=== PATIENT | female | born 1950 | race Caucasian/White ===

== ENCOUNTER → 2019-08-15 10:40 | Outpatient (BNVA) | payer MEDICARE, MEDICAID, SELFPAY | PROVIDERS: Family Provider Nurse Practitioner Family; PCP Nurse Practitioner Family; Visit Provider Social Worker Clinical | DX: F43.12 Post-traumatic stress disorder, chronic (principal) | CPT/HCPCS: 90834; H0004 ==

== ENCOUNTER → 2019-08-21 13:11 | Outpatient (BNVA) | payer MEDICARE, MEDICAID, SELFPAY | PROVIDERS: Family Provider Nurse Practitioner Family; PCP Nurse Practitioner Family; Visit Provider Social Worker Clinical | DX: F43.12 Post-traumatic stress disorder, chronic (principal) | CPT/HCPCS: 90834 ==

== ENCOUNTER → 2019-08-29 10:54 | Outpatient (BNVA) | payer MEDICARE, MEDICAID, SELFPAY | PROVIDERS: Family Provider Nurse Practitioner Family; PCP Nurse Practitioner Family; Visit Provider Social Worker Clinical | DX: F43.12 Post-traumatic stress disorder, chronic (principal); F33.2 Major depressive disorder, recurrent severe without psychotic features | CPT/HCPCS: 90791; 80048; 84443 ==

== ENCOUNTER → 2019-09-04 08:01 | Outpatient (BNVA) | payer MEDICARE, MEDICAID, SELFPAY | PROVIDERS: Family Provider Nurse Practitioner Family; PCP Nurse Practitioner Family; Visit Provider Nurse Practitioner | DX: F33.2 Major depressive disorder, recurrent severe without psychotic features (principal); F43.12 Post-traumatic stress disorder, chronic | CPT/HCPCS: 99214 ==

== ENCOUNTER → 2019-09-12 10:28 | Outpatient (BNVA) | payer MEDICARE, MEDICAID, SELFPAY | PROVIDERS: Family Provider Nurse Practitioner Family; PCP Nurse Practitioner Family; Visit Provider Social Worker Clinical | DX: F43.12 Post-traumatic stress disorder, chronic (principal) | CPT/HCPCS: 90834 ==

== ENCOUNTER → 2019-09-19 10:38 | Outpatient (BNVA) | payer MEDICARE, MEDICAID, SELFPAY | PROVIDERS: Family Provider Nurse Practitioner Family; PCP Nurse Practitioner Family; Visit Provider Social Worker Clinical | DX: F33.2 Major depressive disorder, recurrent severe without psychotic features (principal); F43.12 Post-traumatic stress disorder, chronic | CPT/HCPCS: 90834 ==

== ENCOUNTER → 2019-09-26 07:37 | Outpatient (BNVA) | payer MEDICARE, MEDICAID, SELFPAY | PROVIDERS: Family Provider Nurse Practitioner Family; PCP Nurse Practitioner Family; Visit Provider Social Worker Clinical | DX: F43.12 Post-traumatic stress disorder, chronic (principal); F33.2 Major depressive disorder, recurrent severe without psychotic features | CPT/HCPCS: 90834 ==

== ENCOUNTER → 2019-10-03 11:24 | Outpatient (BNVA) | payer MEDICARE, MEDICAID, SELFPAY | PROVIDERS: Family Provider Nurse Practitioner Family; PCP Nurse Practitioner Family; Visit Provider Nurse Practitioner Family | DX: I10 Essential (primary) hypertension (principal); R73.09 Other abnormal glucose | CPT/HCPCS: 83036 ==

== ENCOUNTER → 2019-10-04 13:15 | Outpatient (BNVA) | payer MEDICARE, MEDICAID, SELFPAY | PROVIDERS: Family Provider Nurse Practitioner Family; PCP Nurse Practitioner Family; Visit Provider Social Worker Clinical | DX: F43.12 Post-traumatic stress disorder, chronic (principal) | CPT/HCPCS: 90834 ==

== ENCOUNTER → 2019-10-11 07:57 | Outpatient (BNVA) | payer MEDICARE, MEDICAID, SELFPAY | PROVIDERS: Family Provider Nurse Practitioner Family; PCP Nurse Practitioner Family; Visit Provider Social Worker Clinical | DX: F43.12 Post-traumatic stress disorder, chronic (principal); F33.2 Major depressive disorder, recurrent severe without psychotic features | CPT/HCPCS: 90834 ==

== ENCOUNTER → 2019-10-18 07:43 | Outpatient (BNVA) | payer MEDICARE, MEDICAID, SELFPAY | PROVIDERS: Family Provider Nurse Practitioner Family; PCP Nurse Practitioner Family; Visit Provider Social Worker Clinical | DX: F43.12 Post-traumatic stress disorder, chronic (principal); F33.2 Major depressive disorder, recurrent severe without psychotic features | CPT/HCPCS: 90834 ==

== ENCOUNTER 2019-10-18 10:09 | Emergency (ER) | payer MEDICARE, SELFPAY ==
[2019-10-18 10:17] VITALS: BP 186/99; PULSE 89; RESP 17; TEMP 36.6; O2SAT 94; BMI 43.8
--- NOTE | 2019-10-18 10:19 | ED_ITS ---
Entered by Natali Chandler, acting as scribe for Omero Gaming MD HPI - Seizure General: Chief Complaint: Seizure Stated Complaint: doesn't feel well after seizure Time Seen by Provider: 10/18/19 10:20 Source: patient and family Mode of arrival: ambulatory Limitations: no limitations History of Present Illness: HPI Narrative: 69 yo female presents with having a seizure. pt states this started last night. pt states she had a headache before the seizure. pt has a hx of pseudo seizures. pt states she has had weakness. pt denies any other symptoms at this time. complaint: seizure Onset (ago): day(s) (last night) Witnessed: Yes - by Other Seizure History: Yes Place: Home Possible Precipitating Event: none Associated symptoms: Reports weakness and other (headache); Deny chest pain, chills or fever(s) Treatments prior to arrival: none Review of Systems General: Reports: 10 or more systems reviewed and unremarkable except in HPI and below Const: Denies: fever, chills, body aches or change in appetite Eyes: Denies: blurry vision or eye discomfort ENMT: Denies: throat pain or dental pain Card: Denies: chest pain Resp: Denies: shortness of breath GI: Denies: abdominal pain, nausea, vomiting or diarrhea : Denies: painful urination Musc: Denies: neck pain or back pain Skin/Breast: Denies: rash Psych: Denies: depression Francis/Lymph: Denies: easy bruising All/Imm: Denies: hives PFSH ED PFSH: Social History Smoking and tobacco status: never smoked Second hand smoke exposure: No Smoking risk assessment/counseling performed?: No Alcohol intake: never Desire information about alcohol rehabilitation?: No Counseling given: No Desire information about substance/drug rehabilitation?: No Counseling given: No Adopted: No Caregiver/support person: No Lives independently: Yes Household members: spouse Marital status: Current gender identity: Female Physical Exam Const: COMMON NORMALS: no apparent distress, oriented x3 and healthy appearing HENMT: COMMON NORMALS: normocephalic and head/scalp atraumatic HEAD & SCALP: normocephalic and atraumatic Eye: COMMON NORMALS: PERRL and EOMs intact bilaterally PUPIL: Yes PERRL Neck/C-Spine: COMMON NORMALS: full ROM and supple Chest: COMMONS NORMALS: inspection of chest normal and palpation of chest normal Resp: COMMON NORMALS: normal respiratory effort, no retractions, no use of accessory muscles and clear to auscultation bilaterally AUSCULTATION: clear to auscultation bilaterally Cardio: COMMON NORMALS: regular rate, regular rhythm and no murmurs RATE: regular rate RHYTHM: regular rhythm GI: COMMON NORMALS: normal to inspection, nondistended, normoactive bowel sounds, soft to palpation, non-tender and no masses PALPATION: Yes soft Extremity: COMMON NORMALS: normal to inspection and full ROM Neuro: COMMON NORMALS: oriented x3, moves all extremities and no focal motor deficits Psych: COMMON NORMALS: mental status grossly normal, thought process normal and cooperative THOUGHT PROCESS: normal thought process Skin: COMMON NORMALS: no rashes or lesions noted and no wounds GENERAL SKIN EXAM: no rashes or lesions noted Course Vital Signs: Vital signs: Vital Signs Temperature 97.8 F 10/18/19 10:17 Pulse Rate 89 10/18/19 10:17 Respiratory Rate 16 10/18/19 10:28 Blood Pressure 186/99 10/18/19 10:17 Pulse Oximetry 94 10/18/19 10:17 MDM - Seizure MDM Narrative: Medical decision making narrative: Patient presents here with seizure that happened last night. Patient does have a history of seizures but had not had one in quite a while. Patient's head CT here is negative and lab work is negative as well. Patient is stable for discharge and is to follow-up with primary care doctor in 3 to 5 days and return if worsening. Lab Data: Labs: Lab Results 10/18/19 10/18/19 Range/Units 10:33 10:33 WBC 7.3 (4.0-10.0) 10^3/ uL RBC 5.34 H (4.1-5.3) 10^6/u L Hgb 13.7 (11.5-15.3) g/dL Hct 43.6 (37.0-47.0) % MCV 81.6 (81-99) fL MCH 25.7 L (28.0-34.0) pg MCHC 31.4 (30.0-36.0) g/dL RDW 13.1 (12.1-15.1) % Plt Count 249 (130-400) 10^3/c mm MPV 10.0 (7.4-10.4) fL Neut % (Auto) 69.9 % Lymph % (Auto) 22.2 % Toombs % (Auto) 4.8 % Eos % (Auto) 2.2 % Baso % (Auto) 0.6 % Neut # (Auto) 5.1 (1.8-7.7) 10^3/u L Lymph # (Auto) 1.6 (0.8-4.8) 10^3/u L Toombs # (Auto) 0.4 (0.2-0.9) 10^3/u L Eos # (Auto) 0.2 (0.0-0.8) 10^3/u L Baso # (Auto) 0.0 (0.0-0.1) 10^3/u L Nucleated RBC % (a uto) 0 % Nucleated RBCs # 0.0 /100WBC Sodium 142 (136-145) mmol/L Potassium 4.0 (3.5-5.1) mmol/L Chloride 103 (98-107) mmol/L Carbon Dioxide 30 H (22-29) mmol/L Anion Gap 13.0 (5-19) BUN 15 (8-23) mg/dL Creatinine 1.0 H (0.5-0.9) mg/dL GFR Calculation 55.3 L (90-130) mL/min Glucose 158 H (65-115) mg/dL Calculated Osmolal ity 294 (285-295) mOsm/k g Calcium 10.1 (8.5-10.5) mg/dL Imaging Data^: CT Head: Radiologist's impression: [place] [address] CT Scan Report Signed Patient: Adilene Freedman Unit #: [id number] : 1950 Age/Sex: 69 / F ADM Date: 10/18/19 Loc: ER Room/Bed: Attending Dr: Ordering Provider/Ordering MD: Omero Gaming MD Date of Service: 10/18/19 Procedure(s): CT head wo con* [id number] Accession Number(s): [id number] Report Number: [id number] PROCEDURE INFORMATION: Exam: CT Head Without Contrast Exam date and time: 10/18/2019 11:00 AM Age: 69 years old Clinical indication: Patient HX: Seizure activity today. C/O dizziness TECHNIQUE: Imaging protocol: Computed tomography of the head without contrast. Total DLP: 823.82 mGy-cm Radiation optimization: All CT scans at this facility use at least one of these dose optimization techniques: automated exposure control; mA and/or kV adjustment per patient size (includes targeted exams where dose is matched to clinical indication); or iterative reconstruction. COMPARISON: CT head wo con* [id number] 07/29/2013 12:01 PM FINDINGS: Brain: There is no acute intracranial hemorrhage or mass effect. Mild diffuse volume loss is within the range of normal for patient age. There are small vessel ischemic changes within the periventricular and subcortical white matter, but the normal dennis/white matter delineation is maintained. Ventricles: Normal. No ventriculomegaly. Bones/joints: Unremarkable. No acute fracture. Sinuses: Visualized sinuses are unremarkable. No fluid levels. Mastoid air cells: Visualized mastoid air cells are well aerated. Soft tissues: Unremarkable. CT/CT head wo con* [id number] IMPRESSION: No acute hemorrhage or edema. Discharge Plan Discharge Patient Disposition: Home, Self-Care Clinical Impression: Generalized seizure Condition: Stable Prescriptions: No Action valsartan-hydrochlorothiazide 160-12.5 mg tablet 1 tab PO DAILY RF: 0 spironolactone 25 mg tablet 25 mg PO DAILY RF: 0 aspirin 81 mg tablet,delayed release (DR/EC) 81 mg PO DAILY RF: 0 albuterol sulfate 90 mcg/actuation HFA aerosol inhaler 2 puff INHALATION Q6H PRNRF: 0 metoprolol tartrate 25 mg tablet 25 mg PO BID RF: 0 zafirlukast [Accolate] 20 mg tablet 20 mg PO Q12H RF: 0 albuterol sulfate [ProAir HFA] 90 mcg/actuation HFA aerosol inhaler 2 puff INHALATION Q6H PRNRF: 0 duloxetine [Cymbalta] 60 mg capsule,delayed release(DR/EC) 60 mg PO BID Qty: 60 RF: 1 escitalopram oxalate [Lexapro] 20 mg tablet 20 mg PO DAILY Qty: 30 RF: 1 trazodone 150 mg tablet 300 mg PO .at bed Qty: 60 RF: 1 ropinirole 1 mg tablet 1 mg PO BID Qty: 60 RF: 1 hydroxyzine HCl 50 mg tablet 50 mg PO .at bed Qty: 30 RF: 1 prazosin 1 mg capsule 1 mg PO .HS Qty: 30 RF: 1 trazodone 150 mg tablet See Rx Instructions PO .COMPLEX PRN (Reason: sleep) RF: 0 albuterol sulfate 0.63 mg/3 mL solution for nebulization 0.63 mg INHALATION QID PRN (Reason: shortness of breath or wheezing) Qty: 90 RF: 1 meloxicam 15 mg tablet 15 mg PO DAILY Qty: 30 RF: 1 esomeprazole magnesium [Nexium] 40 mg capsule,delayed release(DR/EC) 40 mg PO DAILY Qty: 90 RF: 0 amlodipine 10 mg tablet 10 mg PO DAILY Qty: 90 RF: 0 levothyroxine 150 mcg capsule 150 mcg PO DAILY Qty: 90 RF: 0 potassium chloride 20 mEq tablet extended release 20 meq PO TID Qty: 270 RF: 0 furosemide 40 mg tablet 40 mg PO BID Qty: 180 RF: 0 Discharge Orders: Discharge Order (Routine); Ordered 10/18/19 Ordered By: Omero Gaming Referrals: Zoraida Arzola FNP [Primary Care Provider] - Discharge Diet: Advance as tolerated Discharge Activity: Resume usual activity Patient Instructions: Recurrent Seizures Adult (ED) Coding Level of Care Code ED Certified Surgical Technician for Chg Fwd Exam Comprehensive The documentation recorded by the Ramesh chu Bridget Annette, accurately reflects the service I personally performed and the decisions made by Amberly francois Korby, MD
[2019-10-18 10:26] VITALS: RESP 16
--- NOTE | 2019-10-18 10:26 | CTR_ITS ---
PROCEDURE INFORMATION: Exam: CT Head Without Contrast Exam date and time: 10/18/2019 11:00 AM Age: 69 years old Clinical indication: Patient HX: Seizure activity today. C/O dizziness TECHNIQUE: Imaging protocol: Computed tomography of the head without contrast. Total DLP: 823.82 mGy-cm Radiation optimization: All CT scans at this facility use at least one of these dose optimization techniques: automated exposure control; mA and/or kV adjustment per patient size (includes targeted exams where dose is matched to clinical indication); or iterative reconstruction. COMPARISON: CT head wo con* [id number] 07/29/2013 12:01 PM FINDINGS: Brain: There is no acute intracranial hemorrhage or mass effect. Mild diffuse volume loss is within the range of normal for patient age. There are small vessel ischemic changes within the periventricular and subcortical white matter, but the normal dennis/white matter delineation is maintained. Ventricles: Normal. No ventriculomegaly. Bones/joints: Unremarkable. No acute fracture. Sinuses: Visualized sinuses are unremarkable. No fluid levels. Mastoid air cells: Visualized mastoid air cells are well aerated. Soft tissues: Unremarkable. CT/CT head wo con* [id number] IMPRESSION: No acute hemorrhage or edema. Radiation Dose CTDIVOL = (mGy): DLP = 823.82 (mGy-cm)
[2019-10-18 10:28] VITALS: RESP 16
[2019-10-18] MEDS: diphenhydrAMINE 50 mg/mL SDV 1mL 25 MG IVP (10:39)
[2019-10-18] MEDS: sodium chloride 0.9% 1,000 ML 999 ML IV (10:39)
[2019-10-18] MEDS: metoclopramide 5 mg/mL SDV 2 mL IVP (10:39)
[2019-10-18 10:46] LABS: Basophils % 0.6 %; Eosinophils # 0.2 10^3/uL (0.0-0.8); Eosinophils % 2.2 %; Hematocrit 43.6 % (37.0-47.0); Hemoglobin 13.7 g/dL (11.5-15.3); Lymphocytes # 1.6 10^3/uL (0.8-4.8); Lymphocytes % 22.2 %; Mean Corpuscular HGB Conc 31.4 g/dL (30.0-36.0); Mean Corpuscular Hemoglobin 25.7 pg (28.0-34.0); Mean Corpuscular Volume 81.6 fL (81-99); Monocytes # 0.4 10^3/uL (0.2-0.9); Monocytes % 4.8 %; Neutrophils # 5.1 10^3/uL (1.8-7.7); Neutrophils % 69.9 %; Nucleated Red Blood Cells % 0 %; Platelet Count 249 10^3/cmm (130-400); Red Blood Count 5.34 10^6/uL (4.1-5.3); Red Cell Distribution Width 13.1 % (12.1-15.1); White Blood Count 7.3 10^3/uL (4.0-10.0)
[2019-10-18 11:01] LABS: Blood Urea Nitrogen 15 mg/dL (8-23); Calcium 10.1 mg/dL (8.5-10.5); Carbon Dioxide 30 mmol/L (22-29); Chloride 103 mmol/L (98-107); Glomerular Filtration Rate 55.3 mL/min (90-130); Glucose 158 mg/dL (65-115); Osmolality Calculated 294 mOsm/kg (285-295); Sodium 142 mmol/L (136-145)
[2019-10-18 12:19] VITALS: BP 177/90; PULSE 61; RESP 16; O2SAT 95
== END 2019-10-18 12:19 | disposition home or self-care (01) ==
LOC: ER 12:13
PROVIDERS: Emergency Provider Emergency Medicine; Family Provider Nurse Practitioner Family; PCP Nurse Practitioner Family
DX: G40.409 Other generalized epilepsy and epileptic syndromes, not intractable, without status epilepticus (principal)
CPT/HCPCS: 12345; 70450; 80048; 85025; 96361; 96374; 96375; 99283; J1200; J2765; J7030

== ENCOUNTER → 2019-10-22 07:36 | Outpatient (BNVA) | payer MEDICARE, MEDICAID, SELFPAY | PROVIDERS: Family Provider Nurse Practitioner Family; PCP Nurse Practitioner Family; Visit Provider Nurse Practitioner | DX: F43.12 Post-traumatic stress disorder, chronic (principal); F33.2 Major depressive disorder, recurrent severe without psychotic features | CPT/HCPCS: 99213 ==

== ENCOUNTER → 2019-10-25 08:15 | Outpatient (BNVA) | payer MEDICARE, MEDICAID, SELFPAY | PROVIDERS: Family Provider Nurse Practitioner Family; PCP Nurse Practitioner Family; Visit Provider Social Worker Clinical | DX: F43.12 Post-traumatic stress disorder, chronic (principal) | CPT/HCPCS: 90832 ==

== ENCOUNTER → 2019-11-06 09:17 | Outpatient (BNVA) | payer MEDICARE, MEDICAID, SELFPAY | PROVIDERS: Family Provider Nurse Practitioner Family; PCP Nurse Practitioner Family; Visit Provider Social Worker Clinical | DX: F43.12 Post-traumatic stress disorder, chronic (principal); F33.2 Major depressive disorder, recurrent severe without psychotic features | CPT/HCPCS: 90832; 90834 ==

== ENCOUNTER → 2019-11-16 07:46 | Outpatient (BNVA) | payer MEDICARE, MEDICAID, SELFPAY | PROVIDERS: Family Provider Nurse Practitioner Family; PCP Nurse Practitioner Family; Visit Provider Social Worker Clinical | DX: F33.2 Major depressive disorder, recurrent severe without psychotic features (principal); F43.12 Post-traumatic stress disorder, chronic | CPT/HCPCS: 90832 ==

== ENCOUNTER → 2019-12-17 07:47 | Outpatient (BNVA) | payer MEDICARE, MEDICAID, SELFPAY | PROVIDERS: Family Provider Nurse Practitioner Family; PCP Nurse Practitioner Family; Visit Provider Nurse Practitioner | DX: F43.12 Post-traumatic stress disorder, chronic (principal); F33.2 Major depressive disorder, recurrent severe without psychotic features | CPT/HCPCS: 99213 ==

== ENCOUNTER → 2019-12-18 08:13 | Outpatient (BNVA) | payer MEDICARE, MEDICAID, SELFPAY | PROVIDERS: Family Provider Nurse Practitioner Family; PCP Nurse Practitioner Family; Visit Provider Social Worker Clinical | DX: F43.12 Post-traumatic stress disorder, chronic (principal); F33.2 Major depressive disorder, recurrent severe without psychotic features | CPT/HCPCS: 90832 ==

== ENCOUNTER → 2019-12-25 08:15 | Outpatient (BNVA) | payer MEDICARE, MEDICAID, SELFPAY | PROVIDERS: Family Provider Nurse Practitioner Family; PCP Nurse Practitioner Family; Visit Provider Social Worker Clinical | DX: F33.2 Major depressive disorder, recurrent severe without psychotic features (principal); F43.12 Post-traumatic stress disorder, chronic | CPT/HCPCS: 90834 ==

== ENCOUNTER → 2020-01-01 07:55 | Outpatient (BNVA) | payer MEDICARE, MEDICAID, SELFPAY | PROVIDERS: Family Provider Nurse Practitioner Family; PCP Nurse Practitioner Family; Visit Provider Social Worker Clinical | DX: F43.12 Post-traumatic stress disorder, chronic (principal); F33.2 Major depressive disorder, recurrent severe without psychotic features | CPT/HCPCS: 90832 ==

== ENCOUNTER → 2020-01-10 10:36 | Outpatient (BNVA) | payer MEDICARE, MEDICAID, SELFPAY | PROVIDERS: Family Provider Nurse Practitioner Family; PCP Nurse Practitioner Family; Visit Provider Specialist | DX: G40.909 Epilepsy, unspecified, not intractable, without status epilepticus (principal); F43.12 Post-traumatic stress disorder, chronic; F33.2 Major depressive disorder, recurrent severe without psychotic features; M19.90 Unspecified osteoarthritis, unspecified site | CPT/HCPCS: 99204 ==

== ENCOUNTER → 2020-01-14 07:50 | Outpatient (BNVA) | payer MEDICARE, MEDICAID, SELFPAY | PROVIDERS: Family Provider Nurse Practitioner Family; PCP Nurse Practitioner Family; Visit Provider Social Worker Clinical | DX: F43.12 Post-traumatic stress disorder, chronic (principal); F33.2 Major depressive disorder, recurrent severe without psychotic features | CPT/HCPCS: 90834 ==

== ENCOUNTER → 2020-01-15 09:56 | Outpatient (BNVA) | payer MEDICARE, MEDICAID, SELFPAY | PROVIDERS: Family Provider Nurse Practitioner Family; PCP Nurse Practitioner Family; Visit Provider Nurse Practitioner Family | DX: M25.50 Pain in unspecified joint (principal); R53.83 Other fatigue; Z79.899 Other long term (current) drug therapy; E03.9 Hypothyroidism, unspecified; M19.90 Unspecified osteoarthritis, unspecified site | CPT/HCPCS: 80053; 84443; 85025; 85651; 86038; 86431 ==

== ENCOUNTER 2020-01-21 07:13 | Outpatient (CLI) | payer MEDICARE, MEDICAID, SELFPAY ==
--- NOTE | 2020-01-21 07:19 | XR_ITS ---
WS: [id number] RIGHT KNEE: 3 VIEW(S) TECHNIQUE: AP, oblique(s) and lateral. HISTORY: knee pain COMPARISON: 12/20/2016 No fracture or dislocation. Moderate narrowing of the medial compartment. Subchondral cystic changes with joint space narrowing. Medial and lateral osteophytes. Small suprapatellar joint effusion. No soft tissue abnormality. XR/XR knee RT 3V* [id number] IMPRESSION: 1. Moderate osteoarthritis medial compartment with mild progression since 2017 . 2. Mild osteoarthritis lateral compartment.
== END 2020-01-21 07:14 | disposition home or self-care (01) ==
LOC: RAD 07:16
PROVIDERS: PCP Nurse Practitioner Family; Visit Provider Nurse Practitioner Family
DX: F43.12 Post-traumatic stress disorder, chronic (principal); F33.2 Major depressive disorder, recurrent severe without psychotic features
CPT/HCPCS: 90834; 73562

== ENCOUNTER → 2020-01-28 07:52 | Outpatient (BNVA) | payer MEDICARE, MEDICAID, SELFPAY | PROVIDERS: PCP Nurse Practitioner Family; Visit Provider Social Worker Clinical | DX: F43.12 Post-traumatic stress disorder, chronic (principal); F33.2 Major depressive disorder, recurrent severe without psychotic features | CPT/HCPCS: 90834; 95816 ==

== ENCOUNTER → 2020-02-04 07:54 | Outpatient (BNVA) | payer MEDICARE, MEDICAID, SELFPAY | PROVIDERS: PCP Nurse Practitioner Family; Visit Provider Social Worker Clinical | DX: F43.12 Post-traumatic stress disorder, chronic (principal); F33.2 Major depressive disorder, recurrent severe without psychotic features | CPT/HCPCS: 90834 ==

== ENCOUNTER → 2020-02-05 07:42 | Outpatient (BNVA) | payer MEDICARE, MEDICAID, SELFPAY | PROVIDERS: PCP Nurse Practitioner Family; Visit Provider Nurse Practitioner | DX: F43.12 Post-traumatic stress disorder, chronic (principal); F33.2 Major depressive disorder, recurrent severe without psychotic features; F41.1 Generalized anxiety disorder | CPT/HCPCS: 99213 ==

== ENCOUNTER 2020-02-08 14:28 | Outpatient (CLI) | payer MEDICARE, MEDICAID, SELFPAY ==
--- NOTE | 2020-02-08 16:00 | MR_ITS ---
WS: [id number] MRI RIGHT KNEE HISTORY: M25.569 Pain in unspecified knee COMPARISON: 01/21/2020 radiographs Anterior cruciate ligament: Mild increased signal in the distal ligament. There is mild encroachment due to narrowing of the joint space. Partial tear suspected. No full-thickness tear. Posterior cruciate ligament: Intact. Medial collateral ligament: Small amount of fluid on both sides of the medial collateral ligament. Posterior lateral corner structures: Intact. Medial menisci: Posterior horn is small caliber with abnormal shape. Partially extruded anterior horn . Lateral meniscus: Intact. Normal signal, size and shape. Extensor mechanism: Distal quadriceps tendon and patellar tendons are intact. Fluid and soft tissue: Small suprapatellar joint effusion. There is mild soft tissue edema surroundin g the knee. Moderate-sized Villasenor's cyst extends over a length of 7.2 cm. Osseous and articular structures: Patellofemoral compartment: Mild narrowing of the patellofemoral joint space with loss of cartilage. Complete loss of cartilage. No marrow edema. Medial compartment: Marked narrowing medial compartment with loss of cartilage. Osteophytes from the margin of the joint space with subchondral cystic changes. Partially excluded meniscus and osteophyte s contact the MCL. Lateral compartment: Moderate narrowing of the lateral compartment with loss of cartilage. No marrow edema. MR/MR knee RT wo con* [id number] IMPRESSION: 1. Moderate tricompartment internal derangement. 2. Complete loss of cartilage in the medial and lateral compartments. 3. Extruded medial meniscus and osteophytes contact the MCL. 4. Partially torn distal ACL is suspected. No complete tear. 5. Complex tear posterior horn medial meniscus. 6. Small suprapatellar effusion and moderate-sized Villasenor's cyst.
== END 2020-02-08 14:29 | disposition home or self-care (01) ==
LOC: RADSHAW 14:34
PROVIDERS: PCP Nurse Practitioner Family; Visit Provider Nurse Practitioner Family
DX: G89.29 Other chronic pain (principal); S83.241A Other tear of medial meniscus, current injury, right knee, initial encounter; X58.XXXA Exposure to other specified factors, initial encounter; M25.461 Effusion, right knee; M71.21 Synovial cyst of popliteal space [Baker], right knee
CPT/HCPCS: 73721

== ENCOUNTER → 2020-02-12 08:29 | Outpatient (BNVA) | payer MEDICARE, MEDICAID, SELFPAY | PROVIDERS: PCP Nurse Practitioner Family; Visit Provider Social Worker Clinical | DX: F33.2 Major depressive disorder, recurrent severe without psychotic features (principal); F43.12 Post-traumatic stress disorder, chronic | CPT/HCPCS: 90834 ==

== ENCOUNTER → 2020-02-25 07:53 | Outpatient (BNVA) | payer MEDICARE, MEDICAID, SELFPAY | PROVIDERS: PCP Nurse Practitioner Family; Visit Provider Social Worker Clinical | DX: F33.2 Major depressive disorder, recurrent severe without psychotic features (principal); F43.12 Post-traumatic stress disorder, chronic | CPT/HCPCS: 90834 ==

== ENCOUNTER → 2020-02-27 09:28 | Outpatient (BNVA) | payer MEDICARE, MEDICAID, SELFPAY | PROVIDERS: PCP Nurse Practitioner Family; Visit Provider Nurse Practitioner Family | DX: R73.09 Other abnormal glucose (principal); J32.9 Chronic sinusitis, unspecified; R73.9 Hyperglycemia, unspecified | CPT/HCPCS: 83036 ==

== ENCOUNTER → 2020-03-05 08:13 | Outpatient (BNVA) | payer MEDICARE, MEDICAID, SELFPAY | PROVIDERS: PCP Nurse Practitioner Family; Visit Provider Social Worker Clinical | DX: F33.2 Major depressive disorder, recurrent severe without psychotic features (principal); F43.12 Post-traumatic stress disorder, chronic | CPT/HCPCS: 90832 ==

== ENCOUNTER → 2020-03-11 08:28 | Outpatient (BNVA) | payer MEDICARE, MEDICAID, SELFPAY | PROVIDERS: PCP Nurse Practitioner Family; Visit Provider Social Worker Clinical | DX: F33.2 Major depressive disorder, recurrent severe without psychotic features (principal); F43.12 Post-traumatic stress disorder, chronic | CPT/HCPCS: 90834 ==

== ENCOUNTER → 2020-03-17 09:10 | Outpatient (BNVA) | payer MEDICARE, MEDICAID, SELFPAY | PROVIDERS: PCP Nurse Practitioner Family; Visit Provider Social Worker Clinical | DX: F43.12 Post-traumatic stress disorder, chronic (principal); F33.2 Major depressive disorder, recurrent severe without psychotic features | CPT/HCPCS: 90834 ==

== ENCOUNTER → 2020-03-20 09:40 | Outpatient (BNVA) | payer MEDICARE, MEDICAID, SELFPAY | PROVIDERS: PCP Nurse Practitioner Family; Visit Provider Nurse Practitioner Family | DX: I50.9 Heart failure, unspecified (principal); M79.89 Other specified soft tissue disorders | CPT/HCPCS: 80048; 83880 ==

== ENCOUNTER → 2020-03-25 08:45 | Outpatient (BNVA) | payer MEDICARE, MEDICAID, SELFPAY | PROVIDERS: PCP Nurse Practitioner Family; Visit Provider Social Worker Clinical | DX: F33.2 Major depressive disorder, recurrent severe without psychotic features (principal); F43.12 Post-traumatic stress disorder, chronic | CPT/HCPCS: 90832 ==

== ENCOUNTER → 2020-04-01 08:35 | Outpatient (BNVA) | payer MEDICARE, MEDICAID, SELFPAY | PROVIDERS: PCP Nurse Practitioner Family; Visit Provider Social Worker Clinical | DX: F43.12 Post-traumatic stress disorder, chronic (principal); F33.2 Major depressive disorder, recurrent severe without psychotic features | CPT/HCPCS: 90832 ==

== ENCOUNTER → 2020-04-04 07:35 | Outpatient (BNVA) | payer MEDICARE, MEDICAID, SELFPAY | PROVIDERS: PCP Nurse Practitioner Family; Visit Provider Nurse Practitioner | DX: F33.2 Major depressive disorder, recurrent severe without psychotic features (principal); F43.12 Post-traumatic stress disorder, chronic | CPT/HCPCS: 99213 ==

== ENCOUNTER → 2020-04-09 09:12 | Outpatient (BNVA) | payer MEDICARE, MEDICAID, SELFPAY | PROVIDERS: PCP Nurse Practitioner Family; Visit Provider Social Worker Clinical | DX: F33.2 Major depressive disorder, recurrent severe without psychotic features (principal); F43.12 Post-traumatic stress disorder, chronic | CPT/HCPCS: 90832 ==

== ENCOUNTER → 2020-04-11 08:57 | Outpatient (BNVA) | payer MEDICARE, MEDICAID, SELFPAY | PROVIDERS: PCP Nurse Practitioner Family; Visit Provider Internal Medicine | DX: Z11.59 Encounter for screening for other viral diseases (principal) | CPT/HCPCS: 87635 ==

== ENCOUNTER 2020-04-15 08:05 | Day surgery (SDC) | payer MEDICARE, MEDICAID, SELFPAY ==
[2020-04-11 12:39] VITALS: BMI 43.8
[2020-04-15] MEDS: sodium chloride 0.9% 1,000 ML 30 ML IV (08:46)
[2020-04-15 08:47] VITALS: BP 176/70; PULSE 55; RESP 18; TEMP 36.3; O2SAT 99
--- NOTE | 2020-04-15 09:08 | ANES.PREANE2 ---
Pre-Anesthetic Assessment Pre-Anesthetic Assessment: Height/Weight: Height 1.7 m Weight 127.006 kg Temp Pulse Resp BP Pulse Ox 97.4 F L 55 L 18 176/70 99 04/15/20 08:47 04/15/20 08:47 04/15/20 08:47 04/15/20 08:47 04/15/20 08:47 Preop Diagnosis: Dysphagia Proposed Procedure: Operation Date: 04/15/20 09:30 Proposed Procedures p EGD Dilation W/ Balloon 34274 R13.10(Not Applicable) - Heath Selby MD Familial anesthetic complications: NOne Was Beta Kelly taken within 24 hours: Yes Last intake: Intake Last Liquid Date 04/14/20 Last Liquid Time 22:00 Last Solid Date 04/14/20 Social: Social History: No alcohol and No tobacco Exam: Pre-Anes Outpt Exam: alert, oriented x 3, clear to auscultation bilaterally and regular rate & rhythm Airway: Cervical ROM: WNL MP: 3 Dentition: Full Pulmonary: Pulmonary: COPD and Sleep apnea CV/HEM: CV/HEM: CHF and HTN Metabolic: Metabolic: DM, Morbid obesity and Thyroid Neuropsych: Neuropsych: Depression and Seizure Anesthetic Plan: ASA status: 3 Anesthesia: MAC Risk of > 500 ml blood loss (7ml/kg in children): No Meds/Allergies Current Medications: Current Medications Generic Name Dose Route Start Last Admin Trade Name Freq PRN Reason Stop Dose Admin Sodium Chloride 1,000 mls @ 30 ml s/hr 04/15/20 07:30 04/15/20 08:46 Sodium Chloride 0.9% IV 04/16/20 07:29 30 mls/hr .Q24H JOSE Administration PFSH Anesthesia PFSH: Medical History Acute torn meniscus of knee Congestive heart failure Depression HTN (hypertension), benign Hypothyroidism Major depressive disorder, recurrent severe without psychotic features Osteoarthritis Osteoarthritis of right knee Post-traumatic stress disorder, chronic Surgical History H/O colonoscopy 5 yrs ago H/O tubal ligation H/O: hysterectomy History of knee replacement History of repair of rotator cuff right Hx of tonsillectomy Family History Other CAD (coronary artery disease) Cancer Chronic kidney disease (CKD) Diabetes Hypertension Denies family history of Anesthesia complication Bleeding disorder Stroke Social History Smoking and tobacco status: never smoked Second hand smoke exposure: No Smoking risk assessment/counseling performed?: No Alcohol intake: never Desire information about alcohol rehabilitation?: No Counseling given: No Desire information about substance/drug rehabilitation?: No Counseling given: No Adopted: No Caregiver/support person: No Lives independently: Yes Household members: spouse Marital status: History of recent travel: Yes (travels from [facility]) Current gender identity: Female Data Anesthesia Cardiac Studies: No Data to Display
--- NOTE | 2020-04-15 09:14 | W.PM.OPSUD ---
Surgery/Procedure H&P Update DATE OF PROCEDURE: April 15, 2020 DATE H&P PERFORMED: 04/01/20 H&P UPDATE INFORMATION: I have reviewed H&P completed within last 30 days, I have examined patient prior to procedure and No changes to prior documentation PREOP DIAGNOSIS: Dysphagia PLANNED PROCEDURE: Operation Date: 04/15/20 09:30 Proposed Procedures p EGD Dilation W/ Balloon 90625 R13.10(Not Applicable) - Heath Selby MD
--- NOTE | 2020-04-15 10:27 | SUR.OPER ---
balloon dilation used, started at 10mm and slowly increased to 15mm.
[2020-04-15 10:36] VITALS: BP 160/96; PULSE 72; RESP 20; TEMP 36.2; O2SAT 97
--- NOTE | 2020-04-15 10:39 | ANE.PACU2 ---
Inpatient post-anesthesia follow up: Airway intact: Yes Vital signs: Temperature 97.2 F Pulse Rate 72 Respiratory Rate 20 Blood Pressure 160/96 Pulse Oximetry 97 Oxygen Delivery Me thod Nasal Cannula Oxygen Flow Rate 2 Fraction of Inspir ed Oxygen Hydration adequate: Yes Nausea and vomiting: No Pain level: 1
--- NOTE | 2020-04-15 13:26 | ECG_ITS ---
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 Measurements Intervals Christopher Rate: 57 P: 88 OK: 179 QRS: -4 QRSD: 105 T: 20 QT: 451 QTc: 439 Interpretive Statements SINUS BRADYCARDIA VOLTAGE CRITERIA FOR LVH [MEETS CRITERIA IN ONE OF: R(aVL), S(V1), R(V5), R(V5/V6)+S(V1)] Compared to ECG 08/10/2018 11:11:43 Sinus rhythm no longer present Electronically Signed On 04-15-2020 14:57:22 CDT by Jenna Monahan M.D. [email or web address]
== END 2020-04-15 11:18 | disposition home or self-care (01) ==
PROVIDERS: PCP Nurse Practitioner Family; Visit Provider Surgery
DX: R13.10 Dysphagia, unspecified (principal); K29.70 Gastritis, unspecified, without bleeding; J44.9 Chronic obstructive pulmonary disease, unspecified; G47.30 Sleep apnea, unspecified; I11.0 Hypertensive heart disease with heart failure; I50.9 Heart failure, unspecified; E11.9 Type 2 diabetes mellitus without complications; E66.01 Morbid (severe) obesity due to excess calories; Z68.41 Body mass index [BMI] 40.0-44.9, adult; E03.9 Hypothyroidism, unspecified; K21.9 Gastro-esophageal reflux disease without esophagitis; Z79.84 Long term (current) use of oral hypoglycemic drugs; Z88.2 Allergy status to sulfonamides; Z88.0 Allergy status to penicillin
CPT/HCPCS: 12345; 43239; 43249; 88305; 93005; J2704; J7030

== ENCOUNTER → 2020-04-16 08:29 | Outpatient (BNVA) | payer MEDICARE, MEDICAID, SELFPAY | PROVIDERS: PCP Nurse Practitioner Family; Visit Provider Social Worker Clinical | DX: F43.12 Post-traumatic stress disorder, chronic (principal); F33.2 Major depressive disorder, recurrent severe without psychotic features | CPT/HCPCS: 90832 ==

== ENCOUNTER → 2020-04-21 12:18 | Outpatient (BNVA) | payer MEDICARE, MEDICAID, SELFPAY | PROVIDERS: PCP Nurse Practitioner Family; Visit Provider Specialist | DX: F44.5 Conversion disorder with seizures or convulsions (principal); G43.711 Chronic migraine without aura, intractable, with status migrainosus; M17.12 Unilateral primary osteoarthritis, left knee | CPT/HCPCS: 99214 ==

== ENCOUNTER → 2020-04-23 08:41 | Outpatient (BNVA) | payer MEDICARE, MEDICAID, SELFPAY | PROVIDERS: PCP Nurse Practitioner Family; Visit Provider Social Worker Clinical | DX: F33.2 Major depressive disorder, recurrent severe without psychotic features (principal); F43.12 Post-traumatic stress disorder, chronic | CPT/HCPCS: 90832 ==

== ENCOUNTER → 2020-04-24 11:31 | Outpatient (BNVA) | payer MEDICARE, MEDICAID, SELFPAY | PROVIDERS: PCP Nurse Practitioner Family; Visit Provider Nurse Practitioner Family | DX: R05 Cough (principal) | CPT/HCPCS: 87635 ==

== ENCOUNTER → 2020-04-28 08:16 | Outpatient (BNVA) | payer MEDICARE, SELFPAY | PROVIDERS: PCP Nurse Practitioner Family; Visit Provider Social Worker Clinical | DX: F33.2 Major depressive disorder, recurrent severe without psychotic features (principal); F43.12 Post-traumatic stress disorder, chronic | CPT/HCPCS: 90832 ==

== ENCOUNTER → 2020-05-06 08:31 | Outpatient (BNVA) | payer MEDICARE, MEDICAID, SELFPAY | PROVIDERS: PCP Nurse Practitioner Family; Visit Provider Social Worker Clinical | DX: R20.0 Anesthesia of skin (principal); R20.2 Paresthesia of skin; M79.604 Pain in right leg; M79.605 Pain in left leg; M17.12 Unilateral primary osteoarthritis, left knee | CPT/HCPCS: 95909 ==

== ENCOUNTER → 2020-05-13 08:04 | Outpatient (BNVA) | payer MEDICARE, MEDICAID, SELFPAY | PROVIDERS: PCP Nurse Practitioner Family; Visit Provider Social Worker Clinical | DX: F33.2 Major depressive disorder, recurrent severe without psychotic features (principal); F43.12 Post-traumatic stress disorder, chronic | CPT/HCPCS: 90832 ==

== ENCOUNTER → 2020-05-20 08:09 | Outpatient (BNVA) | payer MEDICARE, MEDICAID, SELFPAY | PROVIDERS: Visit Provider Social Worker Clinical | DX: F33.2 Major depressive disorder, recurrent severe without psychotic features (principal); F43.12 Post-traumatic stress disorder, chronic | CPT/HCPCS: 90832 ==

== ENCOUNTER → 2020-05-30 07:42 | Outpatient (BNVA) | payer MEDICARE, MEDICAID, SELFPAY | PROVIDERS: Visit Provider Social Worker Clinical | DX: F43.12 Post-traumatic stress disorder, chronic (principal); F33.2 Major depressive disorder, recurrent severe without psychotic features | CPT/HCPCS: 90834 ==

== ENCOUNTER → 2020-06-11 08:23 | Outpatient (BNVA) | payer MEDICARE, MEDICAID, SELFPAY | PROVIDERS: Visit Provider Social Worker Clinical | DX: F43.12 Post-traumatic stress disorder, chronic (principal); F33.2 Major depressive disorder, recurrent severe without psychotic features | CPT/HCPCS: 90832 ==

== ENCOUNTER → 2020-06-19 08:24 | Outpatient (BNVA) | payer MEDICARE, MEDICAID, SELFPAY | PROVIDERS: Visit Provider Social Worker Clinical | DX: F33.2 Major depressive disorder, recurrent severe without psychotic features (principal); F43.12 Post-traumatic stress disorder, chronic | CPT/HCPCS: 90834 ==

== ENCOUNTER → 2020-07-07 08:22 | Outpatient (BNVA) | payer MEDICARE, MEDICAID, SELFPAY | PROVIDERS: PCP Nurse Practitioner Family; Visit Provider Social Worker Clinical | DX: F33.2 Major depressive disorder, recurrent severe without psychotic features (principal); F43.12 Post-traumatic stress disorder, chronic | CPT/HCPCS: 90832 ==

== ENCOUNTER → 2020-07-09 07:29 | Outpatient (BNVA) | payer MEDICARE, MEDICAID, SELFPAY | PROVIDERS: PCP Nurse Practitioner Family; Visit Provider Nurse Practitioner | DX: F43.12 Post-traumatic stress disorder, chronic (principal); F33.2 Major depressive disorder, recurrent severe without psychotic features | CPT/HCPCS: 99213 ==

== ENCOUNTER → 2020-07-16 08:20 | Outpatient (BNVA) | payer MEDICARE, MEDICAID, SELFPAY | PROVIDERS: Visit Provider Social Worker Clinical | DX: F43.12 Post-traumatic stress disorder, chronic (principal); F33.2 Major depressive disorder, recurrent severe without psychotic features | CPT/HCPCS: 90832 ==

== ENCOUNTER → 2020-07-31 07:49 | Outpatient (BNVA) | payer MEDICARE, MEDICAID, SELFPAY | PROVIDERS: Visit Provider Social Worker Clinical | DX: F33.2 Major depressive disorder, recurrent severe without psychotic features (principal); F43.12 Post-traumatic stress disorder, chronic | CPT/HCPCS: 90834 ==

== ENCOUNTER → 2020-08-07 08:25 | Outpatient (BNVA) | payer MEDICARE, MEDICAID, SELFPAY | PROVIDERS: PCP Nurse Practitioner Family; Visit Provider Social Worker Clinical | DX: F43.12 Post-traumatic stress disorder, chronic (principal); F33.2 Major depressive disorder, recurrent severe without psychotic features | CPT/HCPCS: 90832 ==

== ENCOUNTER → 2020-08-21 08:12 | Outpatient (BNVA) | payer MEDICARE, MEDICAID, SELFPAY | PROVIDERS: PCP Nurse Practitioner Family; Visit Provider Social Worker Clinical | DX: F33.2 Major depressive disorder, recurrent severe without psychotic features (principal); F43.12 Post-traumatic stress disorder, chronic | CPT/HCPCS: 90832 ==

== ENCOUNTER 2020-08-26 14:01 | Outpatient (CLI) | payer MEDICARE, MEDICAID, SELFPAY ==
--- NOTE | 2020-08-26 14:15 | US_ITS ---
WS: [id number] INDICATION: Localized enlarged lymph nodes TECHNIQUE: Ultrasound soft tissue right neck FINDINGS: Ultrasound soft tissue area of concern right neck. A few normal-appearing lymph nodes in th e right submandibular area in the area of concern. Largest lymph node measures 1.3 x 1.0 x 0.5 cm. No rmal fatty hilum. No cystic or solid lesions. No suspicious findings. US/US soft tissue head neck [id number] IMPRESSION: Normal incidental lymph nodes in the area of concern. No suspicious findings.
== END 2020-08-26 14:02 | disposition home or self-care (01) ==
PROVIDERS: PCP Nurse Practitioner Family; Visit Provider Nurse Practitioner Family
DX: R59.0 Localized enlarged lymph nodes (principal)
CPT/HCPCS: 76536

== ENCOUNTER → 2020-08-28 08:24 | Outpatient (BNVA) | payer MEDICARE, MEDICAID, SELFPAY | PROVIDERS: PCP Nurse Practitioner Family; Visit Provider Social Worker Clinical | DX: F43.12 Post-traumatic stress disorder, chronic (principal); F33.2 Major depressive disorder, recurrent severe without psychotic features | CPT/HCPCS: 90832 ==

== ENCOUNTER → 2020-09-04 09:57 | Outpatient (BNVA) | payer MEDICARE, MEDICAID, SELFPAY | PROVIDERS: PCP Nurse Practitioner Family; Visit Provider Nurse Practitioner Family | DX: Z51.81 Encounter for therapeutic drug level monitoring (principal); E11.9 Type 2 diabetes mellitus without complications; E03.9 Hypothyroidism, unspecified | CPT/HCPCS: 80053; 83036; 84443 ==

== ENCOUNTER → 2020-09-05 07:40 | Outpatient (BNVA) | payer MEDICARE, MEDICAID, SELFPAY | PROVIDERS: PCP Nurse Practitioner Family; Visit Provider Social Worker Clinical | DX: F43.12 Post-traumatic stress disorder, chronic (principal); F33.2 Major depressive disorder, recurrent severe without psychotic features | CPT/HCPCS: 90832 ==

== ENCOUNTER → 2020-09-09 07:35 | Outpatient (BNVA) | payer MEDICARE, MEDICAID, SELFPAY | PROVIDERS: PCP Nurse Practitioner Family; Visit Provider Social Worker Clinical | DX: F43.12 Post-traumatic stress disorder, chronic (principal); F33.2 Major depressive disorder, recurrent severe without psychotic features | CPT/HCPCS: 90832 ==

== ENCOUNTER → 2020-09-19 07:42 | Outpatient (BNVA) | payer MEDICARE, MEDICAID, SELFPAY | PROVIDERS: PCP Nurse Practitioner Family; Visit Provider Social Worker Clinical | DX: F43.12 Post-traumatic stress disorder, chronic (principal); F33.2 Major depressive disorder, recurrent severe without psychotic features | CPT/HCPCS: 90832 ==

== ENCOUNTER → 2020-09-26 08:41 | Outpatient (BNVA) | payer MEDICARE, MEDICAID, SELFPAY | PROVIDERS: PCP Nurse Practitioner Family; Visit Provider Social Worker Clinical | DX: F43.12 Post-traumatic stress disorder, chronic (principal); F33.2 Major depressive disorder, recurrent severe without psychotic features | CPT/HCPCS: 90832 ==

== ENCOUNTER → 2020-10-01 07:41 | Outpatient (BNVA) | payer MEDICARE, MEDICAID, SELFPAY | PROVIDERS: PCP Nurse Practitioner Family; Visit Provider Nurse Practitioner | DX: F43.12 Post-traumatic stress disorder, chronic (principal); F33.2 Major depressive disorder, recurrent severe without psychotic features | CPT/HCPCS: 99214 ==

== ENCOUNTER → 2020-10-09 09:23 | Outpatient (BNVA) | payer MEDICARE, MEDICAID, SELFPAY | PROVIDERS: PCP Nurse Practitioner Family; Visit Provider Social Worker Clinical | DX: F43.12 Post-traumatic stress disorder, chronic (principal); F33.2 Major depressive disorder, recurrent severe without psychotic features | CPT/HCPCS: 90834 ==

== ENCOUNTER → 2020-10-16 08:43 | Outpatient (BNVA) | payer MEDICARE, MEDICAID, SELFPAY | PROVIDERS: PCP Nurse Practitioner Family; Visit Provider Social Worker Clinical | DX: F33.2 Major depressive disorder, recurrent severe without psychotic features (principal); F43.12 Post-traumatic stress disorder, chronic | CPT/HCPCS: 90834 ==

== ENCOUNTER → 2020-10-22 08:00 | Outpatient (BNVA) | payer MEDICARE, MEDICAID, SELFPAY | PROVIDERS: PCP Nurse Practitioner Family; Visit Provider Specialist | DX: M54.5 Low back pain (principal); M60.9 Myositis, unspecified; G62.9 Polyneuropathy, unspecified; R59.1 Generalized enlarged lymph nodes; R53.1 Weakness; G43.711 Chronic migraine without aura, intractable, with status migrainosus; E11.9 Type 2 diabetes mellitus without complications; Z79.84 Long term (current) use of oral hypoglycemic drugs | CPT/HCPCS: 99214 ==

== ENCOUNTER 2020-10-22 09:16 | Outpatient (CLI) | payer MEDICARE, MEDICAID, SELFPAY ==
[2020-10-22 10:08] LABS: Estmated Average Glucose 123; Hemoglobin A1C 5.9 % (4.0-6.0)
[2020-10-22 10:44] LABS: Erythrocyte Sedimentation Rate 20 mm/hr (0-15)
[2020-10-22 10:49] LABS: C Reactive Protein 12.8 mg/L (0.0-4.9); Creatine Phosphokinase 35 U/L (26-192); Vitamin B12 378 pg/mL (232-1245)
== END 2020-10-22 09:17 | disposition home or self-care (01) ==
LOC: LAB 09:20
PROVIDERS: PCP Nurse Practitioner Family; Visit Provider Specialist
DX: R59.1 Generalized enlarged lymph nodes (principal)
CPT/HCPCS: 36415; 82550; 82607; 83036; 84260; 85651; 86140

== ENCOUNTER → 2020-10-23 08:45 | Outpatient (BNVA) | payer MEDICARE, MEDICAID, SELFPAY | PROVIDERS: PCP Nurse Practitioner Family; Visit Provider Social Worker Clinical | DX: F33.2 Major depressive disorder, recurrent severe without psychotic features (principal); F43.12 Post-traumatic stress disorder, chronic | CPT/HCPCS: 90834 ==

== ENCOUNTER → 2020-10-24 10:41 | Outpatient (BNVA) | payer MEDICARE, MEDICAID, SELFPAY | PROVIDERS: PCP Nurse Practitioner Family; Visit Provider Nurse Practitioner Family | DX: R68.83 Chills (without fever) (principal); M54.9 Dorsalgia, unspecified; M54.5 Low back pain; N39.0 Urinary tract infection, site not specified | CPT/HCPCS: 81000 ==

== ENCOUNTER → 2020-10-29 10:44 | Outpatient (BNVA) | payer MEDICARE, MEDICAID, SELFPAY | PROVIDERS: PCP Nurse Practitioner Family; Visit Provider Nurse Practitioner | DX: F43.12 Post-traumatic stress disorder, chronic (principal); F33.2 Major depressive disorder, recurrent severe without psychotic features | CPT/HCPCS: 99214 ==

== ENCOUNTER 2020-10-30 06:00 | Outpatient (RCR) | payer MEDICARE, MEDICAID, SELFPAY | END 2020-11-28 23:59 | disposition home or self-care (01) | LOC: SPT 06:00 | PROVIDERS: PCP Nurse Practitioner Family; Referring Provider Specialist; Visit Provider Specialist | DX: R53.1 Weakness (principal) | CPT/HCPCS: 97110; 97163 ==

== ENCOUNTER → 2020-11-03 08:28 | Outpatient (BNVA) | payer MEDICARE, MEDICAID, SELFPAY | PROVIDERS: PCP Nurse Practitioner Family; Visit Provider Social Worker Clinical | DX: F43.12 Post-traumatic stress disorder, chronic (principal); F33.2 Major depressive disorder, recurrent severe without psychotic features | CPT/HCPCS: 90834 ==

== ENCOUNTER → 2020-11-10 08:36 | Outpatient (BNVA) | payer MEDICARE, MEDICAID, SELFPAY | PROVIDERS: PCP Nurse Practitioner Family; Visit Provider Social Worker Clinical | DX: F43.12 Post-traumatic stress disorder, chronic (principal); F33.2 Major depressive disorder, recurrent severe without psychotic features | CPT/HCPCS: 90832 ==

== ENCOUNTER → 2020-11-17 11:18 | Outpatient (BNVA) | payer MEDICARE, MEDICAID, SELFPAY | PROVIDERS: PCP Nurse Practitioner Family; Visit Provider Social Worker Clinical | DX: F43.12 Post-traumatic stress disorder, chronic (principal); F33.2 Major depressive disorder, recurrent severe without psychotic features | CPT/HCPCS: 90834 ==

== ENCOUNTER → 2020-11-25 07:46 | Outpatient (BNVA) | payer MEDICARE, MEDICAID, SELFPAY | PROVIDERS: PCP Nurse Practitioner Family; Visit Provider Nurse Practitioner | DX: F43.12 Post-traumatic stress disorder, chronic (principal); F33.2 Major depressive disorder, recurrent severe without psychotic features | CPT/HCPCS: 99214 ==

== ENCOUNTER → 2020-11-28 08:37 | Outpatient (BNVA) | payer MEDICARE, MEDICAID, SELFPAY | PROVIDERS: PCP Nurse Practitioner Family; Visit Provider Social Worker Clinical | DX: F33.2 Major depressive disorder, recurrent severe without psychotic features (principal); F43.12 Post-traumatic stress disorder, chronic | CPT/HCPCS: 90834 ==

== ENCOUNTER → 2020-12-10 09:00 | Outpatient (BNVA) | payer MEDICARE, MEDICAID, SELFPAY | PROVIDERS: PCP Nurse Practitioner Family; Visit Provider Social Worker Clinical | DX: F33.2 Major depressive disorder, recurrent severe without psychotic features (principal); F43.12 Post-traumatic stress disorder, chronic | CPT/HCPCS: 90834 ==

== ENCOUNTER 2020-12-16 08:40 | Outpatient (CLI) | payer MEDICARE, MEDICAID, SELFPAY ==
--- NOTE | 2020-12-16 09:23 | NMCV_ITS ---
NM buddy perf SPECT r/s* [id number] Adilene Freedman Age: 70 Gender: F : 1950 Exam Date: 12/16/2020 10:03 Ordering Phys: Dusty Tate MD ([email or web address]) Technologist: SANGEETHA Sellers Exam Location: [facility] Indications: SOB STRESS TEST Please [facility] IMAGE PROTOCOL Rest/Stress 1 Lexiscan Day Radiopharmaceutical Dose (mCi) Administration Site Administered by Rest: Tc-99m 10.8 IV SANGEETHA Beauchamp Sestamibi Stress:Tc-99m 32.5 IV SANGEETHA Beauchamp Sestamibi Rest: 16-Dec-2020 60 Discovery 630 Stress: 16-Dec-2020 30 Discovery 630 0.4mg Lexiscan. Images obtained in supine and prone position. SPECT RESULTS Technical Quality: Excellent Raw Data Analysis: Normal Image Corrections: No attenuation or motion correction applied Summed Stress Score: 2 Summed Rest Score: 2 Summed Difference Score: 1 PERFUSION FINDINGS Large area of moderate to severe reversibility noted in basal to distal anterior and anteroseptal wall suggestive of ischemia in the LAD territory. FUNCTIONAL RESULTS (calculated via Gated SPECT) Stress Image LV EF (%): 57 Stress EDV (mL):178 TID: 1.08 Stress ESV (mL):76 Rest Image LV EF (%): 57 FUNCTIONAL FINDINGS: Mid to distal anterior and anteroseptal wall hypokinesis IMPRESSIONS Large area of moderate to severe ischemia noted in the mid to distal anterior anteroseptal wall suggestive of possible lesion in the LAD territory. EKG segment will be documented separately. Dusty Tate MD (Electronically Signed) Final Date: 17 Dec 2020 17:48 S
--- NOTE | 2020-12-16 09:23 | ECG_ITS ---
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 The perfusion scan will be documented separately. DATA: Baseline heart rate was [55 beats per minute. Baseline blood pressure was 170/93 millimeters of mercury. Target heart rate was 152. Maximum heart rate achieved was 94. which was 61 % of the predicted target heart rate. Maximum blood pressure was 170/93 millimeters of mercury. The reason for ending the test was completion of the protocol. The patient did not experience any symptoms. ELECTROCARDIOGRAM: BASELINE: Sinus rhythm. Normal axis. Otherwise, no ST-T changes suggestive of ischemia noted. No arrhythmia noted. EXERCISE: After Lexiscan injection, no ST-T changes suggestive of ischemic noted. No arrhythmia noted. 1. EKG not suggestive of ischemia 2. Lexiscan injection unremarkable. 3. Perfusion scan will be documented separately. Electronically Signed On 12-16-2020 18:56:41 CDT by DUSTY TATE [id number]
[2020-12-16 09:30] VITALS: BMI 43.5
[2020-12-16] MEDS: regadenoson 0.4 Mg/5 ml Syringe IVP (10:38)
[2020-12-16 10:45] VITALS: BP 137/78; PULSE 74
== END 2020-12-16 08:41 | disposition home or self-care (01) ==
LOC: RAD 08:43 → CDL 09:25
PROVIDERS: PCP Nurse Practitioner Family; Visit Provider Internal Medicine Cardiovascular Disease
DX: R06.02 Shortness of breath (principal)
CPT/HCPCS: 78452; 93017; A9500; J2785

== ENCOUNTER → 2020-12-24 08:45 | Outpatient (BNVA) | payer MEDICARE, MEDICAID, SELFPAY | PROVIDERS: PCP Nurse Practitioner Family; Visit Provider Social Worker Clinical | DX: F33.2 Major depressive disorder, recurrent severe without psychotic features (principal); F43.12 Post-traumatic stress disorder, chronic | CPT/HCPCS: 90834 ==

== ENCOUNTER 2021-01-02 06:41 | Outpatient (CLI) | payer MEDICARE, MEDICAID, SELFPAY ==
--- NOTE | 2021-01-02 07:15 | USCV_ITS ---
Adilene Freedman Age: 70 Gender: F : 1950 Exam Date: 01/02/2021 07:04 Ordering Phys: Dusty Tate MD ([email or web address]) Technologist: Aura Coleman Exam Location: [facility] Indication: SOB BP: 143 / 85 HR: 67 Rhythm: Sinus Technical Quality: Technically difficult study MEASUREMENTS (Male / Female) Normal Values 2D ECHO LV Diastolic Diameter PLAX 5.5 cm 4.2 - 5.9 / 3.9 - 5.3 cm LV Systolic Diameter PLAX 3.5 cm IVS Diastolic Thickness 1.3 cm 0.6 - 1.0 / 0.6 - 0.9 cm IVS Systolic Thickness 1.7 cm LVPW Diastolic Thickness 1.5 cm 0.6 - 1.0 / 0.6 - 0.9 cm LVPW Systolic Thickness 2.6 cm LVOT Diameter 2.0 cm LV Ejection Fraction 2D Teich 65.0 % LV Ejection Fraction MOD 2C 70.2 % LV Ejection Fraction 2C AL 68.7 % LA Diameter 4.4 cm LA Width 3.4 cm LA Height 5.5 cm RA Width 3.7 cm RA Height 4.7 cm Aorta at Sinotubular Diameter 3.0 cm M-MODE Aortic Annulus Diameter 3.3 cm LA Ao Ratio MM 1.5 DOPPLER AV Peak Velocity 199.0 cm/s LVOT Peak Velocity 136.0 cm/s AV Area Cont Eq vti 2.1 cm squared AV Area Cont Eq pk 2.2 cm squared MV Peak Velocity 158.0 cm/s MV Area PHT 2.1 cm squared Mitral E to A Ratio 0.7 MV E' Velocity 52.0 cm/s Mitral E to MV E' Ratio 17.9 Mitral E to LV E' Lateral Ratio 19.7 Mitral E to LV E' Septal Ratio 16.4 TV Peak E Velocity 51.0 cm/s Right Atrial Pressure 3.0 mmHg PV Peak Velocity 113.0 cm/s RV Acceleration Time 0.1 s RV Ejection Time 0.3 s RV AcT/ET 0.4 FINDINGS Left Ventricle Normal left ventricular cavity size. Normal left ventricular systolic function. Left ventricular ejection fraction is estimated at 60 %. Grade I/IV diastolic dysfunction (abnormal relaxation filling pattern), normal to mildly elevated filling pressures. Right Ventricle The right ventricle is normal in size and function. Right Atrium The right atrium is normal in size. Left Atrium The left atrium is normal in size. Mitral Valve Severely thickened mitral valve. No mitral valve stenosis. Severe mitral annular calcification. Aortic Valve Moderate aortic valve calcification. Mild aortic valve stenosis, mean gradient 7.2 mmHg, RAJENDRA 2.1 cm squared.trace aortic valve regurgitation. Tricuspid Valve Structurally normal tricuspid valve without significant stenosis or regurgitation. Pulmonary artery systolic pressure is normal. Pulmonic Valve Structurally normal pulmonic valve without significant stenosis. There is no pulmonic regurgitation. Pericardium Normal pericardium without effusion. Aorta Normal ascending aorta dimension. CONCLUSIONS 1-Normal left ventricular cavity size. Normal left ventricular systolic function. Left ventricular ejection fraction is estimated at 60 %. Grade I/IV diastolic dysfunction (abnormal relaxation filling pattern), normal to mildly elevated filling pressures. 2-Moderate aortic valve calcification. Mild aortic valve stenosis, mean gradient 7.2 mmHg, RAJENDRA 2.1 cm squared.trace aortic valve regurgitation. 3-Structurally normal tricuspid valve without significant stenosis or regurgitation. Pulmonary artery systolic pressure is normal. 4-There is no pericardial effusion. 5-Right atrial pressure is around 5 mm of mercury. 6-There are no prior echocardiogram studies to compare. Dusty Tate MD (Electronically Signed) Final Date: 02 January 2021 19:55 S
== END 2021-01-02 06:42 | disposition home or self-care (01) ==
PROVIDERS: PCP Nurse Practitioner Family; Visit Provider Internal Medicine Cardiovascular Disease
DX: R06.02 Shortness of breath (principal); I50.9 Heart failure, unspecified; I35.0 Nonrheumatic aortic (valve) stenosis
CPT/HCPCS: 93306

== ENCOUNTER 2021-01-08 10:29 | Emergency (ER) | payer MEDICARE, MEDICAID, SELFPAY ==
[2021-01-08 10:30] VITALS: BP 186/113; PULSE 86; RESP 18; TEMP 36.8; O2SAT 95; BMI 43.5
--- NOTE | 2021-01-08 10:50 | ECG_ITS ---
[facility] Test Date: 2021-01-08 Pat Name: Adilene Freedman Department: Room: Gender: Female [employer]: : 1950 Requested By: Ming Hinton Order Number: [id number] Guadalupe MD: Alvin Wyatt M.D. Measurements Intervals [place] Rate: 75 P: 49 CA: 187 QRS: 73 QRSD: 103 T: 42 QT: 401 QTc: 449 Interpretive Statements SINUS RHYTHM Compared to ECG 04/15/2020 09:01:27 Sinus bradycardia no longer present Left ventricular hypertrophy no longer present Electronically Signed On 01-08-2021 17:03:12 CDT by Alvin Wyatt M.D. [email or web address] [email or web address]/OM/[id number]
--- NOTE | 2021-01-08 10:50 | W.ED.SEIZURE ---
HPI - Seizure General: Chief Complaint: Seizure Stated Complaint: pseudo seizures Time Seen by Provider: 01/08/21 10:41 History of Present Illness: HPI Narrative: This patient is a 70-year-old female who was brought to the emergency department which from upstairs waiting room in the surgical department. Reportedly the patient had concerns of her being in surgery and states she lost all control. Staff upstairs in the hospital stated look like the patient was having a seizure and brought the patient to the emergency department. Patient had no loss of consciousness no postictal symptoms. Patient was just shaking her arms and was able to get up under her own power removed from wheelchair to bed. 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 And followed by her PCP and Dr. Frazier. Patient does have a history of posttraumatic stress disorder and major depression issues. Will do medical screening exam and evaluate and treat further as needed. Patient is awake and alert and oriented and at does not appear to have any significant deficits. MD complaint: possible seizure Seizure History: Yes Associated symptoms: Deny chest pain, chills or fever(s) Review of Systems General: Reports: 10 or more systems reviewed and unremarkable except in HPI and below Const: Denies: fever(s), chills, body aches or fatigue Eyes: Denies: change in vision or blurry vision ENMT: Denies: throat pain, hoarseness or mouth pain Card: Denies: chest pain, palpitations, irregular heart rhythm, edema, swelling of feet/ankles or lightheadedness Resp: Denies: dyspnea, productive cough, non-productive cough, wheezing or pain on inspiration GI: Denies: abdominal pain, nausea or vomiting : Denies: flank pain, difficulty voiding, dysuria, urinary frequency, urinary urgency or urinary hesitancy Musc: Denies: neck pain, back pain, extremity pain, extremity swelling, joint pain, joint swelling, joint redness, joint warmth or limited range of motion Skin/Breast: Denies: rash, pruritus, erythema or skin tenderness Neuro: Denies: headache(s), numbness in extremities or weakness in extremities Psych: Reports: anxiety, panic attacks and other (History of pseudoseizures per patient); Denies: depression PFSH ED PFSH: Medical History Acute torn meniscus of knee CHF (congestive heart failure) Congestive heart failure Depression HTN (hypertension), benign Hypothyroidism Major depressive disorder, recurrent severe without psychotic features Osteoarthritis Osteoarthritis of right knee Post-traumatic stress disorder, chronic Surgical History H/O colonoscopy 5 yrs ago H/O esophagogastroduodenoscopy (04/15/20) H/O tubal ligation H/O: hysterectomy History of knee replacement History of repair of rotator cuff right Hx of tonsillectomy Family History Other CAD (coronary artery disease) Cancer Chronic kidney disease (CKD) Diabetes Hypertension Denies family history of Anesthesia complication Bleeding disorder Stroke Social History Smoking and tobacco status: never smoked Second hand smoke exposure: No Smoking risk assessment/counseling performed?: No Alcohol intake: never Desire information about alcohol rehabilitation?: No Counseling given: No Desire information about substance/drug rehabilitation?: No Counseling given: No Adopted: No Caregiver/support person: No Lives independently: Yes Household members: spouse Marital status: History of recent travel: No (travels from [facility]) Current gender identity: Female Physical Exam Const: COMMON NORMALS: no acute distress, average body habitus, patient oriented x3, no limitations, healthy appearing, alert and well nourished HENMT: COMMON NORMALS: normocephalic, atraumatic, hearing grossly normal bilaterally, external ears normal, EAC's normal, TM's normal bilaterally, Normal external nose present, Normal nasal mucous membranes and turbinates present, moist oral mucous membranes, oropharynx normal, dentition normal and gingiva normal HEAD & SCALP: normocephalic and atraumatic NOSE: Normal external nose present and Normal nasal mucous membranes and turbinates present EXTERNAL EAR: Yes external ears normal EXTERNAL AUDITORY CANAL: EAC's normal TYMPANIC MEMBRANE: TM's normal bilaterally Neck/C-Spine: COMMON NORMALS: full ROM, no lymphadenopathy, supple, no meningeal signs, no JVD, Thyroid normal and No carotid bruits THYROID: Thyroid normal Chest: COMMONS NORMALS: normal inspection of the chest, normal palpation of entire chest wall, normal inspection of the breasts and normal palpation of the breasts Breast/axilla inspection: Yes normal inspection of the breasts BREAST/AXILLA PALPATION: Yes normal palpation of the breasts Resp: COMMON NORMALS: normal respiratory effort, No retractions, No use of accessory muscles, clear to auscultation bilaterally and percussion normal AUSCULTATION: clear to auscultation bilaterally PERCUSSION: percussion normal Cardio: COMMON NORMALS: no JVD, regular rate, regular rhythm, S1 normal heart sound present, S2 normal heart sound present, No gallops present (Cardio), No clicks present (Cardio), No murmurs present (Cardio), No rub (Cardio) and Peripheral pulses 2+ throughout RATE: regular rate RHYTHM: regular rhythm HEART SOUNDS: S1 normal heart sound present and S2 normal heart sound present PERIPHERAL PULSES: Peripheral pulses 2+ throughout GI: COMMON NORMALS: Normal to inspection, nondistended, normoactive bowel sounds present, Soft to palpation, non-tender, No hepatosplenomegaly present, no masses and no bruits PALPATION: Yes Soft to palpation and Yes No hepatosplenomegaly present Back/Pelvis: COMMON NORMALS: thoracic and lumbar spine normal to inspection, no thoracic nor lumbar tenderness, thoraco-lumbar ROM normal and straight leg raise negative bilaterally Extremity: COMMON NORMALS: normal to inspection, full ROM, capillary refill normal, no joint enlargement, no clubbing, cyanosis or edema, no calf tenderness and no pedal edema Neuro: COMMON NORMALS: patient oriented x3 SENSORIUM/ORIENTATION: Yes alert MENINGEAL SIGNS: Yes no meningeal signs Course Reevaluation(s): Reevaluation #1: Negative evaluation in the emergency room for any acute findings. Patient has a long history of pseudoseizures and states is much. Patient had no postictal symptoms. Patient be discharged home she should follow-up with primary care physician for any adjustment of any home meds. Time: 12:44 Vital Signs: Vital signs: Vital Signs Temperature 98.2 F 01/08/21 10:30 Pulse Rate 81 01/08/21 11:23 Respiratory Rate 22 H 01/08/21 11:23 Blood Pressure 183/97 01/08/21 11:23 Pulse Oximetry 93 01/08/21 11:23 MDM - Seizure MDM Narrative: Medical decision making narrative: Negative evaluation in the emergency room for any acute findings. Patient has a long history of pseudoseizures and states is much. Patient had no postictal symptoms. Patient be discharged home she should follow-up with primary care physician for any adjustment of any home meds. Lab Data: Labs: Lab Results 01/08/21 01/08/21 01/08/21 Range/Units 11:10 11:10 12:09 WBC 7.7 (4.0-10.0) 10^3/ uL RBC 4.43 (4.1-5.3) 10^6/u L Hgb 12.0 (11.5-15.3) g/dL Hct 36.2 L (37.0-47.0) % MCV 81.7 (81-99) fL MCH 27.1 L (28.0-34.0) pg MCHC 33.1 (30.0-36.0) g/dL RDW 12.9 (12.1-15.1) % Plt Count 242 (130-400) 10^3/c mm MPV 9.6 (7.4-10.4) fL Neut % (Auto) 72.7 % Lymph % (Auto) 18.9 % Gilliam % (Auto) 5.8 % Eos % (Auto) 1.6 % Baso % (Auto) 0.4 % Neut # (Auto) 5.60 (1.8-7.7) 10^3/u L Lymph # (Auto) 1.5 (0.8-4.8) 10^3/u L Gilliam # (Auto) 0.5 (0.2-0.9) 10^3/u L Eos # (Auto) 0.1 (0.0-0.8) 10^3/u L Baso # (Auto) 0.0 (0.0-0.1) 10^3/u L Nucleated RBC % (a uto) 0 % Nucleated RBCs # 0.0 /100WBC Sodium 141 (136-145) mmol/L Potassium 3.7 (3.5-5.1) mmol/L Chloride 103 (98-107) mmol/L Carbon Dioxide 27 (22-29) mmol/L Anion Gap 14.7 (5-19) BUN 14 (8-23) mg/dL Creatinine 1.0 H (0.5-0.9) mg/dL GFR Calculation 55.1 L (90-130) mL/min Glucose 92 (65-115) mg/dL Calculated Osmolal ity 292 (285-295) mOsm/k g Calcium 9.3 (8.5-10.5) mg/dL Total Bilirubin 0.4 (0.15-1.2) mg/dL AST 11 (0-32) U/L ALT 10 (0-33) U/L Alkaline Phosphata se 83 (35-105) IU/L Total Protein 7.0 (6.6-8.7) g/dL Albumin 4.1 (3.5-5.2) g/dL Globulin 2.9 (1.3-4.6) g/dL Urine Color (Yellow) Urine Appearance (CLEAR) Urine pH (5-7) Ur Specific Gravit y (1.005-1.030) Urine Protein (Negative) Urine Glucose (UA) (Normal) Urine Ketones (Negative) Urine Blood (Negative) Urine Nitrate (Negative) Urine Bilirubin (Negative) Urine Urobilinogen (Negative) mg/dL Ur Leukocyte Rochelle ase (Negative) Urine RBC (0-2) /hpf Urine WBC (0-5) /hpf Ur Squamous Epith Cells (0-5) /hpf Amorphous Sediment Urine Bacteria (NONE) /hpf Urine Mucus /hpf Urine Opiates Scre en Negative (Negative) ng/mL Ur Barbiturates Sc reen Negative (Negative) ng/mL Ur Phencyclidine S crn Negative (Negative) ng/mL Ur Amphetamines Sc reen Negative (Negative) ng/mL U Benzodiazepines Scrn Negative (Negative) ng/mL Urine Cocaine Scre en Negative (Negative) ng/mL U Marijuana (THC) Screen Negative (Negative) ng/mL Ethyl Alcohol < 10 (0-10) mg/dL 01/08/21 Range/Units 12:09 WBC (4.0-10.0) 10^3/ uL RBC (4.1-5.3) 10^6/u L Hgb (11.5-15.3) g/dL Hct (37.0-47.0) % MCV (81-99) fL MCH (28.0-34.0) pg MCHC (30.0-36.0) g/dL RDW (12.1-15.1) % Plt Count (130-400) 10^3/c mm MPV (7.4-10.4) fL Neut % (Auto) % Lymph % (Auto) % Gilliam % (Auto) % Eos % (Auto) % Baso % (Auto) % Neut # (Auto) (1.8-7.7) 10^3/u L Lymph # (Auto) (0.8-4.8) 10^3/u L Gilliam # (Auto) (0.2-0.9) 10^3/u L Eos # (Auto) (0.0-0.8) 10^3/u L Baso # (Auto) (0.0-0.1) 10^3/u L Nucleated RBC % (a uto) % Nucleated RBCs # /100WBC Sodium (136-145) mmol/L Potassium (3.5-5.1) mmol/L Chloride (98-107) mmol/L Carbon Dioxide (22-29) mmol/L Anion Gap (5-19) BUN (8-23) mg/dL Creatinine (0.5-0.9) mg/dL GFR Calculation (90-130) mL/min Glucose (65-115) mg/dL Calculated Osmolal ity (285-295) mOsm/k g Calcium (8.5-10.5) mg/dL Total Bilirubin (0.15-1.2) mg/dL AST (0-32) U/L ALT (0-33) U/L Alkaline Phosphata se (35-105) IU/L Total Protein (6.6-8.7) g/dL Albumin (3.5-5.2) g/dL Globulin (1.3-4.6) g/dL Urine Color Straw (Yellow) Urine Appearance Clear (CLEAR) Urine pH 6 (5-7) Ur Specific Gravit y 1.005 (1.005-1.030) Urine Protein Neg (Negative) Urine Glucose (UA) Norm (Normal) Urine Ketones Negative (Negative) Urine Blood Neg (Negative) Urine Nitrate Negative (Negative) Urine Bilirubin Neg (Negative) Urine Urobilinogen Norm (Negative) mg/dL Ur Leukocyte Rochelle ase 1+ H (Negative) Urine RBC None (0-2) /hpf Urine WBC 0-4 H (0-5) /hpf Ur Squamous Epith Cells 0-4 H (0-5) /hpf Amorphous Sediment Not Reportable Urine Bacteria Trace (NONE) /hpf Urine Mucus Trace /hpf Urine Opiates Scre en (Negative) ng/mL Ur Barbiturates Sc reen (Negative) ng/mL Ur Phencyclidine S crn (Negative) ng/mL Ur Amphetamines Sc reen (Negative) ng/mL U Benzodiazepines Scrn (Negative) ng/mL Urine Cocaine Scre en (Negative) ng/mL U Marijuana (THC) Screen (Negative) ng/mL Ethyl Alcohol (0-10) mg/dL EKG Data^: EKG 1: Attestation: I personally reviewed and interpreted this EKG as follows: EKG interpretation date: 01/08/21 EKG interpretation time: 11:03 Prior EKG tracings: available for review Interpretation: Normal sinus rhythm heart rate 75 normal EKG Discharge Plan Discharge Patient Disposition: Home Clinical Impression: Pseudoseizure, Post-traumatic stress disorder, chronic Condition: Stable Prescriptions: No Action aspirin 81 mg tablet,delayed release (DR/EC) 81 mg PO DAILY@0700 RF: 0 albuterol sulfate [ProAir HFA] 90 mcg/actuation HFA aerosol inhaler 2 puff INHALATION Q6H PRN (Reason: Shortness Of Breath) RF: 0 albuterol sulfate 0.63 mg/3 mL solution for nebulization 0.63 mg INHALATION QID PRN (Reason: shortness of breath or wheezing) Qty: 90 RF: 1 ibuprofen 200 mg capsule 200 mg PO Q6H PRN (Reason: Pain) RF: 0 acetaminophen 500 mg capsule 500 mg PO QID PRN (Reason: Pain) RF: 0 spironolactone 50 mg tablet 50 mg PO DAILY@0700 RF: 0 nitroglycerin [Nitrostat] 0.4 mg tablet, sublingual 0.4 mg sublingual Q5M PRN (Reason: chest pain) Qty: 25 RF: 3 (DME) blood-glucose meter [Blood Glucose Monitoring] Kit See Rx Instructions .ROUTE .MEDSUPPLY Qty: 1 RF: 0 (DME) Blood Glucose Test Strip See Rx Instructions .ROUTE .MEDSUPPLY Qty: 100 RF: 0 (DME) lancets [Accu-Chek Softclix Lancets] Misc See Rx Instructions .ROUTE .MEDSUPPLY Qty: 100 RF: 0 clonazepam 0.5 mg tablet 0.5 mg PO DAILY PRN (Reason: anxiety) Qty: 30 RF: 0 diphenhydramine HCl [Benadryl] 25 mg capsule 50 mg PO ONCE Qty: 2 RF: 0 cyclobenzaprine 10 mg tablet 10 mg PO TID PRN (Reason: muscle spasms) RF: 0 furosemide 40 mg tablet 40 mg PO DAILY@0700 RF: 0 metformin 500 mg tablet 500 mg PO DAILY@0700 RF: 0 ropinirole 1 mg tablet 1 mg PO BID@0700,2099 RF: 0 prazosin 1 mg capsule 1 mg PO BEDTIME@2099 RF: 0 meloxicam 15 mg tablet 15 mg PO DAILY@0700 RF: 0 isosorbide mononitrate 30 mg tablet extended release 24 hr 15 mg PO BID@0700,2099 RF: 0 hydroxyzine HCl 50 mg tablet 50 mg PO BEDTIME@2099 RF: 0 trazodone 150 mg tablet 300 mg PO BEDTIME@2099 RF: 0 esomeprazole magnesium 40 mg capsule,delayed release(DR/EC) 40 mg PO DAILY@0700 RF: 0 Euthyrox 150 mcg tablet 150 mcg PO DAILY@0630 RF: 0 Lexapro 20 mg tablet 20 mg PO DAILY@0700 RF: 0 Cymbalta 60 mg capsule,delayed release(DR/EC) 60 mg PO BID@0700,2099 RF: 0 valsartan-hydrochlorothiazide 320-12.5 mg tablet 1 tab PO DAILY@0700 RF: 0 potassium chloride 20 mEq tablet extended release 20 meq PO TID@,, RF: 0 Discharge Orders: Discharge ED (Routine); Ordered 01/08/21 Ordered By: Ming Hinton Referrals: Zoraida Arzola FNP [Primary Care Provider] - Discharge Diet: Advance as tolerated Discharge Activity: Resume usual activity Patient Instructions: Opioid Safety Activity Restrictions/Additional Instructions: Patient be discharged home she should follow-up with primary care physician for any adjustment of any home meds. Coding Level of Care Code ED Invoice Coder for July Fwramu Exam Comprehensive
[2021-01-08 11:18] LABS: Basophils % 0.4 %; Eosinophils # 0.1 10^3/uL (0.0-0.8); Eosinophils % 1.6 %; Hematocrit 36.2 % (37.0-47.0); Lymphocytes # 1.5 10^3/uL (0.8-4.8); Lymphocytes % 18.9 %; Mean Corpuscular HGB Conc 33.1 g/dL (30.0-36.0); Mean Corpuscular Hemoglobin 27.1 pg (28.0-34.0); Mean Corpuscular Volume 81.7 fL (81-99); Mean Platelet Volume 9.6 fL (7.4-10.4); Monocytes # 0.5 10^3/uL (0.2-0.9); Monocytes % 5.8 %; Neutrophils % 72.7 %; Nucleated Red Blood Cells % 0 %; Platelet Count 242 10^3/cmm (130-400); Red Blood Count 4.43 10^6/uL (4.1-5.3); Red Cell Distribution Width 12.9 % (12.1-15.1); White Blood Count 7.7 10^3/uL (4.0-10.0)
[2021-01-08 11:23] VITALS: BP 183/97; PULSE 81; RESP 22; O2SAT 93
[2021-01-08 11:36] LABS: Alanine Aminotransferase 10 U/L (0-33); Albumin Level 4.1 g/dL (3.5-5.2); Alkaline Phosphatase 83 IU/L (35-105); Anion Gap 14.7 (5-19); Aspartate Amino Transferase 11 U/L (0-32); Blood Urea Nitrogen 14 mg/dL (8-23); Calcium 9.3 mg/dL (8.5-10.5); Carbon Dioxide 27 mmol/L (22-29); Chloride 103 mmol/L (98-107); Globulin 2.9 g/dL (1.3-4.6); Glomerular Filtration Rate 55.1 mL/min (90-130); Glucose 92 mg/dL (65-115); Osmolality Calculated 292 mOsm/kg (285-295); Potassium 3.7 mmol/L (3.5-5.1); Sodium 141 mmol/L (136-145); Total Bilirubin 0.4 mg/dL (0.15-1.2)
[2021-01-08 11:37] LABS: Alcohol Level < 10 mg/dL (0-10)
[2021-01-08 12:34] LABS: Add Urine Microscopic? YES; Bilirubin Urine Neg (Negative); Blood Urine Neg (Negative); Glucose Urine UA Norm (Normal); Ketones Urine Negative (Negative); Leukocyte Esterase Urine 1+ (Negative); Nitrate Urine Negative (Negative); Protein Urine Neg (Negative); Specific Gravity, Urine 1.005 (1.005-1.030); Urine Appearance Clear (CLEAR); Urine Color Straw (Yellow); Urobilinogen Urine Norm (Negative); pH Urine 6 (5-7)
[2021-01-08 12:35] LABS: Bacteria Urine TRACE /hpf; Mucus Urine TRACE /hpf; Squamous Epithelial Cell Urine 0-4 /hpf (0-5); WBC Urine 0-4 /hpf (0-5)
[2021-01-08 12:37] LABS: Amphetamines Screen Urine Negative (Negative); Barbiturates Screen Urine Negative (Negative); Benzodiazepines Screen Urine Negative (Negative); Cocaine Screen Urine Negative (Negative); Opiate Screen Urine Negative (Negative); PCP Screen Urine Negative (Negative); THC Screen Urine Negative (Negative)
[2021-01-08 13:23] VITALS: BP 168/88; PULSE 88; RESP 18; O2SAT 99
[2021-01-08 13:40] VITALS: BP 168/88; PULSE 88; RESP 18; O2SAT 99
== END 2021-01-08 13:41 | disposition home or self-care (01) ==
PROVIDERS: Emergency Provider Emergency Medicine; PCP Nurse Practitioner Family
DX: G40.802 Other epilepsy, not intractable, without status epilepticus (principal); F43.12 Post-traumatic stress disorder, chronic; Z79.82 Long term (current) use of aspirin; Z79.84 Long term (current) use of oral hypoglycemic drugs; I11.0 Hypertensive heart disease with heart failure; I50.9 Heart failure, unspecified
CPT/HCPCS: 36415; 80053; 80306; 80307; 81001; 85025; 93005; 99283

== ENCOUNTER → 2021-01-12 10:15 | Outpatient (BNVA) | payer MEDICARE, MEDICAID, SELFPAY | PROVIDERS: PCP Nurse Practitioner Family; Visit Provider Nurse Practitioner Family | DX: R94.39 Abnormal result of other cardiovascular function study (principal); R07.2 Precordial pain; I50.32 Chronic diastolic (congestive) heart failure; F44.5 Conversion disorder with seizures or convulsions | CPT/HCPCS: 80048; 85025; 85610; 87635 ==

== ENCOUNTER 2021-01-20 06:10 | Day surgery (SDC) | payer MEDICARE, MEDICAID, SELFPAY ==
[2021-01-20] VITALS (15 sets, daily range): BP systolic 166–205; BP diastolic 91–139; PULSE 64–97; RESP 14–23; TEMP 36.9; O2SAT 90–96; BMI 46.5
--- NOTE | 2021-01-20 06:00 | XACV_ITS ---
Ht: 170 cm Wt: 135 kg BSA: 2.60 m2 Gender: Female : 1950 Any Known Allergies: Other Exam Priority: Routine Procedure(s): Procedure Description: Diagnostic procedure Procedure Description: Coronary Angiography Diagnostic Cath Status: Elective Diagnostic Findings * No disease noted in the Left Main, Left Anterior Descending, Right, or Circumflex coronary arteries. * Coronary angiography shows right dominance. Conclusions 1. No disease noted in the Left Main, Left Anterior Descending, Right, or Circumflex coronary arteries. Recommendations * Continue current medical management and risk factor modification. Pressures Phase:Rest AO : 152 / 100 ( 127 ) @ 7:58:00 AM 163 / 48 ( 77 ) @ 8:00:00 AM 154 / 103 ( 127 ) @ 8:04:00 AM Clinical Evaluation EBL: 5mL-10mL Procedural Details Procedure Consent Obtained. Pre-Procedure Time Out. Identified patient by full name and date of as verbalized by the patient/guarantor. Does the consent match the physician's order: Yes. Accurate & Complete Informed Consent: Yes. Inpatient/Outpatient History & Physical on Chart: Yes. If H&P is completed, is and addenduem needed: N/A; If yes, is the addendum complete: N/A. Visualize and Verify Site with Patient/Guarantor: N/A. Relevant Radiology Images available: Yes. Pre-op teaching completed and patient verbalized understanding. The risks, benefits, and alternatives of sedation and/or procedure were discussed by physician. The patient agrees to continue. Procedure started. Correct patient, site and procedure confirmed by cath team. PERRLA. 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 Lungs clear x 5 lobes. IV Site on Arrival: 20 gauge in the left anticubital. IV Fluids: 0.9% NaCl at KVO. 0 mL infused prior to veterinary laboratory technician. Pre Procedural Pulses: bilateral dorsalis pedis was 3+. Pre Procedural Pulses: bilateral posterior tibial was 3+. Pre Procedural Pulses: bilateral radial was 3+. Oxygen started at 2liters/min via nasal canula. right groin was prepped with chloroprep then draped in the usual sterile fashion. right radial was prepped with chloroprep then draped in the usual sterile fashion. Physician notified. Baseline sample Acquired. HR: 88 BPM. Equipment: 6F - Radial. Cardiac Cath Pack. ACIST Manifold Kit Model BT 2000. Heparinized Saline (2 units/mL), 1000 mL bag. Physician arrived. Physician scrubbed in. Immediate Pre-Procedure Time Out. Correct Patient: Yes; Correct Procedure: Yes; Correct Site: Yes; Correct Patient Position: Yes; Correct Supplies: Yes; Dried Flammable Prep: Yes; Blood Products Available: No;. Lidocaine 1% infiltrated to the right radial. Arterial access obtained. A 5 venezuelan TIG catheter in over wire. Multiple views taken of left coronary artery. Catheter redirected to the RCA. Multiple views taken of right coronary artery. Catheter redirected to the LCA. Catheter out. A 5 venezuelan César catheter in over wire. Multiple views taken of left coronary artery. Catheter out. A 5 v[place]an Angled Pig catheter in over wire. Catheter out. A TR Band was successful obtaining hemostatsis at the Right Radial artery insertion site. TR band placed. Hemostasis obtained. Post Procedure: Pulses reassessed and unchanged. PERRLA. 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 No VTE prophylaxis required. Fluoro: 7:07. Contrast type used: Visipaque 320 mgI/mL, 500 mL bottle. [id number]. Post-op diagnosis: normal coronary arteries. Complications: none. Estimated blood loss: 5mL-10mL. Procedure completed. Patient transferred by wheelchair to CPRU. Vital chart was stopped. [facility] Clinical Fraility Score: 4: Vulnerable. Forcer Maker Indications: New Onset Angina. Chest Pain Symptom Assessment: Typical Angina Symptoms. Cardiovascular Instability: No. Forcer Maker Indications: Cardiomyopathy. Total IV fluids: 50 mL. Medication's Wasted: Lidocaine 1% = 14 mL. Medication's Wasted: Heparin = 1000 units. Medication's Wasted: Other = versed 1mg. Access Site Site: Right Radial artery Sheath Size: 6 Fr Hemostasis Method: TR Band Hemostasis Success: Successful Procedure Medications Start: 8:42 AM Stop: 8:42 AM Medication: Versed Amount: 1 mg Route: I.V. Start: 8:42 AM Stop: 8:42 AM Medication: Fentanyl Amount: 50 mcg Route: I.V. Start: 8:45 AM Stop: 8:45 AM Medication: Versed Amount: 1 mg Route: I.V. Start: 8:51 AM Stop: 8:51 AM Medication: Fentanyl Amount: 50 mcg Route: I.V. Start: 8:55 AM Stop: 8:55 AM Medication: Nitrogylcerin Amount: 200 mcg Route: I.A. Start: 8:57 AM Stop: 8:57 AM Medication: Heparin Amount: 5000 units Route: I.V. I, the attending physician, have reviewed and verified all procedure medications. Yes, all medications given per verbal order History/Risk Factors Hypertension: Yes Dyslipidemia: Yes Tobacco Use: Never Report Signatures Finalized by Dusty Tate MD on 02/02/2021 08:15 PM
[2021-01-20] MEDS: famotidine 20 mg/2 mL INJ IVP (08:19)
--- NOTE | 2021-01-20 08:36 | W.PM.OPSFHP ---
Same Day Surgery H&P Indication for Procedure/HPI DATE OF PROCEDURE: January 20, 2021 CHIEF COMPLAINT/INDICATIONFOR SURGICAL PROCEDURE: Abnormal stress test, new onset heart failure, chest pain PREOP DIAGNOSIS: Abnormal stress test PLANNED PROCEDRUE: Operation Date: 01/20/21 07:00 Proposed Procedures p Cardiac Catheterization 22315 R07.89 R94.39(Left) - Dsuty Tate MD 70-year-old female past medical history for worsening of shortness of breath chest pain and heart failure symptoms underwent stress test which was suggestive of moderate ischemia in the LAD territory. Despite of optimization of medicine patient continues to have worsening of symptoms it is the reason she is suggested for left heart cath. Patient has been explained all risk benefit and alternative for the procedure by myself. She understand the risk of contrast-induced allergy, contrast-induced nephropathy, urgent emergent bypass, stroke hematoma and infection. She is a good candidate for dual antiplatelet therapy. I would therefore proceed with left heart cath and PCI if indicated. Medications/Allergies* Home Medications Medication Instructions Recorded Confirmed Type albuterol sulfate 90 mcg/actuation 2 puff INHALATION Q6H PRN 07/27/19 01/19/21 History aerosol inhaler aspirin 81 mg tablet,delayed 81 mg PO DAILY@0700 tab 07/27/19 01/19/21 History release acetaminophen 500 mg capsule 500 mg PO QID PRN 11/10/20 01/19/21 History ibuprofen 200 mg capsule 200 mg PO Q6H PRN 11/10/20 01/19/21 History spironolactone 50 mg tablet 50 mg PO DAILY@0700 tab 11/10/20 01/19/21 History cyclobenzaprine 10 mg PO TID PRN 01/08/21 01/19/21 History duloxetine [Cymbalta] 60 mg PO BID@0700,209901/08/21 01/19/21 History escitalopram oxalate [Lexapro] 20 mg PO DAILY@0700 01/08/21 01/19/21 History esomeprazole magnesium 40 mg PO DAILY@0700 01/08/21 01/19/21 History furosemide 40 mg PO DAILY@0700 01/08/21 01/19/21 History hydroxyzine HCl 50 mg PO BEDTIME@209901/08/21 01/19/21 History isosorbide mononitrate 15 mg PO BID@0700,209901/08/21 01/19/21 History levothyroxine [Euthyrox] 150 mcg PO DAILY@0630 01/08/21 01/19/21 History metformin 500 mg PO DAILY@0700 01/08/21 01/19/21 History potassium chloride 20 meq PO TID@,01/08/21 01/19/21 History prazosin 1 mg PO BEDTIME@209901/08/21 01/19/21 History ropinirole 1 mg PO BID@0700,209901/08/21 01/19/21 History trazodone 300 mg PO BEDTIME@209901/08/21 01/19/21 History valsartan-hydrochlorothiazide 1 tab PO DAILY@69901/08/21 01/19/21 History Allergies/Adverse Reactions Allergy/AdvReac Type Severity Reaction Status Date / Time adhesive tape Allergy Mild RASH Verified 01/12/21 09:50 carbamazepine [From Tegretol] Allergy Mild UNKNOWN Verified 01/12/21 09:50 cortisone Allergy Mild UNKNOWN Verified 01/12/21 09:50 hydrocodone Allergy Mild UNKNOWN Verified 01/12/21 09:50 Iodinated Contrast Media Allergy Mild UNKNOWN Verified 01/12/21 09:50 iodine Allergy Mild MILD Verified 01/12/21 09:50 Penicillins Allergy Mild NAUSEA Verified 01/12/21 09:50 Sulfa (Sulfonamide Allergy Mild NAUSEA Verified 01/12/21 09:50 Antibiotics) Current Medications: Generic Name Dose Route Start Last Admin Trade Name Freq PRN Reason Stop Dose Admin Sodium Chloride 1,000 mls @ 50 mls/hr 01/20/21 06:00 01/20/21 08:11 Sodium Chloride 0.9% IV 01/21/21 01:59 Not Given .Q20H ONE Pertinent History/Comorbid Conditions* Medical History (Updated 01/16/21 @ 00:01 by ) Acute torn meniscus of knee CHF (congestive heart failure) Congestive heart failure Depression HTN (hypertension), benign Hypothyroidism Major depressive disorder, recurrent severe without psychotic features Osteoarthritis Osteoarthritis of right knee Post-traumatic stress disorder, chronic Surgical History (Updated 04/15/20 @ 10:34 by Heath Selby MD) H/O colonoscopy 5 yrs ago H/O esophagogastroduodenoscopy (04/15/20) H/O tubal ligation H/O: hysterectomy History of knee replacement History of repair of rotator cuff right Hx of tonsillectomy Family History (Updated 04/01/20 @ 13:54 by Susana Simon LPN) Diabetes CAD (coronary artery disease) Chronic kidney disease (CKD) Cancer Hypertension Denies family history of Anesthesia complication Bleeding disorder Stroke Social History Smoking and tobacco status: never smoked Second hand smoke exposure: No Smoking risk assessment/counseling performed?: No Alcohol intake: never Desire information about alcohol rehabilitation?: No Counseling given: No Desire information about substance/drug rehabilitation?: No Counseling given: No Adopted: No Caregiver/support person: No Lives independently: Yes Household members: spouse Marital status: History of recent travel: No (travels from [facility]) Current gender identity: Female Pertinent Exam Findings alert, oriented x 3, clear to auscultation bilaterally and regular rate & rhythm Conscious Sedation Assessment PATIENT ASSESSED PRIOR TO SEDATION, WITH NO CHANGE NOTED: Yes AIRWAY EVAL/ANESTHESIA PLAN: ASA II, Risks, benefits & alternatives of sedation and/or procedure discussed and Patient agrees to continue as planned Recommendations Surgery/Procedure today Coding Level of Care Code Acute Supervisor Spinning for July Whitfield
--- NOTE | 2021-01-20 09:30 | PC.NURSE ---
recovery received pt from [employer] [facility] diagnostic left heart cath. pt complains of no pain. pt alert and oriented and requesting something to drink. tr band on right wrist with palpable pulse distal to band. no bruising or hematoma present. pt has been educated info about restrictions of right wrist and verbalized understanding. pt put on monitor to take vitals per protocol. call light within reach and at bedside. bed down and locked.
[2021-01-20] MEDS: hyDRALAzine 20 mg/mL INJ 1 mL 10 MG IVP ×2 (10:06→12:05)
--- NOTE | 2021-01-20 12:25 | PC.NURSE ---
discharge pt states she feels great and ready to go home. pt has been to the bathroom with no complications. tr band removal was successful with no incident. appointment made for followup with dr snigh. pt given dc paperwork and has no questions. pt again educated on restrictions.
== END 2021-01-20 12:35 | disposition home or self-care (01) ==
PROVIDERS: PCP Nurse Practitioner Family; Visit Provider Internal Medicine Cardiovascular Disease
DX: R94.39 Abnormal result of other cardiovascular function study (principal); I11.0 Hypertensive heart disease with heart failure; I50.9 Heart failure, unspecified; F32.9 Major depressive disorder, single episode, unspecified; E03.9 Hypothyroidism, unspecified; M19.90 Unspecified osteoarthritis, unspecified site; Z82.49 Family history of ischemic heart disease and other diseases of the circulatory system; Z83.3 Family history of diabetes mellitus; E78.5 Hyperlipidemia, unspecified
CPT/HCPCS: 36415; 93454; C1769; C1887; C1894; J0360; J1644; J2250; J3010; J3490; J7030; Q9967

== ENCOUNTER → 2021-01-27 07:38 | Outpatient (BNVA) | payer MEDICARE, MEDICAID, SELFPAY | PROVIDERS: PCP Nurse Practitioner Family; Visit Provider Social Worker Clinical | DX: F33.2 Major depressive disorder, recurrent severe without psychotic features (principal); F43.12 Post-traumatic stress disorder, chronic | CPT/HCPCS: 90834 ==

== ENCOUNTER → 2021-01-28 07:34 | Outpatient (BNVA) | payer MEDICARE, MEDICAID, SELFPAY | PROVIDERS: PCP Nurse Practitioner Family; Visit Provider Nurse Practitioner | DX: F43.12 Post-traumatic stress disorder, chronic (principal); F33.2 Major depressive disorder, recurrent severe without psychotic features | CPT/HCPCS: 99214 ==

== ENCOUNTER → 2021-02-16 08:23 | Outpatient (BNVA) | payer MEDICARE, MEDICAID, SELFPAY | PROVIDERS: PCP Nurse Practitioner Family; Visit Provider Social Worker Clinical | DX: F33.2 Major depressive disorder, recurrent severe without psychotic features (principal); F43.12 Post-traumatic stress disorder, chronic | CPT/HCPCS: 90832 ==

== ENCOUNTER → 2021-02-23 07:39 | Outpatient (BNVA) | payer MEDICARE, MEDICAID, SELFPAY | PROVIDERS: PCP Nurse Practitioner Family; Visit Provider Social Worker Clinical | DX: F33.2 Major depressive disorder, recurrent severe without psychotic features (principal); F43.12 Post-traumatic stress disorder, chronic | CPT/HCPCS: 90834; 84550; 85651; 86140 ==

== ENCOUNTER → 2021-03-10 07:42 | Outpatient (BNVA) | payer MEDICARE, MEDICAID, SELFPAY | PROVIDERS: PCP Nurse Practitioner Family; Visit Provider Social Worker Clinical | DX: F33.2 Major depressive disorder, recurrent severe without psychotic features (principal); F43.12 Post-traumatic stress disorder, chronic | CPT/HCPCS: 90791 ==

== ENCOUNTER → 2021-03-11 10:31 | Outpatient (BNVA) | payer MEDICARE, MEDICAID, SELFPAY | PROVIDERS: PCP Nurse Practitioner Family; Visit Provider Nurse Practitioner Family | DX: M10.9 Gout, unspecified (principal); M10.062 Idiopathic gout, left knee | CPT/HCPCS: 84550 ==

== ENCOUNTER → 2021-03-23 07:34 | Outpatient (BNVA) | payer MEDICARE, MEDICAID, SELFPAY | PROVIDERS: PCP Nurse Practitioner Family; Visit Provider Social Worker Clinical | DX: F33.2 Major depressive disorder, recurrent severe without psychotic features (principal); F43.12 Post-traumatic stress disorder, chronic | CPT/HCPCS: 90834 ==

== ENCOUNTER → 2021-03-25 07:35 | Outpatient (BNVA) | payer MEDICARE, MEDICAID, SELFPAY | PROVIDERS: PCP Nurse Practitioner Family; Visit Provider Nurse Practitioner | DX: F43.12 Post-traumatic stress disorder, chronic (principal); F33.2 Major depressive disorder, recurrent severe without psychotic features | CPT/HCPCS: 99214 ==

== ENCOUNTER → 2021-03-30 07:36 | Outpatient (BNVA) | payer MEDICARE, SELFPAY | PROVIDERS: PCP Nurse Practitioner Family; Visit Provider Social Worker Clinical | DX: F33.2 Major depressive disorder, recurrent severe without psychotic features (principal); F43.12 Post-traumatic stress disorder, chronic | CPT/HCPCS: 90834 ==

== ENCOUNTER → 2021-04-07 09:36 | Outpatient (BNVA) | payer MEDICARE, SELFPAY | PROVIDERS: PCP Nurse Practitioner Family; Visit Provider Social Worker Clinical | DX: F33.2 Major depressive disorder, recurrent severe without psychotic features (principal); F43.12 Post-traumatic stress disorder, chronic | CPT/HCPCS: 90834 ==

== ENCOUNTER → 2021-04-08 10:26 | Outpatient (BNVA) | payer MEDICARE, SELFPAY | PROVIDERS: PCP Nurse Practitioner Family; Visit Provider Nurse Practitioner Family | DX: M79.606 Pain in leg, unspecified (principal); M10.9 Gout, unspecified | CPT/HCPCS: 84550 ==

== ENCOUNTER → 2021-04-15 07:32 | Outpatient (BNVA) | payer MEDICARE, SELFPAY | PROVIDERS: PCP Nurse Practitioner Family; Visit Provider Social Worker Clinical | DX: F33.2 Major depressive disorder, recurrent severe without psychotic features (principal); F43.12 Post-traumatic stress disorder, chronic | CPT/HCPCS: 90834 ==

== ENCOUNTER → 2021-04-20 07:57 | Outpatient (BNVA) | payer MEDICARE, SELFPAY | PROVIDERS: PCP Nurse Practitioner Family; Visit Provider Social Worker Clinical | DX: F33.2 Major depressive disorder, recurrent severe without psychotic features (principal); F43.12 Post-traumatic stress disorder, chronic | CPT/HCPCS: 90834 ==

== ENCOUNTER → 2021-04-27 00:01 | Outpatient (BNVA) | payer MEDICARE, SELFPAY | PROVIDERS: PCP Nurse Practitioner Family; Visit Provider Nurse Practitioner Family | DX: I50.32 Chronic diastolic (congestive) heart failure (principal); E11.9 Type 2 diabetes mellitus without complications; E03.9 Hypothyroidism, unspecified; M10.9 Gout, unspecified; I10 Essential (primary) hypertension | CPT/HCPCS: 80053; 83036; 84443 ==

== ENCOUNTER → 2021-04-29 08:55 | Outpatient (BNVA) | payer MEDICARE, SELFPAY | PROVIDERS: PCP Nurse Practitioner Family; Visit Provider Specialist | DX: M54.5 Low back pain (principal); M46.1 Sacroiliitis, not elsewhere classified; F44.5 Conversion disorder with seizures or convulsions | CPT/HCPCS: 99213 ==

== ENCOUNTER → 2021-05-04 07:47 | Outpatient (BNVA) | payer MEDICARE, SELFPAY | PROVIDERS: PCP Nurse Practitioner Family; Visit Provider Social Worker Clinical | DX: F33.2 Major depressive disorder, recurrent severe without psychotic features (principal); F43.12 Post-traumatic stress disorder, chronic | CPT/HCPCS: 90834 ==

== ENCOUNTER → 2021-05-11 07:55 | Outpatient (BNVA) | payer MEDICARE, SELFPAY | PROVIDERS: PCP Nurse Practitioner Family; Visit Provider Social Worker Clinical | DX: F33.2 Major depressive disorder, recurrent severe without psychotic features (principal); F43.12 Post-traumatic stress disorder, chronic | CPT/HCPCS: 90834 ==

== ENCOUNTER → 2021-05-19 07:53 | Outpatient (BNVA) | payer MEDICARE, SELFPAY | PROVIDERS: PCP Nurse Practitioner Family; Visit Provider Social Worker Clinical | DX: F33.2 Major depressive disorder, recurrent severe without psychotic features (principal); F43.12 Post-traumatic stress disorder, chronic | CPT/HCPCS: 90834 ==

== ENCOUNTER → 2021-05-20 07:55 | Outpatient (BNVA) | payer MEDICARE, MEDICAID, SELFPAY | PROVIDERS: PCP Nurse Practitioner Family; Visit Provider Nurse Practitioner | DX: F43.12 Post-traumatic stress disorder, chronic (principal); F33.2 Major depressive disorder, recurrent severe without psychotic features | CPT/HCPCS: 99214 ==

== ENCOUNTER → 2021-06-01 10:18 | Outpatient (BNVA) | payer MEDICARE, MEDICAID, SELFPAY | PROVIDERS: PCP Nurse Practitioner Family; Visit Provider Social Worker Clinical | DX: F33.2 Major depressive disorder, recurrent severe without psychotic features (principal); F43.12 Post-traumatic stress disorder, chronic | CPT/HCPCS: 90832 ==

== ENCOUNTER → 2021-06-08 08:59 | Outpatient (BNVA) | payer MEDICARE, MEDICAID, SELFPAY | PROVIDERS: PCP Nurse Practitioner Family; Visit Provider Social Worker Clinical | DX: F33.2 Major depressive disorder, recurrent severe without psychotic features (principal); F43.12 Post-traumatic stress disorder, chronic | CPT/HCPCS: 90834 ==

== ENCOUNTER 2021-06-08 09:51 | Outpatient (CLI) | payer MEDICARE, MEDICAID, SELFPAY ==
--- NOTE | 2021-06-08 09:57 | XRR_ITS ---
PROCEDURE INFORMATION: Exam: XR Left Knee Exam date and time: 06/08/2021 9:57 AM Age: 71 years old Clinical indication: Left; Prior surgery; Surgery type: Tka; Patient HX: History--lt knee pain. PT states there is a knot on lateral side of knee/ PT has had lt knee replacement; Additional info: M25.562 - pain in left knee TECHNIQUE: Imaging protocol: XR Left knee. Views: 3 views. COMPARISON: CR Knee 3 views, LEFT* [id number] 02/26/2019 11:23 AM FINDINGS: Bones/joints: Left total knee arthroplasty is noted in expected alignment. No evidence of fracture. No signs of hardware loosening. Soft tissues: Normal. XR/XR knee LT 3V* [id number] IMPRESSION: Left total knee arthroplasty in expected alignment. No significant interval change. Radiation Dose CTDIVOL = (mGy): DLP = (mGy-cm)
== END 2021-06-08 09:52 | disposition home or self-care (01) ==
LOC: RAD 09:55
PROVIDERS: PCP Nurse Practitioner Family; Visit Provider Nurse Practitioner Family
DX: M25.562 Pain in left knee (principal); Z96.652 Presence of left artificial knee joint
CPT/HCPCS: 73562

== ENCOUNTER → 2021-06-16 07:45 | Outpatient (BNVA) | payer MEDICARE, MEDICAID, SELFPAY | PROVIDERS: PCP Nurse Practitioner Family; Visit Provider Social Worker Clinical | DX: F33.2 Major depressive disorder, recurrent severe without psychotic features (principal); F43.12 Post-traumatic stress disorder, chronic | CPT/HCPCS: 90832; 90834 ==

== ENCOUNTER 2021-06-22 09:54 | Outpatient (CLI) | payer MEDICARE, SELFPAY ==
--- NOTE | 2021-06-22 10:06 | XRR_ITS ---
PROCEDURE INFORMATION: Exam: XR Right Knee Exam date and time: 06/22/2021 10:06 AM Age: 71 years old Clinical indication: Pain and injury or trauma; Fall; Blunt trauma; Knee; Right; Injury date: 3 days ago; Additional info: M25.561 - pain in right knee TECHNIQUE: Imaging protocol: XR Right knee. Views: 3 views. COMPARISON: MR knee RT wo con* [id number] 02/08/2020 2:46 PM FINDINGS: Bones/joints: March narrowing of the medial compartment with osteophytes and slight medial subluxation of the femur with respect to the tibia. Mild narrowing of the lateral compartment. Mild patellofemoral spurring. No fracture or dislocation. Soft tissues: No acute findings. No visible effusion. XR/XR knee RT 3V* [id number] IMPRESSION: 1. No acute findings. 2. Severe degenerative changes of the medial compartment of the right knee. Radiation Dose CTDIVOL = (mGy): DLP = (mGy-cm)
== END 2021-06-22 09:55 | disposition home or self-care (01) ==
PROVIDERS: PCP Nurse Practitioner Family; Visit Provider Nurse Practitioner Family
DX: M25.561 Pain in right knee (principal)
CPT/HCPCS: 73562

== ENCOUNTER 2021-07-07 14:25 | Outpatient (CLI) | payer MEDICARE, SELFPAY ==
--- NOTE | 2021-07-07 15:15 | MR_ITS ---
WS: [id number] MRI RIGHT KNEE HISTORY: M25.561 - Pain in right knee COMPARISON: 06/22/2021 Anterior cruciate ligament: Increased signal within the ACL. The ligament appears intact although str etched with increased signal. Cannot exclude a partial tear. Posterior cruciate ligament: Intact. Medial collateral ligament: No tear. Posterior lateral corner structures: Mild intrasubstance degeneration. No full-thickness tears. Medial menisci: Anterior and posterior menisci are extruded. There are no abnormal menisci evident. Lateral meniscus: Intrasubstance degeneration. Tear along the inferior surface of the posterior menis cus. Extensor mechanism: Distal quadriceps tendon and patellar tendons are intact. Fluid and soft tissue: Small suprapatellar effusion. Moderate-sized Villasenor's cyst. There is mild edema surrounding the knee. Osseous and articular structures: Patellofemoral compartment: Moderate narrowing of patellofemoral joint space with loss of cartilage a nd mild lateral subluxation. No marrow edema. Medial compartment: Severe narrowing of the medial compartment with loss of cartilage and bone upon b one and osteophytes. Marrow edema and osteophytes extruding towards the MCL with displacement. Lateral compartment: Moderate narrowing of the lateral compartment. Loss of cartilage with osteophyte s. No fracture. Lobulated 9 mm nodule posterior to the infrapatellar fat pad may be an osteophyte or loose body or ca rtilage fragment. MR/MR knee RT wo con* [id number] IMPRESSION: 1. Severe internal degeneration within the medial compartment with loss of car tilage, bone upon bone, osteophytes and macerated menisci. 2. 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 3. Moderate-sized Villasenor's cyst with edema surrounding the knee. 4. Intrasubstance degeneration and possible partial tear involving the ACL. 5. Moderate osteoarthritis in the lateral compartment with a tear involving th e inferior articular meniscal surface of the posterior horn. 6. 9 mm loose body posterior to the infrapatellar fat pad.
== END 2021-07-07 14:26 | disposition home or self-care (01) ==
LOC: RADSHAW 14:29
PROVIDERS: PCP Nurse Practitioner Family; Visit Provider Nurse Practitioner Family
DX: M25.561 Pain in right knee (principal); F33.2 Major depressive disorder, recurrent severe without psychotic features; F43.12 Post-traumatic stress disorder, chronic
CPT/HCPCS: 90834; 73721

== ENCOUNTER → 2021-07-17 08:08 | Outpatient (BNVA) | payer MEDICARE, SELFPAY | PROVIDERS: PCP Nurse Practitioner Family; Visit Provider Nurse Practitioner | DX: F33.2 Major depressive disorder, recurrent severe without psychotic features (principal); F43.12 Post-traumatic stress disorder, chronic | CPT/HCPCS: 99214 ==

== ENCOUNTER → 2021-07-27 08:10 | Outpatient (BNVA) | payer MEDICARE, SELFPAY | PROVIDERS: PCP Nurse Practitioner Family; Referring Provider Nurse Practitioner Family; Visit Provider Specialist | DX: M25.562 Pain in left knee (principal); M17.11 Unilateral primary osteoarthritis, right knee; Z96.652 Presence of left artificial knee joint | CPT/HCPCS: 73560; 73565 ==

== ENCOUNTER → 2021-07-30 08:32 | Outpatient (BNVA) | payer MEDICARE, SELFPAY | PROVIDERS: PCP Nurse Practitioner Family; Visit Provider Social Worker Clinical | DX: F33.2 Major depressive disorder, recurrent severe without psychotic features (principal); F43.12 Post-traumatic stress disorder, chronic | CPT/HCPCS: 90834 ==

== ENCOUNTER → 2021-08-05 08:47 | Outpatient (BNVA) | payer MEDICARE, SELFPAY | PROVIDERS: PCP Nurse Practitioner Family; Visit Provider Social Worker Clinical | DX: F33.2 Major depressive disorder, recurrent severe without psychotic features (principal); F43.12 Post-traumatic stress disorder, chronic | CPT/HCPCS: 90834 ==

== ENCOUNTER → 2021-08-07 09:54 | Outpatient (BNVA) | payer MEDICARE, SELFPAY | PROVIDERS: PCP Nurse Practitioner Family; Visit Provider Nurse Practitioner Family | DX: E03.9 Hypothyroidism, unspecified (principal); E78.5 Hyperlipidemia, unspecified; E11.9 Type 2 diabetes mellitus without complications; I10 Essential (primary) hypertension; M25.569 Pain in unspecified knee | CPT/HCPCS: 80053; 80061; 83036; 84443 ==

== ENCOUNTER → 2021-08-12 08:49 | Outpatient (BNVA) | payer MEDICARE, SELFPAY | PROVIDERS: PCP Nurse Practitioner Family; Visit Provider Social Worker Clinical | DX: F33.2 Major depressive disorder, recurrent severe without psychotic features (principal); F43.12 Post-traumatic stress disorder, chronic | CPT/HCPCS: 90834 ==

== ENCOUNTER → 2021-08-18 11:13 | Outpatient (BNVA) | payer MEDICARE, SELFPAY | PROVIDERS: PCP Nurse Practitioner Family; Visit Provider Social Worker Clinical | DX: F33.2 Major depressive disorder, recurrent severe without psychotic features (principal); F43.12 Post-traumatic stress disorder, chronic | CPT/HCPCS: 90834 ==

== ENCOUNTER → 2021-08-25 11:43 | Outpatient (BNVA) | payer MEDICARE, SELFPAY | PROVIDERS: PCP Nurse Practitioner Family; Visit Provider Social Worker Clinical | DX: F33.2 Major depressive disorder, recurrent severe without psychotic features (principal); F43.12 Post-traumatic stress disorder, chronic | CPT/HCPCS: 90837; 90834 ==

== ENCOUNTER 2021-09-07 13:16 | Outpatient (CLI) | payer MEDICARE, SELFPAY ==
--- NOTE | 2021-09-07 13:30 | USR_ITS ---
PROCEDURE INFORMATION: Exam: US Duplex Lower Extremity Arteries Exam date and time: 09/07/2021 1:30 PM Age: 71 years old Clinical indication: Pain; Leg, lower; Bilateral; Additional info: I83.90 - asymptomatic varicose veins of unspecified lower. . . TECHNIQUE: Imaging protocol: Real-time ultrasound scan of the arteries of the bilateral lower extremities with 2-D dennis scale, color Doppler flow and spectral waveform analysis. Images documented and saved. COMPARISON: CR XR knees AP WB w RT lmt ORTH 07/27/2021 8:18 AM FINDINGS: Right common femoral artery: No occlusion or significant stenosis. Normal waveform. Right superficial femoral artery: No occlusion or significant stenosis. Normal waveform. Right popliteal artery: No occlusion or significant stenosis. Normal waveform. Right calf/foot arteries: No occlusion or significant stenosis in the visualized arteries. Normal waveforms. Dorsalis pedis artery is patent. Left common femoral artery: No occlusion or significant stenosis. Normal waveform. Left superficial femoral artery: No occlusion or significant stenosis. Normal waveform. Left popliteal artery: No occlusion or significant stenosis. Normal waveform. Left calf/foot arteries: No occlusion or significant stenosis in the visualized arteries. Normal waveforms. Dorsalis pedis artery is patent. US/[place] [id number] IMPRESSION: No stenosis or occlusion.
== END 2021-09-07 13:17 | disposition home or self-care (01) ==
LOC: RAD 13:22
PROVIDERS: PCP Nurse Practitioner Family; Visit Provider Nurse Practitioner Family
DX: I83.90 Asymptomatic varicose veins of unspecified lower extremity (principal); M79.604 Pain in right leg; M79.605 Pain in left leg
CPT/HCPCS: 93925

== ENCOUNTER → 2021-09-09 07:54 | Outpatient (BNVA) | payer MEDICARE, SELFPAY | PROVIDERS: PCP Nurse Practitioner Family; Visit Provider Social Worker Clinical | DX: F33.2 Major depressive disorder, recurrent severe without psychotic features (principal); F43.12 Post-traumatic stress disorder, chronic | CPT/HCPCS: 90834 ==

== ENCOUNTER → 2021-09-11 10:41 | Outpatient (BNVA) | payer MEDICARE, SELFPAY | PROVIDERS: PCP Nurse Practitioner Family; Visit Provider Nurse Practitioner | DX: F33.2 Major depressive disorder, recurrent severe without psychotic features (principal); F43.12 Post-traumatic stress disorder, chronic | CPT/HCPCS: 90832; 99214 ==

== ENCOUNTER → 2021-09-16 07:34 | Outpatient (BNVA) | payer MEDICARE, SELFPAY | PROVIDERS: PCP Nurse Practitioner Family; Visit Provider Social Worker Clinical | DX: F33.2 Major depressive disorder, recurrent severe without psychotic features (principal); F43.12 Post-traumatic stress disorder, chronic | CPT/HCPCS: 90834 ==

== ENCOUNTER 2021-09-16 09:01 | Outpatient (CLI) | payer MEDICARE, SELFPAY ==
--- NOTE | 2021-09-16 09:04 | XR_ITS ---
WS: [id number] Lumbar spine, 3 views, 09/16/2021 Clinical Data: M54.50 - Low back pain, unspecified Comparison: None. Findings: No compression fractures or subluxation is seen. There is minimal degenerative disc narrowing at L3-L 4 with mild osteoarthritic spurring. The transverse processes and SI joints are normal. There is a slight dextroscoliosis. XR/XR lumbar spine 2-3V* [id number] Impression: 1. Minimal osteoarthritis at L3-L4 with degenerative disc narrowing. 2. Minimal dextroscoliosis.
== END 2021-09-16 09:02 | disposition home or self-care (01) ==
PROVIDERS: PCP Nurse Practitioner Family; Visit Provider Nurse Practitioner Family
DX: M54.50 Low back pain, unspecified (principal)
CPT/HCPCS: 72100

== ENCOUNTER → 2021-10-01 08:01 | Outpatient (BNVA) | payer MEDICARE, SELFPAY | PROVIDERS: PCP Nurse Practitioner Family; Visit Provider Social Worker Clinical | DX: F33.2 Major depressive disorder, recurrent severe without psychotic features (principal); F43.12 Post-traumatic stress disorder, chronic | CPT/HCPCS: 90834 ==

== ENCOUNTER → 2021-10-08 09:33 | Outpatient (BNVA) | payer MEDICARE, SELFPAY | PROVIDERS: PCP Nurse Practitioner Family; Visit Provider Social Worker Clinical | DX: F33.2 Major depressive disorder, recurrent severe without psychotic features (principal); F43.12 Post-traumatic stress disorder, chronic | CPT/HCPCS: 90834 ==

== ENCOUNTER → 2021-10-28 08:40 | Outpatient (BNVA) | payer MEDICARE, SELFPAY | PROVIDERS: PCP Nurse Practitioner Family; Visit Provider Specialist | DX: F33.2 Major depressive disorder, recurrent severe without psychotic features (principal); F43.12 Post-traumatic stress disorder, chronic; F44.5 Conversion disorder with seizures or convulsions; M46.1 Sacroiliitis, not elsewhere classified; E11.42 Type 2 diabetes mellitus with diabetic polyneuropathy; Z79.84 Long term (current) use of oral hypoglycemic drugs; E66.9 Obesity, unspecified; M17.11 Unilateral primary osteoarthritis, right knee | CPT/HCPCS: 90832; 99213 ==

== ENCOUNTER → 2021-11-05 08:59 | Outpatient (BNVA) | payer MEDICARE, SELFPAY | PROVIDERS: PCP Nurse Practitioner Family; Visit Provider Nurse Practitioner | DX: F33.2 Major depressive disorder, recurrent severe without psychotic features (principal); F43.12 Post-traumatic stress disorder, chronic | CPT/HCPCS: 99214 ==

== ENCOUNTER → 2021-11-11 13:33 | Outpatient (BNVA) | payer MEDICARE, SELFPAY | PROVIDERS: PCP Nurse Practitioner Family; Visit Provider Social Worker Clinical | DX: F33.2 Major depressive disorder, recurrent severe without psychotic features (principal); F43.12 Post-traumatic stress disorder, chronic; Z79.899 Other long term (current) drug therapy | CPT/HCPCS: 90834; 83036 ==

== ENCOUNTER → 2021-11-19 09:36 | Outpatient (BNVA) | payer MEDICARE, SELFPAY | PROVIDERS: PCP Nurse Practitioner Family; Visit Provider Specialist | DX: M17.11 Unilateral primary osteoarthritis, right knee (principal); Z71.89 Other specified counseling | CPT/HCPCS: 20610; J1100; J2795; J3301 ==

== ENCOUNTER → 2021-11-24 12:41 | Outpatient (BNVA) | payer MEDICARE, SELFPAY | PROVIDERS: PCP Nurse Practitioner Family; Visit Provider Social Worker Clinical | DX: F33.2 Major depressive disorder, recurrent severe without psychotic features (principal); F43.12 Post-traumatic stress disorder, chronic | CPT/HCPCS: 90834 ==

== ENCOUNTER → 2021-11-26 13:06 | Outpatient (BNVA) | payer MEDICARE, SELFPAY | PROVIDERS: PCP Nurse Practitioner Family; Visit Provider Thoracic Surgery (Cardiothoracic Vascular Surgery) | DX: I83.893 Varicose veins of bilateral lower extremities with other complications (principal) | CPT/HCPCS: 99202 ==

== ENCOUNTER 2021-12-01 20:00 | Outpatient (CLI) | payer MEDICARE, SELFPAY | END 2021-12-01 20:01 | disposition home or self-care (01) | LOC: SLEEP 12-02 07:48 | PROVIDERS: PCP Nurse Practitioner Family; Visit Provider Nurse Practitioner Family | DX: G47.30 Sleep apnea, unspecified (principal) | CPT/HCPCS: 95810 ==

== ENCOUNTER → 2021-12-08 08:54 | Outpatient (BNVA) | payer MEDICARE, MEDICAID, SELFPAY | PROVIDERS: PCP Nurse Practitioner Family; Visit Provider Social Worker Clinical | DX: F33.2 Major depressive disorder, recurrent severe without psychotic features (principal); F43.12 Post-traumatic stress disorder, chronic | CPT/HCPCS: 90834 ==

== ENCOUNTER 2021-12-14 12:46 | Outpatient (CLI) | payer MEDICARE, MEDICAID, SELFPAY ==
--- NOTE | 2021-12-14 13:30 | USCV_ITS ---
Adilene Freedman Age: 71 Gender: F : 1950 Exam Date: 12/14/2021 13:23 Ordering Phys: García Phoenix MD (Andy) ([email or web address]) Technologist: Lexi Killian Exam Location: [facility] [place] Indication: HISTORY: Varicose Veins PROCEDURES: Venous duplex imaging was performed in bilateral lower extremities. The following venous structures were evaluated: common femoral vein, the greater saphenous vein, superficial femoral vein, and the popliteal vein and ptv.bilateral duplex Venous Insufficiency study of the Deep and Superficial systems was carried out according to normal protocol with the patient in supine positon for deep system and dependent position for the superficial system. FINDINGS: Reflux thru out. Echolucent area in the right popliteal region measuring 5.12 x 1.86 cm Significant venous reflux were noted throughout the greater saphenous vein segments on the right side excluding the saphenofemoral junction and the below-knee segment. Significant venous reflux were noted throughout the greater saphenous vein segments on the left side excluding the saphenofemoral junction. No significant venous reflux were noted in the small saphenous vein segments or in the deep veins CONCLUSIONS 1. No evidence of DVT in the above-mentioned identifiable veins. 2. Significant venous reflux of greater than 500 ms were noted towards the greater saphenous vein segments on the right side, excluding the saphenofemoral junction and the below-knee segment. These segments were measuring anywhere from 0.55 to 0.77 cm in diameter. They were greater than 1 cm deep from the surface.(Reflux time ranging from 2.01 to 3.69 seconds) 3. Significant venous reflux of greater than 500 ms were noted throughout the greater saphenous vein segments on the left side excluding the saphenofemoral junction. These venous segments were measuring anywhere from 0.46 to 0.87 cm and at a depth of greater than 1 cm from the surface.(Reflux time ranging from 1.02 to 3.57 seconds) 4. No significant venous reflux were noted in the small saphenous vein segments or in the deep veins bilaterally. 5. No similar previous studies are available for comparison Further details of the venous dimensions, a flex times at depth on the surface, please see the attached report Dr Steffen David MD [facility] (Electronically Signed) Final Date: 18 Dec 2021 16:45 S
== END 2021-12-14 12:47 | disposition home or self-care (01) ==
LOC: RAD 12:48
PROVIDERS: PCP Nurse Practitioner Family; Visit Provider Thoracic Surgery (Cardiothoracic Vascular Surgery)
DX: I83.893 Varicose veins of bilateral lower extremities with other complications (principal)
CPT/HCPCS: 93970

== ENCOUNTER → 2021-12-29 11:59 | Outpatient (BNVA) | payer MEDICARE, MEDICAID, SELFPAY | PROVIDERS: PCP Nurse Practitioner Family; Visit Provider Social Worker Clinical | DX: F33.2 Major depressive disorder, recurrent severe without psychotic features (principal); F43.12 Post-traumatic stress disorder, chronic | CPT/HCPCS: 90834 ==

== ENCOUNTER → 2022-01-07 10:21 | Outpatient (BNVA) | payer MEDICARE, MEDICAID, SELFPAY | PROVIDERS: PCP Nurse Practitioner Family; Visit Provider Nurse Practitioner | DX: F33.2 Major depressive disorder, recurrent severe without psychotic features (principal); F43.12 Post-traumatic stress disorder, chronic | CPT/HCPCS: 99214 ==

== ENCOUNTER → 2022-01-21 10:00 | Outpatient (BNVA) | payer MEDICARE, MEDICAID, SELFPAY | PROVIDERS: PCP Nurse Practitioner Family; Visit Provider Social Worker Clinical | DX: F33.2 Major depressive disorder, recurrent severe without psychotic features (principal); F43.12 Post-traumatic stress disorder, chronic | CPT/HCPCS: 90832 ==

== ENCOUNTER → 2022-02-18 11:33 | Outpatient (BNVA) | payer MEDICARE, MEDICAID, SELFPAY | PROVIDERS: PCP Nurse Practitioner Family; Visit Provider Nurse Practitioner Family | DX: E03.9 Hypothyroidism, unspecified (principal); E78.5 Hyperlipidemia, unspecified; I10 Essential (primary) hypertension | CPT/HCPCS: 80053; 80061; 84443 ==

== ENCOUNTER 2022-03-05 11:16 | Outpatient (CLI) | payer MEDICARE, MEDICAID, SELFPAY ==
--- NOTE | 2022-03-05 11:23 | MM_ITS ---
WS: [id number] BILATERAL SCREENING DIGITAL BREAST TOMOSYNTHESIS MAMMOGRAM WITH CAD HISTORY: Z12.31 - Encounter for screening mammogram for malignant ... COMPARISON: 03/31/2020 and 06/26/2018 Bilateral CC and MLO views with tomosynthesis and synthetic mammography submitted. Computer aided det ection analyzed. Breast composition: The breasts are heterogeneously dense, which may obscure small masses. No suspici ous masses, microcalcifications or architectural distortion. Scattered calcifications and long-term s tability of nodules within each breast. MM/[place] [id number] IMPRESSION: BI-RADS: 2-Benign FOLLOW UP: 1 Year Follow-up
== END 2022-03-05 11:17 | disposition home or self-care (01) ==
LOC: RAD 11:17
PROVIDERS: PCP Nurse Practitioner Family; Visit Provider Nurse Practitioner Family
DX: Z12.31 Encounter for screening mammogram for malignant neoplasm of breast (principal)
CPT/HCPCS: 77063; 77067

== ENCOUNTER → 2022-03-22 12:54 | Outpatient (BNVA) | payer MEDICARE, MEDICAID, SELFPAY | PROVIDERS: PCP Nurse Practitioner Family; Visit Provider Nurse Practitioner Family | DX: R53.81 Other malaise (principal); R53.83 Other fatigue | CPT/HCPCS: 87426 ==

== ENCOUNTER 2022-03-23 05:26 | Day surgery (SDC) | payer MEDICARE, MEDICAID, SELFPAY ==
[2022-03-22 15:06] VITALS: BMI 44.1
[2022-03-23] MEDS: diazePAM 5 mg Tablet 10 MG PO (06:14)
[2022-03-23 06:22] VITALS: BP 214/105; PULSE 59; RESP 18; TEMP 36.7; O2SAT 96
--- NOTE | 2022-03-23 06:35 | W.PM.OPSFHP ---
Same Day Surgery H&P Indication for Procedure/HPI DATE OF PROCEDURE: March 23, 2022 CHIEF COMPLAINT/INDICATIONFOR SURGICAL PROCEDURE: Bilateral lower extremity documented saphenous vein venous reflux with noted discomfort with prolonged standing which is improved with compression. PREOP DIAGNOSIS: venous reflux PLANNED PROCEDURE: Operation Date: 03/23/22 07:00 Proposed Procedures p Venous Ablation(Right) - García Phoenix MD Ms. Freedman is a 72-year-old short statured, obese female who had been previously referred to our service back in October for bilateral lower extremity varicosities left greater than right though with increased pain with prolonged standing on the right side as opposed to the left. She also had prior knee injections by Dr. Danielle for arthritic discomfort. She has had previous venous reflux studies confirming bilateral reflux up to the saphenofemoral junction. With noted previous improvement with the compression, we did offer consideration for staged RF catheter ablation of the greater saphenous vein to hopefully augment relief of her symptoms but with the understanding that compression would be required long-term for protracted control. She did wish to proceed. ROS Review of systems is negative except for occasional palpitations as well as swelling of her feet and ankles with prolonged standing. She also complains of dyspnea with exertion. She has recently had some episodes of diarrhea which have resolved. She has been evaluated by her primary care provider. She also reports heartburn. She has reported some episodes of depression which she states are not severe and are not life activity limiting. Medications/Allergies* She has numerous allergies reported including adhesive tape, Tegretol, cortisone (though she does receive steroid injections intra-articular by Dr. Danielle for her right knee discomfort), iodinated contrast media, iodine, penicillin which results in nausea, and sulfa which results in nausea. Home Medications Medication Instructions Recorded Confirmed Type albuterol sulfate 90 mcg/actuation 2 puff inhalation Q6H PRN 07/27/19 03/23/22 History aerosol inhaler (ProAir HFA) Shortness Of Breath aspirin 81 mg tablet,delayed 81 mg PO DAILY@0700 07/27/19 03/23/22 History release acetaminophen 500 mg capsule 500 mg PO QID PRN Pain 11/10/20 03/23/22 History spironolactone 50 mg tablet 50 mg PO DAILY@0700 11/10/20 03/23/22 History cyclobenzaprine 10 mg tablet 10 mg PO TID PRN muscle spasms 01/08/21 03/23/22 History esomeprazole magnesium 40 mg 40 mg PO DAILY@0700 01/08/21 03/23/22 History capsule,delayed release furosemide 40 mg tablet 40 mg PO DAILY@0700 01/08/21 03/23/22 History Allergies/Adverse Reactions Allergy/AdvReac Type Severity Reaction Status Date / Time adhesive tape Allergy Mild RASH Verified 03/22/22 12:48 carbamazepine [From Tegretol] Allergy Mild UNKNOWN Verified 03/22/22 12:48 cortisone Allergy Mild UNKNOWN Verified 03/22/22 12:48 hydrocodone Allergy Mild UNKNOWN Verified 03/22/22 12:48 Iodinated Contrast Media Allergy Mild UNKNOWN Verified 03/22/22 12:48 iodine Allergy Mild MILD Verified 03/22/22 12:48 Penicillins Allergy Mild NAUSEA Verified 03/22/22 12:48 Sulfa (Sulfonamide Allergy Mild NAUSEA Verified 03/22/22 12:48 Antibiotics) Pertinent History/Comorbid Conditions* Comorbid conditions include short stature and obesity Medical History (Updated 02/19/22 @ 11:26 by LEANNA Hadley) Acute torn meniscus of knee CHF (congestive heart failure) Congestive heart failure Depression HTN (hypertension), benign Hypothyroidism Major depressive disorder, recurrent severe without psychotic features Osteoarthritis Osteoarthritis of right knee Post-traumatic stress disorder, chronic Psychiatric care Surgical History (Updated 04/15/20 @ 10:34 by Heath Selby MD) H/O colonoscopy 5 yrs ago H/O esophagogastroduodenoscopy (04/15/20) H/O tubal ligation H/O: hysterectomy History of knee replacement History of repair of rotator cuff right Hx of tonsillectomy Family History (Updated 04/01/20 @ 13:54 by Susana Simon LPN) Diabetes CAD (coronary artery disease) Chronic kidney disease (CKD) Cancer Hypertension Denies family history of Anesthesia complication Bleeding disorder Stroke Social History Smoking and tobacco status: never smoked Second hand smoke exposure: No Smoking risk assessment/counseling performed?: No Alcohol intake: never Desire information about alcohol rehabilitation?: No Counseling given: No Desire information about substance/drug rehabilitation?: No Counseling given: No Adopted: No Caregiver/support person: No Lives independently: Yes Household members: spouse Marital status: History of recent travel: No (travels from [facility]) Current gender identity: Female Pertinent Exam Findings alert, oriented x 3, clear to auscultation bilaterally, regular rate & rhythm and operative site marked Lungs are clear on today's exam. Cardiovascular dam is unremarkable. I cannot appreciate any irregularity or substantial murmur. Abdomen is soft and nontender with normoactive bowel sounds. She has no discomfort with palpation. She has bilateral lower extremity varicosities particularly in the mid distal leg bilaterally. While these appear to be visually more prominent on the left side, she complains of more discomfort on the right side with protracted standing. After discussion and previously had again this morning, she wishes to to consider therapy initially on the right side. She is alert and oriented. She is engaging and appears to have no evidence for anxiety or depression at this time. Pertinent Data Venous duplex study of December 14, 2021 revealed: 1. No evidence of DVT in the above-mentioned identifiable veins. ?2.? Significant venous reflux of greater than 500 ms were noted towards ?the greater saphenous vein segments on the right side, excluding the ?saphenofemoral junction and the below-knee segment.? These segments ?were measuring anywhere from 0.55 to 0.77 cm in diameter.? They were ?greater than 1 cm deep from the surface.(Reflux time ranging from 2.01 ?to 3.69 seconds) 3.? Significant venous reflux of greater than 500 ms ?were noted throughout the greater saphenous vein segments on the left ?side excluding the saphenofemoral junction.? These venous segments were ?measuring anywhere from 0.46 to 0.87 cm and at a depth of greater than ?1 cm from the surface.(Reflux time ranging? from 1.02? to? 3.57 ?seconds) ?4.? No significant venous reflux were noted in the small saphenous vein ?segments or in the deep veins bilaterally. Recommendations Surgery/Procedure today Other Plans: We will plan to proceed with staged RF catheter ablation of the greater saphenous veins, distal beginning of the right side for which she feels is more symptomatic. We will follow her closely postoperatively with another duplex study in 1 week to confirm adequate vein treatment and no evidence for DVT. We will then reassess her periodically in the clinic to determine the efficacy of her treatment as to whether we should proceed with the left side. Coding Level of Care Code Acute Manager [employer] for July Whitfield
--- NOTE | 2022-03-23 07:01 | USCV_ITS ---
Adilene Freedman Age: 72 Gender: F : 1950 Exam Date: 03/23/2022 07:09 Ordering Phys: García Phoenix MD (Andy) ([email or web address]) Technologist: [email or web address] [place] [facility] [place]: varicose veins PROCEDURES: Rt great saph ablation no complictions rt epigastric vein in patient. FINDINGS: The saphenofemoral junction was identified. No evidence of thrombosis in this region. 3 cm from the saphenofemoral junction was marked. CONCLUSIONS 1. Patent right saphenofemoral junction. The great saphenous vein was found to be patent upto 3 cm from the saphenofemoral junction Dr Steffen David MD [facility] (Electronically Signed) Final Date: 23 March 2022 13:28 S
[2022-03-23] MEDS: lidocaine 2% INJ 20 mL 6 ML INJECTION (07:26)
--- NOTE | 2022-03-23 08:05 | PM.OP ---
Operative Report Date of procedure: March 23, 2022 Pre-op diagnosis: Preop Diagnosis venous reflux Post-op diagnosis: same Procedure done: Right greater saphenous vein radiofrequency catheter ablation Pathology: none sent Surgeon: García Phoenix Anesthesia: Local Estimated blood loss (mL): 5 Complications: None Findings: Ultrasound surveillance throughout the entire procedure and confirmation of open proximal epigastric veins and femoral vein Condition: stable Disposition: same day Brief History: Ms. Freedman is a pleasant 72-year-old female with documented bilateral greater saphenous vein reflux of over 500 ms. She has a history of upper with achiness, heaviness, and fatigue in her lower extremities with prolonged standing. This is improved with compression. We have recommended consideration for staged RF catheter ablation of the greater saphenous veins in an attempt to improve her symptomatology. Given that she complains of more symptoms on the right than the left, we elected to proceed with a side first. Details the risk of the procedure were carefully discussed. Appropriate consents have been reviewed and signed. Procedure: The insufficient right greater saphenous vein verified by ultrasound and diagrammed on the overlying skin. The varicose tributary veins and suitable access sites were identified and mapped. The affected right lower extremity was prepped and draped in the usual sterile fashion. The patient was placed in reverse Trendelenburg position. Tumescent was instilled in the skin overlying the access site for local anesthesia. The vein was accessed in the distal thigh using ultrasound guidance and the Seldinger technique, a guidewire was introduced through the needle, which was then exchanged over the guidewire for a 7F sheath. The RF catheter was placed on the sterile field, flushed and wiped down, prepared, and connected by a sterile cable. The patient was placed in Trendelenburg position. After RF catheter position was verified by ultrasound, tumescent anesthesia was infiltrated, under ultrasound guidance, precisely into the perivenous compartment along the entire length of vein. After the RF catheter position was again confirmed with ultrasound imaging, and under direct external compression along the length of the heating element, RF energy was applied. The vein was segmentally ablated until the treatment length is completed. Device temperature was maintained at 120 +/- degrees C with an initial power level of 40W dropping to below 20W for each treatment. Total vein length treated 30 cm. Vein diameter 2 cm. Total cycles of RF 14. Time 4 minutes and 17 seconds. Repeat ultrasound of the right greater saphenous vein was performed, confirming successful treatment. The catheter and sheath were withdrawn and hemostasis established with direct pressure. After assuring hemostasis, the skin incision over the saphenous vein was closed with a bandage and graduated compression stocking(s) was applied from the level of the foot to the most proximal length of the thigh.
[2022-03-23 08:38] VITALS: BP 247/87; PULSE 68; RESP 18; TEMP 36.7; O2SAT 95
--- NOTE | 2022-03-23 08:39 | SUR.PHASEII ---
Patient's bp reported to Dr. Phoenix, no new orders received.
[2022-03-23 08:56] VITALS: BP 171/97
--- NOTE | 2022-03-23 10:22 | SUR.OPER ---
0726 equipment used [facility] [id number]
--- NOTE | 2022-03-23 10:27 | SUR.OPER ---
edit previous note: Time 4:17 Cycles 14 CM treated 30cm
== END 2022-03-23 09:10 | disposition home or self-care (01) ==
PROVIDERS: PCP Nurse Practitioner Family; Visit Provider Thoracic Surgery (Cardiothoracic Vascular Surgery)
DX: I87.2 Venous insufficiency (chronic) (peripheral) (principal); I83.813 Varicose veins of bilateral lower extremities with pain; E66.9 Obesity, unspecified; Z68.41 Body mass index [BMI] 40.0-44.9, adult; I11.0 Hypertensive heart disease with heart failure; I50.9 Heart failure, unspecified; F32.A Depression, unspecified; E03.9 Hypothyroidism, unspecified; M19.90 Unspecified osteoarthritis, unspecified site
CPT/HCPCS: 36475; C1887; C1888

== ENCOUNTER → 2022-03-23 06:00 | Day surgery (SDC) | payer MEDICARE, MEDICAID, SELFPAY | PROVIDERS: PCP Nurse Practitioner Family; Visit Provider Thoracic Surgery (Cardiothoracic Vascular Surgery) | DX: I83.90 Asymptomatic varicose veins of unspecified lower extremity (principal) | CPT/HCPCS: J1610 ==

== ENCOUNTER → 2022-03-26 08:37 | Outpatient (BNVA) | payer MEDICARE, MEDICAID, SELFPAY | PROVIDERS: PCP Nurse Practitioner Family; Visit Provider Internal Medicine Cardiovascular Disease | DX: I11.0 Hypertensive heart disease with heart failure (principal); I50.32 Chronic diastolic (congestive) heart failure; E78.5 Hyperlipidemia, unspecified; E11.9 Type 2 diabetes mellitus without complications; Z79.84 Long term (current) use of oral hypoglycemic drugs; K21.9 Gastro-esophageal reflux disease without esophagitis; I83.893 Varicose veins of bilateral lower extremities with other complications; E66.01 Morbid (severe) obesity due to excess calories; Z68.42 Body mass index [BMI] 45.0-49.9, adult | CPT/HCPCS: 99214 ==

== ENCOUNTER 2022-03-30 20:00 | Outpatient (CLI) | payer MEDICARE, MEDICAID, SELFPAY | END 2022-03-30 20:01 | disposition home or self-care (01) | LOC: SLEEP 03-31 08:12 | PROVIDERS: PCP Nurse Practitioner Family; Visit Provider Nurse Practitioner Family | DX: G47.30 Sleep apnea, unspecified (principal) | CPT/HCPCS: 95811 ==

== ENCOUNTER 2022-03-31 10:56 | Outpatient (CLI) | payer MEDICARE, MEDICAID, SELFPAY ==
--- NOTE | 2022-03-31 11:15 | USCV_ITS ---
Adilene Freedman Age: 72 Gender: F : 1950 Exam Date: 03/31/2022 11:08 Ordering Phys: García Phoenix MD (Andy) ([email or web address]) Technologist: Lexi Killian [place] [facility] [place]: 1 week post ablation rt gsv HISTORY: 1 Week post abation of the Rt GSV PROCEDURES: Venous duplex imaging was performed in only the right lower extremity. The following venous structures were evaluated: common femoral vein, profunda vein, proximal portion of the greater saphenous vein, superficial femoral vein, and the popliteal vein. In addition, the posterior tibial and peroneal trunk were evaluated. Serial compression, augmentation maneuvers, and spectral Doppler flow evaluation were performed. FINDINGS: No DVT seen in any vessel examined. The Rt GSV is ablated from below knee to 1.8 cms from junction of GSV prox and CFV CONCLUSIONS No evidence of DVT in the above-mentioned identifiable veins. Patent saphenofemoral junction The greater saphenous vein appears to be ablated from the below knee level to 1.8 cm below the saphenofemoral junction. Dr Steffen David MD [facility] (Electronically Signed) Final Date: 31 March 2022 17:05 S
== END 2022-03-31 10:57 | disposition home or self-care (01) ==
LOC: RAD 11:01
PROVIDERS: PCP Nurse Practitioner Family; Visit Provider Thoracic Surgery (Cardiothoracic Vascular Surgery)
DX: I83.90 Asymptomatic varicose veins of unspecified lower extremity (principal); Z98.890 Other specified postprocedural states
CPT/HCPCS: 93971

== ENCOUNTER → 2022-04-08 14:19 | Outpatient (BNVA) | payer MEDICARE, MEDICAID, SELFPAY | PROVIDERS: PCP Nurse Practitioner Family; Visit Provider Thoracic Surgery (Cardiothoracic Vascular Surgery) | DX: L03.90 Cellulitis, unspecified (principal) | CPT/HCPCS: 99212 ==

== ENCOUNTER → 2022-04-21 10:13 | Outpatient (BNVA) | payer MEDICARE, MEDICAID, SELFPAY | PROVIDERS: PCP Nurse Practitioner Family; Visit Provider Nurse Practitioner Family | DX: L03.90 Cellulitis, unspecified (principal) | CPT/HCPCS: 87070 ==

== ENCOUNTER → 2022-04-27 10:18 | Outpatient (BNVA) | payer MEDICARE, MEDICAID, SELFPAY | PROVIDERS: PCP Nurse Practitioner Family; Visit Provider Thoracic Surgery (Cardiothoracic Vascular Surgery) | DX: I83.893 Varicose veins of bilateral lower extremities with other complications (principal); Z48.812 Encounter for surgical aftercare following surgery on the circulatory system | CPT/HCPCS: 99212 ==

== ENCOUNTER → 2022-04-29 09:13 | Outpatient (BNVA) | payer MEDICARE, MEDICAID, SELFPAY | PROVIDERS: PCP Nurse Practitioner Family; Visit Provider Specialist | DX: M17.11 Unilateral primary osteoarthritis, right knee (principal); Z71.89 Other specified counseling; E66.01 Morbid (severe) obesity due to excess calories; Z68.41 Body mass index [BMI] 40.0-44.9, adult | CPT/HCPCS: 20610; J1100; J2795; J3301 ==

== ENCOUNTER → 2022-05-27 10:57 | Outpatient (BNVA) | payer MEDICARE, MEDICAID, SELFPAY | PROVIDERS: PCP Nurse Practitioner Family; Visit Provider Thoracic Surgery (Cardiothoracic Vascular Surgery) | DX: Z98.890 Other specified postprocedural states (principal) | CPT/HCPCS: 99024 ==

== ENCOUNTER → 2022-06-23 10:09 | Outpatient (BNVA) | payer MEDICARE, MEDICAID, SELFPAY | PROVIDERS: PCP Nurse Practitioner Family; Visit Provider Nurse Practitioner Family | DX: E11.9 Type 2 diabetes mellitus without complications (principal); R47.89 Other speech disturbances | CPT/HCPCS: 82962 ==

== ENCOUNTER → 2022-08-19 09:15 | Outpatient (BNVA) | payer MEDICARE, MEDICAID, SELFPAY | PROVIDERS: PCP Nurse Practitioner Family; Visit Provider Specialist | DX: M17.11 Unilateral primary osteoarthritis, right knee (principal); Z71.89 Other specified counseling | CPT/HCPCS: 20610; J1100; J2795; J3301 ==

== ENCOUNTER → 2022-09-28 14:35 | Outpatient (BNVA) | payer MEDICARE, MEDICAID, SELFPAY | PROVIDERS: PCP Nurse Practitioner Family; Visit Provider Thoracic Surgery (Cardiothoracic Vascular Surgery) | DX: I83.893 Varicose veins of bilateral lower extremities with other complications (principal) | CPT/HCPCS: 99213 ==

== ENCOUNTER → 2022-10-01 11:25 | Outpatient (BNVA) | payer MEDICARE, MEDICAID, SELFPAY | PROVIDERS: PCP Nurse Practitioner Family; Visit Provider Nurse Practitioner Family | DX: I11.0 Hypertensive heart disease with heart failure (principal); I50.32 Chronic diastolic (congestive) heart failure; Z79.82 Long term (current) use of aspirin | CPT/HCPCS: 99214 ==

== ENCOUNTER → 2022-10-12 14:01 | Outpatient (BNVA) | payer MEDICARE, MEDICAID, SELFPAY | PROVIDERS: PCP Nurse Practitioner Family; Visit Provider Nurse Practitioner Family | DX: Z20.822 Contact with and (suspected) exposure to COVID-19 (principal); R05.9 Cough, unspecified | CPT/HCPCS: 87426 ==

== ENCOUNTER 2022-10-15 08:40 | Outpatient (CLI) | payer MEDICARE, MEDICAID, SELFPAY ==
--- NOTE | 2022-10-15 08:47 | XR_ITS ---
WS: [id number] XR shoulder RT min 2V* [id number] REASON FOR EXAM: M25.511 - Pain in right shoulder FINDINGS: There is a deformity of the distal most clavicle with widening of the acromioclavicular joint which m ay be old post traumatic change. There is significant narrowing of the glenohumeral joint with significant subchondral sclerosis and c ystic change in the glenoid and moderate subchondral sclerosis and cystic change in the humeral head with moderate osteophytosis. There appears to be a loose body in the inferior most glenohumeral joint . Previous rotator cuff tendon repair with multiple anchors. Moderate subchondral and cystic change in the greater tuberosity. XR/XR shoulder RT min 2V* [id number] IMPRESSION: Deformity of the AC joint as above. Significant osteoarthritis in the glenohumeral joint. Significant rotator cuff tendon arthropathy and previous rotator cuff tendon re pair.
== END 2022-10-15 08:41 | disposition home or self-care (01) ==
LOC: RAD 08:43
PROVIDERS: PCP Nurse Practitioner Family; Visit Provider Nurse Practitioner Family
DX: M19.011 Primary osteoarthritis, right shoulder
CPT/HCPCS: 73030

== ENCOUNTER 2022-10-19 05:33 | Day surgery (SDC) | payer MEDICARE, MEDICAID, SELFPAY ==
[2022-10-18 11:22] VITALS: BMI 42.4
--- NOTE | 2022-10-18 11:29 | SUR.PREOP ---
1120 Called Aleks to notify of venous ablation tomorrow and message left on US answering machine also
--- NOTE | 2022-10-19 06:19 | W.PM.OPSUD ---
Surgery/Procedure H&P Update DATE OF PROCEDURE: October 19, 2022 DATE H&P PERFORMED: 09/28/22 H&P UPDATE INFORMATION: I have reviewed H&P completed within last 30 days, I have examined patient prior to procedure and No changes to prior documentation PREOP DIAGNOSIS: Left lower extremity greater saphenous vein venous reflux PLANNED PROCEDURE: Operation Date: 10/19/22 07:00 Proposed Procedures p Venous Ablation 54747,I83.839(Left) - García Phoenix MD
[2022-10-19 06:22] LABS: Glucose Point of Care 111 mg/dL (70-110)
[2022-10-19] MEDS: levoFLOXacin 500 mg Tablet PO (06:28)
--- NOTE | 2022-10-19 06:30 | USCV_ITS ---
Jasmina Adilene Age: 72 Gender: F : 1950 Exam Date: 10/19/2022 06:43 Ordering Phys: García Phoenix MD (Andy) ([email or web address]) Technologist: Juanjose Phelps [place] [facility] [place]: saph ablation on lt leg PROCEDURES: guide for great saph ablation on lt leg FINDINGS: sucessfull ablation of the lt great saph from below the knee to 3 cm distal to the epigastic on the lt. normal epigastric flow documented post proceedure. CONCLUSIONS 1. Patent iliofemoral junction, inferior epigastric vein and greater saphenous vein up to 3 cm distal to the inferior epigastric vein Dr Steffen David MD [facility] (Electronically Signed) Final Date: 19 October 2022 22:47 S
[2022-10-19 06:54] VITALS: BP 205/92; PULSE 61; RESP 18; TEMP 36.4; O2SAT 95
[2022-10-19] MEDS: diazePAM 5 mg Tablet PO (07:04)
[2022-10-19] MEDS: lidocaine 2% INJ 20 mL 10 ML INJECTION (07:25)
--- NOTE | 2022-10-19 08:01 | SUR.OPER ---
0757 dressing applied to left leg. pt tolerated procedure well. pt states no pain at this time.
--- NOTE | 2022-10-19 08:14 | SUR.OPER ---
0814 report given to damien whitney.
--- NOTE | 2022-10-19 08:15 | PM.OP ---
Operative Report Date of procedure: October 19, 2022 Pre-op diagnosis: Preop Diagnosis Left lower extremity greater saphenous vein venous reflux Post-op diagnosis: same Procedure done: Radiofrequency catheter ablation of the left greater saphenous vein Implants: None Pathology: none sent Surgeon: García Phoenix Anesthesia: Local Estimated blood loss (mL): 2 Complications: None Condition: stable Disposition: same day Brief History: Ms. Freedman is a 72-year-old female with previously documented bilateral substantial reflux of the greater saphenous vein system with highly symptomatic reflux with prolonged standing. She has previous undergone right greater saphenous vein catheter ablation in March of last year. She had a very good clinical result from this and wished to proceed with ablation on the left side. She is therefore presented today for planned RF catheter ablation of the left greater saphenous vein. Details and risk of procedure were carefully and frankly discussed. Appropriate consents have been reviewed and signed. Procedure: The insufficient left greater saphenous vein was verified by ultrasound and diagrammed on the overlying skin. The varicose tributary veins and suitable access sites were identified and mapped. The affected left lower extremity was prepped and draped in the usual sterile fashion. The patient was placed in reverse Trendelenburg position. Tumescent was instilled in the skin overlying the access site for local anesthesia. The vein was accessed in the mid calf region using ultrasound guidance and the Seldinger technique, a guidewire was introduced through the needle, which was then exchanged over the guidewire for a 7F sheath. The RF catheter was placed on the sterile field, flushed and wiped down, prepared, and connected by a sterile cable. The patient was placed in Trendelenburg position. After RF catheter position was verified by ultrasound, tumescent anesthesia was infiltrated, under ultrasound guidance, precisely into the perivenous compartment along the entire length of vein. After the RF catheter position was again confirmed with ultrasound imaging, and under direct external compression along the length of the heating element, RF energy was applied. The vein was segmentally ablated until the treatment length is completed. Device temperature was maintained at 120 +/- degrees C with an initial power level of 40W dropping to below 20W for each treatment. Total vein length treated 38 cm. Vein diameter 3 cm. Total cycles of RF 15. Time 5 minutes and 0 seconds. Repeat ultrasound of the left greater saphenous vein was performed, confirming successful treatment. The catheter and sheath were withdrawn and hemostasis established with direct pressure. After assuring hemostasis, the skin incision over the saphenous vein was closed with a bandage and graduated compression stocking(s) was applied from the level of the foot to the most proximal length of the thigh.
[2022-10-19 08:40] VITALS: BP 209/132; PULSE 68; RESP 18; TEMP 37.6; O2SAT 95
[2022-10-19] MEDS: amlodipine 5 mg Tablet PO (08:45)
== END 2022-10-19 09:00 | disposition home or self-care (01) ==
PROVIDERS: PCP Nurse Practitioner Family; Visit Provider Thoracic Surgery (Cardiothoracic Vascular Surgery)
DX: I83.893 Varicose veins of bilateral lower extremities with other complications (principal); I11.0 Hypertensive heart disease with heart failure; I50.9 Heart failure, unspecified; E03.9 Hypothyroidism, unspecified; Z79.84 Long term (current) use of oral hypoglycemic drugs
CPT/HCPCS: 36416; 36475; 82962; C1887; J1100; J2370; J2405; J2704; J3010

== ENCOUNTER 2022-10-27 13:10 | Outpatient (CLI) | payer MEDICARE, MEDICAID, SELFPAY ==
--- NOTE | 2022-10-27 15:15 | USCV_ITS ---
Adilene Freedman Age: 72 Gender: F : 1950 Exam Date: 10/27/2022 13:33 Ordering Phys: García Phoenix MD (Andy) ([email or web address] [email or web address] Technologist: CT Exam Location: [facility] – [place] Indication: post venous ablation 1 week ago PROCEDURES: Venous duplex imaging was performed in only the left lower extremity. In addition, the posterior tibial and peroneal trunk were evaluated. FINDINGS: there is no dvt, gsv thrombus is 2 and a half cm from junction, gsv is thrombused at the site of injection (prx calf) CONCLUSIONS No evidence of left lower extremity DVT. Recent GSV ablation. GSV occluded above the knee 2.5cm from junction. GSV occluded at ablation site proximal calf Gregory Kimbrough MD (Electronically Signed) Final Date: 27 October 2022 16:30 S
== END 2022-10-27 13:11 | disposition home or self-care (01) ==
PROVIDERS: PCP Nurse Practitioner Family; Visit Provider Thoracic Surgery (Cardiothoracic Vascular Surgery)
DX: M12.811 Other specific arthropathies, not elsewhere classified, right shoulder (principal); Z98.890 Other specified postprocedural states; I83.90 Asymptomatic varicose veins of unspecified lower extremity; I83.893 Varicose veins of bilateral lower extremities with other complications
CPT/HCPCS: 20610; 93971; 99213; J1100; J2795; J3301

== ENCOUNTER → 2022-11-02 14:04 | Outpatient (BNVA) | payer MEDICARE, MEDICAID, SELFPAY | PROVIDERS: PCP Nurse Practitioner Family; Visit Provider Thoracic Surgery (Cardiothoracic Vascular Surgery) | DX: I83.893 Varicose veins of bilateral lower extremities with other complications (principal) | CPT/HCPCS: 99024; 99212 ==

== ENCOUNTER 2022-11-04 06:00 | Outpatient (RCR) | payer MEDICARE, MEDICAID, SELFPAY | END 2022-11-28 23:59 | disposition home or self-care (01) | LOC: WPT 06:00 | PROVIDERS: PCP Nurse Practitioner Family; Visit Provider Specialist | DX: M25.511 Pain in right shoulder (principal); R29.6 Repeated falls | CPT/HCPCS: 97110; 97112; 97163; 97530 ==

== ENCOUNTER → 2022-11-08 11:11 | Outpatient (BNVA) | payer MEDICARE, MEDICAID, SELFPAY | PROVIDERS: PCP Nurse Practitioner Family; Visit Provider Nurse Practitioner Family | DX: E03.9 Hypothyroidism, unspecified (principal); E11.9 Type 2 diabetes mellitus without complications; I10 Essential (primary) hypertension | CPT/HCPCS: 80053; 80061; 83036; 84443 ==

== ENCOUNTER → 2022-11-18 09:23 | Outpatient (BNVA) | payer MEDICARE, MEDICAID, SELFPAY | PROVIDERS: PCP Nurse Practitioner Family; Visit Provider Specialist | DX: M17.11 Unilateral primary osteoarthritis, right knee (principal); Z71.89 Other specified counseling | CPT/HCPCS: 20610; J1100; J2795; J3301 ==

== ENCOUNTER → 2022-12-07 11:25 | Outpatient (BNVA) | payer MEDICARE, MEDICAID, SELFPAY | PROVIDERS: PCP Nurse Practitioner Family; Visit Provider Nurse Practitioner Family | DX: N28.9 Disorder of kidney and ureter, unspecified (principal); I10 Essential (primary) hypertension; E11.9 Type 2 diabetes mellitus without complications | CPT/HCPCS: 80053 ==

== ENCOUNTER 2022-12-13 14:20 | Emergency (ER) | payer MEDICARE, MEDICAID, SELFPAY ==
[2022-12-13 14:45] VITALS: BP 177/80; PULSE 75; TEMP 36.6; O2SAT 96; BMI 42.3
[2022-12-13 15:10] VITALS: BP 188/97; PULSE 62; O2SAT 94
[2022-12-13 15:52] LABS: Basophils % 0.4 %; Eosinophils # 0.2 10^3/uL (0.0-0.8); Eosinophils % 2.1 %; Hematocrit 36.2 % (37.0-47.0); Hemoglobin 11.2 g/dL (11.5-15.3); Lymphocytes # 1.5 10^3/uL (0.8-4.8); Lymphocytes % 18.9 %; Mean Corpuscular HGB Conc 30.9 g/dL (30.0-36.0); Mean Corpuscular Hemoglobin 26.2 pg (28.0-34.0); Mean Corpuscular Volume 84.6 fl (81-99); Mean Platelet Volume 9.8 fL (7.4-10.4); Monocytes # 0.5 10^3/uL (0.2-0.9); Monocytes % 6.6 %; Neutrophils # 5.57 10^3/uL (1.8-7.7); Neutrophils % 71.7 %; Nucleated Red Blood Cells % 0 %; Platelet Count 221 10^3/cmm (130-400); Red Blood Count 4.28 10^6/uL (4.1-5.3); Red Cell Distribution Width 13.3 % (12.1-15.1); White Blood Count 7.8 10^3/uL (4.0-10.0)
[2022-12-13 16:21] LABS: Alanine Aminotransferase 7 U/L (0-33); Albumin Level 3.5 g/dL (3.5-5.2); Alkaline Phosphatase 103 U/L (35-105); Anion Gap 12.3 (5-19); Aspartate Amino Transferase 10 U/L (0-32); Blood Urea Nitrogen 14 mg/dL (8-23); Calcium 9.6 mg/dL (8.5-10.5); Carbon Dioxide 29 mmol/L (22-29); Chloride 103 mmol/L (98-107); Globulin 3.1 g/dL (1.3-4.6); Glomerular Filtration Rate 54.8 mL/min (90-130); Glucose 99 mg/dL (65-115); Osmolality Calculated 291 mOsm/kg (285-295); Potassium 4.3 mmol/L (3.5-5.1); Sodium 140 mmol/L (136-145); Total Bilirubin 0.4 mg/dL (0.15-1.2); Total Protein 6.6 g/dL (6.6-8.7)
[2022-12-13 17:30] VITALS: BP 199/80; PULSE 69; TEMP 36.9; O2SAT 95
--- NOTE | 2022-12-13 18:31 | USR_ITS ---
PROCEDURE INFORMATION: Exam: US Duplex Lower Extremity Veins, Bilateral Exam date and time: 12/13/2022 6:55 PM Age: 72 years old Clinical indication: Pain; Leg, upper; Left; Prior surgery; Surgery date: 1-6 months; Surgery type: Ablation therapy [address] Carmen due to venous insufficiency and chronic varicose veins. Patient HX: Swelling and redness, localized, referred by pcp, probable cellulitis vs phlebitis, pcp concern for dvt TECHNIQUE: Imaging protocol: Real-time duplex ultrasound of the bilateral extremities with 2-D dennis scale, color Doppler flow and spectral waveform analysis including responses to compression and other maneuvers (when performed) with image documentation. Complete exam focused on the lower extremity veins. COMPARISON: MR knee RT wo con* [id number] 07/07/2021 3:28 PM FINDINGS: Right deep veins: Unremarkable. The common femoral, femoral, proximal profunda femoral, popliteal, posterior tibial and peroneal veins are patent without thrombus. Normal Doppler waveforms. Normal compressibility and/or augmentation response. Right superficial veins: Saphenofemoral junction is patent without thrombus. Left deep veins: Unremarkable. The common femoral, femoral, proximal profunda femoral, popliteal, posterior tibial and peroneal veins are patent without thrombus. Normal Doppler waveforms. Normal compressibility and/or augmentation response. Left superficial veins: Thrombosed superficial varicosity along the medial aspect of the thigh with thrombus in the greater saphenous vein at the level of the mid thigh. Saphenofemoral junction is patent without thrombus. Soft tissues: Unremarkable. US/[place] [id number] IMPRESSION: 1. No sonographic evidence of deep vein thrombosis. 2. Thrombosed superficial varicosity along the medial aspect of the left thigh with thrombus in the left greater saphenous vein at the level of the mid thigh.
--- NOTE | 2022-12-13 18:33 | W.ED.GENADLT ---
HPI - General Adult General: Chief complaint: Extremity Injury, Lower Stated complaint: leg pain both legs Time Seen by Provider: 12/13/22 18:22 History of Present Illness: 72-year-old female comes in today with complaints of area of redness and tenderness to the left inner thigh. Patient also has a small area to the right inner thigh. Patient reports no fever or chills. Patient had contacted her primary care and they referred her to the ER for further evaluation to rule out DVT. Patient was told she needed to have ultrasound. No distal swelling or redness is noted. Swelling and redness is localized to the area mostly on the left thigh. Patient has a history of depression, restless legs, obesity, asthma, osteoporosis, PVD, hypertension, osteoarthritis, GERD. Associated symptoms: Deny chest pain, dyspnea, headache(s), nausea or vomiting Review of Systems General: Reports: 10 or more systems reviewed and unremarkable except in HPI and below Const: Denies: fever(s) Card: Denies: chest pain Resp: Denies: dyspnea GI: Denies: nausea or vomiting : Denies: difficulty voiding Musc: Reports: extremity pain and extremity swelling Skin/Breast: Reports: erythema Neuro: Denies: headache(s) PFSH ED PFSH: Medical History Acute torn meniscus of knee CHF (congestive heart failure) Congestive heart failure Depression HTN (hypertension), benign Hypothyroidism Major depressive disorder, recurrent severe without psychotic features Osteoarthritis Osteoarthritis of right knee Post-traumatic stress disorder, chronic Psychiatric care Surgical History H/O colonoscopy 5 yrs ago H/O esophagogastroduodenoscopy (04/15/20) H/O tubal ligation H/O: hysterectomy History of knee replacement History of repair of rotator cuff right Hx of tonsillectomy Family History Other CAD (coronary artery disease) Cancer Chronic kidney disease (CKD) Diabetes Hypertension Denies family history of Anesthesia complication Bleeding disorder Stroke Social History Smoking and tobacco status: never smoked Second hand smoke exposure: No Smoking risk assessment/counseling performed?: No Alcohol intake: never Desire information about alcohol rehabilitation?: No Counseling given: No Substance/Drug Use: never Desire information about substance/drug rehabilitation?: No Counseling given: No Adopted: No Caregiver/support person: No Lives independently: Yes Household members: spouse Marital status: Current gender identity: Female Physical Exam Const: COMMON NORMALS: alert HENMT: COMMON NORMALS: normocephalic HEAD & SCALP: normocephalic THROAT: posterior oropharynx normal Neck/C-Spine: COMMON NORMALS: full ROM Resp: COMMON NORMALS: normal respiratory effort and clear to auscultation bilaterally AUSCULTATION: clear to auscultation bilaterally Cardio: COMMON NORMALS: regular rate and regular rhythm RATE: regular rate RHYTHM: regular rhythm Back/Pelvis: COMMON NORMALS: thoracic and lumbar spine normal to inspection Extremity: RIGHT LOWER EXTREMITY: Yes upper leg (Mitchell size area of tenderness right inner thigh) Right upper leg: Yes inspection and Yes palpation LEFT LOWER EXTREMITY: Yes upper leg (Area of tenderness and redness approximately 10 cm) Neuro: SENSORIUM/ORIENTATION: Yes alert Skin: NARRATIVE SKIN EXAM: Area of redness and induration to the left inner thigh. Course Vital Signs: Vital signs: Vital Signs Temperature 98.5 F 12/13/22 17:30 Pulse Rate 69 12/13/22 17:30 Blood Pressure 234/93 12/13/22 19:37 Pulse Oximetry 95 12/13/22 17:30 Oxygen Delivery Me thod Room Air 12/13/22 17:30 MDM - General Adult Medical Decision Making Patient was referred to the ER for concerns of DVT. Patient has an area of redness and induration to the left inner thigh. Vital signs are normal except elevated blood pressure. Differential diagnosis includes DVT, cellulitis, phlebitis, varicose veins. Ultrasound of the right lower extremity was negative for any abnormality, ultrasound of the left lower extremity noted a superficial thrombosis. Reviewed this with Dr. Gaming who agreed with plan for monitoring, using warm moist compresses, and acetaminophen and/or ibuprofen for pain. Discussed this with patient who reported understanding and agreed to plan and need for monitoring for worsening symptoms such as increased redness and swelling distally to the thigh. Reassured patient there was no sign of DVT at this time. Lab Data 12/13/22 15:41 12/13/22 15:41 Radiology Impressions Venous Duplex 12/13/22 18:31 IMPRESSION: 1. No sonographic evidence of deep vein thrombosis. 2. Thrombosed superficial varicosity along the medial aspect of the left thigh with thrombus in the left greater saphenous vein at the level of the mid thigh. Laboratory Results WBC 7.8 10^3/uL (4.0-10.0) 12/13/22 15: RBC 4.28 10^6/uL (4.1-5.3) 12/13/22 15: Hgb 11.2 g/dL (11.5-15.3) L 12/13/22 15: Hct 36.2 % (37.0-47.0) L 12/13/22 15: MCV 84.6 fl (81-99) 12/13/22 15: MCH 26.2 pg (28.0-34.0) L 12/13/22 15: MCHC 30.9 g/dL (30.0-36.0) 12/13/22 15: RDW 13.3 % (12.1-15.1) 12/13/22 15: Plt Count 221 10^3/cmm (130-400) 12/13/22 15: MPV 9.8 fL (7.4-10.4) 12/13/22 15: Neut % (Auto) 71.7 % 12/13/22 15: Lymph % (Auto) 18.9 % 12/13/22 15:41 [place] % (Auto) 6.6 % 12/13/22 15: Eos % (Auto) 2.1 % 12/13/22: Baso % (Auto) 0.4 % 12/13/22 15:41 Neut # (Auto) 5.57 10^3/uL (1.8-7.7) 12/13/22 15: Lymph # (Auto) 1.5 10^3/uL (0.8-4.8) 12/13/22 15: [place] # (Auto) 0.5 10^3/uL (0.2-0.9) 12/13/22 15:41 Eos # (Auto) 0.2 10^3/uL (0.0-0.8) 12/13/22 15: Baso # (Auto) 0.0 10^3/uL (0.0-0.1) 12/13/22 15:41 Nucleated RBC % (auto) 0 % 12/13/22 15:41 Nucleated RBCs # 0.0 /100WBC 12/13/22 15:41 Sodium 140 mmol/L (136-145) 12/13/22 15:41 Potassium 4.3 mmol/L (3.5-5.1) 12/13/22 15:41 Chloride 103 mmol/L (98-107) 12/13/22 15:41 Carbon Dioxide 29 mmol/L (22-29) 12/13/22 15:41 Anion Gap 12.3 (5-19) 12/13/22 15:41 BUN 14 mg/dL (8-23) 12/13/22 15:41 Creatinine 1.0 mg/dL (0.5-0.9) H 12/13/22 15:41 GFR Calculation 54.8 mL/min (90-130) L 12/13/22 15:41 Glucose 99 mg/dL (65-115) 12/13/22 15:41 Calculated Osmolality 291 mOsm/kg (285-295) 12/13/22 15:41 Calcium 9.6 mg/dL (8.5-10.5) 12/13/22 15:41 Total Bilirubin 0.4 mg/dL (0.15-1.2) 12/13/22 15:41 AST 10 U/L (0-32) 12/13/22 15:41 ALT 7 U/L (0-33) 12/13/22 15:41 Alkaline Phosphatase 103 U/L (35-105) 12/13/22 15:41 Total Protein 6.6 g/dL (6.6-8.7) 12/13/22 15:41 Albumin 3.5 g/dL (3.5-5.2) 12/13/22 15:41 Globulin 3.1 g/dL (1.3-4.6) 12/13/22 15:41 Discharge Plan Discharge Patient Disposition: Home Clinical Impression: Superficial thrombophlebitis of left leg Condition: Stable Prescriptions: No Action aspirin 81 mg tablet,delayed release (DR/EC) 81 mg PO DAILY@0700 albuterol sulfate 0.63 mg/3 mL solution for nebulization 0.63 mg INHALATION QID PRN (Reason: shortness of breath or wheezing) Qty: 90 1RF acetaminophen 500 mg capsule 500 mg PO QID PRN (Reason: Pain) spironolactone 50 mg tablet 50 mg PO DAILY@0700 loratadine [Claritin RediTabs] 10 mg tablet,disintegrating 10 mg PO DAILY Qty: 30 0RF (DME) blood-glucose meter [Blood Glucose Monitoring] Kit See Rx Instructions .ROUTE .MEDSUPPLY Qty: 1 0RF Rx Instructions: As directed clopidogrel 75 mg tablet 75 mg PO DAILY montelukast 10 mg tablet 10 mg PO DAILY albuterol sulfate [ProAir HFA] 90 mcg/actuation HFA aerosol inhaler 2 puff INHALATION Q6H PRN (Reason: Shortness Of Breath) Qty: 6.7 1RF clonazepam 0.5 mg tablet 0.5 mg PO DAILY PRN (Reason: anxiety) Qty: 30 2RF duloxetine [Cymbalta] 60 mg capsule,delayed release(DR/EC) 60 mg PO BID@00,2099 Qty: 60 2RF escitalopram oxalate [Lexapro] 20 mg tablet 20 mg PO DAILY@0700 Qty: 30 2RF hydroxyzine HCl 50 mg tablet 50 mg PO BEDTIME@2099 Qty: 30 2RF trazodone 150 mg tablet 300 mg PO BEDTIME@2099 Qty: 60 2RF Rx Instructions: 1 to 2 tabs at bed ropinirole 1 mg tablet 1 mg PO BID@0700,2100 Qty: 60 2RF prazosin 1 mg capsule 1 mg PO BEDTIME@2099 Qty: 30 2RF (DME) lancets [Accu-Chek Softclix Lancets] Misc See Rx Instructions .ROUTE .MEDSUPPLY Qty: 100 0RF Rx Instructions: As directed meloxicam 15 mg tablet 15 mg PO DAILY@0700 Qty: 90 0RF amlodipine 5 mg tablet 5 mg PO BID Qty: 60 0RF Rx Instructions: Make follow-up for further refills levothyroxine [Euthyrox] 150 mcg tablet 150 mcg PO DAILY@0630 Qty: 90 0RF (DME) Accu-Chek Felisha Plus test strp Strip See Rx Instructions .ROUTE .COMPLEX Qty: 100 0RF Dose Instruction: USE DIRECTED Rx Instructions: USE DIRECTED metformin 500 mg tablet See Rx Instructions .ROUTE .COMPLEX Qty: 90 0RF Dose Instruction: TAKE 1 TABLET BY MOUTH ONCE DAILY AT 0700 Rx Instructions: TAKE 1 TABLET BY MOUTH ONCE DAILY AT 0700 atorvastatin 40 mg tablet 40 mg PO DAILY Qty: 90 0RF potassium chloride 20 mEq tablet extended release See Rx Instructions .ROUTE .COMPLEX Qty: 270 0RF Dose Instruction: TAKE 1 TABLET BY MOUTH THREE TIMES DAILY Rx Instructions: TAKE 1 TABLET BY MOUTH THREE TIMES DAILY alendronate 70 mg tablet See Rx Instructions .ROUTE .COMPLEX Qty: 12 0RF Dose Instruction: Take 1 tablet by mouth once a week Rx Instructions: Take 1 tablet by mouth once a week cyclobenzaprine 10 mg tablet 10 mg PO TID PRN (Reason: muscle spasms) furosemide 40 mg tablet 40 mg PO DAILY@0700 esomeprazole magnesium 40 mg capsule,delayed release(DR/EC) 40 mg PO DAILY@0700 Discharge Orders: Discharge ED (Routine); Ordered 12/13/22 Ordered By: García Falcon Referrals: Zoraida Arzola FNP [Primary Care Provider] - Discharge Diet: Usual diet Discharge Activity: Increase activity as tolerated Patient Instructions: Superficial Thrombophlebitis (ED) Activity Restrictions/Additional Instructions: Use warm compresses to the area of redness and discomfort. Take acetaminophen and/or ibuprofen for pain and tenderness. Drink plenty of water. Follow-up with primary care in 3 to 5 days for recheck. Return to ED for new concerns or worsening symptoms such as increased redness and swelling to the lower leg. 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
--- NOTE | 2022-12-13 18:45 | PC.NURSE ---
REPORT GIVEN TO JACOB MAK.
[2022-12-13 19:34] VITALS: BP 234/93
[2022-12-13 19:37] VITALS: BP 234/93
[2022-12-13] MEDS: cloNIDine 0.1 mg Tablet PO (19:37)
== END 2022-12-13 21:17 | disposition home or self-care (01) ==
PROVIDERS: Family Medicine; Emergency Provider Nurse Practitioner Family; PCP Nurse Practitioner Family
DX: I80.02 Phlebitis and thrombophlebitis of superficial vessels of left lower extremity (principal); Z79.82 Long term (current) use of aspirin; Z79.02 Long term (current) use of antithrombotics/antiplatelets; Z79.84 Long term (current) use of oral hypoglycemic drugs; I11.0 Hypertensive heart disease with heart failure; I50.9 Heart failure, unspecified
CPT/HCPCS: 36415; 80053; 85025; 93970; 99284

== ENCOUNTER → 2023-02-24 13:29 | Outpatient (BNVA) | payer MEDICARE, MEDICAID, OTHER, SELFPAY | PROVIDERS: PCP Nurse Practitioner Family; Visit Provider Specialist | DX: M17.11 Unilateral primary osteoarthritis, right knee; Z71.89 Other specified counseling | CPT/HCPCS: 20610; J1100; J2795; J3301 ==

== ENCOUNTER → 2023-03-16 10:44 | Outpatient (BNVA) | payer MEDICARE, OTHER, SELFPAY | PROVIDERS: PCP Nurse Practitioner Family; Visit Provider Nurse Practitioner Family | DX: E78.5 Hyperlipidemia, unspecified (principal); E11.9 Type 2 diabetes mellitus without complications; I10 Essential (primary) hypertension; E55.9 Vitamin D deficiency, unspecified | CPT/HCPCS: 80053; 80061; 83036 ==

== ENCOUNTER → 2023-05-18 13:34 | Outpatient (BNVA) | payer MEDICARE, SELFPAY | PROVIDERS: PCP Nurse Practitioner Family; Visit Provider Internal Medicine Cardiovascular Disease | DX: I11.0 Hypertensive heart disease with heart failure (principal); I50.32 Chronic diastolic (congestive) heart failure; E78.5 Hyperlipidemia, unspecified | CPT/HCPCS: 99214 ==

== ENCOUNTER → 2023-05-23 08:32 | Outpatient (BNVA) | payer MEDICARE, SELFPAY | PROVIDERS: PCP Nurse Practitioner Family; Visit Provider Internal Medicine Cardiovascular Disease | DX: E03.9 Hypothyroidism, unspecified (principal); E78.5 Hyperlipidemia, unspecified; I50.9 Heart failure, unspecified; I11.0 Hypertensive heart disease with heart failure | CPT/HCPCS: 80048; 83735; 83880 ==

== ENCOUNTER 2023-05-26 13:25 | Outpatient (CLI) | payer MEDICARE, MEDICAID, SELFPAY ==
--- NOTE | 2023-05-26 15:00 | USCV_ITS ---
Adilene Freedman Age: 73 Gender: F : 1950 Exam Date: 05/26/2023 14:44 Ordering Phys: Jenna Monahan MD ([email or web address]) Technologist: Lexi Killian Exam Location: [facility] – [place] Indication: SOB AND CHEST PAIN BP: 148 / 98 HR: 57 Rhythm: Sinus Technical Quality: Adequate MEASUREMENTS (Male / Female) Normal Values 2D ECHO LV Diastolic Diameter PLAX 4.6 cm 4.2 - 5.9 / 3.9 - 5.3 cm LV Systolic Diameter PLAX 2.8 cm LV Chamber Size 3.9 cm IVS Diastolic Thickness 1.4 cm 0.6 - 1.0 / 0.6 - 0.9 cm IVS Systolic Thickness 1.6 cm LVPW Diastolic Thickness 1.4 cm 0.6 - 1.0 / 0.6 - 0.9 cm LVPW Systolic Thickness 2.1 cm RV Chamber Size 5.1 cm LVOT Diameter 2.1 cm LV Ejection Fraction 2D Teich 68.6 % LV Ejection Fraction MOD 2C 45.4 % LV Ejection Fraction 2C AL 45.6 % LA Diameter 4.9 cm Aorta at Sinotubular Diameter 3.7 cm IVC Diameter 1.5 cm M-MODE Aortic Annulus Diameter 3.0 cm LA Ao Ratio MM 2.1 MV E Point Septal Separation 0.3 cm DOPPLER AV Peak Velocity 184.0 cm/s LVOT Peak Velocity 104.0 cm/s AV Area Cont Eq vti 2.0 cm squared AV Area Cont Eq pk 1.9 cm squared MV Area PHT 3.2 cm squared Mitral E to A Ratio 1.6 MV E' Velocity 72.0 cm/s Mitral E to MV E' Ratio 24.9 Mitral E to LV E' Lateral Ratio 27.3 Mitral E to LV E' Septal Ratio 23.2 TR Peak Velocity 285.6 cm/s TR Peak Gradient 32.6 mmHg TR Mean Velocity 220.7 cm/s TR Mean Gradient 22.3 mmHg TR Velocity Time Integral 112.1 cm TV Peak E Velocity 50.0 cm/s Right Atrial Pressure 3.0 mmHg Pulmonary Artery Systolic Pressu 35.6 mmHg RV Acceleration Time 0.2 s RV Ejection Time 0.4 s RV AcT/ET 0.5 FINDINGS Left Ventricle Normal left ventricular size, systolic function and moderately increased wall thickness, with no regional wall motion abnormalities. Left ventricular ejection fraction is estimated at 65 %. Normal diastolic function. Right Ventricle Normal right ventricular size and systolic function. Right ventricular systolic pressure 47 mmHg. Right Atrium Mildly increased right atrial size. Left Atrium Moderately increased left atrial size. Mitral Valve Moderate mitral annular calcification. Moderately thickened mitral valve. No mitral valve stenosis. Trace mitral valve regurgitation. Aortic Valve Structurally normal trileaflet aortic valve. No aortic valve stenosis. Mild to moderate aortic valve regurgitation. Tricuspid Valve Structurally normal tricuspid valve. No tricuspid valve stenosis. Trace tricuspid valve regurgitation. Pulmonic Valve Structurally normal pulmonic valve. No pulmonary valve stenosis. No pulmonary valve regurgitation. Pericardium No pericardial effusion. Aorta Normal size aortic root and proximal ascending aorta. IVC Normal IVC dimension with >50% respiratory change of the inferior vena cava. CONCLUSIONS 1. Normal left ventricular size, systolic function and moderately increased wall thickness, with no regional wall motion abnormalities. Left ventricular ejection fraction is estimated at 65 %. Normal diastolic function. 2. Mild to moderate aortic valve regurgitation. 3. Mild pulmonary hypertension with pulmonary artery pressure estimated at 47 mm Hg. 4. No significant change when compared to study dated 01/02/21. Jenna Monahan MD (Electronically Signed) Final Date: 04 June 2023 23:19 S
== END 2023-05-26 13:26 | disposition home or self-care (01) ==
LOC: RAD 13:25
PROVIDERS: PCP Nurse Practitioner Family; Visit Provider Internal Medicine Cardiovascular Disease
DX: I50.9 Heart failure, unspecified (principal); R06.02 Shortness of breath; I35.1 Nonrheumatic aortic (valve) insufficiency; I27.20 Pulmonary hypertension, unspecified
CPT/HCPCS: 93306

== ENCOUNTER → 2023-06-30 08:16 | Outpatient (BNVA) | payer MEDICARE, SELFPAY | PROVIDERS: PCP Nurse Practitioner Family; Visit Provider Nurse Practitioner | DX: M17.11 Unilateral primary osteoarthritis, right knee; Z71.89 Other specified counseling | CPT/HCPCS: 20610; J1100; J2795; J3301 ==

== ENCOUNTER 2023-07-06 10:46 | Outpatient (CLI) | payer MEDICARE, SELFPAY ==
--- NOTE | 2023-07-06 10:50 | MM_ITS ---
WS: [id number] Bilateral screening 3D tomosynthesis digital mammogram, 07/06/2023 Clinical Data: Z12.39 - Encounter for other screening for malignant neop... Comparison: 03/05/2022, 03/31/2020, 08/26/2017, 11/04/2016. Findings: The breast parenchymal pattern shows heterogeneous density. No spiculated masses or clustered calcifi cations are seen. There are no secondary signs of carcinoma. Impression: 1. Negative bilateral mammogram unchanged. 2. Recommend annual screening mammograms. MM/[place] [id number] BIRADS: 1-Negative FOLLOW UP: 1 Year Follow-up The CAD field checker was used.
== END 2023-07-06 10:47 | disposition home or self-care (01) ==
LOC: RAD 10:47
PROVIDERS: PCP Nurse Practitioner Family; Visit Provider Nurse Practitioner Family
DX: Z12.31 Encounter for screening mammogram for malignant neoplasm of breast (principal)
CPT/HCPCS: 77063; 77067

== ENCOUNTER → 2023-07-27 13:43 | Outpatient (BNVA) | payer MEDICARE, SELFPAY | PROVIDERS: PCP Nurse Practitioner Family; Visit Provider Nurse Practitioner Family | DX: E78.5 Hyperlipidemia, unspecified (principal); E11.9 Type 2 diabetes mellitus without complications; I10 Essential (primary) hypertension; R53.83 Other fatigue | CPT/HCPCS: 80053; 80061; 83036; 85025 ==

== ENCOUNTER → 2023-08-16 14:12 | Outpatient (BNVA) | payer MEDICARE, MEDICAID, SELFPAY | PROVIDERS: PCP Nurse Practitioner Family; Visit Provider Nurse Practitioner Family | DX: I11.0 Hypertensive heart disease with heart failure (principal); I50.32 Chronic diastolic (congestive) heart failure | CPT/HCPCS: 99214 ==

== ENCOUNTER → 2023-09-23 12:37 | Outpatient (BNVA) | payer MEDICARE, MEDICAID, SELFPAY | PROVIDERS: PCP Nurse Practitioner Family; Visit Provider Specialist | DX: M17.11 Unilateral primary osteoarthritis, right knee (principal); N30.01 Acute cystitis with hematuria | CPT/HCPCS: 20610; 81000; 87086; J1100; J2795; J3301 ==

== ENCOUNTER → 2023-11-08 11:24 | Outpatient (BNVA) | payer MEDICARE, SELFPAY | PROVIDERS: PCP Nurse Practitioner Family; Visit Provider Nurse Practitioner Family | DX: E11.9 Type 2 diabetes mellitus without complications (principal); E03.9 Hypothyroidism, unspecified; I10 Essential (primary) hypertension | CPT/HCPCS: 80053; 80061; 83036; 84443 ==

== ENCOUNTER 2023-12-04 12:53 | Emergency (ER) | payer MEDICARE, MEDICAID, SELFPAY ==
[2023-12-04] VITALS (11 sets, daily range): BP systolic 145–176; BP diastolic 67–79; PULSE 54–72; RESP 16–26; TEMP 36.7; O2SAT 89–95; BMI 46.0
--- NOTE | 2023-12-04 12:58 | ED_ITS ---
HPI - Seizure 2 General: Chief Complaint: Seizure Stated Complaint: SEIZURES Time Seen by Provider: 12/04/23 12:57 History of Present Illness: HPI Narrative: 73-year-old female with a history of sei zure disorder, psychiatric issues CHF, depression, hypertension, hypothyroidism who presents the emergency room after having 2 seizures this morning. She states that when she is stressed that usually causes her to have seizures although she has been feeling little under the weather this week. Just tired. No cough. No fevers. She had a seizure [facility] and then again on the ambulance. She was postictal briefly. She received some Versed in the ambulance. She is now alert and oriented. Both seizures lasted approximately a minute. She says at [facility] they were able to catch her and keep her from falling down. She has no pain complaints at this time. Seizure History: Yes Review of Systems 2 Narrative: Constitutional symptoms: Negative except as documented in HPI. Skin symptoms: Negative except as documented in HPI. Eye symptoms: Negative except as documented in HPI. ENMT symptoms: Negative except as documented in HPI. Respiratory symptoms: Negative except as documented in HPI. Cardiovascular symptoms: Negative except as documented in HPI. Gastrointestinal symptoms: Negative except as documented in HPI. Genitourinary symptoms: Negative except as documented in HPI. Musculoskeletal symptoms: Negative except as documented in HPI. Neurologic symptoms: Negative except as documented in HPI. Psychiatric symptoms: Negative except as documented in HPI. Endocrine symptoms: Negative except as documented in HPI. PFSH ED 2 PFSH: Medical History Psychiatric care CHF (congestive heart failure) Congestive heart failure Osteoarthritis of right knee Acute torn meniscus of knee Post-traumatic stress disorder, chronic Major depressive disorder, recurrent severe without psychotic features Osteoarthritis Depression HTN (hypertension), benign Hypothyroidism Surgical History H/O esophagogastroduodenoscopy (04/15/20) H/O: hysterectomy Hx of tonsillectomy H/O tubal ligation History of repair of rotator cuff right H/O colonoscopy 5 yrs ago History of knee replacement Family History Other CAD (coronary artery disease) Cancer Chronic kidney disease (CKD) Diabetes Hypertension Denies family history of Anesthesia complication Bleeding disorder Stroke Social History Smoking and tobacco/nicotine status: never used tobacco/nicotine Second hand smoke exposure: No Alcohol intake: never Substance/Drug Use: never Adopted: No Caregiver/support person: No Lives independently: Yes Household members: spouse Marital status: Current gender identity: Female Physical Exam 2 Narrative: EXAM NARRATIVE: General: Alert, no acute distress. Skin: Warm, dry. Head: Normocephalic, atraumatic. Neck: Supple, trachea midline. Eye: Extraocular movements are intact. Ears, nose, mouth and throat: mucosa moist. Cardiovascular: Regular, Normal peripheral perfusion. Respiratory: Lungs are clear to auscultation, respirations are non-labored, breath sounds are equal, Symmetrical chest wall expansion. Gastrointestinal: Soft, Nontender, Non distended, Normal bowel sounds. Musculoskeletal: Normal ROM, no deformity. Neurological: Alert and oriented, No focal neurological deficit observed. Psychiatric: Cooperative, appropriate mood & affect. Course 2 Vital Signs: Vital signs: Vital Signs Temperature 98.1 F 12/04/23 12:56 Pulse Rate 66 12/04/23 14:30 Respiratory Rate 16 12/04/23 13:15 Blood Pressure 168/79 12/04/23 14:30 Pulse Oximetry 92 12/04/23 14:30 Oxygen Delivery Me thod Room Air 12/04/23 14:30 MDM - Seizure MDM Narrative Medical decision making narrative: Medical decision making: Differential diagnosis for this patient with a complaint of seizure like activity would include but not be limited to, and based on the above HPI, review of systems and physical exam: seizure, DT's, alcohol withdrawal, brain malignancy, pseudo-seizure, syncope. Orders placed to evaluate differential diagnosis based on the above differential, HPI and physical exam Lab Review: Laboratory results were reviewed and interpreted by myself the emergency room physician Lab work is unremarkable. White count is normal at 7.4. Hemoglobin is 13.2. BUN and creatinine are 18 and 1.0. I reviewed the patient's medical record. Reexamination: Patient says she still feels a bit weak but she feels okay. No altered mental status. No focal motor deficits. She is alert. No increased work of breathing Assessment and plan: Seizure Seizure disorder - Discharged home - Discussed plan with patient. Answered any questions. - Evaluation and treatment of this problem were appropriate in the emergency setting. Lab Data 12/04/23 Unknown 12/04/23 Unknown Labs: Laboratory Results WBC 7.42 10^3/uL (3.29-11.43) 12/04/23 Unknown RBC 4.93 10^6/uL (3.85-5.65) 12/04/23 Unknown Hgb 13.20 g/dL (11.27-16.99) 12/04/23 Unknown Hct 41.5 % (36-47) 12/04/23 Unknown MCV 84.2 fl (85-98) L 12/04/23 Unknown MCH 26.8 pg (27-33) L 12/04/23 Unknown MCHC 31.8 g/dL (30-55) 12/04/23 Unknown RDW 13.1 % (12.1-15.1) 12/04/23 Unknown Plt Count 274 10^3/cmm (157-399) 12/04/23 Unknown MPV 10.0 fL (7.4-10.4) 12/04/23 Unknown Neut % (Auto) 63.1 % 12/04/23 Unknown Lymph % (Auto) 23.0 % 12/04/23 Unknown Snyder % (Auto) 6.2 % 12/04/23 Unknown Eos % (Auto) 7.0 % 12/04/23 Unknown Baso % (Auto) 0.4 % 12/04/23 Unknown Neut # (Auto) 4.68 10^3/uL (1.8-7.7) 12/04/23 Unknown Lymph # (Auto) 1.7 10^3/uL (0.8-4.8) 12/04/23 Unknown Snyder # (Auto) 0.5 10^3/uL (0.2-0.9) 12/04/23 Unknown Eos # (Auto) 0.5 10^3/uL (0.0-0.8) 12/04/23 Unknown Baso # (Auto) 0.0 10^3/uL (0.0-0.1) 12/04/23 Unknown Nucleated RBC % (auto) 0 % 12/04/23 Unknown Nucleated RBCs # 0.0 /100WBC 12/04/23 Unknown Specimen Type Arterial 12/04/23 13:05 Sample Site Brachial, right 12/04/23 13:05 ABG pH 7.40 (7.35-7.45) 12/04/23 13:05 ABG pCO2 51.4 mmHg (35-45) H 12/04/23 13:05 ABG pO2 59.1 mmHg (80.0-100.0) L 12/04/23 13:05 ABG PO2/FiO2 Ratio 0 12/04/23 13:05 ABG HCO3 31.8 mmol/L (22-26) H 12/04/23 13:05 ABG O2 Saturation 92.7 12/04/23 13:05 ABG Base Excess 5.7 mmol/L (-2.0-2.0) H 12/04/23 13:05 Clint Test N/a 12/04/23 13:05 A-a O2 Gradient 3.6 mmHg (5-10) L 12/04/23 13:05 Hematocrit 39.7 % (37-47) 12/04/23 13:05 Hgb O2 Saturation 90.8 % (95-100) L 12/04/23 13:05 Carboxyhemoglobin 1.6 %THgb (0.4-20.1) 12/04/23 13:05 Methemoglobin 0.4 % (0.4-1.5) 12/04/23 13:05 Total Hemoglobin 13.0 g/dL (12-16) 12/04/23 13:05 Sodium 144.0 mmol/L (131-143) H 12/04/23 13:05 Potassium 4.1 mmol/L (3.5-5.0) 12/04/23 13:05 Glucose 98.0 mg/dL (70-115) 12/04/23 13:05 Ionized Calcium 1.4 mmol/L (1.1-1.4) 12/04/23 13:05 O2 Delivery Device Room air 12/04/23 13:05 FiO2 21.0 % 12/04/23 13:05 Sales Operations Analyst ID [id number] 12/04/23 13:05 Sodium 142 mmol/L (136-145) 12/04/23 Unknown Potassium 4.1 mmol/L (3.5-5.1) 12/04/23 Unknown Chloride 104 mmol/L (98-107) 12/04/23 Unknown Carbon Dioxide 29 mmol/L (22-29) 12/04/23 Unknown Anion Gap 13.1 (5-19) 12/04/23 Unknown BUN 18 mg/dL (8-23) 12/04/23 Unknown Creatinine 1.0 mg/dL (0.5-0.9) H 12/04/23 Unknown GFR Calculation Not Reportable 12/04/23 Unknown Glucose 103 mg/dL (65-115) 12/04/23 Unknown Calculated Osmolality 296 mOsm/kg (285-295) H 12/04/23 Unknown Lactic Acid 0.6 mmol/L (0.5-2.2) 12/04/23 13:40 Calcium 10.5 mg/dL (8.5-10.5) 12/04/23 Unknown Total Bilirubin 0.3 mg/dL (0.15-1.2) 12/04/23 Unknown AST 8 U/L (0-32) 12/04/23 Unknown ALT 8 U/L (0-33) 12/04/23 Unknown Alkaline Phosphatase 113 U/L (35-105) H 12/04/23 Unknown Total Protein 7.4 g/dL (6.6-8.7) 12/04/23 Unknown Albumin 4.0 g/dL (3.5-5.2) 12/04/23 Unknown Globulin 3.4 g/dL (1.3-4.6) 12/04/23 Unknown Urine Color Colorless (Yellow) 12/04/23 14:10 Urine Appearance Clear (CLEAR) 12/04/23 14:10 Urine pH 5 (5-7) 12/04/23 14:10 Ur Specific [place] 1.015 (1.005-1.030) 12/04/23 14:10 Urine Protein Neg (Negative) 12/04/23 14:10 Urine Glucose (UA) Norm (Normal) 12/04/23 14:10 Urine Ketones Negative (Negative) 12/04/23 14:10 Urine Blood Neg (Negative) 12/04/23 14:10 Urine Nitrate Negative (Negative) 12/04/23 14:10 Urine Bilirubin Neg (Negative) 12/04/23 14:10 Urine Urobilinogen Norm mg/dL (Negative) 12/04/23 14:10 Ur Leukocyte Esterase Negative (Negative) 12/04/23 14:10 Urine RBC None /hpf (0-2) 12/04/23 14:10 Urine WBC None /hpf (0-5) 12/04/23 14:10 Ur Squamous Epith Cells None /hpf (0-5) 12/04/23 14:10 Amorphous Sediment Not Reportable 12/04/23 14:10 Urine Bacteria Trace /hpf (NONE) 12/04/23 14:10 No radiology studies performed this visit Discharge Plan Discharge Patient Disposition: Home Clinical Impression: Generalized seizure Prescriptions: No Action aspirin 81 mg tablet,delayed release (DR/EC) 81 mg PO DAILY@0700 albuterol sulfate 0.63 mg/3 mL solution for nebulization 0.63 mg INHALATION QID PRN (Reason: shortness of breath or wheezing) Qty: 90 1RF spironolactone 50 mg tablet 50 mg PO DAILY@0700 (DME) blood-glucose meter [Blood Glucose Monitoring] Kit See Rx Instructions .ROUTE .MEDSUPPLY Qty: 1 0RF Rx Instructions: As directed clopidogrel 75 mg tablet 75 mg PO DAILY albuterol sulfate [ProAir HFA] 90 mcg/actuation HFA aerosol inhaler 2 puff INHALATION Q6H PRN (Reason: Shortness Of Breath) Qty: 6.7 1RF carvedilol 6.25 mg tablet 6.25 mg PO BID Qty: 180 3RF Rx Instructions: must administer with a meal/food clonazepam 0.5 mg tablet 0.5 mg PO DAILY PRN (Reason: anxiety) Qty: 30 2RF prazosin 2 mg capsule 2 mg PO .HS Qty: 30 2RF ropinirole 1 mg tablet 1 mg PO BID@0700,2099 Qty: 60 2RF trazodone 150 mg tablet 300 mg PO BEDTIME@2099 Qty: 60 2RF Rx Instructions: 1 to 2 tabs at bed hydroxyzine HCl 50 mg tablet 50 mg PO BEDTIME@2099 Qty: 30 2RF escitalopram oxalate [Lexapro] 20 mg tablet 20 mg PO DAILY@0700 Qty: 30 2RF duloxetine [Cymbalta] 60 mg capsule,delayed release(DR/EC) 60 mg PO BID@0700,2100 Qty: 60 2RF furosemide 40 mg tablet 40 mg PO BID Qty: 60 0RF clindamycin HCl [Cleocin HCl] 300 mg capsule 300 mg PO TID 10 Days Qty: 30 0RF amlodipine 5 mg tablet 5 mg PO BID Qty: 60 0RF (DME) lancets [Accu-[place]k Softclix Lancets[place] [facility] [place] .ROUTE .MEDSUPPLY Qty: 100 0RF Rx Instructions: As directed atorvastatin 40 mg tablet See Rx Instructions .ROUTE .COMPLEX Qty: 90 0RF Dose Instruction: Take 1 tablet by mouth once daily Rx Instructions: Take 1 tablet by mouth once daily (DME) Accu-Chek Felisha Plus test strp Strip See Rx Instructions .ROUTE .COMPLEX Qty: 100 0RF Dose Instruction: USE DIRECTED Rx Instructions: USE DIRECTED alendronate 70 mg tablet See Rx Instructions .ROUTE .COMPLEX Qty: 12 0RF Dose Instruction: Take 1 tablet by mouth once a week Rx Instructions: Take 1 tablet by mouth once a week levothyroxine 150 mcg tablet See Rx Instructions .ROUTE .COMPLEX Qty: 90 0RF Dose Instruction: TAKE 1 TABLET BY MOUTH ONCE DAILY AT 6:30 Rx Instructions: TAKE 1 TABLET BY MOUTH ONCE DAILY AT 6:30 aripiprazole [Abilify] 5 mg tablet 5 mg PO DAILY Qty: 30 1RF potassium chloride 20 mEq tablet extended release See Rx Instructions .ROUTE .COMPLEX Qty: 270 0RF Dose Instruction: TAKE 1 TABLET BY MOUTH THREE TIMES DAILY Rx Instructions: TAKE 1 TABLET BY MOUTH THREE TIMES DAILY metformin 500 mg tablet See Rx Instructions .ROUTE .COMPLEX Qty: 90 0RF Dose Instruction: TAKE 1 TABLET BY MOUTH ONCE DAILY AT 0700 Rx Instructions: TAKE 1 TABLET BY MOUTH ONCE DAILY AT 0700 valsartan-hydrochlorothiazide 320-12.5 mg tablet See Rx Instructions .ROUTE .COMPLEX Qty: 90 0RF Dose Instruction: Take 1 tablet by mouth once daily Rx Instructions: Take 1 tablet by mouth once daily Discharge Orders: Discharge ED (Routine); Ordered 12/04/23 Ordered By: Alyse Underwood Referrals: Zoraida Arzola FNP [Primary Care Provider] - (You have been screened and evaluated and felt safe for discharge. Health conditions do change or evolve sometimes and as such it is important that you follow up with your Primary Doctor to be re checked, 3-5 days is a general good time frame for follow up. You are always welcome to return to the ED for re assessment if your symptoms are worsening or you have new concerns) Discharge Diet: Usual diet Discharge Activity: Resume usual activity Patient Instructions: Recurrent Seizures in Adults (ED) Coding Level of Care Code ED Surgical Assist for July Whitfield
[2023-12-04 13:16] LABS: ABG PCO2 51.4 mmHg (35-45); Alveolar-Arterial Oxygen Gradi 3.6 mmHg (5-10); Arterial Blood Gas Hematocrit 39.7 % (37-47); Base Excess ABG 5.7 mmol/L (-2.0-2.0); Blood Gas Operator Identificat AMH; Blood Gas Sample Site Brachial, right; Blood Gas Sample Type Arterial; Carboxyhemoglobin 1.6 %THgb (0.4-20.1); HCO3 ABG 31.8 mmol/L (22-26); HGB O2 Sat 90.8 % (95-100); Ionized Calcium Level - ABG 1.4 mmol/L (1.1-1.4); Methemoglobin 0.4 % (0.4-1.5); Oxygen Device ROOM AIR; Oxygen Saturation ABG 92.7; PO2 ABG 59.1 mmHg (80.0-100.0); PO2 FiO2 Ratio Arterial Blood 0; Potassium Level - ABG 4.1 mmol/L (3.5-5.0)
[2023-12-04 13:18] LABS: Basophils % 0.4 %; Eosinophils # 0.5 10^3/uL (0.0-0.8); Hematocrit 41.5 % (36-47); Lymphocytes # 1.7 10^3/uL (0.8-4.8); Mean Corpuscular HGB Conc 31.8 g/dL (30-55); Mean Corpuscular Hemoglobin 26.8 pg (27-33); Mean Corpuscular Volume 84.2 fl (85-98); Monocytes # 0.5 10^3/uL (0.2-0.9); Monocytes % 6.2 %; Neutrophils # 4.68 10^3/uL (1.8-7.7); Neutrophils % 63.1 %; Nucleated Red Blood Cells % 0 %; Platelet Count 274 10^3/cmm (157-399); Red Blood Count 4.93 10^6/uL (3.85-5.65); Red Cell Distribution Width 13.1 % (12.1-15.1); White Blood Count 7.42 10^3/uL (3.29-11.43)
[2023-12-04 13:54] LABS: Alanine Aminotransferase 8 U/L (0-33); Alkaline Phosphatase 113 U/L (35-105); Anion Gap 13.1 (5-19); Aspartate Amino Transferase 8 U/L (0-32); Blood Urea Nitrogen 18 mg/dL (8-23); Calcium 10.5 mg/dL (8.5-10.5); Carbon Dioxide 29 mmol/L (22-29); Chloride 104 mmol/L (98-107); Globulin 3.4 g/dL (1.3-4.6); Glucose 103 mg/dL (65-115); Osmolality Calculated 296 mOsm/kg (285-295); Potassium 4.1 mmol/L (3.5-5.1); Sodium 142 mmol/L (136-145); Total Bilirubin 0.3 mg/dL (0.15-1.2); Total Protein 7.4 g/dL (6.6-8.7)
[2023-12-04 13:59] LABS: Creatinine Clr Calc Pharmacy 71.1047
[2023-12-04 14:01] LABS: Lactic Sepsis W/Reflex 0.6 mmol/L (0.5-2.2)
[2023-12-04 14:40] LABS: Specific Gravity, Urine 1.015 (1.005-1.030); Urine Appearance Clear (CLEAR); Urine Color Colorless (Yellow); pH Urine 5 (5-7)
[2023-12-04 14:41] LABS: Add Urine Culture? No; Bacteria Urine TRACE /hpf; Bilirubin Urine Neg (Negative); Blood Urine Neg (Negative); Glucose Urine UA Norm (Normal); Ketones Urine Negative (Negative); Leukocyte Esterase Urine Negative (Negative); Nitrate Urine Negative (Negative); Protein Urine Neg (Negative); Urobilinogen Urine Norm (Negative)
== END 2023-12-04 16:00 | disposition home or self-care (01) ==
PROVIDERS: Emergency Provider Emergency Medicine; PCP Nurse Practitioner Family
DX: G40.89 Other seizures (principal); Z79.02 Long term (current) use of antithrombotics/antiplatelets; Z79.82 Long term (current) use of aspirin; Z79.84 Long term (current) use of oral hypoglycemic drugs; I11.0 Hypertensive heart disease with heart failure; I50.9 Heart failure, unspecified
CPT/HCPCS: 36600; 80051; 80053; 81001; 82330; 82805; 83605; 85025; 99283

== ENCOUNTER → 2023-12-12 12:05 | Outpatient (BNVA) | payer MEDICARE, MEDICAID, SELFPAY | PROVIDERS: PCP Nurse Practitioner Family; Visit Provider Nurse Practitioner Family | DX: R35.0 Frequency of micturition (principal) | CPT/HCPCS: 81000 ==

== ENCOUNTER → 2023-12-30 09:37 | Outpatient (BNVA) | payer MEDICARE, MEDICAID, SELFPAY | PROVIDERS: PCP Nurse Practitioner Family; Visit Provider Specialist | DX: M17.11 Unilateral primary osteoarthritis, right knee (principal); Z71.89 Other specified counseling | CPT/HCPCS: 20610; J1100; J2795; J3301 ==

== ENCOUNTER → 2024-01-19 09:59 | Outpatient (BNVA) | payer MEDICARE, OTHER, SELFPAY | PROVIDERS: PCP Nurse Practitioner Family; Visit Provider Nurse Practitioner Family | DX: I10 Essential (primary) hypertension (principal); E11.9 Type 2 diabetes mellitus without complications; R53.83 Other fatigue | CPT/HCPCS: 80053; 80061; 83036; 84443; 85025 ==

== ENCOUNTER 2024-02-10 09:00 | Outpatient (CLI) | payer MEDICARE, MEDICAID, SELFPAY ==
--- NOTE | 2024-02-10 08:42 | CT_ITS ---
WS: [id number] CT HEAD TECHNIQUE: Noncontrast CT of the head obtained from the skullbase to the vertex. CLINICAL INFORMATION: R56.9 - Unspecified convulsions COMPARISON: CT 10/18/2019 DLP: 1321.[address] scans at [facility] use at least one of these dose optimization techniques: automated e xposure control; mA and/or kV adjustment per patient size (includes targeted exams where dose is matc hed to clinical indication); or iterative reconstruction. FINDINGS: No evidence of intracranial hemorrhage or mass effect. Ventricular system and basal cisterns are moy nt. Mild small vessel changes with mild parenchymal volume loss. No extra-axial fluid collections. No evidence of mass or mass effect. Tiny chronic lacunar infarct RIGHT caudate. Paranasal sinuses and mastoid air cells are well aerated. .Normal visualized soft tissues. Vascular c alcification. CT/CT head wo con* [id number] IMPRESSION: 1. No evidence of intracranial hemorrhage or mass effect. 2. Mild small vessel changes with mild parenchymal volume loss. 3. Vascular calcification. 4. No acute intracranial findings.
== END 2024-02-10 09:01 | disposition home or self-care (01) ==
PROVIDERS: PCP Nurse Practitioner Family; Visit Provider Nurse Practitioner Family
DX: R56.9 Unspecified convulsions (principal); I67.2 Cerebral atherosclerosis
CPT/HCPCS: 70450

== ENCOUNTER → 2024-02-22 13:41 | Outpatient (BNVA) | payer MEDICARE, MEDICAID, SELFPAY | PROVIDERS: PCP Nurse Practitioner Family; Visit Provider Internal Medicine | DX: I11.0 Hypertensive heart disease with heart failure (principal); I50.32 Chronic diastolic (congestive) heart failure; E78.2 Mixed hyperlipidemia; E11.9 Type 2 diabetes mellitus without complications; K21.9 Gastro-esophageal reflux disease without esophagitis; I83.893 Varicose veins of bilateral lower extremities with other complications; E66.01 Morbid (severe) obesity due to excess calories; Z68.42 Body mass index [BMI] 45.0-49.9, adult; Z79.84 Long term (current) use of oral hypoglycemic drugs | CPT/HCPCS: 99214 ==

== ENCOUNTER → 2024-04-11 09:25 | Outpatient (BNVA) | payer MEDICARE, MEDICAID, SELFPAY | PROVIDERS: PCP Nurse Practitioner Family; Referring Provider Nurse Practitioner Family; Visit Provider Specialist | DX: G43.711 Chronic migraine without aura, intractable, with status migrainosus (principal); F44.5 Conversion disorder with seizures or convulsions; N18.9 Chronic kidney disease, unspecified | CPT/HCPCS: 99214; 99215 ==

== ENCOUNTER → 2024-04-20 10:15 | Outpatient (BNVA) | payer MEDICARE, MEDICAID, SELFPAY | PROVIDERS: PCP Nurse Practitioner Family; Visit Provider Specialist | DX: M17.11 Unilateral primary osteoarthritis, right knee (principal); E66.01 Morbid (severe) obesity due to excess calories; Z68.42 Body mass index [BMI] 45.0-49.9, adult; Z71.89 Other specified counseling | CPT/HCPCS: 20610 ==

== ENCOUNTER → 2024-04-25 10:27 | Outpatient (BNVA) | payer MEDICARE, MEDICAID, SELFPAY | PROVIDERS: PCP Nurse Practitioner Family; Visit Provider Nurse Practitioner Family | DX: E03.9 Hypothyroidism, unspecified (principal); E11.9 Type 2 diabetes mellitus without complications; R53.83 Other fatigue; I10 Essential (primary) hypertension; E78.2 Mixed hyperlipidemia | CPT/HCPCS: 80053; 80061; 83036; 84443; 85025 ==

== ENCOUNTER → 2024-06-04 10:38 | Outpatient (BNVA) | payer MEDICARE, SELFPAY | PROVIDERS: PCP Nurse Practitioner Family; Referring Provider Nurse Practitioner Family; Visit Provider Student in an Organized Health Care Education/Training Program | DX: Z12.11 Encounter for screening for malignant neoplasm of colon (principal); R03.0 Elevated blood-pressure reading, without diagnosis of hypertension | CPT/HCPCS: 99204 ==

== ENCOUNTER → 2024-06-19 11:53 | Outpatient (BNVA) | payer MEDICARE, SELFPAY | PROVIDERS: PCP Nurse Practitioner Family; Visit Provider Specialist | DX: G43.711 Chronic migraine without aura, intractable, with status migrainosus (principal); F44.5 Conversion disorder with seizures or convulsions; N18.2 Chronic kidney disease, stage 2 (mild) | CPT/HCPCS: 99214 ==

== ENCOUNTER 2024-07-01 16:27 | Inpatient (IN) | payer MEDICARE, MEDICAID, SELFPAY ==
[2024-07-01] VITALS (52 sets, daily range): BP systolic 150; BP diastolic 72; PULSE 67–85; RESP 15–22; TEMP 36.8; O2SAT 96–99; BMI 49.8
--- NOTE | 2024-07-01 16:50 | PC.NURSE ---
received in to room 112-1 from [facility] via ems at 1555.report received from ems and via phone call from [facility].pt is alert and oriented x 4 .afib at controlled rate on monitor.denies pain at present.oriented to room environment.instructed to notify staff for any need to get out of bed,pain,sob..or for any concerns at all.pt verb understanding of instructions.
--- NOTE | 2024-07-01 17:38 | P.HP_ITS ---
Providers/Chief Complaint Admitting Physician: Katie Cote MD Primary Care Provider: LEANNA Rodríguez Chief Complaint: New Onset History of Present Illness Adilene Freedman is a 74 year old female with past medical history of congestive heart failure, GERD, bipolar disorder, CAD, COPD not on supplemental oxygen at home, TUYET on CPAP at night, HLD, seizure disorder initially presented to [facility] for complaint of chest pain when coughing. As per the patient she stated that she started feeling sick after Thanksgiving dinner. Denies any fever at home but was experiencing chills. Chest pain is located in the rib cage area and is exacerbated by coughing that is reproducible. Chest pain was associated with shortness of breath, dry cough since 4 days but has been worsening since this morning. In [facility], ER she was found to be in A-fib 2 sets of troponins were 14, 14 Creatinine was 1.2, CRP 54.2 BNP 1289 Potassium 3.6 D-dimer 0.98 Chest x-ray showed cardiomegaly and pulmonary vascular congestion EKG was A-fib at 81, she does not have any history of atrial fibrillation. On physical exam was found to have expiratory wheezes throughout lung carbajal. She has been saturating well on room air not requiring supplemental oxygen. In ER she received Xopenex inhalation, Atrovent inhalation P.o. metoprolol 50 mg IV Lasix 40 mg, output was 700 mL post Lasix P.o. Synthroid And subcutaneous therapeutic Lovenox 70 mg for probable PE She was also found to be hypertensive since being in ER. She is allergic to iodinated contrast dye, hence plan was for VQ scan to rule out PE for new onset atrial fibrillation. She received therapeutic Lovenox 70 mg x 1 dose. She has been transferred to [facility] for further care and VQ scan. During my assessment, she was coughing and short of breath but denies any chest pain, palpitations, dizziness, nausea/vomiting, urinary or bowel complaints. Review of Systems General: Reports: 10 or more systems reviewed and unremarkable except in HPI and below Medications/Allergies Home Medications Medication Instructions Recorded Confirmed Last Taken Type aspirin 81 mg tablet,delayed 81 mg PO DAILY@0700 07/27/19 07/01/24 06/30/24 09:00 History release blood-glucose meter (Blood Glucose #1 ea 03/03/20 06/19/24 Unknown Rx Monitoring kit) albuterol sulfate 0.63 mg/3 mL 0.63 mg (3 mL) inhalation QID PRN 10/28/20 07/01/24 06/30/24 21:00 Rx solution for nebulization shortness of breath or wheezing #90 mL spironolactone 50 mg tablet 50 mg PO DAILY@0700 11/10/20 06/19/24 10/18/22 History clopidogrel 75 mg tablet 75 mg PO DAILY 06/29/22 06/19/24 10/16/22 History lancets (Accu-Chek Softclix #100 ea 12/30/22 06/19/24 Unknown Rx Lancets) atorvastatin 40 mg tablet See Rx Instructions .Route 02/03/23 07/01/24 06/30/24 22:00 Rx .COMPLEX #90 tabs blood sugar diagnostic (Accu-Chek #100 ea 02/17/23 06/19/24 Unknown Rx Felisha Plus test strips) alendronate 70 mg tablet See Rx Instructions .Route 08/02/23 07/01/24 06/24/24 10:00 Rx .COMPLEX #12 tabs carvedilol 6.25 mg tablet 6.25 mg PO BID #180 tabs 08/16/23 06/19/24 Unknown Rx ropinirole 1 mg tablet 1 mg PO BID@0700,2100 #60 tabs 10/18/23 07/01/24 06/30/24 21:00 Rx furosemide 40 mg tablet 40 mg PO BID #60 tabs 11/15/23 07/01/24 06/30/24 09:00 Rx trazodone 150 mg tablet 300 mg (2 x 150 mg) PO 03/16/24 07/01/24 06/30/24 22:00 Rx BEDTIME@2100 #60 tabs escitalopram oxalate 20 mg tablet 20 mg PO DAILY@0700 #30 tabs 03/21/24 07/01/24 06/30/24 09:00 Rx (Lexapro) metformin 500 mg tablet See Rx Instructions .Route 04/10/24 07/01/24 06/30/24 07:00 Rx .COMPLEX #90 tabs potassium chloride 20 mEq See Rx Instructions .Route 04/10/24 07/01/24 06/30/24 21:00 Rx tablet,extended release .COMPLEX #270 tabs valsartan 320 See Rx Instructions .Route 04/10/24 07/01/24 06/30/24 07:00 Rx mg-hydrochlorothiazide 12.5 mg .COMPLEX #90 tabs tablet aripiprazole 5 mg tablet (Abilify) 5 mg PO DAILY #30 tabs 05/21/24 06/19/24 Unknown Rx duloxetine 60 mg capsule,delayed 60 mg PO BID@0700,2100 #60 caps 05/28/24 07/01/24 06/30/24 22:00 Rx release (Cymbalta) sumatriptan succinate 100 mg See Rx Instructions PO .COMPLEX 06/19/24 06/19/24 Unknown Rx tablet (Imitrex) #10 tabs topiramate 25 mg tablet (Topamax) 25 mg PO BID 1 month #60 tabs 06/19/24 06/19/24 Unknown Rx prazosin 2 mg capsule 2 mg PO .HS #30 caps 06/21/24 Unknown Rx levothyroxine 150 mcg tablet See Rx Instructions .Route 06/27/24 07/01/24 07/01/24 10:00 Rx .COMPLEX #90 tabs Atarax 50 mg PO BEDTIME 07/01/24 07/01/24 06/30/24 22:00 History amlodipine 5 mg tablet 10 mg PO BID 07/01/24 07/01/24 06/30/24 09:00 History esomeprazole magnesium 40 mg 40 mg PO DAILY 07/01/24 07/01/24 06/30/24 22:00 History capsule,delayed release (Nexium) Allergies Allergy/AdvReac Type Severity Reaction Status Date / Time adhesive tape Allergy Mild RASH Verified 06/19/24 12:24 carbamazepine [From Tegretol] Allergy Mild UNKNOWN Verified 06/19/24 12:24 cortisone Allergy Mild UNKNOWN Verified 06/19/24 12:24 hydrocodone Allergy Mild UNKNOWN Verified 06/19/24 12:24 Iodinated Contrast Media Allergy Mild UNKNOWN Verified 06/19/24 12:24 iodine Allergy Mild MILD Verified 06/19/24 12:24 Penicillins Allergy Mild NAUSEA Verified 06/19/24 12:24 Sulfa (Sulfonamide Allergy Mild NAUSEA Verified 06/19/24 12:24 Antibiotics) PFSH Acute PFSH: Medical History Psychiatric care CHF (congestive heart failure) Congestive heart failure Osteoarthritis of right knee Acute torn meniscus of knee Post-traumatic stress disorder, chronic Major depressive disorder, recurrent severe without psychotic features Osteoarthritis Depression HTN (hypertension), benign Hypothyroidism Surgical History H/O esophagogastroduodenoscopy (04/15/20) H/O: hysterectomy Hx of tonsillectomy H/O tubal ligation History of repair of rotator cuff right H/O colonoscopy 5 yrs ago History of knee replacement Family History Other CAD (coronary artery disease) Cancer Chronic kidney disease (CKD) Diabetes Hypertension Denies family history of Anesthesia complication Bleeding disorder Stroke Social History Smoking and tobacco/nicotine status: never used tobacco/nicotine Second hand smoke exposure: No Alcohol intake: never Substance/Drug Use: never Adopted: No Caregiver/support person: No Lives independently: Yes Household members: spouse Marital status: Current gender identity: Female Vitals/I&O/Wt Last Vital Signs Temp 98.2 F 07/01/24 15:55 Pulse 77 07/01/24 15:55 Resp 20 H 07/01/24 15:55 BP 150/72 07/01/24 15:55 Pulse Ox 98 07/01/24 15:55 O2 Del Method Room Air 07/01/24 16:00 Physical Exam Narrative: She is alert awake oriented x 3, not in acute distress, morbidly obese Chest air entry decreased bilaterally, minimal wheezing present Cardiovascular normal heart sounds no murmurs regular rhythm Abdomen soft nontender nondistended normal bowel sounds Extremities bilateral lower extremity trace pitting edema present A&P Assessment and plan (1) Acute on chronic diastolic (congestive) heart failure: (2) COPD exacerbation: (3) New onset atrial fibrillation: (4) Hyperlipidemia: Qualifiers: Hyperlipidemia type: mixed hyperlipidemia Qualified Code(s): E78.2 - Mixed hyperlipidemia (5) Hypothyroidism: Qualifiers: Hypothyroidism type: acquired Qualified Code(s): E03.9 - Hypothyroidism, unspecified (6) HTN (hypertension), benign: (7) Depression: (8) Major depressive disorder, recurrent severe without psychotic features: (9) GERD (gastroesophageal reflux disease): (10) CHF (congestive heart failure): Qualifiers: Heart failure type: diastolic Heart failure chronicity: chronic Qualified Code(s): I50.32 - Chronic diastolic (congestive) heart failure (11) Bipolar disease, chronic: Plan Adilene Freedman is a 74 year old female with past medical history of congestive heart failure, GERD, bipolar disorder, CAD, COPD not on supplemental oxygen at home, TUYET on CPAP at night, HLD, seizure disorder initially presented to [facility] for complaint of chest pain, shortness of breath and cough since 4 days, found to have new onset atrial fibrillation, transferred to [facility] for VQ scan to rule out PE since she is allergic to iodinated contrast dye. In [facility], ER she was found to be in A-fib 2 sets of troponins were 14, 14 Creatinine was 1.2, CRP 54.2 BNP 1289 Potassium 3.6 D-dimer 0.98 Chest x-ray showed cardiomegaly and pulmonary vascular congestion EKG was A-fib at 81, she does not have any history of atrial fibrillation. On physical exam was found to have expiratory wheezes throughout lung carbajal. She has been saturating well on room air not requiring supplemental oxygen. In ER she received Xopenex inhalation, Atrovent inhalation P.o. metoprolol 50 mg IV Lasix 40 mg, output was 700 mL post Lasix P.o. Synthroid And subcutaneous therapeutic Lovenox 70 mg for probable PE She was also found to be hypertensive since being in ER. #New onset atrial fibrillation-rate controlled currently Will continue TOLL LINE INSPECTOR metoprolol 50 mg twice daily Check 2D echo 2 sets of troponins 14, 14, follow-up 6-hour troponins EKG was A-fib at 81 bpm Probably need cardiology consult in a.m., she follows with as outpatient CHADS2 score more than 3, she probably needs anticoagulation for A-fib, but will currently continue with subcutaneous therapeutic Lovenox for PE until VQ scan done. #Acute on chronic diastolic congestive heart failure- Chest x-ray consistent with cardiomegaly and pulmonary vascular congestion Will do IV Lasix 40 mg twice daily Strict I's and O's Daily weight Continue cardiac telemetry monitoring Supplemental oxygen to keep saturation more than 90% Check electrolytes and replace as needed Continue TOLL LINE INSPECTOR valsartan/hydrochlorothiazide, spironolactone, potassium chloride, Coreg, aspirin and atorvastatin and Plavix ECHO 05/23 1. Normal left ventricular size, systolic function and moderately increased wall thickness, with no regional wall motion abnormalities. Left ventricular ejection fraction is estimated at 65 %. Normal diastolic function. 2. Mild to moderate aortic valve regurgitation. 3. Mild pulmonary hypertension with pulmonary artery pressure estimated at 47 mm Hg. #COPD exacerbation-likely secondary to viral syndrome Will do DuoNebs every 6 hours Budesonide inhalation twice daily Supplemental oxygen to keep saturation more than 90% IV azithromycin 500 mg daily for 5 doses #Hypertension-continue TOLL LINE INSPECTOR amlodipine #Diabetes mellitus-monitor blood sugars Will do insulin correction scale Will hold TOLL LINE INSPECTOR metformin #Hypothyroidism-continue TOLL LINE INSPECTOR levothyroxine #Restless leg syndrome-continue TOLL LINE INSPECTOR ropinirole- #Bipolar disorder-continue TOLL LINE INSPECTOR trazodone, escitalopram, duloxetine and aripiprazole DVT prophylaxis, already on therapeutic Lovenox GI prophylaxis with IV Protonix 40 mg daily CODE STATUS discussed with the patient, she is full code for now.. Attestations Medical Necessity Statement*: She needs continued hospitalization crossing 2 midnights for management of atrial fibrillation acute on chronic diastolic congestive heart failure, COPD exacerbation, VQ scan and cardiology consult Time Spent in Patient Care: 50 minutes Coding Level of Care Code Acute Code for Chg Fwd Diagnoses Acute on chronic diastolic (congestive) heart failure I50.33 COPD exacerbation J44.1 New onset atrial fibrillation I48.91 Mixed hyperlipidemia E78.2 Hyperlipidemia type: mixed hyperlipidemia Acquired hypothyroidism E03.9 Hypothyroidism type: acquired HTN (hypertension), benign I10 Depression F32.9 Major depressive disorder, recurrent severe without psychotic features F33.2 GERD (gastroesophageal reflux disease) K21.9 Chronic diastolic congestive heart failure I50.32 Heart failure type: diastolic Heart failure chronicity: chronic Bipolar disease, chronic F31.9 Time Spent (min) 50
--- NOTE | 2024-07-01 18:00 | ECG_ITS ---
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 Measurements Intervals [place] Rate: 73 P: 0 NV: 0 QRS: 3 QRSD: 105 T: 57 QT: 415 QTc: 458 Interpretive Statements ATRIAL FIBRILLATION MINIMAL VOLTAGE CRITERIA FOR LVH, CONSIDER NORMAL VARIANT [MEETS CRITERIA IN ONE OF: R(aVL), S(V1), R(V5), R(V5/V6)+S(V1)] NONSPECIFIC T-WAVE ABNORMALITY Compared to ECG 01/08/2021 11:03:21 T-wave abnormality now present Sinus rhythm no longer present Electronically Signed On 07-01-2024 18:58:08 MEDICAL SERVICE REPRESENTATIVE by Alvin Wyatt M.D. [id number]
[2024-07-01 18:38] LABS: Troponin T (5th) Once 15 ng/L (0-10)
[2024-07-01] MEDS: pantoprazole 40 mg SDV IVP (18:45)
[2024-07-01] MEDS: FUROsemide 10 mg/mL SDV 4mL 40 MG IVP (18:45)
[2024-07-01] MEDS: atorvastatin 40 mg Tablet PO (18:45)
[2024-07-01] MEDS: losartan 50 mg Tablet 100 MG PO (19:36)
[2024-07-01] MEDS: potassium chloride ER 20 mEq Tablet 40 MEQ PO ×2 (19:36→23:15)
[2024-07-01] MEDS: AZITHROMYCIN ADD-Vantage 500 MG in 0.9% NaCl ADD-Vantage 250 ML 250 MG IV (19:37)
[2024-07-01] MEDS: enoxaparin 150 mg/mL Syringe SUBCUT (19:37)
[2024-07-01] MEDS: ropinirole 1 mg Tablet PO (20:21)
[2024-07-01] MEDS: duloxetine 60 mg Capsule PO (20:21)
[2024-07-01] MEDS: trazodone 150 mg Tablet 300 MG PO (20:21)
[2024-07-01 20:27] LABS: Glucose Point of Care 169 mg/dL (70-110)
[2024-07-01] MEDS: budesonide 0.5 mg/2 mL Neb INHALATION (21:20)
[2024-07-01] MEDS: ipratropium-albuterol 3 mL Neb INHALATION (21:21)
[2024-07-02] VITALS (63 sets, daily range): BP systolic 104–146; BP diastolic 63–123; PULSE 70–95; RESP 7–24; TEMP 36.5–37; O2SAT 91–100; BMI 49.6
[2024-07-02] MEDS: ipratropium-albuterol 3 mL Neb INHALATION ×4 (02:37→22:45)
[2024-07-02 02:43] LABS: Basophils % 0.1 %; Eosinophils # 0.2 10^3/uL (0.0-0.8); Eosinophils % 2.3 %; Hematocrit 38.1 % (36-47); Lymphocytes # 1.7 10^3/uL (0.8-4.8); Lymphocytes % 22.8 %; Mean Corpuscular HGB Conc 31.2 g/dL (30-55); Mean Corpuscular Hemoglobin 26.2 pg (27-33); Mean Corpuscular Volume 83.9 fl (85-98); Mean Platelet Volume 9.7 fL (7.4-10.4); Monocytes # 0.6 10^3/uL (0.2-0.9); Monocytes % 8.1 %; Neutrophils # 4.93 10^3/uL (1.8-7.7); Neutrophils % 66.4 %; Nucleated Red Blood Cells % 0 %; Platelet Count 228 10^3/cmm (157-399); Red Blood Count 4.54 10^6/uL (3.85-5.65); Red Cell Distribution Width 14.1 % (12.1-15.1); White Blood Count 7.42 10^3/uL (3.29-11.43)
[2024-07-02 03:11] LABS: NT Pro B Type Natriuretic Pept 1899 pg/mL (0-125)
[2024-07-02 03:12] LABS: Alanine Aminotransferase 8 U/L (0-33); Albumin Level 3.6 g/dL (3.5-5.2); Alkaline Phosphatase 89 U/L (35-105); Anion Gap 13.6 (5-19); Aspartate Amino Transferase 10 U/L (0-32); Blood Urea Nitrogen 20 mg/dL (8-23); Calcium 9.4 mg/dL (8.5-10.5); Carbon Dioxide 28 mmol/L (22-29); Chloride 107 mmol/L (98-107); Creatinine Clr Calc Pharmacy 63.3236; Globulin 2.8 g/dL (1.3-4.6); Glucose 120 mg/dL (65-115); Magnesium 1.7 mg/dL (1.7-2.3); Osmolality Calculated 304 mOsm/kg (285-295); Potassium 3.6 mmol/L (3.5-5.1); Sodium 145 mmol/L (136-145); Thyroid Stimulating Hormone 3.81 uIU/mL (0.27-4.20); Total Bilirubin 0.4 mg/dL (0.15-1.2); Total Protein 6.4 g/dL (6.6-8.7)
[2024-07-02] MEDS: FUROsemide 10 mg/mL SDV 4mL 40 MG IVP ×2 (05:46→17:52)
[2024-07-02] MEDS: ropinirole 1 mg Tablet PO ×2 (05:46→21:49)
[2024-07-02] MEDS: escitalopram 10 mg Tablet 20 MG PO (05:46)
[2024-07-02] MEDS: enoxaparin 150 mg/mL Syringe SUBCUT (05:47)
[2024-07-02] MEDS: levothyroxine 150 mcg Tablet PO (05:47)
[2024-07-02] MEDS: duloxetine 60 mg Capsule PO ×2 (05:47→21:49)
[2024-07-02] MEDS: aspirin 81 mg EC Tablet PO (05:47)
[2024-07-02] MEDS: budesonide 0.5 mg/2 mL Neb INHALATION ×2 (07:38→22:45)
[2024-07-02] MEDS: amlodipine 5 mg Tablet 10 MG PO ×2 (09:24→17:52)
[2024-07-02] MEDS: potassium chloride ER 20 mEq Tablet PO ×3 (09:24→21:49)
[2024-07-02] MEDS: atorvastatin 40 mg Tablet PO (09:25)
[2024-07-02] MEDS: hydroCHLOROthiazide 25 mg Tablet 12.5 MG PO (09:25)
[2024-07-02] MEDS: losartan 50 mg Tablet 100 MG PO (09:25)
[2024-07-02] MEDS: docusate sodium 100 mg Capsule PO ×2 (09:25→17:52)
[2024-07-02 11:41] LABS: Glucose Point of Care 184 mg/dL (70-110)
--- NOTE | 2024-07-02 12:03 | P.PN_ITS ---
Subjective 2 Subjective: Seen this morning. No acute events overnight. Patient states she is feeling better. Creatinine 1.2 this morning. Echo is pending. She underwent VQ scan this morning. Results are pending at this time. Urine output not recorded yet on the chart. Subjectively patient states she has urinated a lot since last night. Vitals/I&O/Wt Last Vital Signs Temp 98.4 F 07/02/24 08:00 Pulse 90 07/02/24 08:00 Resp 18 07/02/24 08:00 BP 137/98 07/02/24 09:25 Pulse Ox 93 07/02/24 08:00 O2 Del Method Room Air 07/02/24 08:00 07/01/24 07/02/24 07/02/24 22:59 06:59 14:59 Intake Total 250 / 250 360 / 360 Balance 250 / 250 360 / 360 Weight last 48 hrs Weight 143.874 kg Weight 144.242 kg Physical Exam 2 Narrative: She is alert awake oriented x 3, not in acute distress, morbidly obese Chest air entry fair, clear to auscultation bilaterally. Cardiovascular normal heart sounds no murmurs regular rhythm Abdomen soft nontender nondistended normal bowel sounds Extremities no lower extremity edema present. Data 07/02/24 02:14 07/02/24 02:14 A&P Assessment and plan (1) Acute on chronic diastolic (congestive) heart failure: (2) COPD exacerbation: (3) New onset atrial fibrillation: (4) Hyperlipidemia: Qualifiers: Hyperlipidemia type: mixed hyperlipidemia Qualified Code(s): E78.2 - Mixed hyperlipidemia (5) Hypothyroidism: Qualifiers: Hypothyroidism type: acquired Qualified Code(s): E03.9 - Hypothyroidism, unspecified (6) HTN (hypertension), benign: (7) Depression: (8) Major depressive disorder, recurrent severe without psychotic features: (9) GERD (gastroesophageal reflux disease): (10) CHF (congestive heart failure): Qualifiers: Heart failure type: diastolic Heart failure chronicity: chronic Qualified Code(s): I50.32 - Chronic diastolic (congestive) heart failure (11) Bipolar disease, chronic: Plan Adilene Freedman is a 74 year old female with past medical history of congestive heart failure, GERD, bipolar disorder, CAD, COPD not on supplemental oxygen at home, TUYET on CPAP at night, HLD, seizure disorder initially presented to [facility] for complaint of chest pain, shortness of breath and cough since 4 days, found to have new onset atrial fibrillation, transferred to [facility] for VQ scan to rule out PE since she is allergic to iodinated contrast dye. In [facility], ER she was found to be in A-fib 2 sets of troponins were 14, 14 Creatinine was 1.2, CRP 54.2 BNP 1289 Potassium 3.6 D-dimer 0.98 Chest x-ray showed cardiomegaly and pulmonary vascular congestion EKG was A-fib at 81, she does not have any history of atrial fibrillation. On physical exam was found to have expiratory wheezes throughout lung carbajal. She has been saturating well on room air not requiring supplemental oxygen. In ER she received Xopenex inhalation, Atrovent inhalation P.o. metoprolol 50 mg IV Lasix 40 mg, output was 700 mL post Lasix P.o. Synthroid And subcutaneous therapeutic Lovenox 70 mg for probable PE She was also found to be hypertensive since being in ER. #New onset atrial fibrillation-rate controlled currently Will continue SPANISH MOSS PICKER metoprolol 50 mg twice daily Check 2D echo 2 sets of troponins 14, 14, follow-up 6-hour troponins EKG was A-fib at 81 bpm Probably need cardiology consult in a.m., she follows with as outpatient CHADS2 score more than 3, she probably needs anticoagulation for A-fib, but will currently continue with subcutaneous therapeutic Lovenox for PE until VQ scan done. #Acute on chronic diastolic congestive heart failure- Chest x-ray consistent with cardiomegaly and pulmonary vascular congestion Will do IV Lasix 40 mg twice daily Strict I's and O's Daily weight Continue cardiac telemetry monitoring Supplemental oxygen to keep saturation more than 90% Check electrolytes and replace as needed Continue SPANISH MOSS PICKER valsartan/hydrochlorothiazide, spironolactone, potassium chloride, Coreg, aspirin and atorvastatin and Plavix ECHO 05/23 1. Normal left ventricular size, systolic function and moderately increased wall thickness, with no regional wall motion abnormalities. Left ventricular ejection fraction is estimated at 65 %. Normal diastolic function. 2. Mild to moderate aortic valve regurgitation. 3. Mild pulmonary hypertension with pulmonary artery pressure estimated at 47 mm Hg. #COPD exacerbation-likely secondary to viral syndrome Will do DuoNebs every 6 hours Budesonide inhalation twice daily Supplemental oxygen to keep saturation more than 90% IV azithromycin 500 mg daily for 5 doses #Hypertension-continue SPANISH MOSS PICKER amlodipine #Diabetes mellitus-monitor blood sugars Will do insulin correction scale Will hold SPANISH MOSS PICKER metformin #Hypothyroidism-continue SPANISH MOSS PICKER levothyroxine #Restless leg syndrome-continue SPANISH MOSS PICKER ropinirole- #Bipolar disorder-continue SPANISH MOSS PICKER trazodone, escitalopram, duloxetine and aripiprazole DVT prophylaxis, already on therapeutic Lovenox GI prophylaxis with IV Protonix 40 mg daily CODE STATUS discussed with the patient, she is full code for now.. 07/02/2024 -Stop therapeutic Lovenox and switch to Eliquis 5 mg p.o. twice daily ? VQ scan negative for PE. Low probability for PE. ? Echocardiogram pending at this time. ? First troponin 15. Subsequent troponin is not available. ? Continue Lasix 40 IV twice daily. Recheck BMP at 6 PM. ? Adequate urine output needs to be measured ? Continue potassium. Potassium 3.6 this morning. ? Continue to treat for presumed COPD exacerbation. Continue Pulmicort inhalation twice daily, azithromycin 500 daily x 5 doses total. Oral steroids not required at this time. ? Continue aripiprazole, aspirin, atorvastatin, carvedilol, levothyroxine, ropinirole, sumatriptan, topiramate, trazodone -Will await for echocardiogram. She may possibly follow-up with cardiology outpatient but must review echo prior to discharge. Full code Attestations 2 Medical Necessity Statement*: Awaiting echocardiogram today. Patient on IV diuresis at this time. Diagnoses Acute on chronic diastolic (congestive) heart failure I50.33 COPD exacerbation J44.1 New onset atrial fibrillation I48.91 Mixed hyperlipidemia E78.2 Hyperlipidemia type: mixed hyperlipidemia Acquired hypothyroidism E03.9 Hypothyroidism type: acquired HTN (hypertension), benign I10 Depression F32.9 Major depressive disorder, recurrent severe without psychotic features F33.2 GERD (gastroesophageal reflux disease) K21.9 Chronic diastolic congestive heart failure I50.32 Heart failure type: diastolic Heart failure chronicity: chronic Bipolar disease, chronic F31.9
[2024-07-02 17:20] LABS: Glucose Point of Care 133 mg/dL (70-110)
[2024-07-02] MEDS: pantoprazole 40 mg SDV IVP (17:52)
--- NOTE | 2024-07-02 18:05 | USCV_ITS ---
Adilene Freedman Age: 74 Gender: F : 1950 Exam Date: 07/02/2024 09:37 Ordering Phys: Katie Cote MD Technologist: Exam Location: [facility] Indication: cp sob ? chf BP: 137 / 98 HR: 84 Rhythm: Sinus Technical Quality: Adequate MEASUREMENTS (Male / Female) Normal Values 2D ECHO LV Diastolic Diameter PLAX 4.3 cm 4.2 - 5.9 / 3.9 - 5.3 cm IVS Diastolic Thickness 1.5 cm 0.6 - 1.0 / 0.6 - 0.9 cm IVS Systolic Thickness 1.8 cm LVPW Diastolic Thickness 1.6 cm 0.6 - 1.0 / 0.6 - 0.9 cm LVPW Systolic Thickness 1.8 cm LVOT Diameter 2.0 cm LV Ejection Fraction 2D Teich 61.7 % LV Ejection Fraction MOD 4C 59.9 % LV Ejection Fraction MOD 2C 52.5 % LV Ejection Fraction 2C AL 53.7 % LA Diameter 4.2 cm RA Systolic Volume 4C AL 118.6 ml RA Systolic Volume 4C MOD 114.8 ml Aorta at Sinotubular Diameter 2.8 cm M-MODE LA Ao Ratio MM 1.1 AV Cusp Separation MM 2.9 cm DOPPLER AV Peak Velocity 175.0 cm/s LVOT Peak Velocity 144.0 cm/s AV Area Cont Eq vti 4.1 cm squared AV Area Cont Eq pk 2.7 cm squared MV Peak Velocity 143.0 cm/s MV Area PHT 5.1 cm squared Mitral E to A Ratio 2.6 TV Peak Velocity 222.0 cm/s TR Peak Velocity 227.0 cm/s TR Peak Gradient 20.6 mmHg TV Peak E Velocity 100.0 cm/s PV Peak Velocity 117.0 cm/s FINDINGS Left Ventricle Left ventricle is normal in size. LV systolic function is normal with EF of 55-60%. No regional wall motion abnormalities Right Ventricle Normal in size and function Right Atrium Dilated Left Atrium Dilated Mitral Valve Structurally normal mitral valve. Trace mitral regurgitation. Aortic Valve Structurally normal aortic valve. Mild to moderate aortic regurgitation. No significant stenosis. Tricuspid Valve Mild tricuspid regurgitation. Insufficient TR jet to evaluate RVSP Pulmonic Valve Not well visualized. Pericardium Normal Aorta Normal in size IVC Not well visualized CONCLUSIONS LV systolic function is normal with EF of 55 to 60%. Biatrial dilation. Trace mitral regurgitation. Mild to moderate aortic regurgitation. Mild tricuspid regurgitation. Alvin Wyatt MD (Electronically Signed) Final Date: 03 July 2024 07:54 S
--- NOTE | 2024-07-02 18:33 | NM_ITS ---
WS: [id number] NUCLEAR MEDICINE VENTILATION/PERFUSION LUNG SCAN HISTORY: elevated d dimer, new onset afib COMPARISON: None available. No chest radiograph is available. TECHNIQUE: Ventilation: 32.6 mCi of Technetium 99 DTPA aerosol inhaled. Perfusion: 5 mCi of technetium 99m MAA IV. Mild deposition of the radionuclide centrally during ventilation and also within the stomach and prox imal GI tract. Perfusion exam appears near normal. RIGHT hemidiaphragm appears elevated. No matched d efects. NM/NM pul vent and perfus* [id number] IMPRESSION: 1. Low probability of pulmonary embolism. 2. No recent chest radiograph is available for review and to aid in interpreta tion of the VQ scan.
[2024-07-02 18:34] LABS: Anion Gap 9.9 (5-19); Blood Urea Nitrogen 21 mg/dL (8-23); Calcium 10.3 mg/dL (8.5-10.5); Carbon Dioxide 34 mmol/L (22-29); Chloride 101 mmol/L (98-107); Creatinine Clr Calc Pharmacy 58.3617; Glucose 122 mg/dL (65-115); Osmolality Calculated 296 mOsm/kg (285-295); Potassium 3.9 mmol/L (3.5-5.1); Sodium 141 mmol/L (136-145)
[2024-07-02 21:18] LABS: Glucose Point of Care 152 mg/dL (70-110)
[2024-07-02] MEDS: trazodone 150 mg Tablet 300 MG PO (21:49)
[2024-07-02] MEDS: apixaban 5 mg Tablet PO (21:49)
[2024-07-03] MEDS: guaiFENesin-dextromethorphan UDC 10 mL PO (01:56)
[2024-07-03 04:00] VITALS: BP 144/94; PULSE 101; RESP 16; TEMP 36.5; O2SAT 98
[2024-07-03 05:11] LABS: Basophils % 0.2 %; Eosinophils # 0.2 10^3/uL (0.0-0.8); Eosinophils % 1.8 %; Hematocrit 38.6 % (36-47); Lymphocytes # 1.2 10^3/uL (0.8-4.8); Mean Corpuscular HGB Conc 31.6 g/dL (30-55); Mean Corpuscular Hemoglobin 26.3 pg (27-33); Mean Corpuscular Volume 83.2 fl (85-98); Mean Platelet Volume 9.6 fL (7.4-10.4); Monocytes # 0.5 10^3/uL (0.2-0.9); Monocytes % 5.6 %; Neutrophils # 6.33 10^3/uL (1.8-7.7); Neutrophils % 77.2 %; Nucleated Red Blood Cells % 0 %; Platelet Count 239 10^3/cmm (157-399); Red Blood Count 4.64 10^6/uL (3.85-5.65); Red Cell Distribution Width 14.2 % (12.1-15.1); White Blood Count 8.21 10^3/uL (3.29-11.43)
[2024-07-03 05:40] LABS: Alanine Aminotransferase 9 U/L (0-33); Albumin Level 3.8 g/dL (3.5-5.2); Alkaline Phosphatase 104 U/L (35-105); Anion Gap 15.5 (5-19); Aspartate Amino Transferase 10 U/L (0-32); Blood Urea Nitrogen 20 mg/dL (8-23); Calcium 9.8 mg/dL (8.5-10.5); Carbon Dioxide 28 mmol/L (22-29); Chloride 100 mmol/L (98-107); Creatinine Clr Calc Pharmacy 58.1167; Globulin 3.1 g/dL (1.3-4.6); Glucose 138 mg/dL (65-115); Magnesium 1.9 mg/dL (1.7-2.3); Osmolality Calculated 295 mOsm/kg (285-295); Potassium 3.5 mmol/L (3.5-5.1); Sodium 140 mmol/L (136-145); Total Bilirubin 0.6 mg/dL (0.15-1.2); Total Protein 6.9 g/dL (6.6-8.7)
[2024-07-03] MEDS: FUROsemide 10 mg/mL SDV 4mL 40 MG IVP (05:52)
[2024-07-03] MEDS: aspirin 81 mg EC Tablet PO (05:55)
[2024-07-03] MEDS: levothyroxine 150 mcg Tablet PO (05:55)
[2024-07-03] MEDS: ropinirole 1 mg Tablet PO (05:56)
[2024-07-03] MEDS: escitalopram 10 mg Tablet 20 MG PO (05:56)
[2024-07-03] MEDS: duloxetine 60 mg Capsule PO (05:57)
[2024-07-03 06:00] VITALS: PULSE 89
[2024-07-03 06:34] LABS: Glucose Point of Care 143 mg/dL (70-110)
[2024-07-03 08:00] VITALS: BP 126/74; PULSE 89; RESP 22; TEMP 36.5; O2SAT 94
--- NOTE | 2024-07-03 08:06 | P.DS_ITS ---
Discharge Providers Date of Admission: 07/01/24 16:27 Date of Discharge: July 03, 2024 Attending Provider at Admission: Katie Cote MD Attending Provider at Discharge: Ursula Khan MD Primary Care Provider: LEANNA Rodríguez Diagnoses at Discharge Discharge Diagnosis (1) Acute on chronic diastolic (congestive) heart failure: Status: Resolved (2) COPD exacerbation: Status: Resolved (3) New onset atrial fibrillation: Status: Resolved (4) Hyperlipidemia: Status: Acute Qualifiers: Hyperlipidemia type: mixed hyperlipidemia Qualified Code(s): E78.2 - Mixed hyperlipidemia (5) Hypothyroidism: Status: Acute Qualifiers: Hypothyroidism type: acquired Qualified Code(s): E03.9 - Hypothyroidism, unspecified (6) HTN (hypertension), benign: Status: Acute (7) Depression: Status: Acute (8) Major depressive disorder, recurrent severe without psychotic features: Status: Acute (9) GERD (gastroesophageal reflux disease): Status: Acute (10) CHF (congestive heart failure): Status: Acute Qualifiers: Heart failure chronicity: chronic Heart failure type: diastolic Qualified Code(s): I50.32 - Chronic diastolic (congestive) heart failure (11) Bipolar disease, chronic: Status: Acute Reason for Visit Reason for Visit: New Onset Hospital Course Hospital Course Patient presented with A-fib with RVR and acute on chronic diastolic heart failure. She was diuresed treated for COPD exacerbation and treated for A-fib with RVR. She was started on Eliquis at discharge. She was diuresed and was now on room air. VQ scan negative for PE. Potassium was also repleted. Echo completed. She is to follow-up with cardiology as an outpatient. Discharging home in stable condition at this time.. I discussed with her regarding repeat labs in next few days. Medication adjustments were also made at discharge. Physical Exam Narrative: She is alert awake oriented x 3, not in acute distress, morbidly obese Chest air entry fair, clear to auscultation bilaterally. Cardiovascular normal heart sounds no murmurs regular rhythm Abdomen soft nontender nondistended normal bowel sounds Extremities no lower extremity edema present. Discharge Data Studies Completed and Pending Completed Studies During Hospitalization Category Date Time Status NM pul vent and perfus* [id number] Stat Nuc Med 07/02/24 18:33 Completed CV. echo complete* [id number] Stat Ultrasound 07/02/24 18:05 Completed Pending at discharge Category Date Time Status Complete Blood Count w/Auto AM LABS Lab 07/04/24 04:00 Ordered Comprehensive Metabolic Panel AM LABS Lab 07/04/24 04:00 Ordered Magnesium AM LABS Lab 07/04/24 04:00 Ordered Radiology Impressions Pulmonary Perfusion Imaging 07/02/24 18:33 IMPRESSION: 1. Low probability of pulmonary embolism. 2. No recent chest radiograph is available for review and to aid in interpretation of the VQ scan. Laboratory Results WBC 8.21 10^3/uL (3.29-11.43) 07/03/24 04:48 RBC 4.64 10^6/uL (3.85-5.65) 07/03/24 04:48 Hgb 12.20 g/dL (11.27-16.99) 07/03/24 04:48 Hct 38.6 % (36-47) 07/03/24 04:48 MCV 83.2 fl (85-98) L 07/03/24 04:48 MCH 26.3 pg (27-33) L 07/03/24 04:48 MCHC 31.6 g/dL (30-55) 07/03/24 04:48 RDW 14.2 % (12.1-15.1) 07/03/24 04:48 Plt Count 239 10^3/cmm (157-399) 07/03/24 04:48 MPV 9.6 fL (7.4-10.4) 07/03/24 04:48 Neut % (Auto) 77.2 % 07/03/24 04:48 Lymph % (Auto) 15.0 % 07/03/24 04:48 [place] % (Auto) 5.6 % 07/03/24 04:48 Eos % (Auto) 1.8 % 07/03/24 04:48 Baso % (Auto) 0.2 % 07/03/24 04:48 Neut # (Auto) 6.33 10^3/uL (1.8-7.7) 07/03/24 04:48 Lymph # (Auto) 1.2 10^3/uL (0.8-4.8) 07/03/24 04:48 [place] # (Auto) 0.5 10^3/uL (0.2-0.9) 07/03/24 04:48 Eos # (Auto) 0.2 10^3/uL (0.0-0.8) 07/03/24 04:48 Baso # (Auto) 0.0 10^3/uL (0.0-0.1) 07/03/24 04:48 Nucleated RBC % (auto) 0 % 07/03/24 04:48 Nucleated RBCs # 0.0 /100WBC 07/03/24 04:48 Sodium 140 mmol/L (136-145) 07/03/24 04:48 Potassium 3.5 mmol/L (3.5-5.1) 07/03/24 04:48 Chloride 100 mmol/L (98-107) 07/03/24 04:48 Carbon Dioxide 28 mmol/L (22-29) 07/03/24 04:48 Anion Gap 15.5 (5-19) 07/03/24 04:48 BUN 20 mg/dL (8-23) 07/03/24 04:48 Creatinine 1.3 mg/dL (0.5-0.9) H 07/03/24 04:48 GFR Calculation Not Reportable 07/03/24 04:48 Glucose 138 mg/dL (65-115) H 07/03/24 04:48 POC Glucose 143 mg/dL (70-110) H 07/03/24 06:07 Calculated Osmolality 295 mOsm/kg (285-295) 07/03/24 04:48 Calcium 9.8 mg/dL (8.5-10.5) 07/03/24 04:48 Magnesium 1.9 mg/dL (1.7-2.3) 07/03/24 04:48 Total Bilirubin 0.6 mg/dL (0.15-1.2) 07/03/24 04:48 AST 10 U/L (0-32) 07/03/24 04:48 ALT 9 U/L (0-33) 07/03/24 04:48 Alkaline Phosphatase 104 U/L (35-105) 07/03/24 04:48 Troponin T 5th Gen ng/L 15 ng/L (0-10) H 07/01/24 18:06 NT-Pro-B Natriuret Pep 1899 pg/mL (0-125) H 07/02/24 02:14 Total Protein 6.9 g/dL (6.6-8.7) 07/03/24 04:48 Albumin 3.8 g/dL (3.5-5.2) 07/03/24 04:48 Globulin 3.1 g/dL (1.3-4.6) 07/03/24 04:48 TSH 3.81 uIU/mL (0.27-4.20) 07/02/24 02:14 Vitals Last Vital Signs Temp 97.7 F 07/03/24 04:00 Pulse 89 07/03/24 06:00 Resp 16 07/03/24 04:00 BP 144/94 07/03/24 04:00 Pulse Ox 98 07/03/24 04:00 O2 Del Method Room Air 07/03/24 04:00 Discharge Plan Discharge Patient Disposition: Home Condition: Stable Prescriptions: New Eliquis 5 mg Tablet 5 mg PO BID@0900,2100 Qty: 60 0RF azithromycin 250 mg Tablet 500 mg PO DAILY Qty: 3 0RF amlodipine 5 mg Tablet 10 mg PO DAILY Qty: 30 0RF Continued aspirin 81 mg tablet,delayed release (DR/EC) 81 mg PO DAILY@0700 albuterol sulfate 0.63 mg/3 mL solution for nebulization 0.63 mg INHALATION QID PRN (Reason: shortness of breath or wheezing) Qty: 90 1RF (DME) blood-glucose meter [Blood Glucose Monitoring] Kit See Rx Instructions .ROUTE .MEDSUPPLY Qty: 1 0RF Rx Instructions: As directed ropinirole 1 mg tablet 1 mg PO BID@0700,2100 Qty: 60 2RF furosemide 40 mg tablet 40 mg PO BID Qty: 60 0RF escitalopram oxalate [Lexapro] 20 mg tablet 20 mg PO DAILY@0700 Qty: 30 2RF sumatriptan succinate [Imitrex] 100 mg tablet See Rx Instructions PO .COMPLEX Qty: 10 2RF Rx Instructions: take 1 when headache starts topiramate [Topamax] 25 mg tablet 25 mg PO BID 30 Days Qty: 60 11RF (DME) lancets [Accu-Chek Softclix Lancets] Misc See Rx Instructions .ROUTE .MEDSUPPLY Qty: 100 0RF Rx Instructions: As directed atorvastatin 40 mg tablet See Rx Instructions .ROUTE .COMPLEX Qty: 90 0RF Dose Instruction: Take 1 tablet by mouth once daily Rx Instructions: Take 1 tablet by mouth once daily (DME) Accu-Chek Felisha Plus test strp Strip See Rx Instructions .ROUTE .COMPLEX Qty: 100 0RF Dose Instruction: USE DIRECTED Rx Instructions: USE DIRECTED alendronate 70 mg tablet See Rx Instructions .ROUTE .COMPLEX Qty: 12 0RF Dose Instruction: Take 1 tablet by mouth once a week Rx Instructions: Take 1 tablet by mouth once a week aripiprazole [Abilify] 5 mg tablet 5 mg PO DAILY Qty: 30 1RF duloxetine [Cymbalta] 60 mg capsule,delayed release(DR/EC) 60 mg PO BID@0700,2100 Qty: 60 2RF levothyroxine 150 mcg tablet See Rx Instructions .ROUTE .COMPLEX Qty: 90 0RF Dose Instruction: TAKE 1 TABLET BY MOUTH ONCE DAILY AT 6:30 Rx Instructions: TAKE 1 TABLET BY MOUTH ONCE DAILY AT 6:30 trazodone 150 mg tablet 300 mg PO BEDTIME@2100 Qty: 60 2RF Rx Instructions: 1 to 2 tabs at bed esomeprazole magnesium [Nexium] 40 mg Capsule,Delayed Release(Dr/Ec) 40 mg PO DAILY Changed carvedilol 6.25 mg tablet 12.5 mg PO BID Qty: 180 3RF Rx Instructions: must administer with a meal/food Discontinued prazosin 2 mg capsule 2 mg PO .HS Qty: 30 2RF amlodipine 5 mg tablet 10 mg PO BID Atarax 50 mg 50 mg PO BEDTIME No Action potassium chloride 20 mEq tablet extended release See Rx Instructions .ROUTE .COMPLEX Qty: 270 0RF Dose Instruction: TAKE 1 TABLET BY MOUTH THREE TIMES DAILY Rx Instructions: TAKE 1 TABLET BY MOUTH THREE TIMES DAILY metformin 500 mg tablet See Rx Instructions .ROUTE .COMPLEX Qty: 90 0RF Dose Instruction: TAKE 1 TABLET BY MOUTH ONCE DAILY AT 0700 Rx Instructions: TAKE 1 TABLET BY MOUTH ONCE DAILY AT 0700 valsartan-hydrochlorothiazide 320-12.5 mg tablet See Rx Instructions .ROUTE .COMPLEX Qty: 90 0RF Dose Instruction: Take 1 tablet by mouth once daily Rx Instructions: Take 1 tablet by mouth once daily Discharge Orders: Discharge Order (Routine); Ordered 07/03/24 Ordered By: Ursula Khan Other Ambulatory Orders: Basic Metabolic Panel (Routine) Timeframe: 1 Week Facility: [facility] - Location: Lab - Main Lab Ordered By: Ursula Khan Complete Blood Count w/Auto (Routine) Timeframe: 1 Week Location: Determined by Patient Ordered By: Ursula Khan Referrals: Zoraida Arzola FNP [Primary Care Provider] - 07/09/24 10:20 am Alvin Wyatt M.D [Physician] - 07/31/24 12:45 pm Discharge Diet: Cardiac and Diabetic Discharge Activity: Resume usual activity Patient Instructions: Atrial Fibrillation, Azithromycin (By mouth) (Zithromax, Zithromax Tri-Pio, Zithromax..., Amlodipine (By mouth), Apixaban (By mouth), A- fib (Atrial Fibrillation) (DC), CHF Stoplight, COPD Stoplight, Opioid Safety Discharge Attestations Time Spent in Discharge Care*: greater than 30 min Quality Metrics Clinical Quality Measures [ No reported AMI, CVA or VTE this stay] Coding Level of Care Code Acute Code for Chg Fwd Diagnoses Acute on chronic diastolic (congestive) heart failure I50.33 COPD exacerbation J44.1 New onset atrial fibrillation I48.91 Mixed hyperlipidemia E78.2 Hyperlipidemia type: mixed hyperlipidemia Acquired hypothyroidism E03.9 Hypothyroidism type: acquired HTN (hypertension), benign I10 Depression F32.9 Major depressive disorder, recurrent severe without psychotic features F33.2 GERD (gastroesophageal reflux disease) K21.9 Chronic diastolic congestive heart failure I50.32 Heart failure chronicity: chronic Heart failure type: diastolic Bipolar disease, chronic F31.9
[2024-07-03 09:02] VITALS: BP 128/74
[2024-07-03] MEDS: losartan 50 mg Tablet 100 MG PO (09:02)
[2024-07-03] MEDS: atorvastatin 40 mg Tablet PO (09:02)
[2024-07-03] MEDS: azithromycin 250 mg Tablet 500 MG PO (09:03)
[2024-07-03] MEDS: amlodipine 5 mg Tablet 10 MG PO (09:03)
[2024-07-03] MEDS: hydroCHLOROthiazide 25 mg Tablet 12.5 MG PO (09:04)
[2024-07-03] MEDS: docusate sodium 100 mg Capsule PO (09:04)
[2024-07-03] MEDS: potassium chloride ER 20 mEq Tablet PO (09:05)
[2024-07-03] MEDS: apixaban 5 mg Tablet PO (09:07)
[2024-07-03 11:25] VITALS: BP 126/74; PULSE 90; RESP 18; TEMP 36.5; O2SAT 96
== END 2024-07-03 11:19 | disposition home or self-care (01) | DRG 291 ==
PROVIDERS: Admitting Provider Internal Medicine; PCP Nurse Practitioner Family; Visit Provider Internal Medicine
DX: I11.0 Hypertensive heart disease with heart failure (principal); I50.33 Acute on chronic diastolic (congestive) heart failure; J44.1 Chronic obstructive pulmonary disease with (acute) exacerbation; I48.91 Unspecified atrial fibrillation; E78.5 Hyperlipidemia, unspecified; E03.9 Hypothyroidism, unspecified; K21.9 Gastro-esophageal reflux disease without esophagitis; F31.9 Bipolar disorder, unspecified; I25.10 Atherosclerotic heart disease of native coronary artery without angina pectoris; G47.33 Obstructive sleep apnea (adult) (pediatric); G40.909 Epilepsy, unspecified, not intractable, without status epilepticus; E11.9 Type 2 diabetes mellitus without complications; G25.81 Restless legs syndrome; Z79.82 Long term (current) use of aspirin; Z79.02 Long term (current) use of antithrombotics/antiplatelets; Z79.84 Long term (current) use of oral hypoglycemic drugs
CPT/HCPCS: 36415; 36416; 78014; 80048; 80053; 82962; 83735; 83880; 84443; 84484; 85025; 93005; 93306; 94640; 94664; 96372; 96376; A9540; A9567; J0456; J1650; J1940; J2470; J7050; J7626; Q0144

== ENCOUNTER → 2024-07-09 10:31 | Outpatient (BNVA) | payer MEDICARE, MEDICAID, SELFPAY | PROVIDERS: PCP Nurse Practitioner Family; Visit Provider Nurse Practitioner Family | DX: I11.0 Hypertensive heart disease with heart failure (principal); I50.32 Chronic diastolic (congestive) heart failure | CPT/HCPCS: 80053; 83880 ==

== ENCOUNTER → 2024-07-20 09:07 | Outpatient (BNVA) | payer MEDICARE, SELFPAY | PROVIDERS: PCP Nurse Practitioner Family; Visit Provider Specialist | DX: M17.11 Unilateral primary osteoarthritis, right knee (principal); Z71.89 Other specified counseling | CPT/HCPCS: 20610; J1100; J2795; J3301 ==

== ENCOUNTER → 2024-08-08 08:25 | Outpatient (BNVA) | payer MEDICARE, SELFPAY | PROVIDERS: PCP Nurse Practitioner Family; Visit Provider Internal Medicine | DX: I48.91 Unspecified atrial fibrillation (principal); I11.0 Hypertensive heart disease with heart failure; I50.32 Chronic diastolic (congestive) heart failure; E78.2 Mixed hyperlipidemia; E11.9 Type 2 diabetes mellitus without complications; K21.9 Gastro-esophageal reflux disease without esophagitis; I83.893 Varicose veins of bilateral lower extremities with other complications; E66.01 Morbid (severe) obesity due to excess calories; Z68.42 Body mass index [BMI] 45.0-49.9, adult; Z79.01 Long term (current) use of anticoagulants; Z79.4 Long term (current) use of insulin | CPT/HCPCS: 99214 ==

== ENCOUNTER 2024-10-02 09:47 | Day surgery (SDC) | payer MEDICARE, MEDICAID, SELFPAY ==
[2024-10-02 10:07] VITALS: BMI 44.1
[2024-10-02 10:22] VITALS: BP 188/120; PULSE 85; RESP 16; TEMP 36.3; O2SAT 96
[2024-10-02] MEDS: sodium chloride 0.9% 1,000 ML 30 ML IV (10:23)
[2024-10-02] MEDS: labetalol 5 mg/mL SDV 20mL 10 MG IVP (10:31)
--- NOTE | 2024-10-02 10:46 | W.PM.OPSFHP ---
Same Day Surgery H&P Indication for Procedure/HPI DATE OF PROCEDURE: October 02, 2024 CHIEF COMPLAINT/INDICATIONFOR SURGICAL PROCEDURE: screening colonoscopy PREOP DIAGNOSIS: screening colonoscopy PLANNED PROCEDURE: Operation Date: 10/02/24 12:15 Proposed Procedures p Colonoscopy 65134, G0121, Z12.11(Not Applicable) - Armen Balderrama MD Medications/Allergies* Home Medications ?Medication ?Instructions ?Recorded ?Confirmed ?Type aspirin 81 mg tablet,delayed 81 mg PO DAILY@0700 07/27/19 09/27/24 History release esomeprazole magnesium 40 mg 40 mg PO DAILY 07/01/24 09/27/24 History capsule,delayed release (Nexium) atorvastatin 40 mg tablet 40 mg PO DAILY 08/16/24 09/27/24 History metformin 500 mg tablet 500 mg PO DAILY 08/16/24 09/27/24 History potassium chloride 20 mEq 20 meq PO TID 08/16/24 09/27/24 History tablet,extended release sumatriptan succinate 100 mg 100 mg PO PRN PRN Headache 08/16/24 09/27/24 History tablet (Imitrex) valsartan 320 1 tab PO DAILY 08/16/24 09/27/24 History mg-hydrochlorothiazide 12.5 mg tablet apixaban 5 mg tablet (Eliquis) 5 mg PO BID 09/27/24 09/27/24 History levothyroxine 150 mcg tablet 150 mcg PO DAILY 09/27/24 09/27/24 History trazodone 150 mg tablet 150 - 300 mg PO BEDTIME@2100 10/01/24 10/01/24 History Allergies/Adverse Reactions Allergy/AdvReac Type Severity Reaction Status Date / Time adhesive tape Allergy Mild RASH Verified 10/02/24 10:04 carbamazepine (From Tegretol) Allergy Mild UNKNOWN Verified 10/02/24 10:04 cortisone Allergy Mild UNKNOWN Verified 10/02/24 10:04 hydrocodone Allergy Mild UNKNOWN Verified 10/02/24 10:04 Iodinated Contrast Media Allergy Mild UNKNOWN Verified 10/02/24 10:04 iodine Allergy Mild MILD Verified 10/02/24 10:04 Penicillins Allergy Mild NAUSEA Verified 10/02/24 10:04 Sulfa (Sulfonamide Allergy Mild NAUSEA Verified 10/02/24 10:04 Antibiotics) Current Medications: Generic Name Dose Route Start Last Admin Trade Name Freq PRN Reason Stop Dose Admin Sodium Chloride 1,000 mls @ 30 mls/hr 10/02/24 08:30 10/02/24 10:23 Sodium Chloride 0.9% IV 30 mls/hr .Q24H JOSE Administration Pertinent History/Comorbid Conditions* Medical History (Updated 07/16/24 @ 10:59 by LEANNA Hadley) Psychiatric care CHF (congestive heart failure) Congestive heart failure Osteoarthritis of right knee Acute torn meniscus of knee Post-traumatic stress disorder, chronic Major depressive disorder, recurrent severe without psychotic features Osteoarthritis Depression HTN (hypertension), benign Hypothyroidism Surgical History (Updated 07/10/24 @ 00:00 by LESLY Nieto) H/O esophagogastroduodenoscopy (04/15/20) H/O: hysterectomy Hx of tonsillectomy H/O tubal ligation History of repair of rotator cuff right H/O colonoscopy 5 yrs ago History of knee replacement Family History (Updated 04/01/20 @ 13:54 by Susana Simon LPN) Diabetes CAD (coronary artery disease) Chronic kidney disease (CKD) Cancer Hypertension Denies family history of Anesthesia complication Bleeding disorder Stroke Social History Smoking and tobacco/nicotine status: never used tobacco/nicotine Second hand smoke exposure: No Alcohol intake: never Substance/Drug Use: never Adopted: No Caregiver/support person: No Lives independently: Yes Household members: spouse Marital status: Current gender identity: Female Pertinent Exam Findings alert, oriented x 3, clear to auscultation bilaterally, regular rate & rhythm and procedure specific exam findings abdomen soft, nt, nd Recommendations Surgery/Procedure today Coding Level of Care Code Acute Code for Chg Fwd
[2024-10-02 10:59] LABS: Glucose Point of Care 119 mg/dL (70-110)
[2024-10-02 11:11] VITALS: BP 143/85; PULSE 79; RESP 18; TEMP 36.3; O2SAT 95
[2024-10-02 11:25] VITALS: BP 178/86; PULSE 86; RESP 18; O2SAT 94
--- NOTE | 2024-10-02 11:43 | ANE.PACU2 ---
Inpatient post-anesthesia follow up: Airway intact: Yes Vital signs: Temperature 97.4 F Pulse Rate 86 Respiratory Rate 18 Blood Pressure 178/86 Pulse Oximetry 94 Oxygen Delivery Me thod Room Air Oxygen Flow Rate Fraction of Inspir ed Oxygen Hydration adequate: Yes Nausea and vomiting: No Pain level: 1 Mental status: Baseline
== END 2024-10-02 11:43 | disposition home or self-care (01) ==
PROVIDERS: PCP Nurse Practitioner Family; Visit Provider Student in an Organized Health Care Education/Training Program
PROC: 0DJD8ZZ Inspection of Lower Intestinal Tract, Via Natural or Artificial Opening Endoscopic (ICD-10-PCS; CPT 45378; principal; 2024-10-02 12:15)
DX: Z12.11 Encounter for screening for malignant neoplasm of colon (principal); K57.30 Diverticulosis of large intestine without perforation or abscess without bleeding; I11.0 Hypertensive heart disease with heart failure; I50.9 Heart failure, unspecified; I10 Essential (primary) hypertension; E03.9 Hypothyroidism, unspecified; M19.90 Unspecified osteoarthritis, unspecified site; Z79.899 Other long term (current) drug therapy; Z79.84 Long term (current) use of oral hypoglycemic drugs; Z79.82 Long term (current) use of aspirin; Z79.01 Long term (current) use of anticoagulants; Z79.890 Hormone replacement therapy; Z88.0 Allergy status to penicillin; Z88.2 Allergy status to sulfonamides; Z88.5 Allergy status to narcotic agent; Z88.8 Allergy status to other drugs, medicaments and biological substances; Z91.041 Radiographic dye allergy status; Z91.09 Other allergy status, other than to drugs and biological substances; Z90.710 Acquired absence of both cervix and uterus
CPT/HCPCS: 36416; 82962; G0121; J2704; J3490; J7030

== ENCOUNTER → 2024-10-24 13:35 | Outpatient (BNVA) | payer MEDICARE, MEDICAID, SELFPAY | PROVIDERS: PCP Nurse Practitioner Family; Visit Provider Nurse Practitioner Family | DX: I10 Essential (primary) hypertension (principal); E11.9 Type 2 diabetes mellitus without complications; E03.9 Hypothyroidism, unspecified; R53.83 Other fatigue | CPT/HCPCS: 80053; 80061; 83036; 84443; 85025 ==

== ENCOUNTER → 2024-10-26 09:01 | Outpatient (BNVA) | payer MEDICARE, MEDICAID, SELFPAY | PROVIDERS: PCP Nurse Practitioner Family; Visit Provider Specialist | DX: M17.11 Unilateral primary osteoarthritis, right knee (principal) | CPT/HCPCS: 20610; J1100; J2795; J3301; J9999 ==

== ENCOUNTER → 2025-01-04 08:03 | Outpatient (BNVA) | payer MEDICARE, MEDICAID, SELFPAY | PROVIDERS: PCP Nurse Practitioner Family; Visit Provider Nurse Practitioner Family | DX: I10 Essential (primary) hypertension (principal); E03.9 Hypothyroidism, unspecified | CPT/HCPCS: 80053; 80061; 84443 ==

== ENCOUNTER 2025-01-23 12:50 | Outpatient (CLI) | payer OTHER, MEDICAID, SELFPAY ==
--- NOTE | 2025-01-23 12:53 | XR_ITS ---
WS: [id number] DEXA (DUAL ENERGY X-RAY ABSORPTIOMETRY) Bone mineral density was performed using a [employer] machine. HISTORY: M81.0 - Age-related osteoporosis without current patholog... COMPARISON: None available. Lumbar spine BMD (L1-L4): 1.136 g/cm2 T score: -0.4 Z score: 0.2 Total hip BMD: Left: 0.982 g/cm2. T score: -0.2 Z score: 0.6 Right: 0.978 g/cm2. T score: -0.2 Z score: 0.5 10 year probability of a major osteoporotic fracture is 8.1%. XR/XR DEXA axial skeleton* 26895 IMPRESSION: NORMAL BONE MINERAL DENSITY based upon the WHO classification for females.
--- NOTE | 2025-01-23 12:53 | MM_ITS ---
WS: [id number] BILATERAL 3D TOMOSYNTHESIS DIGITAL SCREENING MAMMOGRAPHY WITH CAD CLINICAL INFORMATION: SCREEN HISTORY: Screening mammogram. No current complaints. COMPARISON: 2022 TECHNIQUE: Bilateral CC and MLO views. FINDINGS: Scattered fibroglandular densities bilaterally. No suspicious focal mass, asymmetry, calcifications, or architectural distortion. No evidence of malignancy. Incidental coarse and dystrophic calcifications. Vascular calcification. Stable cluster calcifications LEFT breast. MM/MM scr BI tomosynthesis 90368 IMPRESSION: DENSITY: There are scattered areas of fibroglandular density. BI-RADS: 2 - Benign. FOLLOW UP: 1 Year Follow-up Recommend return to annual screening mammography.
== END 2025-01-23 12:51 | disposition home or self-care (01) ==
LOC: RAD 12:51
PROVIDERS: PCP Nurse Practitioner Family; Visit Provider Nurse Practitioner Family
DX: Z12.31 Encounter for screening mammogram for malignant neoplasm of breast (principal); Z13.820 Encounter for screening for osteoporosis
CPT/HCPCS: 77063; 77067; 77080

== ENCOUNTER → 2025-02-06 13:39 | Outpatient (BNVA) | payer OTHER, MEDICAID, SELFPAY | PROVIDERS: PCP Nurse Practitioner Family; Visit Provider Internal Medicine | DX: I11.0 Hypertensive heart disease with heart failure (principal); I50.9 Heart failure, unspecified; E78.5 Hyperlipidemia, unspecified; E11.9 Type 2 diabetes mellitus without complications; Z79.84 Long term (current) use of oral hypoglycemic drugs; K21.9 Gastro-esophageal reflux disease without esophagitis; I83.893 Varicose veins of bilateral lower extremities with other complications; E66.01 Morbid (severe) obesity due to excess calories; Z68.42 Body mass index [BMI] 45.0-49.9, adult; Z79.01 Long term (current) use of anticoagulants; Z79.82 Long term (current) use of aspirin; R07.9 Chest pain, unspecified | CPT/HCPCS: 99214 ==

== ENCOUNTER → 2025-02-13 08:46 | Outpatient (BNVA) | payer OTHER, MEDICAID, SELFPAY | PROVIDERS: PCP Nurse Practitioner Family; Visit Provider Specialist | DX: M17.11 Unilateral primary osteoarthritis, right knee (principal) | CPT/HCPCS: 20610; J1100; J2795; J3301; J9999 ==

== ENCOUNTER 2025-02-18 10:54 | Emergency (ER) | payer OTHER, MEDICAID, SELFPAY ==
--- OUTSIDE RECORDS SUMMARY | 2025-02-18 11:01 | XMS_ITS | Encounter Summary ---
Author Organization [facility] Address [address] [place] [address] Care Team Providers Care Electronic Communications Technician Name Role Phone Non-Staff, Physician Primary Care Provider Unava ilable Encounter Details Date Type Department Care Team (Latest Contact Info) Description 08/03/2001 Outpatient Historical [facility] Family Medicine [place] [address] [phone] Diana Chung MD NO ADDRESS ON FILE JOINT PAIN-L/LEG (Primary Dx) Social History Tobacco Use Types Packs/Day Years Used Date Smoking Tobacco: Never Assessed Comments Unknown Sex and Gender Information Value Date Recorded Sex Assigned at Not on file 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
--- OUTSIDE RECORDS SUMMARY | 2025-02-18 11:01 | XMS_ITS | Encounter Summary ---
Author Organization [facility] Address [address] [place] [address] Care Team Providers Care Manager Flight Operations Name Role Phone Non-Staff, Physician Primary Care Provider Unava ilable Encounter Details Date Type Department Care Team (Latest Contact Info) Description 07/04/2001 Outpatient Historical [facility] Family Medicine [place] [address] [phone] Teo Kinney DO NO ADDRESS ON FILE OTITIS MEDIA NOS (Primary Dx); JOINT PAIN-L/LEG Social History Tobacco Use Types Packs/Day Years Used Date Smoking Tobacco: Never Assessed Comments Unknown Sex and Gender Information Value Date Recorded Sex Assigned at Not on file 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
--- OUTSIDE RECORDS SUMMARY | 2025-02-18 11:01 | XMS_ITS | Encounter Summary ---
Author Organization [facility] Address [address] [place] [address] Care Team Providers Care Applications Processor Name Role Phone Non-Staff, Physician Primary Care Provider Unava ilable Encounter Details Date Type Department Care Team (Latest Contact Info) Description 06/20/2001 Outpatient Historical [facility] Family Medicine [place] [address] [facility] [address] [place] [phone] Teo Kinney DO NO ADDRESS ON FILE IMPACTED CERUMEN (Primary Dx) Social History Tobacco Use Types Packs/Day Years Used Date Smoking Tobacco: Never Assessed Comments Unknown Sex and Gender Information Value Date Recorded Sex Assigned at Not on file 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
--- OUTSIDE RECORDS SUMMARY | 2025-02-18 11:01 | XMS_ITS | Encounter Summary ---
Author Organization [facility] Address [address] [place] [address] Care Team Providers Care Television Parts Tester Name Role Phone Non-Staff, Physician Primary Care Provider Unava ilable Encounter Details Date Type Department Care Team (Latest Contact Info) Description 05/23/2001 Outpatient Historical [facility] Family Medicine [address] [phone] Teo Kinney DO NO ADDRESS ON FILE Infective otitis externa, unspecified (Primary Dx); Unspecified otitis media Social History Tobacco Use Types Packs/Day Years Used Date Smoking Tobacco: Never Assessed Comments Unknown Sex and Gender Information Value Date Recorded Sex Assigned at Not on file 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
--- OUTSIDE RECORDS SUMMARY | 2025-02-18 11:01 | XMS_ITS | Encounter Summary ---
Author Organization [facility] Address [address] [facility] Attn: Epic Prelude ADT AIMEE BUSCH RIAZ [phone] Care Team Providers Care Classroom Coordinator Name Role Phone Non-Staff, Physician Primary Care Provider Unava ilable Encounter Details Date Type Department Care Team (Late st Contact Info) Description 07/20/2001 Outpatient Historical Zoraida Arzola, DESIGNER AND PATTERNMAKER [address] [place] [phone] Social History Tobacco Use Types Packs/Day Years Used Date Smoking Tobacco: Never Assessed Comments Unknown Sex and Gender Information Value Date Recorded Sex Assigned at Not on file 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
--- OUTSIDE RECORDS SUMMARY | 2025-02-18 11:01 | XMS_ITS | Encounter Summary ---
Author Organization [facility] Address [address] [place] [address] Care Team Providers Care Special Tax Auditor Name Role Phone Non-Staff, Physician Primary Care Provider Unava ilable Encounter Details Date Type Department Care Team (Latest Contact Info) Description 10/27/2001 Outpatient Historical [facility] [address] [place] [phone] Ibrahima Glasgow MD [address] [facility] [address] [place] [phone] ACUTE MAXILLARY SINUSITIS (Primary Dx); ACUTE BRONCHITIS Social History Tobacco Use Types Packs/Day Years Used Date Smoking Tobacco: Never Assessed Comments Unknown Sex and Gender Information Value Date Recorded Sex Assigned at Not on file 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
--- OUTSIDE RECORDS SUMMARY | 2025-02-18 11:01 | XMS_ITS | Encounter Summary ---
Author Organization [facility] Address [address] [place] [address] Care Team Providers Care Seed District Sales Manager Name Role Phone Non-Staff, Physician Primary Care Provider Unava ilable Encounter Details Date Type Department Care Team (Latest Contact Info) Description 09/19/2001 Outpatient Historical [facility] Family Medicine [place] [address] [facility] [address] [place] [phone] Teo Kinney DO NO ADDRESS ON FILE JOINT PAIN-L/LEG (Primary Dx) Social History Tobacco Use Types Packs/Day Years Used Date Smoking Tobacco: Never Assessed Comments Unknown Sex and Gender Information Value Date Recorded Sex Assigned at Not on file 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
--- OUTSIDE RECORDS SUMMARY | 2025-02-18 11:01 | XMS_ITS | Encounter Summary ---
Author Organization [facility] Address [address] [place] [address] Care Team Providers Care Banking Attorney Name Role Phone Non-Staff, Physician Primary Care Provider Unava ilable Encounter Details Date Type Department Care Team (Latest Contact Info) Description 06/06/2001 Outpatient Historical [facility] Family Medicine [place] [address] [phone] Teo Kinney DO NO ADDRESS ON FILE CHEST PAIN NOS (Primary Dx); OTITIS MEDIA NOS Social History Tobacco Use Types Packs/Day Years Used Date Smoking Tobacco: Never Assessed Comments Unknown Sex and Gender Information Value Date Recorded Sex Assigned at Not on file Legal Sex Female 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
--- OUTSIDE RECORDS SUMMARY | 2025-02-18 11:01 | XMS_ITS | Encounter Summary ---
Author Organization [facility] Address [address] [place] [address] Care Team Providers Care Design Studio Consultant Name Role Phone Non-Staff, Physician Primary Care Provider Unava ilable Encounter Details Date Type Department Care Team (Latest Contact Info) Description 07/20/2001 Outpatient Historical [facility] Family Medicine [place] 104 [facility] 60 [place] [phone] Ibrahima Glasgow MD [address] [facility] [address] [place] [address] INFEC OTITIS EXTERNA NOS (Primary Dx) Social History Tobacco Use Types Packs/Day Years Used Date Smoking Tobacco: Never Assessed Comments Unknown Sex and Gender Information Value Date Recorded Sex Assigned at Not on file Legal Sex Female 4:31 AM CLERICAL MANAGER Gender Identity Not on file Sexual Orientation Not on file documented as of this encounter Plan of Treatment Not on file documented as of this encounter Visit Diagnoses Diagnosis Infective otitis externa, unspecified- Primary documented in this encounter Care Teams Design Studio Consultant Relationship Specialty Start Date End Date Non-Staff, Physician NO ADDRESS ON FILE PCP - General 11/28/19 03/30/20 documented as of this encounter
--- OUTSIDE RECORDS SUMMARY | 2025-02-18 11:01 | XMS_ITS | Encounter Summary ---
Author Organization [facility] Address [address] [facility] Attn: Epic Prelude ADT AIMEE BUSCH RIAZ [address] Care Team Providers Care Tree Care Foreman Name Role Phone Non-Staff, Physician Primary Care Provider Unava ilable Encounter Details Date Type Department Care Team (Late st Contact Info) Description 05/23/2001 Outpatient Historical Zoraida Arzola, DIRECTOR TRANSITION [address] [place] [phone] Social History Tobacco Use Types Packs/Day Years Used Date Smoking Tobacco: Never Assessed Comments Unknown Sex and Gender Information Value Date Recorded Sex Assigned at Not on file Legal Sex Female 4:31 AM QUALITY ASSURANCE PROJECT MANAGER Gender Identity Not on file Sexual Orientation Not on file documented as of this encounter Plan of Treatment Not on file documented as of this encounter Visit Diagnoses Not on filedocumented in this encounter Care Teams Tree Care Foreman Relationship Specialty Start Date End Date Non-Staff, Physician NO ADDRESS ON FILE PCP - General 11/28/19 03/30/20 documented as of this encounter
--- OUTSIDE RECORDS SUMMARY | 2025-02-18 11:01 | XMS_ITS | Encounter Summary ---
Author Organization [facility] Address [address] [place] [address] Care Team Providers Care Log Grader Name Role Phone Non-Staff, Physician Primary Care Provider Unava ilable Encounter Details Date Type Department Care Team (Latest Contact Info) Description 08/31/2001 Outpatient Historical [facility] Medicine [place] 104 [facility] 60 [place] [address] iDana Chung MD NO ADDRESS ON FILE NONINFEC GASTROENTERIT NEC (Primary Dx); OSTEOARTHROS NOS-L/LEG Social History Tobacco Use Types Packs/Day Years Used Date Smoking Tobacco: Never Assessed Comments Unknown Sex and Gender Information Value Date Recorded Sex Assigned at Not on file Legal Sex Female 4:[address] MACHINE OPERATOR Gender Identity Not on file Sexual Orientation Not on file documented as of this encounter Plan of Treatment Not on file documented as of this encounter Visit Diagnoses Diagnosis Other and unspecified noninfectious gastroenteritis and colitis(558.9)- Primary Other and unspecified noninfectious gastroenteritis and colitis Osteoarthrosis, unspecified whether generalized or localized, lower leg documented in this encounter Care Teams Log Grader Relationship Specialty Start Date End Date Non-Staff, Physician NO ADDRESS ON FILE PCP - General 11/28/19 03/30/20 documented as of this encounter
--- OUTSIDE RECORDS SUMMARY | 2025-02-18 11:01 | XMS_ITS | Encounter Summary ---
Author Organization [facility] Address [address] [place] [address] Care Team Providers Care Mechanical Door Repairer Name Role Phone Non-Staff, Physician Primary Care Provider Unava ilable Encounter Details Date Type Department Care Team (Latest Contact Info) Description 09/08/2001 Outpatient Historical [facility] [address] [place] [address] Zoraida Arzola, LINE MAINTENANCE TECHNICIAN [address] [place] [phone] SPRAIN OF KNEE & LEG NOS (Primary Dx) Social History Tobacco Use Types Packs/Day Years Used Date Smoking Tobacco: Never Assessed Comments Unknown Sex and Gender Information Value Date Recorded Sex Assigned at Not on file Legal Sex Female 4:31 AM DIE SINKING MACHINE OPERATOR Gender Identity Not on file Sexual Orientation Not on file documented as of this encounter Plan of Treatment Not on file documented as of this encounter Visit Diagnoses Diagnosis Sprain and strain of unspecified site of knee and leg- Primary documented in this encounter Care Teams Mechanical Door Repairer Relationship Specialty Start Date End Date Non-Staff, Physician NO ADDRESS ON FILE PCP - General 11/28/19 03/30/20 documented as of this encounter
--- OUTSIDE RECORDS SUMMARY | 2025-02-18 11:02 | XMS_ITS | Encounter Summary ---
Author Organization [facility] Address [address] [place] [address] Care Team Providers Care Administrative Assistant Receptionist Name Role Phone Non-Staff, Physician Primary Care Provider Unava ilable Encounter Details Date Type Department Care Team (Latest Contact Info) Description 08/19/2005 Outpatient Historical [facility] Medicine [place] [address] [facility] 60 [place] [address] Zoraida Arzola, COURTESY CAR DRIVER [address] [place] [phone] ACUTE SEROUS OTITIS MEDIA (Primary Dx); EXAM AFTR OTHR HI-RISK COMPL RX NEC Social History Tobacco Use Types Packs/Day Years Used Date Smoking Tobacco: Never Assessed Comments Unknown Sex and Gender Information Value Date Recorded Sex Assigned at Not on file Legal Sex Female 4:31 AM MAPPING SUPERVISOR Gender Identity Not on file Sexual Orientation Not on file documented as of this encounter Plan of Treatment Not on file documented as of this encounter Visit Diagnoses Diagnosis Acute serous otitis media- Primary Follow-up examination following completed treatment with high-risk medications, not elsewhere classified documented in this encounter Care Teams Administrative Assistant Receptionist Relationship Specialty Start Date End Date Non-Staff, Physician NO ADDRESS ON FILE PCP - General 11/28/19 03/30/20 documented as of this encounter
--- OUTSIDE RECORDS SUMMARY | 2025-02-18 11:02 | XMS_ITS | Encounter Summary ---
Author Organization [facility] Address [address] [place] [address] Care Team Providers Care Heater Planer Operator Name Role Phone Non-Staff, Physician Primary Care Provider Unava ilable Reason for Referral * Radiology Services (Routine) - Closed Specialty Diagnoses / Procedures Referred By Contac t Referred To Contact Radiology Diagnoses Abnormal mammogram Procedures MAMMO DIAGNOSTIC BILATERAL W OR WO CAD MAMMO DIAGNOSTIC UNI RIGHT W OR WO CAD Zoraida Arzola FNP Phone: tel: fax: [facility] [place] [address] [address] Phone: tel: fax: Referral ID Status Reason Start Date Expiration Date V isits Requested Visits Authorized [id number] Closed [facility] TO SCHEDULE (SGF) 09/09/2017 10/10/2018 1 1 CULTURAL CROP FARM MANAGER Encounter Details Date Type Department Care Team (Late st Contact Info) Description 09/14/2017 Ancillary Orders [facility] [address] [place] [address] Zoraida Arzola FNP [address] [place] [phone] Abnormal mammogram Social History Tobacco Use Types Packs/Day Years Used Date Smoking Tobacco: Never Smokeless Tobacco: Never Alcohol Use Standard Drinks/Week Comments No 0 (1 standard drink = 0.6 oz pur e alcohol) Comments No Sex and Gender Information Value Date Recorded Sex Assigned at Not on file Legal Sex Female 4:31 AM AGRICULTURAL CROP FARM MANAGER Gender Identity Not on file Sexual Orientation Not on file Occupation Industry Job Start Date Job End Date Not on file Not on file Not on file Not on file documented as of this encounter Plan of Treatment Not on file documented as of this encounter Results * MAMMO DIAGNOSTIC BILATERAL W OR WO CAD (06/26/2018 3:57 PM AGRICULTURAL CROP FARM MANAGER) Anatomical Region Laterality Modality Breast Bilateral Mammography 06/26/2018 3:10 PM AGRICULTURAL CROP FARM MANAGER Impressions 06/27/2018 9:46 AM AGRICULTURAL CROP FARM MANAGER : Satisfactory and stable 6 month follow-up bilateral mammogram as noted. Considering the appearance, I would recommend returning her to routine screening mammogram in one year. BI-RADS 2 Patient received a result/recommendation letter. [id number] Narrative 06/27/2018 9:46 AM AGRICULTURAL CROP FARM MANAGER BILATERAL DIGITAL DIAGNOSTIC MAMMOGRAM: Repeat examination on this 68-year-old female is compared with previous 10/27/2016, 09/17/2015, 07/10/2014, 11/05/2009, and 2008. This is a six-month follow-up bilateral mammogram recommended to evaluate stability of nodularity on the right. Breast tissue is again of average density and asymmetrical. Benign-appearing calcifications appear stable, including the suspected calcified fibroadenoma on the right. The suspected sebaceous cyst on the right is only very slightly visible, suggesting that it has become smaller. That would have to be correlated clinically. No significant change on either side is seen. This digital mammogram was also analyzed by the Computer Aided Detection System (CAD), Tot[employer] Power ImageChecker, Version 8.3. Zoraida Arzola RADIO RECORDER MAMMO ORDERABLES Final Resu lt documented in this encounter Visit Diagnoses Diagnosis Abnormal mammogram Abnormal mammogram, unspecified Abnormal mammogram Abnormal mammogram, unspecified documented in this encounter Additional Health Concerns Assessment Noted Time PHQ-9 Depression Total Score: 2 03/09/20 17 8:00 AM CDT documented as of this encounter Care Teams Heater Planer Operator Relationship Specialty Start Date End Date Non-Staff, Physician NO ADDRESS ON FILE PCP - General 11/28/19 03/30/20 documented as of this encounter
--- OUTSIDE RECORDS SUMMARY | 2025-02-18 11:02 | XMS_ITS | Encounter Summary ---
Author Organization [facility] Address [address] [place] [address] Care Team Providers Care Field Manager Name Role Phone Non-Staff, Physician Primary Care Provider Unava ilable Encounter Details Date Type Department Care Team (Latest Contact Info) Description 03/24/2005 Outpatient Historical [facility] [address] 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
--- OUTSIDE RECORDS SUMMARY | 2025-02-18 11:02 | XMS_ITS | Encounter Summary ---
Author Organization [facility] Address [address] [place] [address] Care Team Providers Care Client Insights Consultant Name Role Phone Non-Staff, Physician Primary Care Provider Unava ilable Encounter Details Date Type Department Care Team (Latest Contact Info) Description 07/15/2005 Outpatient Historical [facility] Medicine [place] [address] [facility] 60 [place] [phone] Zoraida Arzola, NETWORK PROJECT MANAGER [address] [place] [phone] MALAISE AND FATIGUE NEC (Primary Dx); HYPOTHYROIDISM NOS; HYPOPOTASSEMIA Social History Tobacco Use Types Packs/Day Years Used Date Smoking Tobacco: Never Assessed Comments Unknown Sex and Gender Information Value Date Recorded Sex Assigned at Not on file Legal Sex Female 4:31 AM PARTS FACILITATOR Gender Identity Not on file Sexual Orientation Not on file documented as of this encounter Plan of Treatment Not on file documented as of this encounter Visit Diagnoses Diagnosis Other malaise and fatigue- Primary Unspecified hypothyroidism Hypopotassemia documented in this encounter Care Teams Client Insights Consultant Relationship Specialty Start Date End Date Non-Staff, Physician NO ADDRESS ON FILE PCP - General 11/28/19 03/30/20 documented as of this encounter
--- OUTSIDE RECORDS SUMMARY | 2025-02-18 11:02 | XMS_ITS | Encounter Summary ---
Author Organization [facility] Address [address] [place] [address] Care Team Providers Care Lumber Stacker Driver Name Role Phone Non-Staff, Physician Primary Care Provider Unava ilable Encounter Details Date Type Department Care Team (Latest Contact Info) Description 01/11/2006 Outpatient Historical [facility] Medicine- [address] [phone] Zoraida Arzola, HEALTH SUPPORT SPECIALIST [address] [place] [phone] Other Malaise and Fatigue (Primary Dx) Social History Tobacco Use Types Packs/Day Years Used Date Smoking Tobacco: Never Assessed Comments Unknown Sex and Gender Information Value Date Recorded Sex Assigned at Not on file Legal Sex Female 4:31 AM DELI COOK Gender Identity Not on file Sexual Orientation Not on file documented as of this encounter Plan of Treatment Not on file documented as of this encounter Visit Diagnoses Diagnosis Other malaise and fatigue- Primary documented in this encounter Care Teams Lumber Stacker Driver Relationship Specialty Start Date End Date Non-Staff, Physician NO ADDRESS ON FILE PCP - General 11/28/19 03/30/20 documented as of this encounter
--- OUTSIDE RECORDS SUMMARY | 2025-02-18 11:02 | XMS_ITS | Encounter Summary ---
Author Organization [facility] Address [address] [place] [address] Care Team Providers Care Concrete Placement Equipment Operator Name Role Phone Non-Staff, Physician Primary Care Provider Unava ilable Encounter Details Date Type Department Care Team (Latest Contact Info) Description 01/25/2006 Outpatient Historical [facility] Medicine [place] 104 [facility] [address] [place] [phone] Zoraida Arzola, OFFSET SECOND PRESS OPERATOR [address] [place] [phone] Anxiety State, Unspecified (Primary Dx); Abdominal Pain, Unspecified Site Social History Tobacco Use Types Packs/Day Years Used Date Smoking Tobacco: Never Assessed Comments Unknown Sex and Gender Information Value Date Recorded Sex Assigned at Not on file Legal Sex Female 4:31 AM LASER SYSTEMS ENGINEER Gender Identity Not on file Sexual Orientation Not on file documented as of this encounter Plan of Treatment Not on file documented as of this encounter Visit Diagnoses Diagnosis Anxiety state, unspecified- Primary Abdominal pain, unspecified site documented in this encounter Care Teams Concrete Placement Equipment Operator Relationship Specialty Start Date End Date Non-Staff, Physician NO ADDRESS ON FILE PCP - General 11/28/19 03/30/20 documented as of this encounter
--- OUTSIDE RECORDS SUMMARY | 2025-02-18 11:02 | XMS_ITS | Encounter Summary ---
Author Organization [facility] Address [address] [place] [address] Care Team Providers Care Seafood Clerk Name Role Phone Non-Staff, Physician Primary Care Provider Unava ilable Encounter Details Date Type Department Care Team (Late st Contact Info) Description 11/10/2009 Ancillary Orders [facility] Imaging External Read [address] [place] [address] Zoraida Arzola, BOOMBOAT OPERATOR [address] [place] [address] Screening Mammogram Social History Tobacco Use Types Packs/Day Years Used Date Smoking Tobacco: Never Alcohol Use Standard Drinks/Week Comments No 0 (1 standard drink = 0.6 oz pur e alcohol) Comments No Sex and Gender Information Value Date Recorded Sex Assigned at Not on file Legal Sex Female 4:31 AM WEALTH MANAGEMENT MANAGER Gender Identity Not on file Sexual Orientation Not on file documented as of this encounter Plan of Treatment Not on file documented as of this encounter Results * MAMMO SCREENING BILAT (11/10/2009 8:21 AM CDT) Anatomical Region Laterality Modality Breast Bilateral Mammography Narrative 11/11/2009 3:05 PM CDT Bilateral Mammogram Reason for Exam: Screening Comparison: Comparison is made with the prior exam(s) dated 02.16.07, 3 Findings: Bilateral CC and MLO views were obtained. This examination was reviewed with the aid of a computer-aided detection system(CAD). The breast tissue density is average. Right breast nodularity is stable. Asymmetric breast tissue is noted on the left and remains stable. No significant new findings since the prior mammogram(s). Procedure Note Kathryn Farnsworth MD - 11/11/2009 Bilateral Mammogram Reason for Exam: Screening Comparison: Comparison is made with the prior exam(s) dated 02.16.07,10.02.08 Findings: Bilateral CC and MLO views were obtained. This examination was reviewed with the aid of a computer-aided detectionsystem(CAD). The breast tissue density is average. Right breast nodularity is stable.Asymmetric breast tissue is noted on the left and remains stable. No significant new findings since the prior mammogram(s). Zoraida Arzola BOOMBOAT OPERATOR MAMMO ORDERABLES Final Resu lt documented in this encounter Visit Diagnoses Diagnosis Screening mammogram Other screening mammogram documented in this encounter Care Teams Seafood Clerk Relationship Specialty Start Date End Date Non-Staff, Physician NO ADDRESS ON FILE PCP - General 11/28/19 03/30/20 documented as of this encounter
--- OUTSIDE RECORDS SUMMARY | 2025-02-18 11:02 | XMS_ITS | Encounter Summary ---
Author Organization [facility] Address [address] [place] [address] Care Team Providers Care Program Therapist Name Role Phone Non-Staff, Physician Primary Care Provider Unava ilable Encounter Details Date Type Department Care Team (Latest Contact Info) Description 11/12/2004 Outpatient Historical [facility] Medicine [place] [address] [facility] [address] [place] [phone] Zoraida Arzola, SUPERVISORY HISTORIAN [address] [place] [phone] ANEMIA NOS (Primary Dx); HYPERTENSION NOS Social History Tobacco Use Types Packs/Day Years Used Date Smoking Tobacco: Never Assessed Comments Unknown Sex and Gender Information Value Date Recorded Sex Assigned at Not on file Legal Sex Female 4:31 AM COUGAR HUNTER Gender Identity Not on file Sexual Orientation Not on file documented as of this encounter Plan of Treatment Not on file documented as of this encounter Visit Diagnoses Diagnosis Anemia, unspecified- Primary Unspecified essential hypertension documented in this encounter Care Teams Program Therapist Relationship Specialty Start Date End Date Non-Staff, Physician NO ADDRESS ON FILE PCP - General 11/28/19 03/30/20 documented as of this encounter
--- OUTSIDE RECORDS SUMMARY | 2025-02-18 11:02 | XMS_ITS | Encounter Summary ---
Author Organization [facility] Address [address] [place] [address] Care Team Providers Care Collection Systems Administrator Name Role Phone Non-Staff, Physician Primary Care Provider Unava ilable Encounter Details Date Type Department Care Team (Late st Contact Info) Description 07/10/2014 Ancillary Orders [facility] [address] [place] [address] Zoraida Arzola, LODGE ATTENDANT [address] [place] [phone] Screening breast examination (Primary Dx) Social History Tobacco Use Types Packs/Day Years Used Date Smoking Tobacco: Never Smokeless Tobacco: Never Alcohol Use Standard Drinks/Week Comments No 0 (1 standard drink = 0.6 oz pur e alcohol) Comments No Sex and Gender Information Value Date Recorded Sex Assigned at Not on file Legal Sex Female 4:31 AM PULP MILL TEAM LEADER Gender Identity Not on file Sexual Orientation Not on file Occupation Industry Job Start Date Job End Date Not on file Not on file Not on file Not on file documented as of this encounter Plan of Treatment Not on file documented as of this encounter Results * MAMMO DIGITIZED STUDY (02/16/2007 5:21 PM CDT) Narrative Jackie Palacios, - 07/10/2014 4:21 PM PULP MILL TEAM LEADER Order information only. Exam was auto-finalized. Procedure Note Jackie Palacios, RT - 07/10/2014 Order information only. Exam was auto-finalized. us Zoraida Arzola LODGE ATTENDANT DIAGNOSTIC IMAGING ORDERABL ES Final Result documented in this encounter Visit Diagnoses Diagnosis Screening breast examination- Primary Other screening breast examination Screening breast examination Other screening breast examination documented in this encounter Care Teams Collection Systems Administrator Relationship Specialty Start Date End Date Non-Staff, Physician NO ADDRESS ON FILE PCP - General 11/28/19 03/30/20 documented as of this encounter
--- OUTSIDE RECORDS SUMMARY | 2025-02-18 11:02 | XMS_ITS | Encounter Summary ---
Author Organization [facility] Address [address] [place] [address] Care Team Providers Care Geodetic Surveyor Name Role Phone Non-Staff, Physician Primary Care Provider Unava ilable Encounter Details Date Type Department Care Team (Latest Contact Info) Description 05/20/2005 Outpatient Historical [facility] Medicine [place] [address] 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
--- OUTSIDE RECORDS SUMMARY | 2025-02-18 11:02 | XMS_ITS | Encounter Summary ---
Author Organization [facility] Address [address] [place] [address] Care Team Providers Care Sharples Machine Operator Name Role Phone Non-Staff, Physician Primary Care Provider Unava ilable Encounter Details Date Type Department Care Team (Latest Contact Info) Description 06/21/2006 Outpatient Historical [facility] Medicine [place] 104 [facility] [address] [place] [phone] Zoraida Arzola, ELECTROENCEPHALOGRAPHIC TECHNICIAN [address] [place] [phone] Disorder of Bone and Cartilage, Unspecified (Primary Dx) Social History Tobacco Use Types Packs/Day Years Used Date Smoking Tobacco: Never Assessed Comments Unknown Sex and Gender Information Value Date Recorded Sex Assigned at Not on file Legal Sex Female 4:31 AM PLASTICS ENGINEERING TEACHER Gender Identity Not on file Sexual Orientation Not on file documented as of this encounter Plan of Treatment Not on file documented as of this encounter Visit Diagnoses Diagnosis Disorder of bone and cartilage, unspecified- Primary documented in this encounter Care Teams Sharples Machine Operator Relationship Specialty Start Date End Date Non-Staff, Physician NO ADDRESS ON FILE PCP - General 11/28/19 03/30/20 documented as of this encounter
--- OUTSIDE RECORDS SUMMARY | 2025-02-18 11:02 | XMS_ITS | Encounter Summary ---
Author Organization [facility] Address [address] [place] [address] Care Team Providers Care Electric Meter Tester Helper Name Role Phone Non-Staff, Physician Primary Care Provider Unava ilable Encounter Details Date Type Department Care Team (Latest Contact Info) Description 11/23/2005 Outpatient Historical [facility] Medicine [place] [address] [facility] 60 [place] [phone] Zoraida Arzola, WATER MANGLE TENDER [address] [place] [phone] Nonspecific Abnormal Electrocardiogram (ECG) (EKG) (Primary Dx) Social History Tobacco Use Types Packs/Day Years Used Date Smoking Tobacco: Never Assessed Comments Unknown Sex and Gender Information Value Date Recorded Sex Assigned at Not on file Legal Sex Female 4:31 AM ACCOUNTANT BUDGET Gender Identity Not on file Sexual Orientation Not on file documented as of this encounter Plan of Treatment Not on file documented as of this encounter Visit Diagnoses Diagnosis Nonspecific abnormal electrocardiogram (ECG) (EKG)- Primary documented in this encounter Care Teams Electric Meter Tester Helper Relationship Specialty Start Date End Date Non-Staff, Physician NO ADDRESS ON FILE PCP - General 11/28/19 03/30/20 documented as of this encounter
--- OUTSIDE RECORDS SUMMARY | 2025-02-18 11:02 | XMS_ITS | Encounter Summary ---
Author Organization [facility] Address [address] [place] [address] Care Team Providers Care Research Instrumentation Technician Name Role Phone Non-Staff, Physician Primary Care Provider Unava ilable Encounter Details Date Type Department Care Team (Latest Contact Info) Description 05/19/2006 Outpatient Historical [facility] Medicine [place] [address] [facility] 60 [place] [phone] Zoraida Arzola, STATION EXAMINER [address] [place] [phone] Unspecified Essential Hypertension (Primary Dx); Unspecified Anemia; Vaccine for influenza Social History Tobacco Use Types Packs/Day Years Used Date Smoking Tobacco: Never Assessed Comments Unknown Sex and Gender Information Value Date Recorded Sex Assigned at Not on file Legal Sex Female 4:31 AM BUSINESS EDITOR Gender Identity Not on file Sexual Orientation Not on file documented as of this encounter Plan of Treatment Not on file documented as of this encounter Visit Diagnoses Diagnosis Unspecified essential hypertension- Primary Anemia, unspecified Vaccine for influenza Need for prophylactic vaccination and inoculation against influenza documented in this encounter Care Teams Research Instrumentation Technician Relationship Specialty Start Date End Date Non-Staff, Physician NO ADDRESS ON FILE PCP - General 11/28/19 03/30/20 documented as of this encounter
--- OUTSIDE RECORDS SUMMARY | 2025-02-18 11:02 | XMS_ITS | Encounter Summary ---
Author Organization [facility] Address [address] [place] [address] Care Team Providers Care Manager Regional Name Role Phone Non-Staff, Physician Primary Care Provider Unava ilable Encounter Details Date Type Department Care Team (Latest Contact Info) Description 04/21/2006 Outpatient Historical [facility] Medicine [place] [address] [facility] 60 [place] [phone] Zoraida Arzola, RETARDER OPERATOR [address] [place] [phone] Esophageal Reflux (Primary Dx); Candidiasis of Unspecified Site Social History Tobacco Use Types Packs/Day Years Used Date Smoking Tobacco: Never Assessed Comments Unknown Sex and Gender Information Value Date Recorded Sex Assigned at Not on file Legal Sex Female 4:31 AM FBI FIELD AGENT Gender Identity Not on file Sexual Orientation Not on file documented as of this encounter Plan of Treatment Not on file documented as of this encounter Visit Diagnoses Diagnosis Esophageal reflux- Primary Candidiasis of unspecified site documented in this encounter Care Teams Manager Regional Relationship Specialty Start Date End Date Non-Staff, Physician NO ADDRESS ON FILE PCP - General 11/28/19 03/30/20 documented as of this encounter
--- OUTSIDE RECORDS SUMMARY | 2025-02-18 11:02 | XMS_ITS | Encounter Summary ---
Author Organization [facility] Address [address] [place] [address] Care Team Providers Care Family And Divorce Legal Assistant Name Role Phone Non-Staff, Physician Primary Care Provider Unava ilable Encounter Details Date Type Department Care Team (Latest Contact Info) Description 06/08/2005 Outpatient Historical [facility] Medicine [place] [address] [facility] 60 [place] [phone] Zoraida Arzola, MECHANICAL ENERGY ENGINEER [address] [place] [phone] ROUTINE AP PROCESSOR EXAMINATION (Primary Dx); SCREENING MAL NEOP-RECTUM Social History Tobacco Use Types Packs/Day Years Used Date Smoking Tobacco: Never Assessed Comments Unknown Sex and Gender Information Value Date Recorded Sex Assigned at Not on file Legal Sex Female 4:31 AM SENIOR PATIENT ACCOUNT REPRESENTATIVE Gender Identity Not on file Sexual Orientation Not on file documented as of this encounter Plan of Treatment Not on file documented as of this encounter Visit Diagnoses Diagnosis Routine gynecological examination- Primary Screening for malignant neoplasm of the rectum documented in this encounter Care Teams Family And Divorce Legal Assistant Relationship Specialty Start Date End Date Non-Staff, Physician NO ADDRESS ON FILE PCP - General 11/28/19 03/30/20 documented as of this encounter
--- OUTSIDE RECORDS SUMMARY | 2025-02-18 11:02 | XMS_ITS | Encounter Summary ---
Author Organization [facility] Address [address] [place] [address] Care Team Providers Care Custom Protection Officer Name Role Phone Non-Staff, Physician Primary Care Provider Unava ilable Encounter Details Date Type Department Care Team (Late st Contact Info) Description 07/10/2014 Ancillary Orders [facility] [address] [place] [address] Zoraida Arzola, COPRA PROCESSOR [address] [place] [phone] Screening breast examination (Primary Dx) Social History Tobacco Use Types Packs/Day Years Used Date Smoking Tobacco: Never Smokeless Tobacco: Never Alcohol Use Standard Drinks/Week Comments No 0 (1 standard drink = 0.6 oz pur e alcohol) Comments No Sex and Gender Information Value Date Recorded Sex Assigned at Not on file Legal Sex Female 4:31 AM BELLOWS TESTER Gender Identity Not on file Sexual Orientation Not on file Occupation Industry Job Start Date Job End Date Not on file Not on file Not on file Not on file documented as of this encounter Plan of Treatment Not on file documented as of this encounter Results * MAMMO DIGITIZED STUDY (11/05/2009 5:12 PM CDT) Narrative Jackie Palacios, RT - 07/10/2014 4:12 PM BELLOWS TESTER Order information only. Exam was auto-finalized. Procedure Note Jackie Palacios, RT - 07/10/2014 Order information only. Exam was auto-finalized. us Zoraida Arzola COPRA PROCESSOR DIAGNOSTIC IMAGING ORDERABL ES Final Result documented in this encounter Visit Diagnoses Diagnosis Screening breast examination- Primary Other screening breast examination Screening breast examination Other screening breast examination documented in this encounter Care Teams Custom Protection Officer Relationship Specialty Start Date End Date Non-Staff, Physician NO ADDRESS ON FILE PCP - General 11/28/19 03/30/20 documented as of this encounter
--- OUTSIDE RECORDS SUMMARY | 2025-02-18 11:02 | XMS_ITS | Encounter Summary ---
Author Organization [facility] Address [address] [place] [address] Care Team Providers Care Detective Bureau Chief Name Role Phone Non-Staff, Physician Primary Care Provider Unava ilable Encounter Details Date Type Department Care Team (Latest Contact Info) Description 10/21/[address]patient [address] [facility] Medicine [place] [address] [facility] 60 [place] [phone] Zoraida Arzola, MOBILE DESIGNER [address] [place] [phone] Unspecified Essential Hypertension (Primary Dx); Depressive Disorder, not Elsewhere Classified Social History Tobacco Use Types Packs/Day Years Used Date Smoking Tobacco: Never Assessed Comments Unknown Sex and Gender Information Value Date Recorded Sex Assigned at Not on file Legal Sex Female 4:31 AM SAND TECHNOLOGIST Gender Identity Not on file Sexual Orientation Not on file documented as of this encounter Plan of Treatment Not on file documented as of this encounter Visit Diagnoses Diagnosis Unspecified essential hypertension- Primary Depressive disorder, not elsewhere classified documented in this encounter Care Teams Detective Bureau Chief Relationship Specialty Start Date End Date Non-Staff, Physician NO ADDRESS ON FILE PCP - General 11/28/19 03/30/20 documented as of this encounter
--- OUTSIDE RECORDS SUMMARY | 2025-02-18 11:02 | XMS_ITS | Encounter Summary ---
Author Organization [facility] Address [address] [place] [address] Care Team Providers Care Windows System Admin Name Role Phone Non-Staff, Physician Primary Care Provider Unava ilable Encounter Details Date Type Department Care Team (Latest Contact Info) Description 11/04/2005 Outpatient Historical [facility] Medicine [place] [address] [facility] 60 [place] [phone] Zoraida Arzola, DEVELOPER ANALYST [address] [place] [phone] Unspecified Chest Pain (Primary Dx); Dizziness and Giddiness Social History Tobacco Use Types Packs/Day Years Used Date Smoking Tobacco: Never Assessed Comments Unknown Sex and Gender Information Value Date Recorded Sex Assigned at Not on file Legal Sex Female 4:31 AM ALLERGY SPECIALIST Gender Identity Not on file Sexual Orientation Not on file documented as of this encounter Plan of Treatment Not on file documented as of this encounter Visit Diagnoses Diagnosis Chest pain, unspecified- Primary Dizziness and giddiness documented in this encounter Care Teams Windows System Admin Relationship Specialty Start Date End Date Non-Staff, Physician NO ADDRESS ON FILE PCP - General 11/28/19 03/30/20 documented as of this encounter
--- OUTSIDE RECORDS SUMMARY | 2025-02-18 11:02 | XMS_ITS | Encounter Summary ---
Author Organization [facility] Address [address] [place] [address] Care Team Providers Care Rfid Technician Name Role Phone Non-Staff, Physician Primary Care Provider Unava ilable Encounter Details Date Type Department Care Team (Latest Contact Info) Description 08/17/2005 Outpatient Historical [facility] Family Medicine [place] 104 [facility] 60 [place] [phone] Zoriada Arzola, WAFER PRODUCTION LEAD WORKER [address] [place] [phone] INSOMNIA NOS (Primary Dx) Social History Tobacco Use Types Packs/Day Years Used Date Smoking Tobacco: Never Assessed Comments Unknown Sex and Gender Information Value Date Recorded Sex Assigned at Not on file Legal Sex Female 4:31 AM TRANSMITTER TESTER Gender Identity Not on file Sexual Orientation Not on file documented as of this encounter Plan of Treatment Not on file documented as of this encounter Visit Diagnoses Diagnosis Insomnia, unspecified- Primary documented in this encounter Care Teams Rfid Technician Relationship Specialty Start Date End Date Non-Staff, Physician NO ADDRESS ON FILE PCP - General 11/28/19 03/30/20 documented as of this encounter
--- OUTSIDE RECORDS SUMMARY | 2025-02-18 11:02 | XMS_ITS | Encounter Summary ---
Author Organization [facility] Address [address] [place] [address] Care Team Providers Care Sales Support Coordinator Name Role Phone Non-Staff, Physician Primary Care Provider Unava ilable Encounter Details Date Type Department Care Team (Latest Contact Info) Description 04/12/2006 Outpatient Historical [facility] Medicine [place] [address] [facility] 60 [place] [phone] Zoraida Arzola, POWER SHOVEL OPERATOR [address] [place] [phone] Pain in Joint, Shoulder Region (Primary Dx) Social History Tobacco Use Types Packs/Day Years Used Date Smoking Tobacco: Never Assessed Comments Unknown Sex and Gender Information Value Date Recorded Sex Assigned at Not on file Legal Sex Female 4:31 AM SUPERVISOR FEED HOUSE Gender Identity Not on file Sexual Orientation Not on file documented as of this encounter Plan of Treatment Not on file documented as of this encounter Visit Diagnoses Diagnosis Pain in joint, shoulder region- Primary documented in this encounter Care Teams Sales Support Coordinator Relationship Specialty Start Date End Date Non-Staff, Physician NO ADDRESS ON FILE PCP - General 11/28/19 03/30/20 documented as of this encounter
--- OUTSIDE RECORDS SUMMARY | 2025-02-18 11:02 | XMS_ITS | Encounter Summary ---
Author Organization [facility] Address [address] [place] [facility] [place] [place] [address] Care Team Providers Care Grocery Manager Name Role Phone Non-Staff, Physician Primary Care Provider Unava ilable Encounter Details Date Type Department Care Team (Latest Contact Info) Description 10/28/2004 Outpatient Historical [facility] [address] [facility] [place] [address] [place] BRACHIAL NEURITIS NOS (Primary Dx) Social History Tobacco Use Types Packs/Day Years Used Date Smoking Tobacco: Never Assessed Comments Unknown Sex and Gender Information Value Date Recorded Sex Assigned at Not on file Legal Sex Female 4:31 AM HVAC SALES REPRESENTATIVE Gender Identity Not on file Sexual Orientation Not on file documented as of this encounter Plan of Treatment Not on file documented as of this encounter Visit Diagnoses Diagnosis Brachial neuritis or radiculitis NOS- Primary Brachial neuritis or radiculitis nos documented in this encounter Care Teams Grocery Manager Relationship Specialty Start Date End Date Non-Staff, Physician NO ADDRESS ON FILE PCP - General 11/28/19 03/30/20 documented as of this encounter
--- OUTSIDE RECORDS SUMMARY | 2025-02-18 11:02 | XMS_ITS | Encounter Summary ---
Author Organization [facility] Address [address] [place] [address] Care Team Providers Care Triage Technician Name Role Phone Non-Staff, Physician Primary Care Provider Unava ilable Encounter Details Date Type Department Care Team (Latest Contact Info) Description 02/08/2006 Outpatient Historical [facility] [address] [phone] Zoraida Arzola, MAGNETIC RESONANCE TECHNOLOGIST [address] [place] [phone] Acute Upper Respiratory Infections of Unspecified Site (Primary Dx) Social History Tobacco Use Types Packs/Day Years Used Date Smoking Tobacco: Never Assessed Comments Unknown Sex and Gender Information Value Date Recorded Sex Assigned at Not on file Legal Sex Female 4:31 AM DETAILER Gender Identity Not on file Sexual Orientation Not on file documented as of this encounter Plan of Treatment Not on file documented as of this encounter Visit Diagnoses Diagnosis Acute upper respiratory infections of unspecified site- Primary documented in this encounter Care Teams Triage Technician Relationship Specialty Start Date End Date Non-Staff, Physician NO ADDRESS ON FILE PCP - General 11/28/19 03/30/20 documented as of this encounter
--- OUTSIDE RECORDS SUMMARY | 2025-02-18 11:02 | XMS_ITS | Encounter Summary ---
Author Organization [facility] Address [address] [place] [address] Care Team Providers Care Technician Assistant Name Role Phone Non-Staff, Physician Primary Care Provider Unava ilable Encounter Details Date Type Department Care Team (Latest Contact Info) Description 09/23/2005 Outpatient Historical [facility] Medicine [place] 104 [facility] 60 [place] [phone] Zoraida Arzola, APPRENTICE [address] [place] [phone] SPRAIN NOS (Primary Dx) Social History Tobacco Use Types Packs/Day Years Used Date Smoking Tobacco: Never Assessed Comments Unknown Sex and Gender Information Value Date Recorded Sex Assigned at Not on file Legal Sex Female 4:31 AM PIANO MACHINE OPERATOR Gender Identity Not on file Sexual Orientation Not on file documented as of this encounter Plan of Treatment Not on file documented as of this encounter Visit Diagnoses Diagnosis Unspecified site of sprain and strain- Primary documented in this encounter Care Teams Technician Assistant Relationship Specialty Start Date End Date Non-Staff, Physician NO ADDRESS ON FILE PCP - General 11/28/19 03/30/20 documented as of this encounter
--- OUTSIDE RECORDS SUMMARY | 2025-02-18 11:02 | XMS_ITS | Encounter Summary ---
Author Organization [facility] Address [address] [place] [address] Care Team Providers Care Shoe Associate Name Role Phone Non-Staff, Physician Primary Care Provider Unava ilable Encounter Details Date Type Department Care Team (Late st Contact Info) Description 10/29/2010 Ancillary Orders [facility] [place] [address] Steve Means MD [address] [place] [phone] Pain Social History Tobacco Use Types Packs/Day Years Used Date Smoking Tobacco: Never Alcohol Use Standard Drinks/Week Comments No 0 (1 standard drink = 0.6 oz pur e alcohol) Comments No Sex and Gender Information Value Date Recorded Sex Assigned at Not on file Legal Sex Female 4:31 AM SCALP SPECIALIST Gender Identity Not on file Sexual Orientation Not on file documented as of this encounter Plan of Treatment Not on file documented as of this encounter Results * XR SHOULDER 2+ VW LEFT (10/29/2010 8:40 AM CDT) Anatomical Region Laterality Modality Upper Extremity Computed Radiogr aphy Narrative 11/02/2010 4:26 PM CDT 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 No acromioclavicular joint arthritis. Some mild glenohumeral arthritis. 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 Noacromioclavicular joint arthritis. Some mild glenohumeral arthritis. 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 No acromioclavicular joint arthritis. Some mild glenohumeral arthritis. 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 Noacromioclavicular joint arthritis. Some mild glenohumeral arthritis. Steve Means MD DIAGNOSTIC IMAGING ORDERABLES Final Result documented in this encounter Visit Diagnoses Diagnosis Pain Generalized pain documented in this encounter Care Teams Shoe Associate Relationship Specialty Start Date End Date Non-Staff, Physician NO ADDRESS ON FILE PCP - General 11/28/19 03/30/20 documented as of this encounter
--- OUTSIDE RECORDS SUMMARY | 2025-02-18 11:02 | XMS_ITS | Encounter Summary ---
Author Organization [facility] Address [address] [facility] Attn: Epic Prelude ADT AIMEE BUSCH RIAZ [address] Care Team Providers Care Civil Cad Tech Name Role Phone Non-Staff, Physician Primary Care Provider Unava ilable Encounter Details Date Type Department Care Team (Late st Contact Info) Description 12/30/2005 Outpatient Historical Non-Staff, Physician NO ADDRESS ON FILE Social History Tobacco Use Types Packs/Day Years Used Date Smoking Tobacco: Never Assessed Comments Unknown Sex and Gender Information Value Date Recorded Sex Assigned at Not on file Legal Sex Female 4:31 AM SHOP HAND Gender Identity Not on file Sexual Orientation Not on file documented as of this encounter Plan of Treatment Not on file documented as of this encounter Procedures Procedure Name Priority Date/Time Associated Diagnosis Comments TOPIRAMATE LEVEL Routine 12/30/2005 11:4 0 AM CDT documented in this encounter Results * TOPIRAMATE LEVEL (12/30/2005 11:40 AM CDT) TOPIRAMATE LEVEL See Sep Report INTERFACE SYSTEM 12/30/2005 11:4 0 AM CDT us Physician Non-Staff CHEMISTRY ORDERABLES Final R esult INTERFACE SYSTEM Refer to clinic/hospital department documented in this encounter Visit Diagnoses Not on filedocumented in this encounter Care Teams Civil Cad Tech Relationship Specialty Start Date End Date Non-Staff, Physician NO ADDRESS ON FILE PCP - General 11/28/19 03/30/20 documented as of this encounter
--- OUTSIDE RECORDS SUMMARY | 2025-02-18 11:02 | XMS_ITS | Encounter Summary ---
Author Organization [facility] Address [address] [place] [address] Care Team Providers Care Marketing Forecaster Name Role Phone Non-Staff, Physician Primary Care Provider Unava ilable Encounter Details Date Type Department Care Team (Latest Contact Info) Description 04/01/2005 Outpatient Historical [facility] Family Medicine [place] [address] [facility] 60 [place] [phone] Zoraida Arzola, MATHEMATICAL PHYSICIST [address] [place] [phone] HYPERTENSION NOS (Primary Dx) Social History Tobacco Use Types Packs/Day Years Used Date Smoking Tobacco: Never Assessed Comments Unknown Sex and Gender Information Value Date Recorded Sex Assigned at Not on file Legal Sex Female 4:31 AM ROTARY DRILLER Gender Identity Not on file Sexual Orientation Not on file documented as of this encounter Plan of Treatment Not on file documented as of this encounter Visit Diagnoses Diagnosis Unspecified essential hypertension- Primary documented in this encounter Care Teams Marketing Forecaster Relationship Specialty Start Date End Date Non-Staff, Physician NO ADDRESS ON FILE PCP - General 11/28/19 03/30/20 documented as of this encounter
--- OUTSIDE RECORDS SUMMARY | 2025-02-18 11:02 | XMS_ITS | Encounter Summary ---
Author Organization [facility] Address [address] [place] [address] Care Team Providers Care Road Production General Manager Name Role Phone Non-Staff, Physician Primary Care Provider Unava ilable Encounter Details Date Type Department Care Team (Latest Contact Info) Description 01/12/2005 Outpatient Historical [facility] Medicine [place] [address] [facility] [address] [place] [address] Zoraida Arzola, MARKETING FINANCIAL ANALYST [address] [place] [phone] HYPERTENSION NOS (Primary Dx); HYPOTHYROIDISM NOS; DEPRESSIVE DISORDER NEC Social History Tobacco Use Types Packs/Day Years Used Date Smoking Tobacco: Never Assessed Comments Unknown Sex and Gender Information Value Date Recorded Sex Assigned at Not on file Legal Sex Female 4:31 AM GASFITTER Gender Identity Not on file Sexual Orientation Not on file documented as of this encounter Plan of Treatment Not on file documented as of this encounter Visit Diagnoses Diagnosis Unspecified essential hypertension- Primary Unspecified hypothyroidism Depressive disorder, not elsewhere classified documented in this encounter Care Teams Road Production General Manager Relationship Specialty Start Date End Date Non-Staff, Physician NO ADDRESS ON FILE PCP - General 11/28/19 03/30/20 documented as of this encounter
--- OUTSIDE RECORDS SUMMARY | 2025-02-18 11:02 | XMS_ITS | Encounter Summary ---
Author Organization [facility] Address [address] [place] [address] Care Team Providers Care Comprehensive Ophthalmologist Name Role Phone Non-Staff, Physician Primary Care Provider Unava ilable Encounter Details Date Type Department Care Team (Latest Contact Info) Description 02/10/2006 Outpatient Historical [facility] Medicine [place] [address] [facility] [address] [place] [phone] Zoraida Arzola, ASPHALT BLENDER [address] [place] [phone] Anxiety State, Unspecified (Primary Dx); Contusion of Hip; Insomnia, Unspecified; Acute Upper Respiratory Infections of Unspecified Site Social History Tobacco Use Types Packs/Day Years Used Date Smoking Tobacco: Never Assessed Comments Unknown Sex and Gender Information Value Date Recorded Sex Assigned at Not on file Legal Sex Female 4:31 AM CULTURAL HISTORIAN Gender Identity Not on file Sexual Orientation Not on file documented as of this encounter Plan of Treatment Not on file documented as of this encounter Visit Diagnoses Diagnosis Anxiety state, unspecified- Primary Contusion of hip Insomnia, unspecified Acute upper respiratory infections of unspecified site documented in this encounter Care Teams Comprehensive Ophthalmologist Relationship Specialty Start Date End Date Non-Staff, Physician NO ADDRESS ON FILE PCP - General 11/28/19 03/30/20 documented as of this encounter
--- OUTSIDE RECORDS SUMMARY | 2025-02-18 11:02 | XMS_ITS | Encounter Summary ---
Author Organization [facility] Address [address] [place] [address] Care Team Providers Care Plywood Layup Line Core Feeder Name Role Phone Non-Staff, Physician Primary Care Provider Unava ilable Encounter Details Date Type Department Care Team (Latest Contact Info) Description 03/17/2006 Outpatient Historical [facility] Medicine [place] [address] [facility] [address] [place] [phone] Zoraida Arzola, ETCHER PRINTED CIRCUIT BOARDS [address] [place] [phone] Cough (Primary Dx); Unspecified Essential Hypertension; Unspecified Hypothyroidism Social History Tobacco Use Types Packs/Day Years Used Date Smoking Tobacco: Never Assessed Comments Unknown Sex and Gender Information Value Date Recorded Sex Assigned at Not on file Legal Sex Female 4:31 AM 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
--- OUTSIDE RECORDS SUMMARY | 2025-02-18 11:02 | XMS_ITS | Encounter Summary ---
Author Organization [facility] Address [address] [facility] Attn: Epic Prelude ADT AIMEE BUSCH RIAZ [address] Care Team Providers Care Automotive Drivability Technician Name Role Phone Non-Staff, Physician Primary Care Provider Unava ilable Encounter Details Date Type Department Care Team (Late st Contact Info) Description 11/21/2001 Outpatient Historical Zoraida Arzola, STAFF DESIGN ENGINEER [address] [place] [phone] Social History Tobacco Use Types Packs/Day Years Used Date Smoking Tobacco: Never Assessed Comments Unknown Sex and Gender Information Value Date Recorded Sex Assigned at Not on file 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
--- OUTSIDE RECORDS SUMMARY | 2025-02-18 11:02 | XMS_ITS | Encounter Summary ---
Author Organization [facility] Address [address] [place] [address] Care Team Providers Care Health Information Administrator Name Role Phone Non-Staff, Physician Primary Care Provider Unava ilable Encounter Details Date Type Department Care Team (Latest Contact Info) Description 01/04/2006 Outpatient Historical [facility]- [address] [phone] Zoraida Arzola, [facility] [address] [place] [phone] Other Convulsions (CMS/HCC) (Primary Dx); Adjustment Disorder with Anxiety Social History Tobacco Use Types Packs/Day Years Used Date Smoking Tobacco: Never Assessed Comments Unknown Sex and Gender Information Value Date Recorded Sex Assigned at Not on file Legal Sex Female 4:31 AM FUNERAL HOME DIRECTOR Gender Identity Not on file Sexual Orientation Not on file documented as of this encounter Plan of Treatment Not on file documented as of this encounter Visit Diagnoses Diagnosis Other convulsions- Primary Adjustment disorder with anxiety documented in this encounter Care Teams Health Information Administrator Relationship Specialty Start Date End Date Non-Staff, Physician NO ADDRESS ON FILE PCP - General 11/28/19 03/30/20 documented as of this encounter
--- OUTSIDE RECORDS SUMMARY | 2025-02-18 11:02 | XMS_ITS | Encounter Summary ---
Author Organization [facility] Address [address] [place] [address] Care Team Providers Care Help Desk Agent Name Role Phone Non-Staff, Physician Primary Care Provider Unava ilable Encounter Details Date Type Department Care Team (Latest Contact Info) Description 11/08/2005 Outpatient [facility] [address] [place] [address] Zoraida Arzola, SPECIAL CERTIFICATE DICTATOR [address] [place] [phone] Unspecified Chest Pain (Primary Dx) Social History Tobacco Use Types Packs/Day Years Used Date Smoking Tobacco: Never Assessed Comments Unknown Sex and Gender Information Value Date Recorded Sex Assigned at Not on file Legal Sex Female 4:31 AM 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 Gender Identity Not on file Sexual Orientation Not on file documented as of this encounter Plan of Treatment Not on file documented as of this encounter Procedures Procedure Name Priority Date/Time Associated Diagnosis Comments STRESS TEST EXERCISE NUCLEAR MED Routine 11/08/2005 12:01 AM CDT NM MYOCARD PERF IMAG SPECT MULT Routine 11/08/2005 12:01 AM CDT documented in this encounter Results * NM MYOCARD PERF IMAG SPECT MULT (11/08/2005 12:01 AM CDT) 11/08/2005 12:0 1 AM CDT Narrative INTERFACE SYSTEM - 04/24/2009 7:49 AM CDT 11/08/2005 Radiopharmaceutical: Tc-99m (technetium-99m) tetrofosmin (rest) Dose: 10.5 mCi Tc-99m (technetium-99m) tetrofosmin (stress) 31.1 mCi Reason for Consultation: Chest pain, dyspnea, and syncope. At risk for coronary artery disease. For evaluation of myocardial perfusion reserve / risk. RADIONUCLIDE MYOCARDIAL PERFUSION SPECT REST / STRESS WALL MOTION EJECTION FRACTION EVALUATION: Myocardial perfusion SPECT imaging was performed at rest and following pharmacologic intervention with adenosine. The initial images demonstrate that the heart is mildly enlarged. Right ventricular activity appears normal. The left ventricular wall does not appear thickened. The distribution of the tracer around the left ventricle is relatively uniform on the immediate post-adenosine images. There were no areas that showed obvious differences in tracer concentration in comparison to the resting study. Evaluation of left ventricular wall motion demonstrates concentric wall thickening and normal wall motion throughout the left ventricular myocardium. Left ventricular end-diastolic volume is 116 mL. The resting left ventricular ejection fraction was 71%. Transient ischemic dilation index is 0.94. IMPRESSION: There is no obvious evidence for a critical coronary artery stenotic lesion leading to reversible ischemia on this examination. There is normal wall motion and left ventricular ejection fraction at rest. Mild left ventricular chamber enlargement is observed. Follow-up examination with resting echocardiography may be helpful in further evaluating other cardiac disorders. [email or web address] Dictated By: Cameron Shirley M.D. Electronically Signed By: Cameron Shirley M.D. Date Signed: 11/08/05 JAW Procedure Note Provider, Historical - 06/18/2009 11/08/2005 Radiopharmaceutical: Tc-99m (technetium-99m) tetrofosmin (rest) Dose: 10.5 mCi Tc-99m (technetium-99m) tetrofosmin (stress) 31.1 mCi Reason for Consultation: Chest pain, dyspnea, and syncope. At risk for coronary artery disease.For evaluation of myocardial perfusion reserve / risk. RADIONUCLIDE MYOCARDIAL PERFUSION SPECT REST / STRESS WALL MOTION EJECTIONFRACTION EVALUATION: Myocardial perfusion SPECT imaging was performed at rest and followingpharmacologic intervention with adenosine. The initial images demonstrate that the heart is mildly enlarged. Rightventricular activity appears normal. The left ventricular wall does not appear thickened. Thedistribution of the tracer around the left ventricle is relatively uniform on the immediate post-adenosineimages. There were no areas that showed obvious differences in tracer concentration in comparison to theresting study. Evaluation of left ventricular wall motion demonstrates concentric wallthickening and normal wall motion throughout the left ventricular myocardium. Left ventricular end-diastolic volume is 116 mL. The resting leftventricular ejection fraction was 71%. Transient ischemic dilation index is 0.94. IMPRESSION: There is no obvious evidence for a critical coronary artery stenoticlesion leading to reversible ischemia on this examination. There is normal wall motion and leftventricular ejection fraction at rest. Mild left ventricular chamber enlargement is observed. Follow- upexamination with resting echocardiography may be helpful in further evaluating other cardiacdisorders. [email or web address] Dictated By: Cameron Shirley M.D. Electronically Signed By: Cameron Shirley M.D. Date Signed: 11/08/[address] [facility] ORDERABLES Final Resul t INTERFACE SYSTEM Refer to clinic/hospital department * STRESS TEST,EXERCISE, NUCLEAR MED (11/08/2005 12:01 AM CDT) 11/08/2005 12:0 1 AM CDT Narrative INTERFACE SYSTEM - 04/24/2009 7:49 AM CDT 11/08/2005 Reason for Consultation: Chest pain, dyspnea, and syncope, at risk for coronary artery disease. For evaluation of myocardial perfusion reserve / risk. CARDIAC STRESS TEST WITH ADENOSINE PROVOCATION, MONITORING, AND INTERPRETATION: Dr. Shirley monitored the intervention and administered the pharmacologic agents. Pharmacologic intervention was selected due to the patient's clinical presentation and deconditioning / limited exercise capacity. Following the intravenous infusion of 60 mg of adenosine over four minutes, the radiopharmaceutical agent was injected at maximum effect at two minutes. Resting heart rate of 82 increased to 105, and blood pressure of 138/100 was measured at 124/82 at maximum effect. The patient experienced flushing, dizziness, and chest discomfort transiently during the intervention which subsequently resolved. Electrocardiographic monitoring demonstrated no changes diagnostic of ischemia nor dysrhythmia. The patient was asymptomatic and stable when discharged from the stress area. IMPRESSION: Satisfactory pharmacologic stress in preparation for myocardial perfusion imaging. There was no electrocardiographic evidence of ischemia. Myocardial perfusion imaging report to follow. [email or web address] Dictated By: Cameron Shirley M.D. Electronically Signed By: Cameron Shirley M.D. Date Signed: 11/08/05 [email or web address] Procedure Note Provider, Historical - 06/18/2009 11/08/2005 Reason for Consultation: Chest pain, dyspnea, and syncope, at risk for coronary artery disease.For evaluation of myocardial perfusion reserve / risk. CARDIAC STRESS TEST WITH ADENOSINE PROVOCATION, MONITORING, ANDINTERPRETATION: Dr. Shirley monitored the intervention and administered thepharmacologic agents. Pharmacologic intervention was selected due to the patient's clinical presentation anddeconditioning / limited exercise capacity. Following the intravenous infusion of 60 mg of adenosine over fourminutes, the radiopharmaceutical agent was injected at maximum effect at two minutes. Resting heart rate of 82increased to 105, and blood pressure of 138/100 was measured at 124/82 at maximum effect. The patientexperienced flushing, dizziness, and chest discomfort transiently during the intervention whichsubsequently resolved. Electrocardiographic monitoring demonstrated no changes diagnostic ofischemia nor dysrhythmia. The patient was asymptomatic and stable when discharged from the stress area. IMPRESSION: Satisfactory pharmacologic stress in preparation for myocardial perfusionimaging. There was no electrocardiographic evidence of ischemia. Myocardial perfusion imaging report to follow. [email or web address] Dictated By: Cameron Shirley M.D. Electronically Signed By: Cameron Shirley M.D. Date Signed: 11/08/05 YULISSA Zoraida RAM NM ORDERABLES Final Resul t INTERFACE SYSTEM Refer to clinic/hospital department documented in this encounter Visit Diagnoses Diagnosis Chest pain, unspecified- Primary documented in this encounter Care Teams Help Desk Agent Relationship Specialty Start Date End Date Non-Staff, Physician NO ADDRESS ON FILE PCP - General 11/28/19 03/30/20 documented as of this encounter
--- OUTSIDE RECORDS SUMMARY | 2025-02-18 11:02 | XMS_ITS | Encounter Summary ---
Author Organization [facility] Address [address] [place] [address] Care Team Providers Care Food Counselor Name Role Phone Non-Staff, Physician Primary Care Provider Unava ilable Encounter Details Date Type Department Care Team (Latest Contact Info) Description 08/31/2005 Outpatient Historical [facility] Medicine [place] [address] [facility] [address] [place] [phone] Zoraida Arzola, CLEANER INDUSTRIAL [address] [place] [phone] DYSPHAGIA (Primary Dx) Social History Tobacco Use Types Packs/Day Years Used Date Smoking Tobacco: Never Assessed Comments Unknown Sex and Gender Information Value Date Recorded Sex Assigned at Not on file Legal Sex Female 4:31 AM ADMISSIONS REPRESENTATIVE Gender Identity Not on file Sexual Orientation Not on file documented as of this encounter Plan of Treatment Not on file documented as of this encounter Visit Diagnoses Diagnosis Dysphagia- Primary documented in this encounter Care Teams Food Counselor Relationship Specialty Start Date End Date Non-Staff, Physician NO ADDRESS ON FILE PCP - General 11/28/19 03/30/20 documented as of this encounter
--- OUTSIDE RECORDS SUMMARY | 2025-02-18 11:02 | XMS_ITS | Encounter Summary ---
Author Organization [facility] Address [address] [place] [address] Care Team Providers Care Facilities Operations Technician Name Role Phone Non-Staff, Physician Primary Care Provider Unava ilable Encounter Details Date Type Department Care Team (Latest Contact Info) Description 06/14/2006 Outpatient Historical [facility] Medicine [place] [address] [facility] [address] [place] [phone] Zoraida Arzola, TRAFFIC AGENT [address] [place] [phone] Lumbago (Primary Dx); Anxiety State, Unspecified Social History Tobacco Use Types Packs/Day Years Used Date Smoking Tobacco: Never Assessed Comments Unknown Sex and Gender Information Value Date Recorded Sex Assigned at Not on file 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
--- OUTSIDE RECORDS SUMMARY | 2025-02-18 11:02 | XMS_ITS | Encounter Summary ---
Author Organization [facility] Address [address] [place] [address] Care Team Providers Care Natural Resources Technician Name Role Phone Non-Staff, Physician Primary Care Provider Unava ilable Encounter Details Date Type Department Care Team (Latest Contact Info) Description 12/16/2005 Outpatient Historical [facility] Cardiology- [place] [address] [place] [address] Demetrius Woods MD [address] [facility] [address] [place] [address] Benign Hypertension (Primary Dx); Unspecified Chest Pain; Esophageal Reflux; Unspecified Sleep Apnea Social History Tobacco Use Types Packs/Day Years Used Date Smoking Tobacco: Never Assessed Comments Unknown Sex and Gender Information Value Date Recorded Sex Assigned at Not on file Legal Sex Female 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
--- OUTSIDE RECORDS SUMMARY | 2025-02-18 11:02 | XMS_ITS | Encounter Summary ---
Author Organization [facility] Address [address] [place] [address] Care Team Providers Care Health Sciences Dean Name Role Phone Non-Staff, Physician Primary Care Provider Unava ilable Encounter Details Date Type Department Care Team (Latest Contact Info) Description 04/15/2005 Outpatient Historical [facility] Medicine [place] [address] [facility] [address] [place] [phone] Zoraida Arzola, DRAG OUT MAN [address] [place] [phone] HYPOTHYROIDISM NOS (Primary Dx); HYPERTENSION NOS; HYPOPOTASSEMIA Social History Tobacco Use Types Packs/Day Years Used Date Smoking Tobacco: Never Assessed Comments Unknown Sex and Gender Information Value Date Recorded Sex Assigned at Not on file 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
--- OUTSIDE RECORDS SUMMARY | 2025-02-18 11:02 | XMS_ITS | Encounter Summary ---
Author Organization [facility] Address [address] [place] [address] Care Team Providers Care Soft Water Mechanic Name Role Phone Non-Staff, Physician Primary Care Provider Unava ilable Encounter Details Date Type Department Care Team (Latest Contact Info) Description 03/24/2005 Outpatient [facility] [address] [facility] [address] [place] [address] Jorge Garza MD [address] [place] [address] CERVICALGIA (Primary Dx) Social History Tobacco Use Types Packs/Day Years Used Date Smoking Tobacco: Never Assessed Comments Unknown Sex and Gender Information Value Date Recorded Sex Assigned at Not on file 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
--- OUTSIDE RECORDS SUMMARY | 2025-02-18 11:02 | XMS_ITS | Encounter Summary ---
Author Organization [facility] Address [address] [place] [address] Care Team Providers Care Cell Room Supervisor Name Role Phone Non-Staff, Physician Primary Care Provider Unava ilable Encounter Details Date Type Department Care Team (Latest Contact Info) Description 03/16/2005 Outpatient Historical [facility] Medicine [place] [address] [facility] [address] [place] [phone] Zoraida Arzola, CUSTOMER RELATIONS ASSISTANT [address] [place] [phone] HYPOTHYROIDISM NOS (Primary Dx); HYPERTENSION NOS Social History Tobacco Use Types Packs/Day Years Used Date Smoking Tobacco: Never Assessed Comments Unknown Sex and Gender Information Value Date Recorded Sex Assigned at Not on file Legal Sex Female 4:31 AM CORPORATE RECYCLING MANAGER Gender Identity Not on file Sexual Orientation Not on file documented as of this encounter Plan of Treatment Not on file documented as of this encounter Visit Diagnoses Diagnosis Unspecified hypothyroidism- Primary Unspecified essential hypertension documented in this encounter Care Teams Cell Room Supervisor Relationship Specialty Start Date End Date Non-Staff, Physician NO ADDRESS ON FILE PCP - General 11/28/19 03/30/20 documented as of this encounter
--- OUTSIDE RECORDS SUMMARY | 2025-02-18 11:02 | XMS_ITS | Encounter Summary ---
Author Organization [facility] Address [address] [place] [address] Care Team Providers Care Recovery Room Nurse Name Role Phone Non-Staff, Physician Primary Care Provider Unava ilable Encounter Details Date Type Department Care Team (Latest Contact Info) Description 06/08/2005 Outpatient Historical [facility] Family Medicine [place] 104 [facility] 60 [place] [phone] Zoraida Arzola, DENTAL ASSISTANT [address] [place] [phone] ROUTINE DINKEY OPERATOR SLAG EXAMINATION (Primary Dx) Social History Tobacco Use Types Packs/Day Years Used Date Smoking Tobacco: Never Assessed Comments Unknown Sex and Gender Information Value Date Recorded Sex Assigned at Not on file Legal Sex Female 4:31 AM NETTING INSPECTOR Gender Identity Not on file Sexual Orientation Not on file documented as of this encounter Plan of Treatment Not on file documented as of this encounter Visit Diagnoses Diagnosis Routine gynecological examination- Primary documented in this encounter Care Teams Recovery Room Nurse Relationship Specialty Start Date End Date Non-Staff, Physician NO ADDRESS ON FILE PCP - General 11/28/19 03/30/20 documented as of this encounter
--- OUTSIDE RECORDS SUMMARY | 2025-02-18 11:02 | XMS_ITS | Encounter Summary ---
Author Organization [facility] Address [address] [place] [address] Care Team Providers Care Magnetic Locater Name Role Phone Non-Staff, Physician Primary Care Provider Unava ilable Encounter Details Date Type Department Care Team (Late st Contact Info) Description 07/10/2014 Ancillary Orders [facility] [address] [place] [address] Zoraida Arzola, COMMUNITY DEVELOPMENT COORDINATOR [address] [place] [phone] Screening breast examination (Primary Dx) Social History Tobacco Use Types Packs/Day Years Used Date Smoking Tobacco: Never Smokeless Tobacco: Never Alcohol Use Standard Drinks/Week Comments No 0 (1 standard drink = 0.6 oz pur e alcohol) Comments No Sex and Gender Information Value Date Recorded Sex Assigned at Not on file Legal Sex Female 4:31 AM ADVERTISING ASSISTANT MANAGER Gender Identity Not on file Sexual Orientation Not on file Occupation Industry Job Start Date Job End Date Not on file Not on file Not on file Not on file documented as of this encounter Plan of Treatment Not on file documented as of this encounter Results * MAMMO DIGITIZED STUDY (10/02/2008 4:19 PM ADVERTISING ASSISTANT MANAGER) Narrative Jackie Palacios, RT - 07/10/2014 4:19 PM ADVERTISING ASSISTANT MANAGER Order information only. Exam was auto-finalized. Procedure Note Jackie Palacios, RT - 07/10/2014 Order information only. Exam was auto-finalized. us Zoraida Arzola COMMUNITY DEVELOPMENT COORDINATOR DIAGNOSTIC IMAGING ORDERABL ES Final Result documented in this encounter Visit Diagnoses Diagnosis Screening breast examination- Primary Other screening breast examination Screening breast examination Other screening breast examination documented in this encounter Care Teams Magnetic Locater Relationship Specialty Start Date End Date Non-Staff, Physician NO ADDRESS ON FILE PCP - General 11/28/19 03/30/20 documented as of this encounter
--- OUTSIDE RECORDS SUMMARY | 2025-02-18 11:02 | XMS_ITS | Encounter Summary ---
Author Organization [facility] Address [address] [place] [address] Care Team Providers Care Naturopathic Oncology Provider Name Role Phone Non-Staff, Physician Primary Care Provider Unava ilable Encounter Details Date Type Department Care Team (Latest Contact Info) Description 10/15/2004 Outpatient Historical [facility] Medicine [place] 104 [facility] 60 [place] [phone] Zoraida Arzola, MOBILE EQUIPMENT MECHANIC [address] [place] [phone] ANEMIA NOS (Primary Dx); ACUTE URI NOS Social History Tobacco Use Types Packs/Day Years Used Date Smoking Tobacco: Never Assessed Comments Unknown Sex and Gender Information Value Date Recorded Sex Assigned at Not on file Legal Sex Female 4:31 AM GAMER Gender Identity Not on file Sexual Orientation Not on file documented as of this encounter Plan of Treatment Not on file documented as of this encounter Visit Diagnoses Diagnosis Anemia, unspecified- Primary Acute upper respiratory infections of unspecified site documented in this encounter Care Teams Naturopathic Oncology Provider Relationship Specialty Start Date End Date Non-Staff, Physician NO ADDRESS ON FILE PCP - General 11/28/19 03/30/20 documented as of this encounter
--- OUTSIDE RECORDS SUMMARY | 2025-02-18 11:02 | XMS_ITS | Encounter Summary ---
Author Organization [facility] Address [address] [place] [address] Care Team Providers Care Paraprofessional Education Assistant Name Role Phone Non-Staff, Physician Primary Care Provider Unava ilable Encounter Details Date Type Department Care Team (Latest Contact Info) Description 10/28/2004 Outpatient [facility] [address] [place] [address] [place] [address] Kings Resendez AFTERCARE OTHER SPECIFIED (Primary Dx) Social History Tobacco Use Types Packs/Day Years Used Date Smoking Tobacco: Never Assessed Comments Unknown Sex and Gender Information Value Date Recorded Sex Assigned at Not on file 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
--- OUTSIDE RECORDS SUMMARY | 2025-02-18 11:02 | XMS_ITS | Encounter Summary ---
Author Organization [facility] Address [address] [place] [address] Care Team Providers Care Glass Decorator Name Role Phone Non-Staff, Physician Primary Care Provider Unava ilable Encounter Details Date Type Department Care Team (Latest Contact Info) Description 08/26/2005 Outpatient Historical [facility] Medicine [place] 104 [facility] 60 [place] [phone] Zoraida Arzola, EMC STORAGE ARCHITECT [address] [place] [phone] ACUTE BRONCHITIS (Primary Dx); OTITIS MEDIA NOS Social History Tobacco Use Types Packs/Day Years Used Date Smoking Tobacco: Never Assessed Comments Unknown Sex and Gender Information Value Date Recorded Sex Assigned at Not on file 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
--- OUTSIDE RECORDS SUMMARY | 2025-02-18 11:02 | XMS_ITS | Encounter Summary ---
Author Organization [facility] Address [address] [place] [address] Care Team Providers Care Choir Member Name Role Phone Non-Staff, Physician Primary Care Provider Unava ilable Encounter Details Date Type Department Care Team (Latest Contact Info) Description 12/15/2004 Outpatient Historical [facility] Medicine [place] 104 [facility] 60 [place] [phone] Zoraida Arzola, HOSPITAL CLINIC ASSISTANT [address] [place] [phone] TIETZE'S DISEASE (Primary Dx) Social History Tobacco Use Types Packs/Day Years Used Date Smoking Tobacco: Never Assessed Comments Unknown Sex and Gender Information Value Date Recorded Sex Assigned at Not on file 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
--- OUTSIDE RECORDS SUMMARY | 2025-02-18 11:02 | XMS_ITS | Encounter Summary ---
Author Organization [facility] Address [address] [place] [address] Care Team Providers Care Fortune Teller Name Role Phone Non-Staff, Physician Primary Care Provider Unava ilable Encounter Details Date Type Department Care Team (Latest Contact Info) Description 12/23/2005 Outpatient Historical [facility] Medicine [place] 104 [facility] 60 [place] [phone] Zoraida Arzola, FUELS ENGINEER [address] [place] [phone] Unspecified Hypothyroidism (Primary Dx); Esophageal Reflux Social History Tobacco Use Types Packs/Day Years Used Date Smoking Tobacco: Never Assessed Comments Unknown Sex and Gender Information Value Date Recorded Sex Assigned at Not on file 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
--- OUTSIDE RECORDS SUMMARY | 2025-02-18 11:02 | XMS_ITS | Encounter Summary ---
Author Organization [facility] Address [address] [place] [address] Care Team Providers Care Mobile Tester Name Role Phone Non-Staff, Physician Primary Care Provider Unava ilable Encounter Details Date Type Department Care Team (Latest Contact Info) Description 03/08/2005 Outpatient Historical [facility] [address] [place] [address] Zoraida Arzola, GRIPS [address] [place] [phone] ANXIETY STATE NOS (Primary Dx) Social History Tobacco Use Types Packs/Day Years Used Date Smoking Tobacco: Never Assessed Comments Unknown Sex and Gender Information Value Date Recorded Sex Assigned at Not on file Legal Sex Female 4:31 AM COORDINATOR INTEGRATED MARKETING Gender Identity Not on file Sexual Orientation Not on file documented as of this encounter Plan of Treatment Not on file documented as of this encounter Visit Diagnoses Diagnosis Anxiety state, unspecified- Primary documented in this encounter Care Teams Mobile Tester Relationship Specialty Start Date End Date Non-Staff, Physician NO ADDRESS ON FILE PCP - General 11/28/19 03/30/20 documented as of this encounter
--- OUTSIDE RECORDS SUMMARY | 2025-02-18 11:02 | XMS_ITS | Encounter Summary ---
Author Organization [facility] Address [address] [place] [address] Care Team Providers Care Electronic Service Technician Name Role Phone Non-Staff, Physician Primary Care Provider Unava ilable Encounter Details Date Type Department Care Team (Latest Contact Info) Description 11/19/2005 Outpatient Historical [facility] Cardiology Ancillary Services-[place] Fernando [address] [place] [phone] Rajinder Lisa MD [address] [address] [place] [address] Cardiomegaly (Primary Dx) Social History Tobacco Use Types Packs/Day Years Used Date Smoking Tobacco: Never Assessed Comments Unknown Sex and Gender Information Value Date Recorded Sex Assigned at Not on file Legal Sex Female 4:31 AM PROVIDER RELATIONS REP Gender Identity Not on file Sexual Orientation Not on file documented as of this encounter Plan of Treatment Not on file documented as of this encounter Visit Diagnoses Diagnosis Cardiomegaly- Primary documented in this encounter Care Teams Electronic Service Technician Relationship Specialty Start Date End Date Non-Staff, Physician NO ADDRESS ON FILE PCP - General 11/28/19 03/30/20 documented as of this encounter
--- OUTSIDE RECORDS SUMMARY | 2025-02-18 11:02 | XMS_ITS | Encounter Summary ---
Author Organization [facility] Address [address] [place] [address] Care Team Providers Care Top Knitter Name Role Phone Non-Staff, Physician Primary Care Provider Unava ilable Encounter Details Date Type Department Care Team (Latest Contact Info) Description 01/18/2005 Outpatient Historical [facility] Family Medicine- [address] [place] [address] Diana Chung MD NO ADDRESS ON FILE LUMBAGO (Primary Dx) Social History Tobacco Use Types Packs/Day Years Used Date Smoking Tobacco: Never Assessed Comments Unknown Sex and Gender Information Value Date Recorded Sex Assigned at Not on file Legal Sex Female 4:31 AM SECURITY SME Gender Identity Not on file Sexual Orientation Not on file documented as of this encounter Plan of Treatment Not on file documented as of this encounter Visit Diagnoses Diagnosis Lumbago- Primary documented in this encounter Care Teams Top Knitter Relationship Specialty Start Date End Date Non-Staff, Physician NO ADDRESS ON FILE PCP - General 11/28/19 03/30/20 documented as of this encounter
--- OUTSIDE RECORDS SUMMARY | 2025-02-18 11:02 | XMS_ITS | Encounter Summary ---
Author Organization [facility] Address [address] [place] [address] Care Team Providers Care Supervisor Abattoir Name Role Phone Non-Staff, Physician Primary Care Provider Unava ilable Encounter Details Date Type Department Care Team (Latest Contact Info) Description 02/11/2005 Outpatient Historical [facility] Medicine [place] 104 [facility] 60 [place] [phone] Zoraida Arzola, ELECTROLYSIS OPERATOR [address] [place] [phone] ANXIETY STATE NOS (Primary Dx); HYPOTHYROIDISM NOS Social History Tobacco Use Types Packs/Day Years Used Date Smoking Tobacco: Never Assessed Comments Unknown Sex and Gender Information Value Date Recorded Sex Assigned at Not on file Legal Sex Female 4:31 AM 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
--- OUTSIDE RECORDS SUMMARY | 2025-02-18 11:03 | XMS_ITS | Encounter Summary ---
Author Organization [facility] Address [address] [place] [address] Care Team Providers Care Piano Case Maker Name Role Phone Non-Staff, Physician Primary Care Provider Unava ilable Encounter Details Date Type Department Care Team (Latest Contact Info) Description 01/01/2003 Outpatient Historical [facility] Medicine [place] [address] [phone] Teo Kinney DO NO ADDRESS ON FILE HYPOTHYROIDISM NOS (Primary Dx); OTHER UNSPEC SLEEP APNEA Social History Tobacco Use Types Packs/Day Years Used Date Smoking Tobacco: Never Assessed Comments Unknown Sex and Gender Information Value Date Recorded Sex Assigned at Not on file Legal Sex Female 4:31 AM COMPOSITION TILE LAYER Gender Identity Not on file Sexual Orientation Not on file documented as of this encounter Plan of Treatment Not on file documented as of this encounter Visit Diagnoses Diagnosis Unspecified hypothyroidism- Primary Unspecified sleep apnea documented in this encounter Care Teams Piano Case Maker Relationship Specialty Start Date End Date Non-Staff, Physician NO ADDRESS ON FILE PCP - General 11/28/19 03/30/20 documented as of this encounter
--- OUTSIDE RECORDS SUMMARY | 2025-02-18 11:03 | XMS_ITS | Encounter Summary ---
Author Organization [facility] Address [address] [place] [address] Care Team Providers Care Tight Cooper Name Role Phone Non-Staff, Physician Primary Care Provider Unava ilable Encounter Details Date Type Department Care Team (Latest Contact Info) Description 02/14/2003 Outpatient Historical [facility] Family Medicine [place] [address] [phone] Diana Chung MD NO ADDRESS ON FILE Gynecologic examination (Primary Dx); IMPACTED CERUMEN Social History Tobacco Use Types Packs/Day Years Used Date Smoking Tobacco: Never Assessed Comments Unknown Sex and Gender Information Value Date Recorded Sex Assigned at Not on file Legal Sex Female 4:31 AM PERIOPERATIVE TECH Gender Identity Not on file Sexual Orientation Not on file documented as of this encounter Plan of Treatment Not on file documented as of this encounter Visit Diagnoses Diagnosis Gynecologic examination- Primary Gynecological examination Impacted cerumen documented in this encounter Care Teams Tight Cooper Relationship Specialty Start Date End Date Non-Staff, Physician NO ADDRESS ON FILE PCP - General 11/28/19 03/30/20 documented as of this encounter
--- OUTSIDE RECORDS SUMMARY | 2025-02-18 11:03 | XMS_ITS | Encounter Summary ---
Author Organization [facility] Address [address] [place] [address] Care Team Providers Care Radiology Resident Name Role Phone Non-Staff, Physician Primary Care Provider Unava ilable Encounter Details Date Type Department Care Team (Latest Contact Info) Description 08/04/2004 Outpatient Historical [facility] Medicine [place] 104 [facility] 60 [place] [phone] Zoraida Arzola, LOG SAWYER [address] [place] [phone] CERVICALGIA (Primary Dx) Social History Tobacco Use Types Packs/Day Years Used Date Smoking Tobacco: Never Assessed Comments Unknown Sex and Gender Information Value Date Recorded Sex Assigned at Not on file Legal Sex Female 4:31 AM CLOTH DYE RANGE OPERATOR Gender Identity Not on file Sexual Orientation Not on file documented as of this encounter Plan of Treatment Not on file documented as of this encounter Visit Diagnoses Diagnosis Cervicalgia- Primary documented in this encounter Care Teams Radiology Resident Relationship Specialty Start Date End Date Non-Staff, Physician NO ADDRESS ON FILE PCP - General 11/28/19 03/30/20 documented as of this encounter
--- OUTSIDE RECORDS SUMMARY | 2025-02-18 11:03 | XMS_ITS | Encounter Summary ---
Author Organization [facility] Address [address] [place] [address] Care Team Providers Care Blade Aligner Name Role Phone Non-Staff, Physician Primary Care Provider Unava ilable Encounter Details Date Type Department Care Team (Latest Contact Info) Description 01/15/2003 Outpatient Historical [facility] Medicine [place] 104 [facility] 60 [place] [phone] Teo Kinney DO NO ADDRESS ON FILE JOINT PAIN-SHLDER (Primary Dx); DEPRESSIVE DISORDER NEC; LUMBAGO Social History Tobacco Use Types Packs/Day Years Used Date Smoking Tobacco: Never Assessed Comments Unknown Sex and Gender Information Value Date Recorded Sex Assigned at Not on file Legal Sex Female 4:31 AM GEOMAGNETIST Gender Identity Not on file Sexual Orientation Not on file documented as of this encounter Plan of Treatment Not on file documented as of this encounter Visit Diagnoses Diagnosis Pain in joint, shoulder region- Primary Depressive disorder, not elsewhere classified Lumbago documented in this encounter Care Teams Blade Aligner Relationship Specialty Start Date End Date Non-Staff, Physician NO ADDRESS ON FILE PCP - General 11/28/19 03/30/20 documented as of this encounter
--- OUTSIDE RECORDS SUMMARY | 2025-02-18 11:03 | XMS_ITS | Encounter Summary ---
Author Organization [facility] Address [address] [place] [address] Care Team Providers Care Marble Carver Name Role Phone Non-Staff, Physician Primary Care Provider Unava ilable Encounter Details Date Type Department Care Team (Latest Contact Info) Description 09/21/2004 Outpatient Historical [facility] [address] [place] [address] [place] [address] [place] [address] Kings Resendez BRACHIAL NEURITIS NOS (Primary Dx) Social History Tobacco Use Types Packs/Day Years Used Date Smoking Tobacco: Never Assessed Comments Unknown Sex and Gender Information Value Date Recorded Sex Assigned at Not on file Legal Sex Female 4:31 AM CLINICAL REHABILITATION AIDE Gender Identity Not on file Sexual Orientation Not on file documented as of this encounter Plan of Treatment Not on file documented as of this encounter Visit Diagnoses Diagnosis Brachial neuritis or radiculitis NOS- Primary Brachial neuritis or radiculitis nos documented in this encounter Care Teams Marble Carver Relationship Specialty Start Date End Date Non-Staff, Physician NO ADDRESS ON FILE PCP - General 11/28/19 03/30/20 documented as of this encounter
--- OUTSIDE RECORDS SUMMARY | 2025-02-18 11:03 | XMS_ITS | Encounter Summary ---
Author Organization [facility] Address [address] [place] [address] Care Team Providers Care Slider Assembler Name Role Phone Non-Staff, Physician Primary Care Provider Unava ilable Encounter Details Date Type Department Care Team (Late st Contact Info) Description 08/22/2007 Outpatient Historical [facility] Family Medicine [place] 104 [facility] 60 [place] [phone] Zoraida Arzola, NUCLEAR CHEMISTRY TECHNICIAN [address] [place] [phone] Social History Tobacco Use Types Packs/Day Years Used Date Smoking Tobacco: Never Assessed Comments Unknown Sex and Gender Information Value Date Recorded Sex Assigned at Not on file Legal Sex Female 4:31 AM PLAIN 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
--- OUTSIDE RECORDS SUMMARY | 2025-02-18 11:03 | XMS_ITS | Encounter Summary ---
Author Organization [facility] Address [address] [place] [address] Care Team Providers Care Chucking And Boring Machine Operator Name Role Phone Non-Staff, Physician Primary Care Provider Unava ilable Encounter Details Date Type Department Care Team (Latest Contact Info) Description 07/28/2004 Outpatient Historical [facility] Family Medicine [place] [address] [facility] 60 [place] [phone] Zoraida Arzola, ENTRY LEVEL PROGRAMMER [address] [place] [phone] JOINT PAIN-SHLDER (Primary Dx) Social History Tobacco Use Types Packs/Day Years Used Date Smoking Tobacco: Never Assessed Comments Unknown Sex and Gender Information Value Date Recorded Sex Assigned at Not on file 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
--- OUTSIDE RECORDS SUMMARY | 2025-02-18 11:03 | XMS_ITS | Clinical Summary ---
Author Organization [facility] tone Address [address] 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 Horticulture Name Role Phone Unavailable Primary Care Provider Unavailabl e Allergies Active Allergy Reactions Criticality Noted Date Comments Adhesive Tape Rash Low Carbamazepine Other (See Comments) Double vision Cortisone Rash,Swelling Low 06/16/2011 Fiber Rash Low Hydrocodone Hives High 07/04/2017 Iodinated Contrast Media Anaphylaxis High 04/17/2009 Iodine Anaphylaxis High 05/13/2009 topical Penicillins Rash Low 04/24/2009 Sulfa (Sulfonamide Antibiotics) Other (See Comments) whelps Medications albuterol HFA 90 mcg inhalerIndication s:Chronic bronchitis, unspecified chronic bronchitis type (CMS/HCC) INHALE 2 PUFFS EVERY 6 HOURS NEEDED FOR SHORTNESS OF BREATH. 34 Gram 4 9 Active diclofenac sodium (VOLTAREN) 75 mg Tablet, Delayed Release (E.C.) Take 1 Tablet (75 mg) by mouth 2 times daily. 60 Tablet 1 9 Active meloxicam (MOBIC) 15 mg tablet Take 1 Tablet (15 mg) by mouth daily. 30 Tablet 2 8 Active metoprolol tartrate (LOPRESSOR) 50 mg tablet Take 1 Tablet (50 mg) by mouth 2 times daily. 180 Tablet 4 8 Active levothyroxine 150 mcg tablet TAKE 1 TABLET BY MOUTH DAILY EARLY IN THE MORNING. 90 Tablet 4 8 Active albuterol (PROVENTIL,VENTOL IN) 2.5 mg /3 mL (0.083 %) Solution for NebulizationIndic ations:Chronic bronchitis, unspecified chronic bronchitis type (CMS/HCC) Take 1.5 mL (1.25 mg) by inhalation every 6 hours as needed for Shortness of Breath. 120 mL 4 8 Active furosemide (LASIX) 40 mg tablet TAKE 1 TABLET BY MOUTH TWO TIMES DAILY. 180 Tablet 4 9 Active potassium chloride (KLOR-CON) 20 mEq Extended Release tablet Take 1 Tablet (20 mEq) by mouth 3 times daily. 270 Tablet 4 9 Active traZODone (DESYREL) 150 mg tablet Take 150 mg by mouth daily at bedtime. 9 Active amLODIPine (NORVASC) 10 mg tabletIndications :Essential hypertension Take 1 Tablet (10 mg) by mouth daily. 90 Tablet 4 9 Active DULoxetine (CYMBALTA) 60 mg Capsule, Delayed Release(E.C.) Take 1 Capsule (60 mg) by mouth 2 times daily. 180 Capsule 4 8 Active zafirlukast (ACCOLATE) 20 mg tabletIndications :Mild persistent asthma without complication Take 1 Tablet (20 mg) by mouth two times daily, before breakfast and bedtime Take one hour before or two hours after meals.. 180 Tablet 4 8 Active rOPINIRole (REQUIP) 1 mg tablet Take 1 Tablet (1 mg) by mouth 2 times daily. 180 Tablet 4 8 Active Nebulizer & Compressor For Neb Device Use as directed four times daily. Dx. J44.9Length of need: 99. 1 Each 0 6 Active alendronate (FOSAMAX) 70 mg tablet TAKE 1 TABLET BY MOUTH ONCE A WEEK 2 Active Accu-Chek Felisha Plus test strp Strip USE DIRECTED 2 Active clonazePAM (KlonoPIN) 0.5 mg Tablet TAKE 1 TABLET BY MOUTH ONCE DAILY NEEDED FOR ANXIETY 2 Active escitalopram oxalate (LEXAPRO) 20 mg tablet TAKE 1 TABLET BY MOUTH ONCE DAILY @0700 2 Active hydrOXYzine HCL (ATARAX) 50 mg tablet TAKE 1 TABLET BY MOUTH AT BEDTIME AT 2100 2 Active metFORMIN (GLUCOPHAGE) 500 mg tablet TAKE 1 TABLET BY MOUTH ONCE DAILY AT 0700 2 Active valsartan-hydroCH LOROthiazide (DIOVAN HCT) 320-12.5 mg tablet Take 1 Tablet by mouth daily. 2 Active atorvastatin (LIPITOR) 40 mg tablet Take 1 Tablet (40 mg) by mouth daily at bedtime. 30 Tablet 3 2 Active montelukast (SINGULAIR) 10 mg tablet Take 1 Tablet (10 mg) by mouth daily at bedtime. 30 Tablet 1 2 Active aspirin (GUILHERME) 325 mg tablet Take 1 Tablet (325 mg) by mouth daily. 30 Tablet 11 2 Active cyclobenzaprine (FLEXERIL) 10 mg tablet Take 1 Tablet (10 mg) by mouth 3 times daily as needed for Spasm. 20 Tablet 3 Active Active Problems Problem Noted Date Diagnosed Date Hypervolemia 12/05/2024 Acute on chronic combined sy stolic and diastolic congestive heart failure 07/01/2024 New onset a-fib 07/01/2024 Elevated d-dimer 07/01/2024 TIA (transient ischemic attack) 06/25/2022 Right sided weakness 06/24/2022 Dysarthria 06/24/2022 Renal insufficiency 06/24/2022 Hyperlipidemia 08/08/2018 Internal hemorrhoids without complication 2016 Diverticulosis of large intestine without hemorr dominga 10/26/2016 Overview (11/27/2020): Moderate disease, of the left side of the colon. Morbid obesity with body mass index of 40.0-49.9 08/11/2016 Asthma, chronic obstructive, with acute exacerba tion 03/17/2016 Chronic bronchitis 03/17/2016 Hyperglycemia, drug-induced 03/16/2016 Acute bronchitis with bronchospasm 03/15/2016 Overview (11/27/2020): Failed outpatient treatment Diastolic heart failure, NYHA class 3 03/02/2016 Acute pain of right knee 02/10/2016 Hypothyroidism due to acquired atrophy of thyroi d 06/05/2015 Bilateral knee pain 02/12/2014 S/P dilatation of esophageal stricture 3 Overview (11/27/2020): 4/13- 20 mm-(Tate) Tremor 04/05/2012 Other specified disorders of rotator cuff syndrome of shoulder and allied disorders 03/31/2011 Sleep apnea Recurrent major depressive disorder, in partial remission Overview (11/26/2020): Pt. Seeing [facility] for several years Will continue counseling Essential hypertension Anxiety state GERD (gastroesophageal reflux disease) Resolved Problems Problem Noted Date Diagnosed Date Resolved Date Screen for colon cancer 10/26/201609/30 Other bilateral secondary os teoarthritis of knee 02/12/2014 03/19/2014 Chest pain 02/14/2013 03/19/2014 Hypotension 06/13/2012 03/19/2014 Encounters Date Type Department Care Team Description 01/29/2025 External Device Data [facility] ABSTRACTION Provider, Abstract 12/11/2024 External Device Data [facility]STRACTION Provider, Abstract 12/11/2024 External Device Data [facility] ABSTRACTION Provider, Abstract 12/11/2024 External Device Data [facility] ABSTRACTION Provider, Abstract 12/05/2024 10:03 AM CDT - 12/05/2024 1:59 PM CDT Emergency [facility] Emergency Medicine [address] [place] [address] Faina Munoz MD Other hypervolemia (Primary Dx) Discharge Disposition: Home or Self Care from Last 3 Months Immunizations Immunization Administration Dates Next Due (PNEUMOVAX 23)(50 YRS UP) PN EUMOCOCCAL POLYSACCHARIDE (PPV23) 0.5 ML, IM 03/19/2014 (TDVAX)(7 YRS UP) TETANUS AN D DIPHTHERIA TOXOIDS, ADSORBED (2 LF OF TETANUS TOXOID AND 2 LF OF DIPHTHERIA TOXOID), 0.5ML (PF), IM 04/12/2002 INFLUENZA VACCINE QUADRIVALENT 3 YR UP PF IM 10/2015 Influenza Seasonal Unspecified Formulation IM ,05/19/2006 Influenza Vaccine High Dose 65+ Yrs IM 8,06/06/2017 Influenza Vaccine Quad Split 3+ Yrs Im 4 Family History Medical History Relation Name Comments Cancer Father SMOKER Lung Cancer Father Depression Mother Diabetes Mother Heart Disease Mother Hypertension Mother Kidney Disease Mother Thyroid Disease Other 1 NEPHEW Asthma Other 2 NIECE niece with hx o f asthma Diabetes Sister 1 Hypertension Sister 1 Breast Cancer Neg Hx Colon Cancer Neg Hx Ovarian Cancer Neg Hx Relation Name Status Comments Daughter 1 Alive Daughter 2 Alive Father Maternal Grandfather Maternal Grandmother Mother Other 1 NEPHEW Alive Other 2 NIECE Alive Paternal Grandfather Paternal Grandmother Sister 1 Alive Sister 2 Alive Sister 3 Alive Social History Tobacco Use Types Packs/Day Years Used Date Smoking Tobacco: Never Smokeless Tobacco: Never Tobacco Cessation:Counseling Given: Not Answered Alcohol Use Standard Drinks/Week Comments No 0 (1 standard drink = 0.6 oz pur e alcohol) Comments No Sex and Gender Information Value Date Recorded Sex Assigned at Not on file Legal Sex Female 11:49 PM [employer]ING [employer] Gender Identity Not on file Sexual Orientation Not on file Last Filed Vital Signs Vital Sign Reading Time Taken Comments Blood Pressure 159/69 12/05/2024 1:30 PM CDT Pulse 58 12/05/2024 1:30 PM CDT Temperature 36.5 C (97.7 F) 12/05/2024 10:11 AM CDT Respiratory Rate 15 12/05/2024 1:30 PM CDT Oxygen Saturation 95% 12/05/2024 1:30 PM CDT Inhaled Oxygen Concentration - - Weight 132.7 kg (292 lb 9.6 oz) 025 10:11 AM CDT Height 167.6 cm (5' 6 ) 12/05/2024 10:1 1 AM CDT Body Mass Index 47.23 12/05/2024 10:11 AM CDT Plan of Treatment Health Maintenance Due Date Last Done Comments FIT-DNA Q 3 years 02/03/1997 FIT/FOBT Q 1 year 02/03/1997 Flex Sig/CT Colonography Q 5 years 02/03/1997 ZOSTER VACCINE (1 of 2) 02/03/2002 DTAP/TDAP/TD VACCINES (1 - Tdap) 04/13/2002 04/12/20 02 RSV VACCINE (60+ or ) (1 - Risk 60-74 years 1-dose series) 2012 PNEUMOCOCCAL VACCINE 50+ YEA RS (2 of 2 - PCV) 03/19/2015 03/19/2014 BREAST CANCER SCREENING 03/31/2021 03/31/20 20, 03/31/2020, 06/26/2018, Additional history exists OSTEOPOROSIS SCREENING 03/10/2022 03/10/2017, 2016 INFLUENZA VACCINE (#1) 2025 3, 06/12/2020, 04/04/2019, Additional history exists COLORECTAL SCREENING 10/26/2026 10/26/2016 Colorectal Cancer Screening 10/26/2026 Medical Devices Implanted Type Area Watch Engine Operator Device Identifier Shelf Expiration Date Model / Serial / Lot Log [id number] - Shoulder Anchors - 1 - [employer] Sut Bio Swvlck 4.75x24.5mm [id number] Implanted:Qty: 4 on 03/31/2011 [employer] Right: Shoulder [employer] 12/30/2012 [id number] / N/A / [id number] Procedures Procedure Name Priority Date/Time Associated Diagnosis Comments TELEMETRY REPORT 12/06/2024 10:0 1 AM CDT TROPONIN 2 HR, 5TH GEN Timed Study 12/05/2024 12:35 PM CDT XR CHEST PA OR AP 1 VW Stat 12/05/2024 10:32 AM CDT PTT Stat 12/05/2024 10:13 AM CDT D-DIMER Stat 12/05/2024 10:13 AM CDT PROTIME-INR Stat 12/05/2024 10:13 AM CDT BRAIN NATRIURETIC PEPTIDE, BNP OR PROBNP Stat 12/05/2024 10:13 AM CDT EXTRA TUBE (BLUE) Stat 12/05/2024 10: 13 AM CDT EXTRA TUBE Stat 12/05/2024 10:13 AM CDT COMPREHENSIVE METABOLIC PANEL Stat 12/05/2024 10:13 AM CDT CBC WITH DIFFERENTIAL Stat 12/05/2024 10:13 AM CDT TROPONIN BASELINE, 5TH GEN Stat 12/05/2024 10:13 AM CDT PULSE OXIMETRY, CONTINUOUS Stat 12/05/2024 10:08 AM CDT OXYGEN VIA DEVICE TO KEEP O2 SAT ABOVE Stat 12/05/2024 10:08 AM CDT EKG 12-LEAD Stat 12/05/2024 10:07 AM CDT MAMMO 3D NICOLE SCREEN BILAT W OR WO CAD Routine 03/31/2020 11:57 AM CDT Visit for screening mammogram XR DEXA BONE DENSITY AXIAL 1 OR MORE SITES Routine 03/10/2017 8:30 AM CDT Encounter for screening for osteoporosis from Last 3 Months or Most Recently Relevant to Health Maintenance Results * TELEMETRY REPORT (12/06/2024 10:01 AM CDT) us Provider Scanning ECG ORDERABLES Final Result * (ABNORMAL) TROPONIN 2 HR, 5TH GEN (12/05/2024 12:35 PM CDT) TROPONIN T, 2 HR 5TH GEN 14(H) <=10 ng/L 12/05/2024 12:56 PM CDT [facility] DELTA 2HR TROPONIN T -5 See Interp. 12/05/2024 12:56 PM CDT [facility] Blood BLOOD SPECIMEN / Unknown Collection / Unknown 12/05/2024 12:35 PM CDT 12/05/2024 12:41 PM CDT Narrative [facility] - 12/05/2024 12:56 PM CDT Troponin elevated. Delta indeterminate. us Faina Munoz MD CHEMISTRY ORDERABLES Final Resu lt [facility] CLIA # [id number] [address] [place] [id number] * XR CHEST PA OR AP 1 VW (12/05/2024 10:32 AM CDT) Anatomical Region Laterality Modality Chest Computed Radiogr aphy 12/05/2024 10:3 3 AM CDT Impressions 12/05/2024 10:44 AM CDT IMPRESSION: Please see below. EXAM: XR CHEST PA OR AP 1 VW DATE/TIME OF EXAM: 12/05/2024 10:32 AM REASON FOR STUDY: Chest Pain, Shortness of Breath SOB, Cough DIAGNOSIS: See Reason for Exam COMPARISON: July 01, 2024 TECHNIQUE: A frontal radiograph of the chest was obtained. FINDINGS: No lobar consolidation. No large pleural effusion. No pneumothorax. Cardiomegaly with mild vascular congestion. No acute bony abnormality identified. IMPRESSION: Cardiomegaly with mild vascular congestion. Narrative Procedure Note Buffy Sheets MD - 12/05/2024 IMPRESSION: Please see below. EXAM: XR CHEST PA OR AP 1 VW DATE/TIME OF EXAM: 12/05/2024 10:32 AM REASON FOR STUDY: Chest Pain, Shortness of Breath SOB, Cough DIAGNOSIS: See Reason for Exam COMPARISON: July 01, 2024 TECHNIQUE: A frontal radiograph of the chest was obtained. FINDINGS: No lobar consolidation. No large pleural effusion. No pneumothorax. Cardiomegaly with mild vascular congestion. No acute bony abnormality identified. IMPRESSION: Cardiomegaly with mild vascular congestion. us Faina Munoz MD DIAGNOSTIC IMAGING ORDERABLES F inal Result * EXTRA TUBE (BLUE) (12/05/2024 10:13 AM CDT) Blood BLOOD SPECIMEN / Unknown Collection / Unknown 12/05/2024 10:13 AM CDT 12/05/2024 10:23 AM CDT us Faina Munoz MD HEMATOLOGY ORDERABLES Final Res ult [facility] CLIA # [id number] [address] [place] [address] * (ABNORMAL) TROPONIN BASELINE, 5TH GEN (12/05/2024 10:13 AM CDT) TROPONIN T, BASELINE 5TH GEN 19(H) <=10 ng/L 12/05/2024 10:47 AM CDT [facility] Blood BLOOD SPECIMEN / Unknown Collection / Unknown 12/05/2024 10:13 AM CDT 12/05/2024 10:23 AM CDT Narrative [facility] - 12/05/2024 10:47 AM CDT Troponin elevated. us Faina Munoz MD CHEMISTRY ORDERABLES Final Resu lt [facility] CLIA # [id number] [address] [place] [phone] * (ABNORMAL) CBC WITH DIFFERENTIAL (12/05/2024 10:13 AM CDT) WBC 8.1 4.0 - 10.0 K/uL 12/05/2024 10:35 AM [facility] RBC 4.65 3.93 - 5.22 M/uL 12/05/2024 10:35 AM [facility] HEMOGLOBIN 12.1 11.2 - 15.7 g/dL 12/05/2024 10:35 AM [facility] HEMATOCRIT 38.7 34.1 - 44.9 % 12/05/2024 10:35 AM [facility] MCV 83.2 79.4 - 94.8 fL 12/05/2024 10:35 AM [facility] MCH 26.0 25.6 - 32.2 pg 12/05/2024 10:35 AM [facility] MCHC 31.3(L) 32.2 - 35.5 g/dL 12/05/2024 10:35 AM [facility] RDW 13.9 11.0 - 14.5 % 12/05/2024 10:35 AM [facility] RDW-STDEV 41.9 36.9 - 56.9 fL 12/05/2024 10:35 AM [facility] PLATELETS 243 163 - 337 K/uL 12/05/2024 10:35 AM [facility] MPV 9.7(L) 10.0 - 14.8 fL 12/05/2024 10:35 AM [facility] NEUTROPHILS 83(H) 34 - 71 % 12/05/2024 10:35 AM [facility] LYMPHOCYTES 8(L) 19 - 52 % 12/05/2024 10:35 AM [facility] MONOCYTES 7 5 - 13 % 12/05/2024 10:35 AM [facility] EOSINOPHILS 2 1 - 6 % 12/05/2024 10:35 AM [facility] BASOPHILS 0 0 - 1 % 12/05/2024 10:35 AM [facility] IMMATURE GRANULOCYTES 0 % 12/05/2024 10:35 AM [facility] NEUTROPHIL ABSOLUTE 6.70(H) 1.56 - 6.13 K/uL 12/05/2024 10:35 AM [facility] LYMPHOCYTE ABSOLUTE 0.61(L) 1.20 - 3.40 K/uL 12/05/2024 10:35 AM [facility] MONOCYTE ABSOLUTE 0.53(H) 0.24 - 0.36 K/uL 12/05/2024 10:35 AM [facility] EOSINOPHIL ABSOLUTE 0.16 0.04 - 0.36 K/uL 12/05/2024 10:35 AM [facility] BASOPHILS ABSOLUTE 0.02 0.01 - 0.08 K/uL 12/05/2024 10:35 AM [facility] IMMATURE GRANULOCYTES ABSOLUTE 0.03 K/uL 12/05/2024 10:35 AM [facility] Blood BLOOD SPECIMEN / Unknown Collection / Unknown 12/05/2024 10:13 AM CDT 12/05/2024 10:23 AM CDT us Faina Munoz MD HEMATOLOGY ORDERABLES Final Res ult [facility] CLIA # [id number] [address] [place] [address] [phone] * (ABNORMAL) PTT (12/05/2024 10:13 AM CDT) PTT 36.4(H) 25.8 - 34.0 seconds 12/05/2024 10:44 AM CDT [facility] Blood BLOOD SPECIMEN / Unknown Collection / Unknown 12/05/2024 10:13 AM CDT 12/05/2024 10:23 AM CDT us Faina Munoz MD HEMATOLOGY ORDERABLES Final Res ult Performing Organization Address City/[facility]/ZIP Co de Phone Number [facility] CLIA # [id number] [address] [place] [phone] * (ABNORMAL) PROTIME-INR (12/05/2024 10:13 AM CDT) PROTIME 15.7(H) 11.9 - 14.6 Seconds 12/05/2024 10:44 AM CDT [facility] INR 1.3(H) 0.9 - 1.1 12/05/2024 10:44 AM CDT [facility] Blood BLOOD SPECIMEN / Unknown Collection / Unknown 12/05/2024 10:13 AM CDT 12/05/2024 10:23 AM CDT us Faina Munoz MD HEMATOLOGY ORDERABLES Final Res ult Performing Organization Address [facility] Co de Phone Number [facility] CLIA # [id number] [address] [place] [phone] * D-DIMER (12/05/2024 10:13 AM CDT) D-DIMER QUANT 0.30 <0.50 ug/mL FEU 12/05/2024 10:44 AM CDT [facility] Blood BLOOD SPECIMEN / Unknown Collection / Unknown 12/05/2024 10:13 AM CDT 12/05/2024 10:23 AM CDT Narrative [facility] - 12/05/2024 10:44 AM CDT D-Dimer assay cutoff value for exclusion of DVT and/or PE is <0.50 ug/mL FEU. As D-Dimer levels increase naturally with age, age stratification for patients over 50 is potentially more appropriate in determining whether a patient should undergo further evaluation for DVT and/or PE than a general cutoff of 0.50 ug/mL FEU. Clinical consideration is recommended. Age Stratified Cutoff Values: 50-60 years: 0.50-0.60 ug/mL FEU 61-70 years: 0.61-0.70 ug/mL FEU 71-80 years: 0.71-0.80 ug/mL FEU Faina Munoz MD HEMATOLOGY ORDERABLES Final Res ult Performing Organization Address [facility] de [id number] [address] [place] [address] [phone] * (ABNORMAL) BRAIN NATRIURETIC PEPTIDE, BNP OR PROBNP (12/05/2024 10:13 AM CDT) PROBNP, N TERMINAL 3,698(H) 0 - 125 pg/mL 12/05/2024 10:47 AM CDT [facility] Comment: INTERPRETIVE COMMENT based on diagnosis: Diagnostic NT pro-BNP cutoffs for Heart Failure in the absence of renal failure is suggested for the following ranges <75 years: <125 pg/mL >=75 years: <450 pg/mL Exclusionary rule out cut-point for Acute Decompensated Heart Failure(ADHF) All ages: <300 pg/mL Diagnostic NT pro-BNP cutoffs for Acute Decompensated Heart Failure(ADHF) in the absence of renal failure is suggested for the following ages <50 years: > 450 pg/mL 50-75 years: > 900 pg/mL >75 years: >1800 pg/mL Blood BLOOD SPECIMEN / Unknown Collection / Unknown 12/05/2024 10:13 AM CDT 12/05/2024 10:23 AM CDT Faina Munoz MD CHEMISTRY ORDERABLES Final Resu lt Performing Organization Address [facility]/ZIP Co de Phone Number [facility] CLIA # [id number] [address] [place] [address], [place] [address] * (ABNORMAL) COMPREHENSIVE METABOLIC PANEL (12/05/2024 10:13 AM T) SODIUM 139 136 - 145 mmol/L 12/05/2024 10:47 AM [facility] POTASSIUM 4.1 3.5 - 5.1 mmol/L 12/05/2024 10:47 AM [facility] CHLORIDE 103 98 - 107 mmol/L 12/05/2024 10:47 AM [facility] CO2 26 22 - 29 mmol/L 12/05/2024 10:47 AM [facility] CALCIUM 9.8 8.8 - 10.2 mg/dL 12/05/2024 10:47 AM [facility] BUN 18 8 - 23 mg/dL 12/05/2024 10:47 AM [facility] CREATININE 1.08(H) 0.51 - 0.95 mg/dL 12/05/2024 10:47 AM [facility] Comment:The GFR result is no t clinically significant on patients <18 or >70 years of age. GLUCOSE 142(H) 74 - 99 mg/dL 12/05/2024 10:47 AM [facility] TOTAL PROTEIN 7.3 6.6 - 8.7 g/dL 12/05/2024 10:47 AM [facility] ALBUMIN 3.9(L) 4.0 - 4.9 g/dL 12/05/2024 10:47 AM [facility] BILIRUBIN TOTAL 0.7 0.0 - 1.2 mg/dL 12/05/2024 10:47 AM [facility] ALKALINE PHOSPHATASE 102 35 - 104 U/L 12/05/2024 10:47 AM [facility] AST 12 0 - 35 U/L 12/05/2024 10:47 AM [facility] ALT 10 0 - 35 U/L 12/05/2024 10:47 AM [facility] GFR 55 mL/min/1.7 3 sq meter 12/05/2024 10:47 AM CDT [facility] Comment:eGFR calculated with 2020 CKD-EPI equation. Vegetarian diet, extremely high or low muscle mass, and may affect results. Cystatin C with Glomerular Filtration Rate is a suitable alternative for these patients. ANION GAP 10 5 - 20 mmol/L 12/05/2024 10:47 AM CDT [facility] Blood BLOOD SPECIMEN / Unknown Collection / Unknown 12/05/2024 10:13 AM CDT 12/05/2024 10:23 AM CDT Faina Munoz MD CHEMISTRY ORDERABLES Final Resu lt [facility] CLIA # [id number] [address] [place] [phone] * EKG (12/05/2024 10:07 AM CDT) Narrative Faina Munoz MD - 12/05/2024 10:07 AM CDT Faina Munoz MD 12/05/2024 2:46 PM EKG Date/Time: 12/05/2024 10:07 AM Performed by: Faina Munoz MD Authorized by: Faina Munoz MD ECG interpreted by ED Physician in the absence of a mill supervisor: yes Rate: ECG rate: 83 ECG rate assessment: age appropriate Rhythm: Rhythm Origin: atrial Rhythm morphology: fibrillation Ectopy: Ectopy occurance: occasional Ectopy origin: PAC and PVCs QRSTT: QRSTT changes: Yes Comments: Multiple PVCs present and there is irregularly irregular rhythm, however rate controlled. No T wave inversion or ST segment abnormality. Faina Munoz MD ECG ORDERABLES Final Result * MAMMO SCRN BILAT 3D NICOLE W OR WO CAD (03/31/2020 11:57 AM CDT) Anatomical Region Laterality Modality Breast Bilateral Other Narrative 04/01/2020 12:34 PM CDT Bilateral Digital Mammogram with CAD and 3D Tomography Reason for Exam: Screening Comparison: Compared to: 06/26/2018 MAMMO DIAGNOSTIC BILATERAL W OR WO CAD, 10/27/2016 MAMMO SCREEN BILAT W OR WO CAD, 09/17/2015 MAMMO DIGITAL SCREEN BILAT, 07/10/2014 MAMMO DIGITAL SCREEN BILAT, and 11/10/2009 MAMMO SCREENING BILAT Technique: 3D MLO and CC digital tomosynthesis images were acquired and synthesized 2D images (C view) were generated. This digital mammogram was also analyzed by the Computer Aided Detection System CAD). Breast Composition: There are scattered areas of fibroglandular density. There are no suspicious masses, areas of architectural distortions, or microcalcifications to suggest malignancy. Bilateral calcifications appear stable.Bilateral breast nodularity is stable. No significant new findings since the prior mammogram(s). Procedure Note Elvin Walter MD - 12/21/2020 Bilateral Digital Mammogram with CAD and 3D Tomography Reason for Exam: Screening Comparison: Compared to: 06/26/2018 MAMMO DIAGNOSTIC BILATERAL W OR WO CAD, 10/27/2016 MAMMO SCREEN BILAT W OR WO CAD, 09/17/2015 MAMMO DIGITAL SCREEN BILAT, 07/10/2014 MAMMO DIGITAL SCREEN BILAT, and 11/10/2009 MAMMO SCREENING BILAT Technique: 3D MLO and CC digital tomosynthesis images were acquired and synthesized 2D images (C view) were generated. This digital mammogram was also analyzed by the Computer Aided Detection System CAD). Breast Composition: There are scattered areas of fibroglandulardensity. There are no suspicious masses, areas of architectural distortions, or microcalcifications to suggest malignancy. Bilateral calcifications appear stable.Bilateral breast nodularity is stable. No significant new findings since the prior mammogram(s). Zoraida Arzola LIVE TRUCK TECHNICIAN MAMMO ORDERABLES Final Resu lt * XR DEXA BONE DENSITY AXIAL 1 OR MORE SITES (03/10/2017 8:30 AM CDT) Anatomical Region Laterality Modality Other Impressions 03/11/2017 8:01 PM CDT 1. Current findings consistent with mild osteopenia; there is currently moderate risk for fracture as predicted at the lumbar spine. Age matched Z-score of greater than -2.0 does not indicate accelerated bone demineralization. Definitions: T-score > -0.99 = Normal T-score -1.00 to -1.49 = mild osteopenia T-score -1.50 to -1.99 = moderate osteopenia T-score -2.00 to -2.49 = severe osteopenia T-score < -2.50 = osteoporosis N.B. Changes in density of <=0.05 g/cm2 are not statistically significant. RECOMMENDATIONS: Normal: Low risk for fracture - f/u in 2 years Mild/Mod osteopenia: Moderate risk for fracture - f/u in 1 year Severe osteopenia: Moderate/high risk for fracture - f/u in 1 year Osteoporosis: High risk for fracture - f/u in 1 year NOF guidelines recommend consideration of FDA-approved medical therapies in patients with FRAX determined 10-year probabilities of hip/major osteoporosis-related fractures equal or greater than 3%/20% respectively. Consider assessing fracture risk using the FRAX analysis tool for guidance of clinical management available online at www.shef.ac.uk/FRAX/. Enter [employer] for Select DXA and the Femoral Neck BMD value. [id number] Narrative 03/11/2017 8:01 PM CDT DEXA Evaluation of the Lumbar Spine and Proximal Femur Reason for Consultation: Osteoporosis screening. Evaluation of bone mineral density. The following absorptiometry data were obtained. The quality of this examination is acceptable with regards to count density, processed images, data display and lack of important artifacts (including but not limited to motion and attenuation artifacts). Serial examination number 1. L1-L4 BMD (g/cm2): 0.894 Adult T-score: -1.4 Adult Z-score: 0.4 Left Femoral Neck BMD (g/cm2): 0.734 Adult T-score: -1.0 Adult Z-score: 0.5 Left Total Hip BMD (g/cm2): 1.146 Adult T-score: 1.7 Adult Z-score: 2.9 Procedure Note Aldair Jacobson MD - 09/24/2021 DEXA Evaluation of the Lumbar Spine and Proximal Femur Reason for Consultation: Osteoporosis screening. Evaluation of bone mineral density. The following absorptiometry data were obtained. The quality of this examination is acceptable with regards to count density, processed images, data display and lack of important artifacts (including but not limited to motion and attenuation artifacts). Serial examination number 1. L1-L4 BMD (g/cm2): 0.894 Adult T-score: -1.4 Adult Z-score: 0.4 Left Femoral Neck BMD (g/cm2): 0.734 Adult T-score: -1.0 Adult Z-score: 0.5 Left Total Hip BMD (g/cm2): 1.146 Adult T-score: 1.7 Adult Z-score: 2.9 IMPRESSION 1. Current findings consistent with mild osteopenia; there is currently moderate risk for fracture as predicted at the lumbar spine. Age matched Z-score of greater than -2.0 does not indicate accelerated bone demineralization. Definitions: T-score > -0.99 = Normal T-score -1.00 to -1.49 = mild osteopenia T-score -1.50 to -1.99 = moderate osteopenia T-score -2.00 to -2.49 = severe osteopenia T-score < -2.50 = osteoporosis N.B. Changes in density of <=0.05 g/cm2 are not statistically significant. RECOMMENDATIONS: Normal: Low risk for fracture - f/u in 2 years Mild/Mod osteopenia: Moderate risk for fracture - f/u in 1 year Severe osteopenia: Moderate/high risk for fracture - f/u in 1 year Osteoporosis: High risk for fracture - f/u in 1 year NOF guidelines recommend consideration of FDA-approved medical therapies in patients with FRAX determined 10-year probabilities of hip/major osteoporosis-related fractures equal or greater than 3%/20% respectively. Consider assessing fracture risk using the FRAX analysis tool for guidance of clinical management available online at www.shef.ac.uk/FRAX/. Enter [employer] for Select DXA and the Femoral Neck BMD value. [id number] Zoraida Arzola LIVE TRUCK TECHNICIAN DIAGNOSTIC IMAGING ORDERABL ES Final Result from Last 3 Months or Most Recently Relevant to Health Maintenance Insurance MEDICAID [place] D[place] COM[place]TE PPO [facility] [id number] Advance Directives For more information, please contact: [phone] * Full Code (Latest Code Status on File) Date Activated Date Inactivated Comments 06/23/2022 2:47 PM 06/25/2022 4:23 PM
--- OUTSIDE RECORDS SUMMARY | 2025-02-18 11:03 | XMS_ITS | Encounter Summary ---
Author Organization [facility] Address [address] [place] [address] Care Team Providers Care Economics Instructor Name Role Phone Non-Staff, Physician Primary Care Provider Unava ilable Encounter Details Date Type Department Care Team (Latest Contact Info) Description 09/20/2002 Outpatient Historical [facility] [address] 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
--- OUTSIDE RECORDS SUMMARY | 2025-02-18 11:03 | XMS_ITS | Encounter Summary ---
Author Organization [facility] Address [address] [place] [address] Care Team Providers Care Grants Administrator Name Role Phone Non-Staff, Physician Primary Care Provider Unava ilable Encounter Details Date Type Department Care Team (Latest Contact Info) Description 09/15/2004 Outpatient Historical [facility] Medicine [place] [address] [facility] [address] [place] [phone] Zoraida Arzola, LAYER OUT [address] [place] [phone] CERVICALGIA (Primary Dx); ABNORMAL FIND-BODY STRUCT NEC Social History Tobacco Use Types Packs/Day Years Used Date Smoking Tobacco: Never Assessed Comments Unknown Sex and Gender Information Value Date Recorded Sex Assigned at Not on file Legal Sex Female 4:31 AM METHODS TIME ANALYST Gender Identity Not on file Sexual Orientation Not on file documented as of this encounter Plan of Treatment Not on file documented as of this encounter Visit Diagnoses Diagnosis Cervicalgia- Primary Nonspecific abnormal findings on radiological and other examination of other site of body documented in this encounter Care Teams Grants Administrator Relationship Specialty Start Date End Date Non-Staff, Physician NO ADDRESS ON FILE PCP - General 11/28/19 03/30/20 documented as of this encounter
--- OUTSIDE RECORDS SUMMARY | 2025-02-18 11:03 | XMS_ITS | Encounter Summary ---
Author Organization [facility] Address [address] [place] [address] Care Team Providers Care Uat Tester Name Role Phone Non-Staff, Physician Primary Care Provider Unava ilable Encounter Details Date Type Department Care Team (Latest Contact Info) Description 11/15/2002 Outpatient Historical [facility] Medicine [place] [address] [facility] [address] [place] [phone] Zoraida Arzola, SALES ORDER PROCESSOR [address] [place] [phone] EXAM AFTR OTHR HI-RISK COMPL RX NEC (Primary Dx) Social History Tobacco Use Types Packs/Day Years Used Date Smoking Tobacco: Never Assessed Comments Unknown Sex and Gender Information Value Date Recorded Sex Assigned at Not on file Legal Sex Female 4:31 AM GEOLOGICAL SCOUT Gender Identity Not on file Sexual Orientation Not on file documented as of this encounter Plan of Treatment Not on file documented as of this encounter Visit Diagnoses Diagnosis Follow-up examination following completed treatment with high-risk medications, not elsewhere classified- Primary documented in this encounter Care Teams Uat Tester Relationship Specialty Start Date End Date Non-Staff, Physician NO ADDRESS ON FILE PCP - General 11/28/19 03/30/20 documented as of this encounter
--- OUTSIDE RECORDS SUMMARY | 2025-02-18 11:03 | XMS_ITS | Encounter Summary ---
Author Organization [facility] Address [address] [place] [address] Care Team Providers Care Evaluation Advisor Name Role Phone Non-Staff, Physician Primary Care Provider Unava ilable Encounter Details Date Type Department Care Team (Latest Contact Info) Description 02/14/2003 Outpatient Historical [facility] Medicine [place] [address] [facility] [address] [place] [phone] Zoraida Arzola, FINISHER HOT STRIP [address] [place] [phone] SCREENING MAL NEOP-CERVIX (Primary Dx) Social History Tobacco Use Types Packs/Day Years Used Date Smoking Tobacco: Never Assessed Comments Unknown Sex and Gender Information Value Date Recorded Sex Assigned at Not on file 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
--- OUTSIDE RECORDS SUMMARY | 2025-02-18 11:03 | XMS_ITS | Encounter Summary ---
Author Organization [facility] Address [address] [place] [address] Care Team Providers Care Director Of Premium Seat Sales Name Role Phone Non-Staff, Physician Primary Care Provider Unava ilable Encounter Details Date Type Department Care Team (Late st Contact Info) Description 06/29/2007 Outpatient Historical [facility] Family Medicine [place] [address] [facility] [address] [place] [phone] Zoraida Arzola, CONCERT MANAGER [address] [place] [phone] Social History Tobacco Use Types Packs/Day Years Used Date Smoking Tobacco: Never Assessed Comments Unknown Sex and Gender Information Value Date Recorded Sex Assigned at Not on file Legal Sex Female 4:31 AM 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
--- OUTSIDE RECORDS SUMMARY | 2025-02-18 11:03 | XMS_ITS | Encounter Summary ---
Author Organization [facility] Address [address] [place] [address] Care Team Providers Care Device Engineer Name Role Phone Non-Staff, Physician Primary Care Provider Unava ilable Encounter Details Date Type Department Care Team (Latest Contact Info) Description 11/15/2002 Outpatient Historical [facility] Medicine [place] [address] [phone] Diana Chung MD NO ADDRESS ON FILE PROLONG POSTTRAUM STRESS (Primary Dx); HYPOTHYROIDISM NOS Social History Tobacco Use Types Packs/Day Years Used Date Smoking Tobacco: Never Assessed Comments Unknown Sex and Gender Information Value Date Recorded Sex Assigned at Not on file Legal Sex Female 4:31 AM DRY SANDER Gender Identity Not on file Sexual Orientation Not on file documented as of this encounter Plan of Treatment Not on file documented as of this encounter Visit Diagnoses Diagnosis Posttraumatic stress disorder- Primary Unspecified hypothyroidism documented in this encounter Care Teams Device Engineer Relationship Specialty Start Date End Date Non-Staff, Physician NO ADDRESS ON FILE PCP - General 11/28/19 03/30/20 documented as of this encounter
--- OUTSIDE RECORDS SUMMARY | 2025-02-18 11:03 | XMS_ITS | Encounter Summary ---
Author Organization [facility] Address [address] [place] [address] Care Team Providers Care Iron Worker Name Role Phone Non-Staff, Physician Primary Care Provider Unava ilable Encounter Details Date Type Department Care Team (Latest Contact Info) Description 10/08/2004 Outpatient Historical [facility] Family Medicine [place] [address] [facility] [address] [place] [phone] Zoraida Arzola, SUBSTANCE ABUSE SPECIALIST [address] [place] [phone] HYPERTENSION NOS (Primary Dx) Social History Tobacco Use Types Packs/Day Years Used Date Smoking Tobacco: Never Assessed Comments Unknown Sex and Gender Information Value Date Recorded Sex Assigned at Not on file 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
--- OUTSIDE RECORDS SUMMARY | 2025-02-18 11:03 | XMS_ITS | Encounter Summary ---
Author Organization [facility] Address [address] [place] [address] Care Team Providers Care Sandwich Counter Attendant Name Role Phone Non-Staff, Physician Primary Care Provider Unava ilable Encounter Details Date Type Department Care Team (Latest Contact Info) Description 07/31/2002 Outpatient Historical [facility] Family Medicine [place] [address] [phone] Teo Kinney DO NO ADDRESS ON FILE IMPACTED CERUMEN (Primary Dx); OTITIS MEDIA NOS Social History Tobacco Use Types Packs/Day Years Used Date Smoking Tobacco: Never Assessed Comments Unknown Sex and Gender Information Value Date Recorded Sex Assigned at Not on file 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
--- OUTSIDE RECORDS SUMMARY | 2025-02-18 11:03 | XMS_ITS | Encounter Summary ---
Author Organization [facility] Address [address] [place] [address] Care Team Providers Care Blower Insulator Name Role Phone Non-Staff, Physician Primary Care Provider Unava ilable Reason for Referral * Outpatient Services (Routine) - Closed Specialty Diagnoses / Procedures Referred By Sophia t Referred To Contact Diagnoses Inconclusive mammogram Procedures MAMMO BREAST US RIGHT LTD Zoraida Arzola FNP Phone: tel: fax: [employer] Pre-Registration [place] CALL TO MAKE APPOINTMENT ONLY [address] [place] [address] Phone: tel: fax: Referral ID Status Reason Start Date Expiration Date Visits Re quested Visits Authorized [id number] Closed 10/29/2016 11/29/2017 1 1 * Outpatient Services (Routine) - Closed Specialty Diagnoses / Procedures Referred By Contac t Referred To Contact Diagnoses Inconclusive mammogram Procedures MAMMO DIAGNOSTIC UNI RIGHT W OR WO CAD Zoraida Arzola FNP Phone: tel: fax: [employer] Pre-Registration [place] CALL TO MAKE APPOINTMENT ONLY [address] [place] [address] Phone: tel: fax: Referral ID Status Reason Start Date Expiration Date Visits Re quested Visits Authorized [id number] Closed 10/29/2016 11/29/2017 1 1 Encounter Details Date Type Department Care Team (Latest Contact Info) Description 10/29/2016 Ancillary Orders [facility] Breast [place] [address] [place] [phone] Zoraida Arzola FNP [address] [place] [phone] Inconclusive mammogram Social History Tobacco Use Types Packs/Day Years Used Date Smoking Tobacco: Never Smokeless Tobacco: Never Alcohol Use Standard Drinks/Week Comments No 0 (1 standard drink = 0.6 oz pur e alcohol) Comments No Sex and Gender Information Value Date Recorded Sex Assigned at Not on file Legal Sex Female 4:31 AM 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 WILDLIFE TRAPPER Gender Identity Not on file Sexual Orientation Not on file Occupation Industry Job Start Date Job End Date Not on file Not on file Not on file Not on file documented as of this encounter Plan of Treatment Not on file documented as of this encounter Results * (ABNORMAL) MAMMO DIAGNOSTIC UNI RIGHT W OR WO CAD (11/04/2016 2:18 PM CDT) Anatomical Region Laterality Modality Breast Right Mammography 11/04/2016 1:10 PM CDT Impressions 11/04/2016 2:12 PM CDT IMPRESSION: Findings for which the patient was recalled may correspond to a benign skin lesion such as a sebaceous cyst on ultrasound. Repeat right breast diagnostic mammogram is recommended in 6 months to ensure stability. BI-RADS: 3 Recommendation: Short interval follow-up, 6 months Recommendation Laterality: Right [id number] Narrative 11/04/2016 2:12 PM CDT EXAM: MAMMO DIAGNOSTIC UNI RIGHT W OR WO CAD, MAMMO BREAST US RIGHT LTD, 11/04/2016 1:08 PM CLINICAL INDICATIONS: Call back from screening for new right breast mass. COMPARISON: 10/27/2016, 09/17/2015, 09/10/2013, 11/05/2009, and 10/02/2008. TECHNIQUE: Digital LM and spot compression MLO and CC views of the right breast were obtained. This digital mammogram was also analyzed by the Computer Aided Detection System (CAD), [employer] Digital Imagemyseekitcker, Version 8.3. FINDINGS: There are scattered areas of fibroglandular density. A persistent circumscribed mass is noted within the superior right breast measuring approximately 0.9 cm. This will be further evaluated with ultrasound. TECHNIQUE: Multiple real-time dennis-scale images of the right breast in the 1-2 o'clock axis are performed. Color Doppler was used to assess vascular flow. FINDINGS: An oval, circumscribed anechoic structure is present within the skin of the 2:00 axis of the right breast, 15 cm from the nipple, measuring 0.7 x 0.6 x 0.5 cm. This may correspond to the mammographic finding. A hypoechoic structure with large internal shadowing calcifications is noted within the 12:00 axis of the right breast, 5 cm from the nipple, measuring up to 1.0 cm. 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 us Zoraida Arzola REPAIR SUPERVISOR MAMMO ORDERABLES Final Resu lt * (ABNORMAL) MAMMO BREAST US RIGHT [facility] (11/04/2016 2:02 PM CDT) Anatomical Region Laterality Modality Right Ultrasound 11/04/2016 2:02 PM CDT Impressions 11/04/2016 2:12 PM CDT IMPRESSION: Findings for which the patient was recalled may correspond to a benign skin lesion such as a sebaceous cyst on ultrasound. Repeat right breast diagnostic mammogram is recommended in 6 months to ensure stability. BI-RADS: 3 Recommendation: Short interval follow-up, 6 months Recommendation Laterality: Right [id number] Narrative 11/04/2016 2:12 PM CDT EXAM: MAMMO DIAGNOSTIC UNI RIGHT W OR WO CAD, MAMMO BREAST US RIGHT [facility], 11/04/2016 1:08 PM CLINICAL INDICATIONS: Call back from screening for new right breast mass. COMPARISON: 10/27/2016, 09/17/2015, 09/10/2013, 11/05/2009, and 10/02/2008. TECHNIQUE: Digital LM and spot compression MLO and CC views of the right breast were obtained. This digital mammogram was also analyzed by the Computer Aided Detection System (CAD), [employer] Digital Imagemyseekitcker, Version 8.3. FINDINGS: There are scattered areas of fibroglandular density. A persistent circumscribed mass is noted within the superior right breast measuring approximately 0.9 cm. This will be further evaluated with ultrasound. TECHNIQUE: Multiple real-time dennis-scale images of the right breast in the 1-2 o'clock axis are performed. Color Doppler was used to assess vascular flow. FINDINGS: An oval, circumscribed anechoic structure is present within the skin of the 2:00 axis of the right breast, 15 cm from the nipple, measuring 0.7 x 0.6 x 0.5 cm. This may correspond to the mammographic finding. A hypoechoic structure with large internal shadowing calcifications is noted within the 12:00 axis of the right breast, 5 cm from the nipple, measuring up to 1.0 cm. 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 us Zoraida Arzola REPAIR SUPERVISOR MAMMO ORDERABLES Final Resu lt documented in this encounter Visit Diagnoses Diagnosis Inconclusive mammogram Inconclusive mammogram Inconclusive mammogram documented in this encounter Additional Health Concerns Assessment Noted Time PHQ-9 Depression Total Score: 2 10/21/19 16 10:00 AM CDT documented as of this encounter Care Teams Blower Insulator Relationship Specialty Start Date End Date Non-Staff, Physician NO ADDRESS ON FILE PCP - General 11/28/19 03/30/20 documented as of this encounter
--- OUTSIDE RECORDS SUMMARY | 2025-02-18 11:03 | XMS_ITS | Encounter Summary ---
Author Organization [facility] Address [address] [place] [facility] [place] [address] Care Team Providers Care Vaccine Manager Name Role Phone Non-Staff, Physician Primary Care Provider Unava ilable Encounter Details Date Type Department Care Team (Latest Contact Info) Description 09/30/2004 Outpatient Historical [facility] [address] [facility] [place] [address] [place] Resendez BRACHIAL NEURITIS NOS (Primary Dx) Social History Tobacco Use Types Packs/Day Years Used Date Smoking Tobacco: Never Assessed Comments Unknown Sex and Gender Information Value Date Recorded Sex Assigned at Not on file Legal Sex Female 4:31 AM ONCOLOGY RESEARCH RN Gender Identity Not on file Sexual Orientation Not on file documented as of this encounter Plan of Treatment Not on file documented as of this encounter Visit Diagnoses Diagnosis Brachial neuritis or radiculitis NOS- Primary Brachial neuritis or radiculitis nos documented in this encounter Care Teams Vaccine Manager Relationship Specialty Start Date End Date Non-Staff, Physician NO ADDRESS ON FILE PCP - General 11/28/19 03/30/20 documented as of this encounter
--- OUTSIDE RECORDS SUMMARY | 2025-02-18 11:03 | XMS_ITS | Encounter Summary ---
Author Organization [facility] Address [address] [place] [address] Care Team Providers Care Photolettering Machine Operator Name Role Phone Non-Staff, Physician Primary Care Provider Unava ilable Encounter Details Date Type Department Care Team (Latest Contact Info) Description 08/07/2002 Outpatient Historical [facility] Medicine [place] [address] [facility] [address] [place] [phone] Teo Kinney DO NO ADDRESS ON FILE INFEC OTITIS EXTERNA NOS (Primary Dx); HYPOTHYROIDISM NOS; EXAM AFTR OTHR HI-RISK COMPL RX NEC Social History Tobacco Use Types Packs/Day Years Used Date Smoking Tobacco: Never Assessed Comments Unknown Sex and Gender Information Value Date Recorded Sex Assigned at Not on file Legal Sex Female 4:31 AM CONTINUING EDUCATION DEAN Gender Identity Not on file Sexual Orientation Not on file documented as of this encounter Plan of Treatment Not on file documented as of this encounter Visit Diagnoses Diagnosis Infective otitis externa, unspecified- Primary Unspecified hypothyroidism Follow-up examination following completed treatment with high-risk medications, not elsewhere classified documented in this encounter Care Teams Photolettering Machine Operator Relationship Specialty Start Date End Date Non-Staff, Physician NO ADDRESS ON FILE PCP - General 11/28/19 03/30/20 documented as of this encounter
--- OUTSIDE RECORDS SUMMARY | 2025-02-18 11:03 | XMS_ITS | Encounter Summary ---
Author Organization [facility] Address [address] [place] [address] Care Team Providers Care Zigzag Stitcher Name Role Phone Non-Staff, Physician Primary Care Provider Unava ilable Encounter Details Date Type Department Care Team (Latest Contact Info) Description 07/03/2002 Outpatient Historical [facility] Family Medicine [place] [address] [facility] [address] [place] [phone] Teo Kinney DO NO ADDRESS ON FILE IMPACTED CERUMEN (Primary Dx) Social History Tobacco Use Types Packs/Day Years Used Date Smoking Tobacco: Never Assessed Comments Unknown Sex and Gender Information Value Date Recorded Sex Assigned at Not on file 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
--- OUTSIDE RECORDS SUMMARY | 2025-02-18 11:03 | XMS_ITS | Encounter Summary ---
Author Organization [facility] Address [address] [place] [address] Care Team Providers Care Business Info Consultant Name Role Phone Non-Staff, Physician Primary Care Provider Unava ilable Encounter Details Date Type Department Care Team (Late st Contact Info) Description 07/27/2004 Outpatient Historical [facility] Rahat Thurman MD [address] [place] [id number] Social History Tobacco Use Types Packs/Day Years Used Date Smoking Tobacco: Never Assessed Comments Unknown Sex and Gender Information Value Date Recorded Sex Assigned at Not on file Legal Sex Female 4:31 AM BONE CHAR KILN OPERATOR Gender Identity Not on file Sexual Orientation Not on file documented as of this encounter Plan of Treatment Not on file documented as of this encounter Visit Diagnoses Not on filedocumented in this encounter Care Teams Business Info Consultant Relationship Specialty Start Date End Date Non-Staff, Physician NO ADDRESS ON FILE PCP - General 11/28/19 03/30/20 documented as of this encounter
--- OUTSIDE RECORDS SUMMARY | 2025-02-18 11:03 | XMS_ITS | Encounter Summary ---
Author Organization [facility] Address [address] [place] [address] Care Team Providers Care Coin Box Collector Name Role Phone Non-Staff, Physician Primary Care Provider Unava ilable Encounter Details Date Type Department Care Team (Latest Contact Info) Description 08/18/2004 Outpatient Historical [facility] Medicine [place] 104 [facility] 60 [place] [phone] Zoraida Arzola, IT COMMUNICATIONS SPECIALIST [address] [place] [phone] CERVICALGIA (Primary Dx) Social History Tobacco Use Types Packs/Day Years Used Date Smoking Tobacco: Never Assessed Comments Unknown Sex and Gender Information Value Date Recorded Sex Assigned at Not on file Legal Sex Female 4:31 AM TRANSCRIPTER Gender Identity Not on file Sexual Orientation Not on file documented as of this encounter Plan of Treatment Not on file documented as of this encounter Visit Diagnoses Diagnosis Cervicalgia- Primary documented in this encounter Care Teams Coin Box Collector Relationship Specialty Start Date End Date Non-Staff, Physician NO ADDRESS ON FILE PCP - General 11/28/19 03/30/20 documented as of this encounter
--- OUTSIDE RECORDS SUMMARY | 2025-02-18 11:03 | XMS_ITS | Encounter Summary ---
Author Organization [facility] Address [address] [place] [address] Care Team Providers Care Spa Associate Name Role Phone Non-Staff, Physician Primary Care Provider Unava ilable Encounter Details Date Type Department Care Team (Latest Contact Info) Description 09/20/2002 Outpatient Historical [facility] [address] [place] [address] AMBULANCE, [facility] [place] TOXIC EFFECT NONMED SUBST NOS (Primary Dx) Social History Tobacco Use Types Packs/Day Years Used Date Smoking Tobacco: Never Assessed Comments Unknown Sex and Gender Information Value Date Recorded Sex Assigned at Not on file Legal Sex Female 4:31 AM ACCESS REGISTRAR Gender Identity Not on file Sexual Orientation Not on file documented as of this encounter Plan of Treatment Not on file documented as of this encounter Visit Diagnoses Diagnosis Toxic effect of unspecified substance, chiefly nonmedicinal as to source(989.9)- Primary Toxic effect of unspecified substance, chiefly nonmedicinal as to source documented in this encounter Care Teams Spa Associate Relationship Specialty Start Date End Date Non-Staff, Physician NO ADDRESS ON FILE PCP - General 11/28/19 03/30/20 documented as of this encounter
--- OUTSIDE RECORDS SUMMARY | 2025-02-18 11:03 | XMS_ITS | Encounter Summary ---
Author Organization [facility] Address [address] [place] [address] Care Team Providers Care Sleeping Room Cleaner Name Role Phone Non-Staff, Physician Primary Care Provider Unava ilable Encounter Details Date Type Department Care Team (Latest Contact Info) Description 10/01/[address] 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
--- OUTSIDE RECORDS SUMMARY | 2025-02-18 11:03 | XMS_ITS | Encounter Summary ---
Author Organization [facility] Address [address] [place] [address] Care Team Providers Care Real Estate Account Executive Name Role Phone Non-Staff, Physician Primary Care Provider Unava ilable Encounter Details Date Type Department Care Team (Latest Contact Info) Description 09/22/2004 Outpatient Historical [facility] Medicine [place] 104 [facility] 60 [place] [phone] Zoraida Arzola, GRAIN CLEANER [address] [place] [phone] ACUTE URI NOS (Primary Dx) Social History Tobacco Use Types Packs/Day Years Used Date Smoking Tobacco: Never Assessed Comments Unknown Sex and Gender Information Value Date Recorded Sex Assigned at Not on file Legal Sex Female 4:31 AM 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
--- OUTSIDE RECORDS SUMMARY | 2025-02-18 11:03 | XMS_ITS | Encounter Summary ---
Author Organization [facility] Address [address] [place] [address] Care Team Providers Care Group Director Name Role Phone Non-Staff, Physician Primary Care Provider Unava ilable Encounter Details Date Type Department Care Team (Latest Contact Info) Description 09/18/2002 Outpatient Historical [facility] [address] [phone] Teo Kinney DO NO ADDRESS ON FILE PROLONG POSTTRAUM STRESS (Primary Dx) Social History Tobacco Use Types Packs/Day Years Used Date Smoking Tobacco: Never Assessed Comments Unknown Sex and Gender Information Value Date Recorded Sex Assigned at Not on file Legal Sex Female 4:31 AM LIFE INSURANCE AGENT Gender Identity Not on file Sexual Orientation Not on file documented as of this encounter Plan of Treatment Not on file documented as of this encounter Visit Diagnoses Diagnosis Posttraumatic stress disorder- Primary documented in this encounter Care Teams Group Director Relationship Specialty Start Date End Date Non-Staff, Physician NO ADDRESS ON FILE PCP - General 11/28/19 03/30/20 documented as of this encounter
--- OUTSIDE RECORDS SUMMARY | 2025-02-18 11:03 | XMS_ITS | Encounter Summary ---
Author Organization [facility] Address [address] [place] [address] Care Team Providers Care Air Force Senior Officer Name Role Phone Non-Staff, Physician Primary Care Provider Unava ilable Encounter Details Date Type Department Care Team (Latest Contact Info) Description 08/07/2002 Outpatient Historical [facility] Medicine [place] 104 [facility] 60 [place] [phone] Zoraida Arzola, SMALL BRAKE FORM OPERATOR [address] [place] [phone] EXAM AFTR OTHR HI-RISK COMPL RX NEC (Primary Dx) Social History Tobacco Use Types Packs/Day Years Used Date Smoking Tobacco: Never Assessed Comments Unknown Sex and Gender Information Value Date Recorded Sex Assigned at Not on file 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
--- OUTSIDE RECORDS SUMMARY | 2025-02-18 11:03 | XMS_ITS | Encounter Summary ---
Author Organization [facility] Address [address] [place] [address] Care Team Providers Care Credit Cashier Name Role Phone Non-Staff, Physician Primary Care Provider Unava ilable Encounter Details Date Type Department Care Team (Latest Contact Info) Description 11/28/2002 Outpatient Historical [facility] [address] [place] [address] Teo Kinney DO NO ADDRESS ON FILE JOINT PAIN-FOREARM (Primary Dx); ANXIETY STATE NOS Social History Tobacco Use Types Packs/Day Years Used Date Smoking Tobacco: Never Assessed Comments Unknown Sex and Gender Information Value Date Recorded Sex Assigned at Not on file Legal Sex Female 4:31 AM VENTILATION MECHANIC Gender Identity Not on file Sexual Orientation Not on file documented as of this encounter Plan of Treatment Not on file documented as of this encounter Visit Diagnoses Diagnosis Pain in joint, forearm- Primary Anxiety state, unspecified documented in this encounter Care Teams Credit Cashier Relationship Specialty Start Date End Date Non-Staff, Physician NO ADDRESS ON FILE PCP - General 11/28/19 03/30/20 documented as of this encounter
--- OUTSIDE RECORDS SUMMARY | 2025-02-18 11:03 | XMS_ITS | Encounter Summary ---
Author Organization [facility] Address [address] [place] [address] Care Team Providers Care Cutter Woodwind Reeds Name Role Phone Non-Staff, Physician Primary Care Provider Unava ilable Encounter Details Date Type Department Care Team (Latest Contact Info) Description 10/07/[address] [facility] Pain Management Procedures [address] [place] [phone] [place] BRACHIAL NEURITIS NOS (Primary Dx) Social History Tobacco Use Types Packs/Day Years Used Date Smoking Tobacco: Never Assessed Comments Unknown Sex and Gender Information Value Date Recorded Sex Assigned at Not on file Legal Sex Female 4:31 AM PROMOTION WRITER Gender Identity Not on file Sexual Orientation Not on file documented as of this encounter Plan of Treatment Not on file documented as of this encounter Visit Diagnoses Diagnosis Brachial neuritis or radiculitis NOS- Primary Brachial neuritis or radiculitis nos documented in this encounter Care Teams Cutter Woodwind Reeds Relationship Specialty Start Date End Date Non-Staff, Physician NO ADDRESS ON FILE PCP - General 11/28/19 03/30/20 documented as of this encounter
--- OUTSIDE RECORDS SUMMARY | 2025-02-18 11:03 | XMS_ITS | Encounter Summary ---
Author Organization [facility] Address [address] [place] [address] Care Team Providers Care Marketing Performance Analyst Name Role Phone Non-Staff, Physician Primary Care Provider Unava ilable Encounter Details Date Type Department Care Team (Latest Contact Info) Description 10/16/2002 Outpatient Historical [facility] Family Medicine [place] 104 [facility] 60 [place] [phone] Ibrahima Glasgow MD [address] [facility] [address] [place] [phone] OSTEOARTHROS NOS-UNSPEC (Primary Dx) Social History Tobacco Use Types Packs/Day Years Used Date Smoking Tobacco: Never Assessed Comments Unknown Sex and Gender Information Value Date Recorded Sex Assigned at Not on file Legal Sex Female 4:31 AM ROOM SERVICE BELLHOP Gender Identity Not on file Sexual Orientation Not on file documented as of this encounter Plan of Treatment Not on file documented as of this encounter Visit Diagnoses Diagnosis Osteoarthrosis, unspecified whether generalized or localized, unspecified site- Primary documented in this encounter Care Teams Marketing Performance Analyst Relationship Specialty Start Date End Date Non-Staff, Physician NO ADDRESS ON FILE PCP - General 11/28/19 03/30/20 documented as of this encounter
--- OUTSIDE RECORDS SUMMARY | 2025-02-18 11:03 | XMS_ITS | Encounter Summary ---
Author Organization [facility] Address [address] [place] [address] Care Team Providers Care Interior Wirer Name Role Phone Non-Staff, Physician Primary Care Provider Unava ilable Encounter Details Date Type Department Care Team (Latest Contact Info) Description 08/21/2002 Outpatient Historical [facility] Medicine [place] [address] [phone] Teo Kinney DO NO ADDRESS ON FILE OTITIS MEDIA NOS (Primary Dx); ANXIETY STATE NOS Social History Tobacco Use Types Packs/Day Years Used Date Smoking Tobacco: Never Assessed Comments Unknown Sex and Gender Information Value Date Recorded Sex Assigned at Not on file Legal Sex Female 4:31 AM ADVERTISING EDITOR Gender Identity Not on file Sexual Orientation Not on file documented as of this encounter Plan of Treatment Not on file documented as of this encounter Visit Diagnoses Diagnosis Unspecified otitis media- Primary Anxiety state, unspecified documented in this encounter Care Teams Interior Wirer Relationship Specialty Start Date End Date Non-Staff, Physician NO ADDRESS ON FILE PCP - General 11/28/19 03/30/20 documented as of this encounter
--- OUTSIDE RECORDS SUMMARY | 2025-02-18 11:03 | XMS_ITS | Encounter Summary ---
Author Organization [facility] Address [address] [place] [address] Care Team Providers Care Volunteer Services Coordinator Name Role Phone Non-Staff, Physician Primary Care Provider Unava ilable Encounter Details Date Type Department Care Team (Latest Contact Info) Description 10/13/2004 Outpatient Historical [facility] Medicine [place] 104 [facility] 60 [place] [phone] Zoraida Arzola, CERTIFIED RETINAL ANGIOGRAPHER [address] [place] [phone] ACUTE BRONCHITIS (Primary Dx); ACUTE URI NOS Social History Tobacco Use Types Packs/Day Years Used Date Smoking Tobacco: Never Assessed Comments Unknown Sex and Gender Information Value Date Recorded Sex Assigned at Not on file Legal Sex Female 4:31 AM 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
--- OUTSIDE RECORDS SUMMARY | 2025-02-18 11:03 | XMS_ITS | Encounter Summary ---
Author Organization [facility] Address [address] [place] [address] Care Team Providers Care Brazing Machine Feeder Name Role Phone Non-Staff, Physician Primary Care Provider Unava ilable Encounter Details Date Type Department Care Team (Latest Contact Info) Description 01/30/2002 Outpatient Historical [facility] Family Medicine [place] 104 [facility] 60 [place] [phone] Teo Kinney DO NO ADDRESS ON FILE SPRAIN OF KNEE & LEG NOS (Primary Dx) Social History Tobacco Use Types Packs/Day Years Used Date Smoking Tobacco: Never Assessed Comments Unknown Sex and Gender Information Value Date Recorded Sex Assigned at Not on file 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
--- OUTSIDE RECORDS SUMMARY | 2025-02-18 11:03 | XMS_ITS | Encounter Summary ---
Author Organization [facility] Address [address] [place] [address] Care Team Providers Care Seed Yeast Operator Name Role Phone Non-Staff, Physician Primary Care Provider Unava ilable Encounter Details Date Type Department Care Team (Late st Contact Info) Description 06/02/2017 Ancillary Orders [facility] [address] [place] [address] Nenita Gonsalez MD [address] [facility] [address] [place] [phone] Abnormal mammogram Social History Tobacco Use Types Packs/Day Years Used Date Smoking Tobacco: Never Smokeless Tobacco: Never Alcohol Use Standard Drinks/Week Comments No 0 (1 standard drink = 0.6 oz pur e alcohol) Comments No Sex and Gender Information Value Date Recorded Sex Assigned at Not on file Legal Sex Female 4:31 AM CALL CENTER DISPATCHER Gender Identity Not on file Sexual Orientation Not on file Occupation Industry Job Start Date Job End Date Not on file Not on file Not on file Not on file documented as of this encounter Plan of Treatment Not on file documented as of this encounter Visit Diagnoses Diagnosis Abnormal mammogram Abnormal mammogram, unspecified documented in this encounter Additional Health Concerns Assessment Noted Time PHQ-9 Depression Total Score: 2 03/09/20 17 8:00 AM CDT documented as of this encounter Care Teams Seed Yeast Operator Relationship Specialty Start Date End Date Non-Staff, Physician NO ADDRESS ON FILE PCP - General 11/28/19 03/30/20 documented as of this encounter
--- OUTSIDE RECORDS SUMMARY | 2025-02-18 11:03 | XMS_ITS | Encounter Summary ---
Author Organization [facility] Address [address] [place] [address] Care Team Providers Care Head Grease Maker Name Role Phone Non-Staff, Physician Primary Care Provider Unava ilable Encounter Details Date Type Department Care Team (Latest Contact Info) Description 01/01/2003 Outpatient Historical [facility] [address] [place] [address] AMBULANCE, [facility] PSYCHOSIS NOS (CMS/HCC) (Primary Dx) Social History Tobacco Use Types Packs/Day Years Used Date Smoking Tobacco: Never Assessed Comments Unknown Sex and Gender Information Value Date Recorded Sex Assigned at Not on file Legal Sex Female 4:31 AM 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
--- OUTSIDE RECORDS SUMMARY | 2025-02-18 11:03 | XMS_ITS | Encounter Summary ---
Author Organization [facility] Address [address] [place] [address] Care Team Providers Care Health It Specialist Name Role Phone Non-Staff, Physician Primary Care Provider Unava ilable Encounter Details Date Type Department Care Team (Latest Contact Info) Description 09/01/2004 Outpatient Historical [facility] Family Medicine [place] 104 [facility] 60 [place] [phone] Zoraida Arzola, NAVY FIGHTER PILOT [address] [place] [phone] HYPOPOTASSEMIA (Primary Dx) Social History Tobacco Use Types Packs/Day Years Used Date Smoking Tobacco: Never Assessed Comments Unknown Sex and Gender Information Value Date Recorded Sex Assigned at Not on file Legal Sex Female 4:31 AM COUNTER MANAGER Gender Identity Not on file Sexual Orientation Not on file documented as of this encounter Plan of Treatment Not on file documented as of this encounter Visit Diagnoses Diagnosis Hypopotassemia- Primary documented in this encounter Care Teams Health It Specialist Relationship Specialty Start Date End Date Non-Staff, Physician NO ADDRESS ON FILE PCP - General 11/28/19 03/30/20 documented as of this encounter
--- OUTSIDE RECORDS SUMMARY | 2025-02-18 11:03 | XMS_ITS | Encounter Summary ---
Author Organization [facility] Address [address] [place] [address] Care Team Providers Care Gis Consultant Name Role Phone Non-Staff, Physician Primary Care Provider Unava ilable Encounter Details Date Type Department Care Team (Late st Contact Info) Description 07/28/2004 Outpatient Historical [facility] FY06 Zoraida Arzola, LIQUOR STORE MANAGER [address] [place] [phone] Social History Tobacco Use Types Packs/Day Years Used Date Smoking Tobacco: Never Assessed Comments Unknown Sex and Gender Information Value Date Recorded Sex Assigned at Not on file Legal Sex Female 4:31 AM NOCTURNIST PHYSICIAN Gender Identity Not on file Sexual Orientation Not on file documented as of this encounter Plan of Treatment Not on file documented as of this encounter Visit Diagnoses Not on filedocumented in this encounter Care Teams Gis Consultant Relationship Specialty Start Date End Date Non-Staff, Physician NO ADDRESS ON FILE PCP - General 11/28/19 03/30/20 documented as of this encounter
--- OUTSIDE RECORDS SUMMARY | 2025-02-18 11:03 | XMS_ITS | Encounter Summary ---
Author Organization [facility] Address [address] [place] [address] Care Team Providers Care Analysis Evaluator Name Role Phone Non-Staff, Physician Primary Care Provider Unava ilable Encounter Details Date Type Department Care Team (Latest Contact Info) Description 07/17/2002 Outpatient Historical [facility] Medicine [place] 104 [facility] 60 [place] [phone] Teo Kinney DO NO ADDRESS ON FILE IMPACTED CERUMEN (Primary Dx); CANDIDIASIS SITE NEC Social History Tobacco Use Types Packs/Day Years Used Date Smoking Tobacco: Never Assessed Comments Unknown Sex and Gender Information Value Date Recorded Sex Assigned at Not on file Legal Sex Female 4:31 AM PANTRY ATTENDANT Gender Identity Not on file Sexual Orientation Not on file documented as of this encounter Plan of Treatment Not on file documented as of this encounter Visit Diagnoses Diagnosis Impacted cerumen- Primary Other candidiasis of other specified sites documented in this encounter Care Teams Analysis Evaluator Relationship Specialty Start Date End Date Non-Staff, Physician NO ADDRESS ON FILE PCP - General 11/28/19 03/30/20 documented as of this encounter
--- OUTSIDE RECORDS SUMMARY | 2025-02-18 11:03 | XMS_ITS | Encounter Summary ---
Author Organization [facility] Address [address] [place] [address] Care Team Providers Care Document Preparation Specialist Name Role Phone Non-Staff, Physician Primary Care Provider Unava ilable Encounter Details Date Type Department Care Team (Latest Contact Info) Description 02/15/[address] [facility] Family Medicine [address] [phone] [place] Chung MD NO ADDRESS ON FILE ACUTE URI NOS (Primary Dx); INFEC OTITIS EXTERNA NOS Social History Tobacco Use Types Packs/Day Years Used Date Smoking Tobacco: Never Assessed Comments Unknown Sex and Gender Information Value Date Recorded Sex Assigned at Not on file Legal Sex Female 4:31 AM RESIDENTIAL CAREGIVER Gender Identity Not on file Sexual Orientation Not on file documented as of this encounter Plan of Treatment Not on file documented as of this encounter Visit Diagnoses Diagnosis Acute upper respiratory infections of unspecified site- Primary Infective otitis externa, unspecified documented in this encounter Care Teams Document Preparation Specialist Relationship Specialty Start Date End Date Non-Staff, Physician NO ADDRESS ON FILE PCP - General 11/28/19 03/30/20 documented as of this encounter
--- OUTSIDE RECORDS SUMMARY | 2025-02-18 11:03 | XMS_ITS | Encounter Summary ---
Author Organization [facility] Address [address] [place] [address] Care Team Providers Care Manager Sign Name Role Phone Non-Staff, Physician Primary Care Provider Unava ilable Encounter Details Date Type Department Care Team (Latest Contact Info) Description 12/12/2002 Outpatient Historical [facility] Family Medicine [address] [phone] [place] Chung MD NO ADDRESS ON FILE INFEC OTITIS EXTERNA NOS (Primary Dx) Social History Tobacco Use Types Packs/Day Years Used Date Smoking Tobacco: Never Assessed Comments Unknown Sex and Gender Information Value Date Recorded Sex Assigned at Not on file Legal Sex Female 4:31 AM UTILITIES AND MAINTENANCE SUPERVISOR Gender Identity Not on file Sexual Orientation Not on file documented as of this encounter Plan of Treatment Not on file documented as of this encounter Visit Diagnoses Diagnosis Infective otitis externa, unspecified- Primary documented in this encounter Care Teams Manager Sign Relationship Specialty Start Date End Date Non-Staff, Physician NO ADDRESS ON FILE PCP - General 11/28/19 03/30/20 documented as of this encounter
--- OUTSIDE RECORDS SUMMARY | 2025-02-18 11:03 | XMS_ITS | Encounter Summary ---
Author Organization [facility] Address [address] [place] [address] Care Team Providers Care Counter Former Name Role Phone Non-Staff, Physician Primary Care Provider Unava ilable Encounter Details Date Type Department Care Team (Latest Contact Info) Description 09/23/2004 Outpatient Historical [facility] Pain Management Procedures [address] [place] [phone] Kings Resendez CERVICALGIA (Primary Dx) Social History Tobacco Use Types Packs/Day Years Used Date Smoking Tobacco: Never Assessed Comments Unknown Sex and Gender Information Value Date Recorded Sex Assigned at Not on file Legal Sex Female 4:31 AM PRODUCTION INSPECTOR Gender Identity Not on file Sexual Orientation Not on file documented as of this encounter Plan of Treatment Not on file documented as of this encounter Visit Diagnoses Diagnosis Cervicalgia- Primary documented in this encounter Care Teams Counter Former Relationship Specialty Start Date End Date Non-Staff, Physician NO ADDRESS ON FILE PCP - General 11/28/19 03/30/20 documented as of this encounter
--- OUTSIDE RECORDS SUMMARY | 2025-02-18 11:03 | XMS_ITS | Encounter Summary ---
Author Organization [facility] Address [address] [place] [address] Care Team Providers Care Char Filter Tank Tender Name Role Phone Non-Staff, Physician Primary Care Provider Unava ilable Encounter Details Date Type Department Care Team (Latest Contact Info) Description 09/30/2004 Outpatient Historical [facility] Pain Management Procedures [address] 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
--- OUTSIDE RECORDS SUMMARY | 2025-02-18 11:03 | XMS_ITS | Encounter Summary ---
Author Organization [facility] Address [address] [place] [address] Care Team Providers Care Security Manager Name Role Phone Non-Staff, Physician Primary Care Provider Unava ilable Encounter Details Date Type Department Care Team (Latest Contact Info) Description 01/01/2003 Outpatient Historical [facility] Family Medicine [place] [address] [facility] [address] [place] [phone] Zoraida Arzola, MAILROOM COURIER [address] [place] [phone] HYPOTHYROIDISM NOS (Primary Dx) Social History Tobacco Use Types Packs/Day Years Used Date Smoking Tobacco: Never Assessed Comments Unknown Sex and Gender Information Value Date Recorded Sex Assigned at Not on file Legal Sex Female 4:31 AM COPY CENTER ASSOCIATE Gender Identity Not on file Sexual Orientation Not on file documented as of this encounter Plan of Treatment Not on file documented as of this encounter Visit Diagnoses Diagnosis Unspecified hypothyroidism- Primary documented in this encounter Care Teams Security Manager Relationship Specialty Start Date End Date Non-Staff, Physician NO ADDRESS ON FILE PCP - General 11/28/19 03/30/20 documented as of this encounter
--- OUTSIDE RECORDS SUMMARY | 2025-02-18 11:03 | XMS_ITS | Encounter Summary ---
Author Organization [facility] Address [address] [place] [address] Care Team Providers Care Washer And Capper Machine Operator Name Role Phone Non-Staff, Physician Primary Care Provider Unava ilable Encounter Details Date Type Department Care Team (Late st Contact Info) Description 09/23/2004 Outpatient Historical [facility] [address] 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
--- OUTSIDE RECORDS SUMMARY | 2025-02-18 11:03 | XMS_ITS | Encounter Summary ---
Author Organization [facility] Address [address] [place] [facility] [place] [address] Care Team Providers Care Convertible Top Installer Name Role Phone Non-Staff, Physician Primary Care Provider Unava ilable Encounter Details Date Type Department Care Team (Latest Contact Info) Description 09/21/2004 Outpatient Historical [facility] [address] [facility] [place] [place] [address] Kings Resendez BRACHIAL NEURITIS NOS (Primary Dx); OTHER BACK SYMPTOMS Social History Tobacco Use Types Packs/Day Years Used Date Smoking Tobacco: Never Assessed Comments Unknown Sex and Gender Information Value Date Recorded Sex Assigned at Not on file Legal Sex Female 4:31 AM ADDICTIONS COUNSELOR ASSISTANT Gender Identity Not on file Sexual Orientation Not on file documented as of this encounter Plan of Treatment Not on file documented as of this encounter Visit Diagnoses Diagnosis Brachial neuritis or radiculitis NOS- Primary Brachial neuritis or radiculitis nos Other symptoms referable to back documented in this encounter Care Teams Convertible Top Installer Relationship Specialty Start Date End Date Non-Staff, Physician NO ADDRESS ON FILE PCP - General 11/28/19 03/30/20 documented as of this encounter
--- OUTSIDE RECORDS SUMMARY | 2025-02-18 11:04 | XMS_ITS | Encounter Summary ---
Author Organization [facility] Address [address] [place] [address] Care Team Providers Care Eco Industrial Development Consultant Name Role Phone Non-Staff, Physician Primary Care Provider Unava ilable Encounter Details Date Type Department Care Team (Latest Contact Info) Description 03/19/2003 Outpatient Historical [facility] Medicine [place] [address] [facility] [address] [place] [phone] Teo Kinney DO NO ADDRESS ON FILE Toxic effect venom (Primary Dx) Social History Tobacco Use Types Packs/Day Years Used Date Smoking Tobacco: Never Assessed Comments Unknown Sex and Gender Information Value Date Recorded Sex Assigned at Not on file Legal Sex Female 4:31 AM INVESTIGATOR OPERATOR Gender Identity Not on file Sexual Orientation Not on file documented as of this encounter Plan of Treatment Not on file documented as of this encounter Visit Diagnoses Diagnosis Toxic effect venom- Primary Toxic effect of venom documented in this encounter Care Teams Eco Industrial Development Consultant Relationship Specialty Start Date End Date Non-Staff, Physician NO ADDRESS ON FILE PCP - General 11/28/19 03/30/20 documented as of this encounter
--- OUTSIDE RECORDS SUMMARY | 2025-02-18 11:04 | XMS_ITS | Encounter Summary ---
Author Organization [facility] Address [address] [place] [address] Care Team Providers Care Explosive Man Name Role Phone Non-Staff, Physician Primary Care Provider Unava ilable Encounter Details Date Type Department Care Team (Latest Contact Info) Description 07/21/2006 Outpatient Historical [facility] Family Medicine [place] [address] [facility] [address] [place] [phone] Zoraida Arzola, PLACEMENT MANAGER [address] [place] [phone] Unspecified Anemia (Primary Dx); Lumbago Social History Tobacco Use Types Packs/Day Years Used Date Smoking Tobacco: Never Assessed Comments Unknown Sex and Gender Information Value Date Recorded Sex Assigned at Not on file Legal Sex Female 4:31 AM UTILIZATION SPECIALIST Gender Identity Not on file Sexual Orientation Not on file documented as of this encounter Plan of Treatment Not on file documented as of this encounter Visit Diagnoses Diagnosis Anemia, unspecified- Primary Lumbago documented in this encounter Care Teams Explosive Man Relationship Specialty Start Date End Date Non-Staff, Physician NO ADDRESS ON FILE PCP - General 11/28/19 03/30/20 documented as of this encounter
--- OUTSIDE RECORDS SUMMARY | 2025-02-18 11:04 | XMS_ITS | Encounter Summary ---
Author Organization [facility] Address [address] [place] [address] Care Team Providers Care Railway Station Manager Name Role Phone Non-Staff, Physician Primary Care Provider Unava ilable Encounter Details Date Type Department Care Team (Latest Contact Info) Description 01/30/2007 Outpatient Historical [facility] [address] [place] [address] Zoraida Arzola, INORGANIC CHEMICAL TECHNICIAN [address] [place] [phone] Contact Dermatitis and Other Eczema, due to Unspecified Cause (Primary Dx) Social History Tobacco Use Types Packs/Day Years Used Date Smoking Tobacco: Never Assessed Comments Unknown Sex and Gender Information Value Date Recorded Sex Assigned at Not on file Legal Sex Female 4:31 AM ANALOG IC DESIGN ENGINEER Gender Identity Not on file Sexual Orientation Not on file documented as of this encounter Plan of Treatment Not on file documented as of this encounter Visit Diagnoses Diagnosis Contact dermatitis and other eczema, due to unspecified cause- Primary documented in this encounter Care Teams Railway Station Manager Relationship Specialty Start Date End Date Non-Staff, Physician NO ADDRESS ON FILE PCP - General 11/28/19 03/30/20 documented as of this encounter
--- OUTSIDE RECORDS SUMMARY | 2025-02-18 11:04 | XMS_ITS | Encounter Summary ---
Author Organization [facility] Address [address] [facility] Attn: Epic Prelude ADT AIMEE BUSCHRIAZ [address] Care Team Providers Care Curtain Cutter Hand Name Role Phone Non-Staff, Physician Primary Care Provider Unava ilable Encounter Details Date Type Department Care Team (Late st Contact Info) Description 03/06/2002 Outpatient Historical Teo Kinney DO NO ADDRESS ON FILE Social History Tobacco Use Types Packs/Day Years Used Date Smoking Tobacco: Never Assessed Comments Unknown Sex and Gender Information Value Date Recorded Sex Assigned at Not on file Legal Sex Female 4:31 AM CENTRAL OFFICE FRAME WIRER Gender Identity Not on file Sexual Orientation Not on file documented as of this encounter Plan of Treatment Not on file documented as of this encounter Visit Diagnoses Not on filedocumented in this encounter Care Teams Curtain Cutter Hand Relationship Specialty Start Date End Date Non-Staff, Physician NO ADDRESS ON FILE PCP - General 11/28/19 03/30/20 documented as of this encounter
--- OUTSIDE RECORDS SUMMARY | 2025-02-18 11:04 | XMS_ITS | Encounter Summary ---
Author Organization [facility] Address [address] [place] [address] Care Team Providers Care Technology Analyst Name Role Phone Non-Staff, Physician Primary Care Provider Unava ilable Encounter Details Date Type Department Care Team (Latest Contact Info) Description 01/30/2004 Outpatient Historical [facility] Family Medicine [place] [address] [facility] [address] [place] [phone] Zoraida Arzola, INVESTIGATOR NARCOTICS [address] [place] [phone] HYPOPOTASSEMIA (Primary Dx) Social History Tobacco Use Types Packs/Day Years Used Date Smoking Tobacco: Never Assessed Comments Unknown Sex and Gender Information Value Date Recorded Sex Assigned at Not on file Legal Sex Female 4:31 AM STEEPING PRESS OPERATOR Gender Identity Not on file Sexual Orientation Not on file documented as of this encounter Plan of Treatment Not on file documented as of this encounter Visit Diagnoses Diagnosis Hypopotassemia- Primary documented in this encounter Care Teams Technology Analyst Relationship Specialty Start Date End Date Non-Staff, Physician NO ADDRESS ON FILE PCP - General 11/28/19 03/30/20 documented as of this encounter
--- OUTSIDE RECORDS SUMMARY | 2025-02-18 11:04 | XMS_ITS | Encounter Summary ---
Author Organization [facility] Address [address] [place] [address] Care Team Providers Care Media Sales Representative Name Role Phone Non-Staff, Physician Primary Care Provider Unava ilable Encounter Details Date Type Department Care Team (Latest Contact Info) Description 01/02/2004 Outpatient Historical [facility] Medicine [place] [address] [facility] [address] [place] [phone] Zoraida Arzola, BURNER SHAFT [address] [place] [phone] SYNCOPE AND COLLAPSE (Primary Dx); PROLONG POSTTRAUM STRESS Social History Tobacco Use Types Packs/Day Years Used Date Smoking Tobacco: Never Assessed Comments Unknown Sex and Gender Information Value Date Recorded Sex Assigned at Not on file Legal Sex Female 4:31 AM CRITICAL CARE PHYSICIAN ASSISTANT Gender Identity Not on file Sexual Orientation Not on file documented as of this encounter Plan of Treatment Not on file documented as of this encounter Visit Diagnoses Diagnosis Syncope and collapse- Primary Posttraumatic stress disorder documented in this encounter Care Teams Media Sales Representative Relationship Specialty Start Date End Date Non-Staff, Physician NO ADDRESS ON FILE PCP - General 11/28/19 03/30/20 documented as of this encounter
--- OUTSIDE RECORDS SUMMARY | 2025-02-18 11:04 | XMS_ITS | Encounter Summary ---
Author Organization [facility] Address [address] [place] [address] Care Team Providers Care Telephone Diaphragm Assembler Name Role Phone Non-Staff, Physician Primary Care Provider Unava ilable Encounter Details Date Type Department Care Team (Latest Contact Info) Description 03/01/2003 Outpatient Historical [facility] [address] [place] [address] [place] Chung MD NO ADDRESS ON FILE INSECT BITE NEC (Primary Dx) Social History Tobacco Use Types Packs/Day Years Used Date Smoking Tobacco: Never Assessed Comments Unknown Sex and Gender Information Value Date Recorded Sex Assigned at Not on file Legal Sex Female 4:31 AM PACKAGE COLLECTOR Gender Identity Not on file Sexual Orientation Not on file documented as of this encounter Plan of Treatment Not on file documented as of this encounter Visit Diagnoses Diagnosis Other, multiple, and unspecified sites, insect bite, nonvenomous, without mention of infection(919.4)- Primary Other, multiple, and unspecified sites, insect bite, nonvenomous, without mention of infection documented in this encounter Care Teams Telephone Diaphragm Assembler Relationship Specialty Start Date End Date Non-Staff, Physician NO ADDRESS ON FILE PCP - General 11/28/19 03/30/20 documented as of this encounter
--- OUTSIDE RECORDS SUMMARY | 2025-02-18 11:04 | XMS_ITS | Encounter Summary ---
Author Organization [facility] Address [address] [place] [address] Care Team Providers Care Strategies Analyst Name Role Phone Non-Staff, Physician Primary Care Provider Unava ilable Encounter Details Date Type Department Care Team (Latest Contact Info) Description 04/16/2004 Outpatient Historical [facility] Medicine [place] [address] [facility] [address] [place] [phone] Zoraida Arzola, ASPHALT SURFACE HEATER OPERATOR [address] [place] [phone] PNEUMONIA, ORGANISM NOS (Primary Dx) Social History Tobacco Use Types Packs/Day Years Used Date Smoking Tobacco: Never Assessed Comments Unknown Sex and Gender Information Value Date Recorded Sex Assigned at Not on file Legal Sex Female 4:31 AM PICTURES EDITOR Gender Identity Not on file Sexual Orientation Not on file documented as of this encounter Plan of Treatment Not on file documented as of this encounter Visit Diagnoses Diagnosis Pneumonia, organism unspecified(486)- Primary Pneumonia, organism unspecified documented in this encounter Care Teams Strategies Analyst Relationship Specialty Start Date End Date Non-Staff, Physician NO ADDRESS ON FILE PCP - General 11/28/19 03/30/20 documented as of this encounter
--- OUTSIDE RECORDS SUMMARY | 2025-02-18 11:04 | XMS_ITS | Encounter Summary ---
Author Organization [facility] Address [address] [place] [address] Care Team Providers Care Network Specialist Name Role Phone Non-Staff, Physician Primary Care Provider Unava ilable Encounter Details Date Type Department Care Team (Latest Contact Info) Description 03/06/2003 Outpatient Historical [facility] [address] [place] [address] Ibrahima Glasgow MD [address] [facility] [address] [place] [phone] INSECT BITE NEC (Primary Dx) Social History Tobacco Use Types Packs/Day Years Used Date Smoking Tobacco: Never Assessed Comments Unknown Sex and Gender Information Value Date Recorded Sex Assigned at Not on file Legal Sex Female 4:31 AM COIN PURSE ASSEMBLER Gender Identity Not on file Sexual Orientation Not on file documented as of this encounter Plan of Treatment Not on file documented as of this encounter Visit Diagnoses Diagnosis Other, multiple, and unspecified sites, insect bite, nonvenomous, without mention of infection(919.4)- Primary Other, multiple, and unspecified sites, insect bite, nonvenomous, without mention of infection documented in this encounter Care Teams Network Specialist Relationship Specialty Start Date End Date Non-Staff, Physician NO ADDRESS ON FILE PCP - General 11/28/19 03/30/20 documented as of this encounter
--- OUTSIDE RECORDS SUMMARY | 2025-02-18 11:04 | XMS_ITS | Encounter Summary ---
Author Organization [facility] Address [address] [place] [address] Care Team Providers Care Jacker Name Role Phone Non-Staff, Physician Primary Care Provider Unava ilable Encounter Details Date Type Department Care Team (Latest Contact Info) Description 07/02/2003 Outpatient Historical [facility] Medicine [place] [address] [facility] [address] [place] [phone] Zoraida Arzola, FOIL STAMP OPERATOR [address] [place] [phone] EXAM AFTR OTHR HI-RISK COMPL RX NEC (Primary Dx) Social History Tobacco Use Types Packs/Day Years Used Date Smoking Tobacco: Never Assessed Comments Unknown Sex and Gender Information Value Date Recorded Sex Assigned at Not on file Legal Sex Female 4:31 AM EMAIL PRODUCER Gender Identity Not on file Sexual Orientation Not on file documented as of this encounter Plan of Treatment Not on file documented as of this encounter Visit Diagnoses Diagnosis Follow-up examination following completed treatment with high-risk medications, not elsewhere classified- Primary documented in this encounter Care Teams Jacker Relationship Specialty Start Date End Date Non-Staff, Physician NO ADDRESS ON FILE PCP - General 11/28/19 03/30/20 documented as of this encounter
--- OUTSIDE RECORDS SUMMARY | 2025-02-18 11:04 | XMS_ITS | Encounter Summary ---
Author Organization [facility] Address [address] [facility] Attn: Epic Prelude ADT AIMEE BUSCH RIAZ [address] Care Team Providers Care Laboratory Inspector Name Role Phone Non-Staff, Physician Primary Care Provider Unava ilable Encounter Details Date Type Department Care Team (Late st Contact Info) Description 11/21/2001 Outpatient Historical Zoraida Arzola, INCINERATOR PLANT GENERAL SUPERVISOR [address] [place] [phone] Social History Tobacco Use Types Packs/Day Years Used Date Smoking Tobacco: Never Assessed Comments Unknown Sex and Gender Information Value Date Recorded Sex Assigned at Not on file Legal Sex Female 4:31 AM TEMPORARY STAFF ACCOUNTANT Gender Identity Not on file Sexual Orientation Not on file documented as of this encounter Plan of Treatment Not on file documented as of this encounter Visit Diagnoses Not on filedocumented in this encounter Care Teams Laboratory Inspector Relationship Specialty Start Date End Date Non-Staff, Physician NO ADDRESS ON FILE PCP - General 11/28/19 03/30/20 documented as of this encounter
--- OUTSIDE RECORDS SUMMARY | 2025-02-18 11:04 | XMS_ITS | Encounter Summary ---
Author Organization [facility] Address [address] [place] [address] Care Team Providers Care Rough Carpenter Name Role Phone Non-Staff, Physician Primary Care Provider Unava ilable Encounter Details Date Type Department Care Team (Latest Contact Info) Description 04/04/2007 Outpatient Historical [facility] Medicine [place] 104 [facility] 60 [place] [phone] Zoraida Arzola, RN TRAVEL [address] [place] [phone] Acute Upper Respiratory Infections of Unspecified Site (Primary Dx); Anxiety State, Unspecified Social History Tobacco Use Types Packs/Day Years Used Date Smoking Tobacco: Never Assessed Comments Unknown Sex and Gender Information Value Date Recorded Sex Assigned at Not on file Legal Sex Female 4:31 AM REFRIGERATOR REPAIRMAN Gender Identity Not on file Sexual Orientation Not on file documented as of this encounter Plan of Treatment Not on file documented as of this encounter Visit Diagnoses Diagnosis Acute upper respiratory infections of unspecified site- Primary Anxiety state, unspecified documented in this encounter Care Teams Rough Carpenter Relationship Specialty Start Date End Date Non-Staff, Physician NO ADDRESS ON FILE PCP - General 11/28/19 03/30/20 documented as of this encounter
--- OUTSIDE RECORDS SUMMARY | 2025-02-18 11:04 | XMS_ITS | Encounter Summary ---
Author Organization [facility] Address [address] Attn: Epic Prelude ADT AIMEE BUSCHRIAZ [address] Care Team Providers Care Aerospace Assembler Name Role Phone Non-Staff, Physician Primary Care Provider Unava ilable Encounter Details Date Type Department Care Team (Late st Contact Info) Description 05/15/2002 Outpatient Historical Ibrahima Glasgow MD [address] [facility] [address] [phone] Social History Tobacco Use Types Packs/Day Years Used Date Smoking Tobacco: Never Assessed Comments Unknown Sex and Gender Information Value Date Recorded Sex Assigned at Not on file Legal Sex Female 4:31 AM REAL ESTATE RECRUITER Gender Identity Not on file Sexual Orientation Not on file documented as of this encounter Plan of Treatment Not on file documented as of this encounter Visit Diagnoses Not on filedocumented in this encounter Care Teams Aerospace Assembler Relationship Specialty Start Date End Date Non-Staff, Physician NO ADDRESS ON FILE PCP - General 11/28/19 03/30/20 documented as of this encounter
--- OUTSIDE RECORDS SUMMARY | 2025-02-18 11:04 | XMS_ITS | Encounter Summary ---
Author Organization [facility] Address [address] Attn: Epic Prelude ADT [place]IM[place] BUSCH [place] [address] Care Team Providers Care Powder Press Operator Name Role Phone Non-Staff, Physician Primary Care Provider Unava ilable Encounter Details Date Type Department Care Team (Late st Contact Info) Description 04/06/2002 Outpatient Historical Zoraida Arzola, MORTGAGE SALES MANAGER [address] [place] [phone] Social History Tobacco Use Types Packs/Day Years Used Date Smoking Tobacco: Never Assessed Comments Unknown Sex and Gender Information Value Date Recorded Sex Assigned at Not on file Legal Sex Female 4:31 AM SHEEP SHEARER Gender Identity Not on file Sexual Orientation Not on file documented as of this encounter Plan of Treatment Not on file documented as of this encounter Visit Diagnoses Not on filedocumented in this encounter Care Teams Powder Press Operator Relationship Specialty Start Date End Date Non-Staff, Physician NO ADDRESS ON FILE PCP - General 11/28/19 03/30/20 documented as of this encounter
--- OUTSIDE RECORDS SUMMARY | 2025-02-18 11:04 | XMS_ITS | Encounter Summary ---
Author Organization [employer] [facility] Address [address] [place] [address] Care Team Providers Care Embedded Systems Software Engineer Name Role Phone Non-Staff, Physician Primary Care Provider Unava ilable Encounter Details Date Type Department Care Team (Late st Contact Info) Description 03/10/2020 Ancillary Orders [facility] [address] [place] [address] Zoraida Arzola, STEAMTABLE ATTENDANT RAILROAD [address] [place] [address] Cough Social History Tobacco Use Types Packs/Day Years Used Date Smoking Tobacco: Never Smokeless Tobacco: Never Alcohol Use Standard Drinks/Week Comments No 0 (1 standard drink = 0.6 oz pur e alcohol) Comments No Sex and Gender Information Value Date Recorded Sex Assigned at Not on file Legal Sex Female 4:31 AM MANAGER HAIR Gender Identity Not on file Sexual Orientation Not on file Occupation Industry Job Start Date Job End Date Not on file Not on file Not on file Not on file COVID-19 Exposure Response Date Recorded In the last month, have you been in contact with someone who was confirmed or suspected to have Coronavirus / COVID-19? No / Unsure 03/10/2020 8:41 AM CDT documented as of this encounter Plan of Treatment Not on file documented as of this encounter Results * XR CHEST PA AND LATERAL 2 VW (03/10/2020 9:01 AM CDT) Anatomical Region Laterality Modality Chest Computed Radiogr aphy 03/10/2020 9:01 AM CDT Impressions 03/10/2020 9:47 AM CDT IMPRESSION: Cardiomegaly without evidence of overt failure. [id number] Narrative 03/10/2020 9:47 AM CDT XR CHEST PA AND LATERAL 2 VW Reason For Exam: See Diagnosis. Diagnosis: Cough. COMPARISON: 08/06/2019 FINDINGS: Mild cardiomegaly. No focal consolidation, pleural effusion, or pneumothorax is seen. No acute osseous abnormality is appreciated. Procedure Note Sergio Bella MD - 03/10/2020 XR CHEST PA AND LATERAL 2 VW Reason For Exam: See Diagnosis. Diagnosis: Cough. COMPARISON: 08/06/2019 FINDINGS: Mild cardiomegaly. No focal consolidation, pleural effusion, or pneumothorax is seen. No acute osseous abnormality is appreciated. IMPRESSION: Cardiomegaly without evidence of overt failure. [id number] us Zoraida Arzola STEAMTABLE ATTENDANT RAILROAD DIAGNOSTIC IMAGING ORDERABL ES Final Result documented in this encounter Visit Diagnoses Diagnosis Cough Cough documented in this encounter Additional Health Concerns Assessment Noted Time PHQ-9 Depression Total Score: 2 08/17/19 19 10:00 AM MANAGER HAIR documented as of this encounter Care Teams Embedded Systems Software Engineer Relationship Specialty Start Date End Date Non-Staff, Physician NO ADDRESS ON FILE PCP - General 11/28/19 03/30/20 documented as of this encounter
--- OUTSIDE RECORDS SUMMARY | 2025-02-18 11:04 | XMS_ITS | Encounter Summary ---
Author Organization [facility] Address [address] [place] [address] Care Team Providers Care Postal Supervisor Name Role Phone Non-Staff, Physician Primary Care Provider Unava ilable Encounter Details Date Type Department Care Team (Latest Contact Info) Description 03/04/2003 Outpatient Historical [facility] [address] [place] [address] Ibrahima Glasgow MD [address] [facility] [address] [place] [phone] INSECT BITE NEC (Primary Dx) Social History Tobacco Use Types Packs/Day Years Used Date Smoking Tobacco: Never Assessed Comments Unknown Sex and Gender Information Value Date Recorded Sex Assigned at Not on file Legal Sex Female 4:31 AM AUDIOVISUAL LIBRARIAN Gender Identity Not on file Sexual Orientation Not on file documented as of this encounter Plan of Treatment Not on file documented as of this encounter Visit Diagnoses Diagnosis Other, multiple, and unspecified sites, insect bite, nonvenomous, without mention of infection(919.4)- Primary Other, multiple, and unspecified sites, insect bite, nonvenomous, without mention of infection documented in this encounter Care Teams Postal Supervisor Relationship Specialty Start Date End Date Non-Staff, Physician NO ADDRESS ON FILE PCP - General 11/28/19 03/30/20 documented as of this encounter
--- OUTSIDE RECORDS SUMMARY | 2025-02-18 11:04 | XMS_ITS | Encounter Summary ---
Author Organization [facility] Address [address] [place] [address] Care Team Providers Care Airplane Pilot Helper Name Role Phone Non-Staff, Physician Primary Care Provider Unava ilable Encounter Details Date Type Department Care Team (Latest Contact Info) Description 10/04/2006 Outpatient Historical [facility] Family Medicine [place] [address] [facility] 60 [place] [phone] Zoraida Arzola, CARTOONIST SPECIAL EFFECTS [address] [place] [phone] Acute Upper Respiratory Infections of Unspecified Site (Primary Dx) Social History Tobacco Use Types Packs/Day Years Used Date Smoking Tobacco: Never Assessed Comments Unknown Sex and Gender Information Value Date Recorded Sex Assigned at Not on file Legal Sex Female 4:31 AM PUTTY PATCHER Gender Identity Not on file Sexual Orientation Not on file documented as of this encounter Plan of Treatment Not on file documented as of this encounter Visit Diagnoses Diagnosis Acute upper respiratory infections of unspecified site- Primary documented in this encounter Care Teams Airplane Pilot Helper Relationship Specialty Start Date End Date Non-Staff, Physician NO ADDRESS ON FILE PCP - General 11/28/19 03/30/20 documented as of this encounter
--- OUTSIDE RECORDS SUMMARY | 2025-02-18 11:04 | XMS_ITS | Encounter Summary ---
Author Organization [facility] Address [address] [place] [address] Care Team Providers Care Cost Accounting Clerk Name Role Phone Non-Staff, Physician Primary Care Provider Unava ilable Encounter Details Date Type Department Care Team (Latest Contact Info) Description 03/21/2007 Outpatient Historical [facility] Family Medicine [place] [address] [facility] 60 [place] [phone] Zoraida Arzola, PRODUCE DEPARTMENT SUPERVISOR [address] [place] [phone] Fluid Overload (Primary Dx) Social History Tobacco Use Types Packs/Day Years Used Date Smoking Tobacco: Never Assessed Comments Unknown Sex and Gender Information Value Date Recorded Sex Assigned at Not on file Legal Sex Female 4:31 AM LINER WORKER Gender Identity Not on file Sexual Orientation Not on file documented as of this encounter Plan of Treatment Not on file documented as of this encounter Visit Diagnoses Diagnosis Fluid overload- Primary documented in this encounter Care Teams Cost Accounting Clerk Relationship Specialty Start Date End Date Non-Staff, Physician NO ADDRESS ON FILE PCP - General 11/28/19 03/30/20 documented as of this encounter
--- OUTSIDE RECORDS SUMMARY | 2025-02-18 11:04 | XMS_ITS | Encounter Summary ---
Author Organization [facility] Address [address] [place] [address] Care Team Providers Care Public Health Analyst Name Role Phone Non-Staff, Physician Primary Care Provider Unava ilable Encounter Details Date Type Department Care Team (Latest Contact Info) Description 11/21/2001 Outpatient Historical [facility] Family Medicine [address] [phone] Teo Kinney DO NO ADDRESS ON FILE HYPOTHYROIDISM NOS (Primary Dx) Social History Tobacco Use Types Packs/Day Years Used Date Smoking Tobacco: Never Assessed Comments Unknown Sex and Gender Information Value Date Recorded Sex Assigned at Not on file Legal Sex Female 4:31 AM CURTAIN INSPECTOR Gender Identity Not on file Sexual Orientation Not on file documented as of this encounter Plan of Treatment Not on file documented as of this encounter Visit Diagnoses Diagnosis Unspecified hypothyroidism- Primary documented in this encounter Care Teams Public Health Analyst Relationship Specialty Start Date End Date Non-Staff, Physician NO ADDRESS ON FILE PCP - General 11/28/19 03/30/20 documented as of this encounter
--- OUTSIDE RECORDS SUMMARY | 2025-02-18 11:04 | XMS_ITS | Encounter Summary ---
Author Organization [facility] Address [address] [place] [address] Care Team Providers Care Assistant Merchandise Manager Name Role Phone Non-Staff, Physician Primary Care Provider Unava ilable Encounter Details Date Type Department Care Team (Latest Contact Info) Description 03/06/2002 Outpatient Historical [facility] Medicine [place] [address] [facility] 60 [place] [phone] Teo Kinney DO NO ADDRESS ON FILE DEPRESSIVE DISORDER NEC (Primary Dx); OTITIS MEDIA NOS; EXAM AFTR OTHR HI-RISK COMPL RX NEC; HYPOTHYROIDISM NOS Social History Tobacco Use Types Packs/Day Years Used Date Smoking Tobacco: Never Assessed Comments Unknown Sex and Gender Information Value Date Recorded Sex Assigned at Not on file Legal Sex Female 4:31 AM THREAD GRINDER Gender Identity Not on file Sexual Orientation Not on file documented as of this encounter Plan of Treatment Not on file documented as of this encounter Visit Diagnoses Diagnosis Depressive disorder, not elsewhere classified- Primary Unspecified otitis media Follow-up examination following completed treatment with high-risk medications, not elsewhere classified Unspecified hypothyroidism documented in this encounter Care Teams Assistant Merchandise Manager Relationship Specialty Start Date End Date Non-Staff, Physician NO ADDRESS ON FILE PCP - General 11/28/19 03/30/20 documented as of this encounter
--- OUTSIDE RECORDS SUMMARY | 2025-02-18 11:04 | XMS_ITS | Encounter Summary ---
Author Organization [facility] Address [address] [place] [address] Care Team Providers Care Pt Escort Name Role Phone Non-Staff, Physician Primary Care Provider Unava ilable Encounter Details Date Type Department Care Team (Latest Contact Info) Description 11/26/2003 Outpatient Historical [facility] Medicine [place] 104 [facility] 60 [place] [address] Zoraida Arzola, COMMISSIONER PUBLIC WORKS [address] [place] [phone] ADV EFFECT MED/BIOL SUB NOS (Primary Dx) Social History Tobacco Use Types Packs/Day Years Used Date Smoking Tobacco: Never Assessed Comments Unknown Sex and Gender Information Value Date Recorded Sex Assigned at Not on file Legal Sex Female 4:31 AM MANAGER OF MEDICAL Gender Identity Not on file Sexual Orientation Not on file documented as of this encounter Plan of Treatment Not on file documented as of this encounter Visit Diagnoses Diagnosis Other and unspecified adverse effect of drug, medicinal and biological substance- Primary documented in this encounter Care Teams Pt Escort Relationship Specialty Start Date End Date Non-Staff, Physician NO ADDRESS ON FILE PCP - General 11/28/19 03/30/20 documented as of this encounter
--- OUTSIDE RECORDS SUMMARY | 2025-02-18 11:04 | XMS_ITS | Encounter Summary ---
Author Organization [facility] Address [address] [place] [address] Care Team Providers Care Crm Consultant Name Role Phone Non-Staff, Physician Primary Care Provider Unava ilable Encounter Details Date Type Department Care Team (Latest Contact Info) Description 09/10/2003 Outpatient Historical [facility] Family Medicine [place] [address] [facility] 60 [place] [phone] Zoraida Arzola, BUCKET WASH OPERATOR [address] [place] [phone] HYPOTHYROIDISM NOS (Primary Dx) Social History Tobacco Use Types Packs/Day Years Used Date Smoking Tobacco: Never Assessed Comments Unknown Sex and Gender Information Value Date Recorded Sex Assigned at Not on file Legal Sex Female 4:31 AM COMPLEX CARE NURSE Gender Identity Not on file Sexual Orientation Not on file documented as of this encounter Plan of Treatment Not on file documented as of this encounter Visit Diagnoses Diagnosis Unspecified hypothyroidism- Primary documented in this encounter Care Teams Crm Consultant Relationship Specialty Start Date End Date Non-Staff, Physician NO ADDRESS ON FILE PCP - General 11/28/19 03/30/20 documented as of this encounter
--- OUTSIDE RECORDS SUMMARY | 2025-02-18 11:04 | XMS_ITS | Encounter Summary ---
Author Organization [facility] Address [address] [place] [address] Care Team Providers Care Pants Presser Name Role Phone Non-Staff, Physician Primary Care Provider Unava ilable Encounter Details Date Type Department Care Team (Latest Contact Info) Description 06/19/2002 Outpatient Historical [facility] Family Medicine [place] 104 [facility] 60 [place] [phone] Teo Kinney DO NO ADDRESS ON FILE IMPACTED CERUMEN (Primary Dx) Social History Tobacco Use Types Packs/Day Years Used Date Smoking Tobacco: Never Assessed Comments Unknown Sex and Gender Information Value Date Recorded Sex Assigned at Not on file Legal Sex Female 4:31 AM CASER UP Gender Identity Not on file Sexual Orientation Not on file documented as of this encounter Plan of Treatment Not on file documented as of this encounter Visit Diagnoses Diagnosis Impacted cerumen- Primary documented in this encounter Care Teams Pants Presser Relationship Specialty Start Date End Date Non-Staff, Physician NO ADDRESS ON FILE PCP - General 11/28/19 03/30/20 documented as of this encounter
--- OUTSIDE RECORDS SUMMARY | 2025-02-18 11:04 | XMS_ITS | Encounter Summary ---
Author Organization [facility] Address [address] [place] [address] Care Team Providers Care Ledge Man Name Role Phone Non-Staff, Physician Primary Care Provider Unava ilable Encounter Details Date Type Department Care Team (Latest Contact Info) Description 11/24/2006 Outpatient Historical [facility] Family Medicine [place] 104 [facility] 60 [place] [phone] Zoraida Arzola, MOTOR ASSEMBLY SUPERVISOR [address] [place] [phone] Hypopotassemia (Primary Dx) Social History Tobacco Use Types Packs/Day Years Used Date Smoking Tobacco: Never Assessed Comments Unknown Sex and Gender Information Value Date Recorded Sex Assigned at Not on file Legal Sex Female 4:31 AM FISCAL ASSISTANT Gender Identity Not on file Sexual Orientation Not on file documented as of this encounter Plan of Treatment Not on file documented as of this encounter Visit Diagnoses Diagnosis Hypopotassemia- Primary documented in this encounter Care Teams Ledge Man Relationship Specialty Start Date End Date Non-Staff, Physician NO ADDRESS ON FILE PCP - General 11/28/19 03/30/20 documented as of this encounter
--- OUTSIDE RECORDS SUMMARY | 2025-02-18 11:04 | XMS_ITS | Encounter Summary ---
Author Organization [facility] Address [address] [place] [address] Care Team Providers Care Panel Wirer Name Role Phone Non-Staff, Physician Primary Care Provider Unava ilable Encounter Details Date Type Department Care Team (Late st Contact Info) Description 10/04/2008 Ancillary Orders [facility] Imaging External Read [address] [place] [address] Zoraida Arzola, HATCH TENDER [address] [place] [address] Screening Mammogram Social History Tobacco Use Types Packs/Day Years Used Date Smoking Tobacco: Never Assessed Comments Unknown Sex and Gender Information Value Date Recorded Sex Assigned at Not on file Legal Sex Female 4:31 AM HIGH DENSITY PRESS OPERATOR Gender Identity Not on file Sexual Orientation Not on file documented as of this encounter Plan of Treatment Not on file documented as of this encounter Results * MAMMO SCREENING BILAT (10/04/2008 9:04 AM HIGH DENSITY PRESS OPERATOR) Anatomical Region Laterality Modality Breast Bilateral Mammography Narrative 10/07/2008 12:04 PM CDT Bilateral Mammogram Reason for Exam: Screening Comparison: Comparison is made with the prior exam(s) dated 2006 Findings: Bilateral CC and MLO views were obtained. This examination was reviewed with the aid of a computer-aided detection system(CAD). The breast tissue density is average. Stable asymmetric tissue left breast. Stable right nodule. No significant new findings since the prior mammogram(s). Procedure Note Eris Ruiz MD - 10/07/2008 Bilateral Mammogram Reason for Exam: Screening Comparison: Comparison is made with the prior exam(s) dated 2006 Findings: Bilateral CC and MLO views were obtained. This examination was reviewed with the aid of a computer-aided detectionsystem(CAD). The breast tissue density is average. Stable asymmetric tissue left breast. Stable right nodule. No significant new findings since the prior mammogram(s). Zoraida Arzola HATCH TENDER MAMMO ORDERABLES Final Resu lt documented in this encounter Visit Diagnoses Diagnosis Screening mammogram Other screening mammogram documented in this encounter Care Teams Panel Wirer Relationship Specialty Start Date End Date Non-Staff, Physician NO ADDRESS ON FILE PCP - General 11/28/19 03/30/20 documented as of this encounter
--- OUTSIDE RECORDS SUMMARY | 2025-02-18 11:04 | XMS_ITS | Encounter Summary ---
Author Organization [facility] Address [address] [place] [address] Care Team Providers Care Jewelry Bench Worker Name Role Phone Non-Staff, Physician Primary Care Provider Unava ilable Encounter Details Date Type Department Care Team (Latest Contact Info) Description 06/30/2004 Outpatient Historical [facility] Family Medicine [place] [address] [facility] 60 [place] [phone] Zoraida Arzola, IMAGING TECHNOLOGIST [address] [place] [phone] CERVICALGIA (Primary Dx) Social History Tobacco Use Types Packs/Day Years Used Date Smoking Tobacco: Never Assessed Comments Unknown Sex and Gender Information Value Date Recorded Sex Assigned at Not on file Legal Sex Female 4:31 AM FIELD COLLECTOR Gender Identity Not on file Sexual Orientation Not on file documented as of this encounter Plan of Treatment Not on file documented as of this encounter Visit Diagnoses Diagnosis Cervicalgia- Primary documented in this encounter Care Teams Jewelry Bench Worker Relationship Specialty Start Date End Date Non-Staff, Physician NO ADDRESS ON FILE PCP - General 11/28/19 03/30/20 documented as of this encounter
--- OUTSIDE RECORDS SUMMARY | 2025-02-18 11:04 | XMS_ITS | Encounter Summary ---
Author Organization [facility] Address [address] [place] [address] Care Team Providers Care Photographer Helper Name Role Phone Non-Staff, Physician Primary Care Provider Unava ilable Encounter Details Date Type Department Care Team (Latest Contact Info) Description 02/16/2007 Outpatient Historical [facility] Medicine [place] [address] [facility] [address] [place] [phone] Zoraida Arzola, HARNESS AND BAG INSPECTOR [address] [place] [phone] Exam Post High-Risk Rx (Primary Dx); Unspecified Hypothyroidism Social History Tobacco Use Types Packs/Day Years Used Date Smoking Tobacco: Never Assessed Comments Unknown Sex and Gender Information Value Date Recorded Sex Assigned at Not on file Legal Sex Female 4:31 AM LOADING SUPERVISOR Gender Identity Not on file Sexual Orientation Not on file documented as of this encounter Plan of Treatment Not on file documented as of this encounter Visit Diagnoses Diagnosis Follow-up examination following completed treatment with high-risk medications, not elsewhere classified- Primary Unspecified hypothyroidism documented in this encounter Care Teams Photographer Helper Relationship Specialty Start Date End Date Non-Staff, Physician NO ADDRESS ON FILE PCP - General 11/28/19 03/30/20 documented as of this encounter
--- OUTSIDE RECORDS SUMMARY | 2025-02-18 11:04 | XMS_ITS | Clinical Summary ---
Author Organization [facility] Address [address] [facility] [address] Care Team Providers Care Nuclear Fuels Research Engineer Name Role Phone Unavailable Primary Care Provider Unavailabl e Allergies Active Allergy Reactions Criticality Noted Date Comments Adhesive Tape Rash Low Carbamazepine Other (See Comments) Double vision Cortisone Rash,Swelling Low 06/16/2011 Fiber Rash Low Hydrocodone Hives High 07/04/2017 Iodinated Contrast Media Anaphylaxis High 04/17/2009 Iodine Anaphylaxis High 05/13/2009 topical Penicillins Rash Low 04/24/2009 Sulfa (Sulfonamide Antibiotics) Other (See Comments) whelps Medications aspirin (GUILHERME) 81 mg Oral Tab Take 1 Tab by mouth daily. 100 Tab 2 3 Active Nebulizer & Compressor For Neb Device Use as directed four times daily. Dx. J44.9 Length of need: 99. 1 Each 0 6 Active zafirlukast (ACCOLATE) 20 mg tabletIndications :Mild persistent asthma without complication Take 1 Tablet (20 mg) by mouth two times daily, before breakfast and bedtime Take one hour before or two hours after meals.. 180 Tablet 4 8 Active rOPINIRole (REQUIP) 1 mg tablet Take 1 Tablet (1 mg) by mouth 2 times daily. 180 Tablet 4 8 Active DULoxetine (CYMBALTA) 60 mg Capsule, Delayed Release(E.C.) Take 1 Capsule (60 mg) by mouth 2 times daily. 180 Capsule 4 8 Active losartan (COZAAR) 50 mg tablet Take 1 Tablet (50 mg) by mouth daily. 90 Tablet 8 Active albuterol (PROVENTIL,VENTOL IN) 2.5 mg /3 mL (0.083 %) Solution for NebulizationIndic ations:Chronic bronchitis, unspecified chronic bronchitis type (CMS/HCC) Take 1.5 mL (1.25 mg) by inhalation every 6 hours as needed for Shortness of Breath. 120 mL 4 8 Active meloxicam (MOBIC) 15 mg tablet Take 1 Tablet (15 mg) by mouth daily. 30 Tablet 2 8 Active levothyroxine 150 mcg tablet TAKE 1 TABLET BY MOUTH DAILY EARLY IN THE MORNING. 90 Tablet 4 8 Active metoprolol tartrate (LOPRESSOR) 50 mg tablet Take 1 Tablet (50 mg) by mouth 2 times daily. 180 Tablet 4 8 Active furosemide (LASIX) 40 mg tablet TAKE 1 TABLET BY MOUTH TWO TIMES DAILY. 180 Tablet 4 9 Active amLODIPine (NORVASC) 10 mg tabletIndications :Essential hypertension Take 1 Tablet (10 mg) by mouth daily. 90 Tablet 4 9 Active traZODone (DESYREL) 150 mg tablet Take 150 mg by mouth daily at bedtime. Active potassium chloride (KLOR-CON) 20 mEq Extended Release tablet Take 1 Tablet (20 mEq) by mouth 3 times daily. 270 Tablet 4 9 Active esomeprazole (NexIUM) 40 mg Capsule, Delayed Release(E.C.) TAKE 1 CAPSULE BY MOUTH DAILY. 90 Capsule 4 9 Active albuterol HFA 90 mcg inhalerIndication s:Chronic bronchitis, unspecified chronic bronchitis type (CMS/HCC) INHALE 2 PUFFS EVERY 6 HOURS NEEDED FOR SHORTNESS OF BREATH. 34 Gram 4 9 Active diclofenac sodium (VOLTAREN) 75 mg Tablet, Delayed Release (E.C.) Take 1 Tablet (75 mg) by mouth 2 times daily. 60 Tablet 1 9 Active cyclobenzaprine (FLEXERIL) 10 mg tablet Take 1 Tablet (10 mg) by mouth 3 times daily as needed for Pain or Spasm. Do not drive or operate equipment while taking this medication. 12 Tablet 1 Active Active Problems Problem Noted Date Diagnosed Date Hyperlipidemia 08/08/2018 Diverticulosis of large intestine without hemorr dominga 10/26/2016 Overview (10/26/2016): Moderate disease, of the left side of the colon. Internal hemorrhoids without complication 2016 Morbid obesity with body mass index of 40.0-49.9 08/11/2016 Overview (08/11/2016): Assessment & Plan (08/11/2016 11:22 AM COLLEGE TUTOR): Body mass index is 45.84 kg/(m^2). BMI 40 or above: We talked about the role of morbid obesity in her current health conditions, risk of future morbidity/mortality and the importance of weight loss in improving these conditions and her overall health. Counseled regarding the benefits of a low calorie, well-balanced diet and daily exercise. Weight management options discussed. Asthma, chronic obstructive, with acute exacerba tion 03/17/2016 Chronic bronchitis 03/17/2016 Hyperglycemia, drug-induced 03/16/2016 Acute bronchitis with bronchospasm 03/15/2016 Overview (03/15/2016): Failed outpatient treatment Diastolic heart failure, NYHA class 3 03/02/2016 Acute pain of right knee 02/10/2016 Hypothyroidism due to acquired atrophy of thyroi d 06/05/2015 Bilateral knee pain 02/12/2014 S/P dilatation of esophageal stricture 3 Overview (10/31/2012): 4/13- 20 mm-(Tate) Tremor 04/05/2012 Other specified disorders of rotator cuff syndrome of shoulder and allied disorders 03/31/2011 Sleep apnea Essential hypertension Anxiety state Recurrent major depressive disorder, in partial remission Overview (08/11/2016): Pt. Seeing [facility] for [facility] years Will continue counseling Assessment & Plan (08/11/2016 10:15 AM COLLEGE TUTOR): Status: Major Depression Recurrent Moderate - Stable Plan: Responding well to current treatment plan, continue. Medications reviewed and refilled as indicated. See orders. and Managed by psychiatry. Continue current treatment and follow up plans. Medication side effects and potential interactions reviewed. GERD (gastroesophageal reflux disease) Resolved Problems Problem Noted Date Diagnosed Date Resolved Date Screen for colon cancer 10/26/201609/30 Other bilateral secondary os teoarthritis of knee 02/12/2014 03/19/2014 Chest pain 02/14/2013 03/19/2014 Hypotension 06/13/2012 03/19/2014 Immunizations Immunization Administration Dates Next Due (PNEUMOVAX [...] Disease Mother Hypertension Mother Kidney Disease Mother Asthma Other 1 NIECE niece with hx o f asthma Thyroid Disease Other 2 NEPHEW Diabetes Sister 1 Hypertension Sister 1 Breast Cancer Neg Hx Colon Cancer Neg Hx Ovarian Cancer Neg Hx Relation Name Status Comments Daughter 1 Alive Daughter 2 Alive Father Maternal Grandfather Maternal Grandmother Mother Other 1 NIECE Alive Other 2 NEPHEW Alive Paternal Grandfather Paternal Grandmother Sister 1 Alive Sister 2 Alive Sister 3 Alive Social History Tobacco Use Types Packs/Day Years Used Date Smoking Tobacco: Never Smokeless Tobacco: Never Tobacco Cessation:Counseling Given: Yes Alcohol Use Standard Drinks/Week Comments No 0 (1 standard drink = 0.6 oz pur e alcohol) Comments No Sex and Gender Information Value Date Recorded Sex Assigned at Not on file Legal Sex Female 4:31 AM COLLEGE TUTOR Gender Identity Not on file Sexual Orientation Not on file Occupation Industry Job Start Date Job End Date Not on file Not on file Not on file Not on file Last Filed Vital Signs Vital Sign Reading Time Taken Comments Blood Pressure 159/74 01/03/2021 7:49 AM CDT Pulse 48 01/03/2021 7:49 AM CDT Temperature 36.7 C (98.1 F) 01/03/2021 6:15 AM CDT Respiratory Rate 20 01/03/2021 7:49 AM CDT Oxygen Saturation 96% 01/03/2021 7:49 AM CDT Inhaled Oxygen Concentration - - Weight 123.8 kg (273 lb) 01/03/2021 6:15 AM CDT Height 170.2 cm (5' 7 ) 01/03/2021 6:15 AM CDT Body Mass Index 42.76 01/03/2021 6:15 AM CDT Plan of Treatment Health Maintenance [...] 03/19/2014 BREAST CANCER SCREENING 03/31/2021 03/31/20 20, 06/26/2018, 11/04/2016, Additional history exists OSTEOPOROSIS SCREENING 03/10/2022 03/10/2017, 2016 INFLUENZA VACCINE (#1) 2025 9, 04/19/2018, 06/06/2017, Additional history exists COLORECTAL SCREENING 10/26/2026 10/26/2016, 07/30/2009 (Previously completed), 12/02/2008 Colorectal Cancer Screening 10/26/2026 Medical Devices Implanted Type Area Tool Analyst Device Identifier Shelf Expiration Date Model / Serial / Lot Log [id number] - Shoulder Anchors - 1 - Bryan Sut Bio Swvlck 4.75x24.5mm [id number] Implanted:Qty: 4 on 03/31/2011 at [facility] Bryan Right: Shoulder [employer] 12/30/2012 [id number] / N/A / [id number] Procedures Procedure Name Priority Date/Time Associated Diagnosis Comments MAMMO 3D NICOLE SCREEN BILAT W OR WO CAD Routine 03/31/2020 11:57 AM CDT Visit for screening mammogram XR DEXA BONE DENSITY AXIAL 1 OR MORE SITES Routine 03/10/2017 8:30 AM CDT Screening for osteoporosis HX COLONOSCOPY Routine 12/02/2008 from Last 3 Months or Most Recently Relevant to Health Maintenance Results * MAMMO SCRN BILAT 3D NICOLE W OR WO CAD (03/31/2020 11:57 AM CDT) Anatomical Region Laterality Modality Breast Bilateral Mammography Narrative 04/01/2020 12:42 PM CDT Bilateral Digital Mammogram with CAD [...] new findings since the prior mammogram(s). Zoraida Azrola PUBLIC WELFARE WORKER MAMMO ORDERABLES Final Resu lt * XR DEXA BONE DENSITY AXIAL 1 OR MORE SITES (03/10/2017 8:30 AM CDT) Anatomical Region Laterality Modality Digital Radiogra phy 03/10/2017 8:30 AM CDT Impressions 03/11/2017 8:01 PM CDT IMPRESSION: 1. Current findings consistent with mild osteopenia; [...] clinical management available online at [email or web address] [employer] for Select DXA and the Femoral Neck BMD value. [id number] Narrative 03/11/2017 8:01 PM CDT DEXA Evaluation [...] 2.9 Procedure Note Aldair Jacobson MD - 03/11/2017 DEXA Evaluation of the Lumbar Spine and [...] Adult T-score: 1.7 Adult Z-score: 2.9 IMPRESSION IMPRESSION: 1. Current findings consistent with mild osteopenia; [...] clinical management available online at [email or web address] Enter [employer] for Select DXA and the Femoral Neck BMD value. [id number] us Zoraida Rodriguez Dariusz PUBLIC WELFARE WORKER DIAGNOSTIC IMAGING ORDERABL ES Final Result * HX COLONOSCOPY (12/02/2008) Historical Provider GENERIC SURGICAL HISTORY Fin al Result [facility] from Last 3 Months or Most Recently Relevant to Health Maintenance Insurance [facility] DUAL COMPLETE [facility] PPO D-SNP [place]ICAID [place] [facility] DUAL COMPLETE [facility] PPO D-SNP Advance Directives For more information, please contact: [phone] * Full Code (Latest Code Status on File) Date Activated Date Inactivated Comments 10/26/2016 2:24 PM 10/26/2016 5:01 PM * Full Code Date Activated Date Inactivated Comments 10/26/2016 1:38 PM 10/26/2016 2:24 PM * Full Code Date Activated Date Inactivated Comments 07/15/2016 2:11 PM 07/15/2016 8:26 PM * Full Code Date Activated Date Inactivated Comments 07/15/2016 1:32 PM 07/15/2016 2:11 PM * Full Code Date Activated Date Inactivated Comments 07/15/2016 8:10 AM 07/15/2016 1:32 PM
--- OUTSIDE RECORDS SUMMARY | 2025-02-18 11:04 | XMS_ITS | Encounter Summary ---
Author Organization [facility] Address [address] [place] [address] Care Team Providers Care Home Health Caregiver Name Role Phone Non-Staff, Physician Primary Care Provider Unava ilable Encounter Details Date Type Department Care Team (Latest Contact Info) Description 06/18/2004 Outpatient Historical [facility] Medicine [place] [address] [facility] [address] [place] [phone] Zoraida Arzola, AURICULAR DETOXIFICATION SPECIALIST [address] [place] [phone] CHEST PAIN NOS (Primary Dx); ACUTE URI NOS Social History Tobacco Use Types Packs/Day Years Used Date Smoking Tobacco: Never Assessed Comments Unknown Sex and Gender Information Value Date Recorded Sex Assigned at Not on file Legal Sex Female 4:31 AM LEADERSHIP COACH Gender Identity Not on file Sexual Orientation Not on file documented as of this encounter Plan of Treatment Not on file documented as of this encounter Visit Diagnoses Diagnosis Chest pain, unspecified- Primary Acute upper respiratory infections of unspecified site documented in this encounter Care Teams Home Health Caregiver Relationship Specialty Start Date End Date Non-Staff, Physician NO ADDRESS ON FILE PCP - General 11/28/19 03/30/20 documented as of this encounter
--- OUTSIDE RECORDS SUMMARY | 2025-02-18 11:04 | XMS_ITS | Encounter Summary ---
Author Organization [facility] Address [address] [place] [address] Care Team Providers Care Blacktop Paver Operator Name Role Phone Non-Staff, Physician Primary Care Provider Unava ilable Encounter Details Date Type Department Care Team (Latest Contact Info) Description 04/23/2003 Outpatient Historical [facility] Medicine [place] [address] [facility] 60 [place] [phone] Ibrahima Glasgow MD [address] [facility] [address] [place] [address] CONJUNCTIVITIS NOS (Primary Dx); LOCAL SKIN INFECTION NOS Social History Tobacco Use Types Packs/Day Years Used Date Smoking Tobacco: Never Assessed Comments Unknown Sex and Gender Information Value Date Recorded Sex Assigned at Not on file Legal Sex Female 4:31 AM WOOL SUPPLIER Gender Identity Not on file Sexual Orientation Not on file documented as of this encounter Plan of Treatment Not on file documented as of this encounter Visit Diagnoses Diagnosis Conjunctivitis unspecified- Primary Conjunctivitis, unspecified Unspecified local infection of skin and subcutaneous tissue documented in this encounter Care Teams Blacktop Paver Operator Relationship Specialty Start Date End Date Non-Staff, Physician NO ADDRESS ON FILE PCP - General 11/28/19 03/30/20 documented as of this encounter
--- OUTSIDE RECORDS SUMMARY | 2025-02-18 11:04 | XMS_ITS | Encounter Summary ---
Author Organization [facility] Address [address] [place] [address] Care Team Providers Care Chemical Tester Name Role Phone Non-Staff, Physician Primary Care Provider Unava ilable Encounter Details Date Type Department Care Team (Latest Contact Info) Description 04/30/2004 Outpatient Historical [facility] Medicine [place] [address] [facility] [address] [place] [phone] Zoraida Arzola, SURGICAL RESIDENT [address] [place] [phone] PNEUMONIA, ORGANISM NOS (Primary Dx) Social History Tobacco Use Types Packs/Day Years Used Date Smoking Tobacco: Never Assessed Comments Unknown Sex and Gender Information Value Date Recorded Sex Assigned at Not on file Legal Sex Female 4:31 AM GLUE JOINTER OPERATOR Gender Identity Not on file Sexual Orientation Not on file documented as of this encounter Plan of Treatment Not on file documented as of this encounter Visit Diagnoses Diagnosis Pneumonia, organism unspecified(486)- Primary Pneumonia, organism unspecified documented in this encounter Care Teams Chemical Tester Relationship Specialty Start Date End Date Non-Staff, Physician NO ADDRESS ON FILE PCP - General 11/28/19 03/30/20 documented as of this encounter
--- OUTSIDE RECORDS SUMMARY | 2025-02-18 11:04 | XMS_ITS | Encounter Summary ---
Author Organization [facility] Address [address] [place] [address] Care Team Providers Care Propellant Charge Zone Assembler Name Role Phone Non-Staff, Physician Primary Care Provider Unava ilable Reason for Referral * Radiology Services (Routine) - Closed Specialty Diagnoses / Procedures Referred By Contac t Referred To Contact Radiology Diagnoses Visit for screening mammogram Procedures MAMMO SCRN BILAT 3D NICOLE W OR WO CAD CHG SCREENING MAMMOGRAPHY BI 2-VIEW BREAST INC CAD CHG SCREENING DIGITAL BREAST TOMOSYNTHESIS BI Zoraida Arzola FNP [address] [place] [address] Phone: tel: fax: [facility] [address] [address] Phone: tel: fax: Referral ID Status Reason Start Date Expiration Date V isits Requested Visits Authorized [id number] Closed [facility] TO SCHEDULE (SGF) 02/05/2020 03/07/2021 1 1 Encounter Details Date Type Department Care Team (Late st Contact Info) Description 02/05/2020 Ancillary Orders [facility] [address] [address] Zoraida Arzola FNP [address] [place] [address] Visit for screening mammogram Social History Tobacco Use Types Packs/Day Years Used Date Smoking Tobacco: Never Smokeless Tobacco: Never Alcohol Use Standard Drinks/Week Comments No 0 (1 standard drink = 0.6 oz pur e alcohol) Comments No Sex and Gender Information Value Date Recorded Sex Assigned at Not on file Legal Sex Female 4:31 AM DIRECTOR ORACLE RETAIL Gender Identity Not on file Sexual Orientation Not on file Occupation Industry Job Start Date Job End Date Not on file Not on file Not on file Not on file COVID-19 Exposure Response Date Recorded In the last month, have you been in contact with someone who was confirmed or suspected to have Coronavirus / COVID-19? No / Unsure 02/05/2020 11:33 AM CDT documented as of this encounter Plan of Treatment Not on file documented as of this encounter Results * MAMMO SCRN BILAT 3D NICOLE [...] findings since the prior mammogram(s). Zoraida Arzola WELDING MACHINE OPERATOR ELECTRON BEAM MAMMO ORDERABLES Final Resu lt documented in this encounter Visit Diagnoses Diagnosis Visit for screening mammogram Other screening mammogram Visit for screening mammogram Other screening mammogram documented in this encounter Additional Health Concerns Assessment Noted Time PHQ-9 Depression Total Score: 2 08/17/19 19 10:00 AM DIRECTOR ORACLE RETAIL documented as of this encounter Care Teams Propellant Charge Zone Assembler Relationship Specialty Start Date End Date Non-Staff, Physician NO ADDRESS ON FILE PCP - General 11/28/19 03/30/20 documented as of this encounter
--- OUTSIDE RECORDS SUMMARY | 2025-02-18 11:04 | XMS_ITS | Encounter Summary ---
Author Organization [facility] Address [address] [place] [address] Care Team Providers Care Multimedia Journalist Name Role Phone Non-Staff, Physician Primary Care Provider Unava ilable Encounter Details Date Type Department Care Team (Latest Contact Info) Description 07/14/2004 Outpatient Historical [facility] Medicine [place] [address] [facility] 60 [place] [address] Zoraida Arzola, PLASTIC SURGEON [address] [place] [phone] ABNORMAL FIND-BODY STRUCT NEC (Primary Dx) Social History Tobacco Use Types Packs/Day Years Used Date Smoking Tobacco: Never Assessed Comments Unknown Sex and Gender Information Value Date Recorded Sex Assigned at Not on file Legal Sex Female 4:31 AM NURSING INSTRUCTOR Gender Identity Not on file Sexual Orientation Not on file documented as of this encounter Plan of Treatment Not on file documented as of this encounter Visit Diagnoses Diagnosis Nonspecific abnormal findings on radiological and other examination of other site of body- Primary documented in this encounter Care Teams Multimedia Journalist Relationship Specialty Start Date End Date Non-Staff, Physician NO ADDRESS ON FILE PCP - General 11/28/19 03/30/20 documented as of this encounter
--- OUTSIDE RECORDS SUMMARY | 2025-02-18 11:04 | XMS_ITS | Encounter Summary ---
Author Organization [facility] Address [address] [place] [address] Care Team Providers Care Galley Stripper Name Role Phone Non-Staff, Physician Primary Care Provider Unava ilable Encounter Details Date Type Department Care Team (Latest Contact Info) Description 10/21/2003 Outpatient Historical [facility] [address] [place] [address] Zoraida Arzola, LEAD PRESSER [address] [place] [phone] SHLDR/UPPER ARM INJURY NOS (Primary Dx); IMPACTED CERUMEN Social History Tobacco Use Types Packs/Day Years Used Date Smoking Tobacco: Never Assessed Comments Unknown Sex and Gender Information Value Date Recorded Sex Assigned at Not on file Legal Sex Female 4:31 AM CHARGING BOARD OPERATOR Gender Identity Not on file Sexual Orientation Not on file documented as of this encounter Plan of Treatment Not on file documented as of this encounter Visit Diagnoses Diagnosis Injury, other and unspecified, shoulder and upper arm- Primary Impacted cerumen documented in this encounter Care Teams Galley Stripper Relationship Specialty Start Date End Date Non-Staff, Physician NO ADDRESS ON FILE PCP - General 11/28/19 03/30/20 documented as of this encounter
--- OUTSIDE RECORDS SUMMARY | 2025-02-18 11:04 | XMS_ITS | Encounter Summary ---
Author Organization [facility] Address [address] [place] [address] Care Team Providers Care Emergency Services Professional Name Role Phone Non-Staff, Physician Primary Care Provider Unava ilable Encounter Details Date Type Department Care Team (Latest Contact Info) Description 04/12/2003 Outpatient Historical [facility] [address] [place] [address] Teo Kinney DO NO ADDRESS ON FILE INGROWING NAIL (Primary Dx) Social History Tobacco Use Types Packs/Day Years Used Date Smoking Tobacco: Never Assessed Comments Unknown Sex and Gender Information Value Date Recorded Sex Assigned at Not on file Legal Sex Female 4:31 AM DRILLER PORTABLE Gender Identity Not on file Sexual Orientation Not on file documented as of this encounter Plan of Treatment Not on file documented as of this encounter Visit Diagnoses Diagnosis Ingrowing nail- Primary documented in this encounter Care Teams Emergency Services Professional Relationship Specialty Start Date End Date Non-Staff, Physician NO ADDRESS ON FILE PCP - General 11/28/19 03/30/20 documented as of this encounter
--- OUTSIDE RECORDS SUMMARY | 2025-02-18 11:04 | XMS_ITS | Encounter Summary ---
Author Organization [facility] Address [address] [place] [address] Care Team Providers Care Catalyst Impregnator Name Role Phone Non-Staff, Physician Primary Care Provider Unava ilable Encounter Details Date Type Department Care Team (Latest Contact Info) Description 06/05/2002 Outpatient Historical [facility] Family Medicine [place] [address] [facility] [address] [place] [phone] Ibrahima Glasgow MD [address] [facility] [address] [place] [phone] IMPACTED CERUMEN (Primary Dx) Social History Tobacco Use Types Packs/Day Years Used Date Smoking Tobacco: Never Assessed Comments Unknown Sex and Gender Information Value Date Recorded Sex Assigned at Not on file Legal Sex Female 4:31 AM INCLUSION SPECIAL EDUCATION TEACHER Gender Identity Not on file Sexual Orientation Not on file documented as of this encounter Plan of Treatment Not on file documented as of this encounter Visit Diagnoses Diagnosis Impacted cerumen- Primary documented in this encounter Care Teams Catalyst Impregnator Relationship Specialty Start Date End Date Non-Staff, Physician NO ADDRESS ON FILE PCP - General 11/28/19 03/30/20 documented as of this encounter
--- OUTSIDE RECORDS SUMMARY | 2025-02-18 11:04 | XMS_ITS | Encounter Summary ---
Author Organization [facility] Address [address] [place] [address] Care Team Providers Care Tariff Counsel Name Role Phone Non-Staff, Physician Primary Care Provider Unava ilable Encounter Details Date Type Department Care Team (Latest Contact Info) Description 06/26/2002 Outpatient Historical [facility] Family Medicine [place] [address] [facility] 60 [place] [address] Teo Kinney DO NO ADDRESS ON FILE IMPACTED CERUMEN (Primary Dx) Social History Tobacco Use Types Packs/Day Years Used Date Smoking Tobacco: Never Assessed Comments Unknown Sex and Gender Information Value Date Recorded Sex Assigned at Not on file Legal Sex Female 4:31 AM SENIOR MECHANICAL DESIGN ENGINEER Gender Identity Not on file Sexual Orientation Not on file documented as of this encounter Plan of Treatment Not on file documented as of this encounter Visit Diagnoses Diagnosis Impacted cerumen- Primary documented in this encounter Care Teams Tariff Counsel Relationship Specialty Start Date End Date Non-Staff, Physician NO ADDRESS ON FILE PCP - General 11/28/19 03/30/20 documented as of this encounter
--- OUTSIDE RECORDS SUMMARY | 2025-02-18 11:04 | XMS_ITS | Encounter Summary ---
Author Organization [facility] Address [address] [place] [address] Care Team Providers Care Director Of Capital Giving Name Role Phone Non-Staff, Physician Primary Care Provider Unava ilable Encounter Details Date Type Department Care Team (Latest Contact Info) Description 06/26/2002 Outpatient Historical [facility] Family Medicine [place] 104 [facility] [address] [place] [phone] Zoraida Arzola, ENROLLMENT SPECIALIST [address] [place] [phone] OTORRHEA NOS (Primary Dx) Social History Tobacco Use Types Packs/Day Years Used Date Smoking Tobacco: Never Assessed Comments Unknown Sex and Gender Information Value Date Recorded Sex Assigned at Not on file Legal Sex Female 4:31 AM CHARGE LOADER Gender Identity Not on file Sexual Orientation Not on file documented as of this encounter Plan of Treatment Not on file documented as of this encounter Visit Diagnoses Diagnosis Otorrhea, unspecified- Primary documented in this encounter Care Teams Director Of Capital Giving Relationship Specialty Start Date End Date Non-Staff, Physician NO ADDRESS ON FILE PCP - General 11/28/19 03/30/20 documented as of this encounter
--- OUTSIDE RECORDS SUMMARY | 2025-02-18 11:04 | XMS_ITS | Encounter Summary ---
Author Organization [facility] Address [address] [place] [address] Care Team Providers Care Clinical Informatics Specialist Name Role Phone Non-Staff, Physician Primary Care Provider Unava ilable Encounter Details Date Type Department Care Team (Latest Contact Info) Description 04/24/2002 Outpatient Historical [facility] Family Medicine [address] [phone] Teo Kinney DO NO ADDRESS ON FILE OTITIS MEDIA NOS (Primary Dx) Social History Tobacco Use Types Packs/Day Years Used Date Smoking Tobacco: Never Assessed Comments Unknown Sex and Gender Information Value Date Recorded Sex Assigned at Not on file Legal Sex Female 4:31 AM IMPROVEMENT INTERN Gender Identity Not on file Sexual Orientation Not on file documented as of this encounter Plan of Treatment Not on file documented as of this encounter Visit Diagnoses Diagnosis Unspecified otitis media- Primary documented in this encounter Care Teams Clinical Informatics Specialist Relationship Specialty Start Date End Date Non-Staff, Physician NO ADDRESS ON FILE PCP - General 11/28/19 03/30/20 documented as of this encounter
--- OUTSIDE RECORDS SUMMARY | 2025-02-18 11:04 | XMS_ITS | Encounter Summary ---
Author Organization [facility] Address [address] [place] [address] Care Team Providers Care Instructor Programmable Controllers Name Role Phone Non-Staff, Physician Primary Care Provider Unava ilable Encounter Details Date Type Department Care Team (Latest Contact Info) Description 09/10/2003 Outpatient Historical [facility] Family Medicine [place] [address] [phone] Teo Kinney DO NO ADDRESS ON FILE HYPOTHYROIDISM NOS (Primary Dx) Social History Tobacco Use Types Packs/Day Years Used Date Smoking Tobacco: Never Assessed Comments Unknown Sex and Gender Information Value Date Recorded Sex Assigned at Not on file Legal Sex Female 4:[address]IGHT Gender Identity Not on file Sexual Orientation Not on file documented as of this encounter Plan of Treatment Not on file documented as of this encounter Visit Diagnoses Diagnosis Unspecified hypothyroidism- Primary documented in this encounter Care Teams Instructor Programmable Controllers Relationship Specialty Start Date End Date Non-Staff, Physician NO ADDRESS ON FILE PCP - General 11/28/19 03/30/20 documented as of this encounter
--- OUTSIDE RECORDS SUMMARY | 2025-02-18 11:04 | XMS_ITS | Encounter Summary ---
Author Organization [facility] Address [address] [place] [address] Care Team Providers Care Librarian School Name Role Phone Non-Staff, Physician Primary Care Provider Unava ilable Encounter Details Date Type Department Care Team (Late st Contact Info) Description 04/07/2004 Outpatient Historical [facility] Family Medicine [address] [phone] Social History Tobacco Use Types Packs/Day Years Used Date Smoking Tobacco: Never Assessed Comments Unknown Sex and Gender Information Value Date Recorded Sex Assigned at Not on file Legal Sex Female 4:31 AM COMPOUNDING SCALER Gender Identity Not on file Sexual Orientation Not on file documented as of this encounter Plan of Treatment Not on file documented as of this encounter Visit Diagnoses Not on filedocumented in this encounter Care Teams Librarian School Relationship Specialty Start Date End Date Non-Staff, Physician NO ADDRESS ON FILE PCP - General 11/28/19 03/30/20 documented as of this encounter
--- OUTSIDE RECORDS SUMMARY | 2025-02-18 11:04 | XMS_ITS | Encounter Summary ---
Author Organization [facility] Address [address] [place] [address] Care Team Providers Care Chair Post Machine Operator Name Role Phone Non-Staff, Physician Primary Care Provider Unava ilable Encounter Details Date Type Department Care Team (Latest Contact Info) Description 08/25/2006 Outpatient Historical [facility] Medicine [place] 104 [facility] 60 [place] [phone] Zoraida Arzola, SVP OF DIGITAL [address] [place] [phone] Other Convulsions (CMS/HCC) (Primary Dx); Anxiety State, Unspecified Social History Tobacco Use Types Packs/Day Years Used Date Smoking Tobacco: Never Assessed Comments Unknown Sex and Gender Information Value Date Recorded Sex Assigned at Not on file Legal Sex Female 4:31 AM 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
--- OUTSIDE RECORDS SUMMARY | 2025-02-18 11:04 | XMS_ITS | Encounter Summary ---
Author Organization [facility] Address [address] [place] [address] Care Team Providers Care Menu Planner Name Role Phone Non-Staff, Physician Primary Care Provider Unava ilable Encounter Details Date Type Department Care Team (Latest Contact Info) Description 05/16/2003 Outpatient Historical [facility] Family Medicine [place] [address] [facility] 60 [place] [phone] Zoraida Arzola, RESERVATIONS SPECIALIST [address] [place] [phone] HYPOTHYROIDISM NOS (Primary Dx) Social History Tobacco Use Types Packs/Day Years Used Date Smoking Tobacco: Never Assessed Comments Unknown Sex and Gender Information Value Date Recorded Sex Assigned at Not on file 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
--- OUTSIDE RECORDS SUMMARY | 2025-02-18 11:04 | XMS_ITS | Encounter Summary ---
Author Organization [facility] Address [address] [place] [address] Care Team Providers Care Cigarette Book Maker Name Role Phone Non-Staff, Physician Primary Care Provider Unava ilable Encounter Details Date Type Department Care Team (Latest Contact Info) Description 11/12/2003 Outpatient Historical [facility] Family Medicine [place] [address] [facility] 60 [place] [phone] Zoraida Arzola, REFERRAL SPECIALIST [address] [place] [phone] IMPACTED CERUMEN (Primary Dx) Social History Tobacco Use Types Packs/Day Years Used Date Smoking Tobacco: Never Assessed Comments Unknown Sex and Gender Information Value Date Recorded Sex Assigned at Not on file Legal Sex Female 4:31 AM MATERIALS PLANNING MANAGER Gender Identity Not on file Sexual Orientation Not on file documented as of this encounter Plan of Treatment Not on file documented as of this encounter Visit Diagnoses Diagnosis Impacted cerumen- Primary documented in this encounter Care Teams Cigarette Book Maker Relationship Specialty Start Date End Date Non-Staff, Physician NO ADDRESS ON FILE PCP - General 11/28/19 03/30/20 documented as of this encounter
--- OUTSIDE RECORDS SUMMARY | 2025-02-18 11:04 | XMS_ITS | Encounter Summary ---
Author Organization [facility] Address [address] [place] [address] Care Team Providers Care Analytics Intern Name Role Phone Non-Staff, Physician Primary Care Provider Unava ilable Encounter Details Date Type Department Care Team (Latest Contact Info) Description 09/27/2006 Outpatient Historical [facility] Medicine [place] 104 [facility] 60 [place] [phone] Zoraida Arzola, SEO MANAGER [address] [place] [phone] Acute Upper Respiratory Infections of Unspecified Site (Primary Dx); Unspecified Essential Hypertension; Unspecified Hypothyroidism; Exam Post High-Risk Rx Social History Tobacco Use Types Packs/Day Years Used Date Smoking Tobacco: Never Assessed Comments Unknown Sex and Gender Information Value Date Recorded Sex Assigned at Not on file 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 Sex Female 4:31 AM 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 ASSEMBLER Gender Identity Not on file Sexual Orientation Not on file documented as of this encounter Plan of Treatment Not on file documented as of this encounter Visit Diagnoses Diagnosis Acute upper respiratory infections of unspecified site- Primary Unspecified essential hypertension Unspecified hypothyroidism Follow-up examination following completed treatment with high-risk medications, not elsewhere classified documented in this encounter Care Teams Analytics Intern Relationship Specialty Start Date End Date Non-Staff, Physician NO ADDRESS ON FILE PCP - General 11/28/19 03/30/20 documented as of this encounter
--- OUTSIDE RECORDS SUMMARY | 2025-02-18 11:04 | XMS_ITS | Encounter Summary ---
Author Organization [facility] Address [address] [place] [address] Care Team Providers Care Corral Boss Name Role Phone Non-Staff, Physician Primary Care Provider Unava ilable Encounter Details Date Type Department Care Team (Latest Contact Info) Description 04/12/2002 Outpatient Historical [facility] Medicine [place] 104 [facility] 60 [place] [phone] Diana Chung MD NO ADDRESS ON FILE CONDUCT DISORDER OTHR SPEC NEC (Primary Dx); ABN GLUCOSE TOLERAN TEST; TETANUS TOXOID INOCULAT Social History Tobacco Use Types Packs/Day Years Used Date Smoking Tobacco: Never Assessed Comments Unknown Sex and Gender Information Value Date Recorded Sex Assigned at Not on file Legal Sex Female 4:31 AM RECYCLING SPECIALIST Gender Identity Not on file Sexual Orientation Not on file documented as of this encounter Plan of Treatment Not on file documented as of this encounter Visit Diagnoses Diagnosis Other conduct disorder- Primary Abnormal glucose Need for prophylactic vaccination with tetanus toxoid alone documented in this encounter Care Teams Corral Boss Relationship Specialty Start Date End Date Non-Staff, Physician NO ADDRESS ON FILE PCP - General 11/28/19 03/30/20 documented as of this encounter
--- OUTSIDE RECORDS SUMMARY | 2025-02-18 11:04 | XMS_ITS | Encounter Summary ---
Author Organization [facility] Address [address] [place] [address] Care Team Providers Care Chemical Analyst Name Role Phone Non-Staff, Physician Primary Care Provider Unava ilable Encounter Details Date Type Department Care Team (Latest Contact Info) Description 07/02/2003 Outpatient Historical [facility] Family Medicine [place] 104 [facility] 60 [place] [address] Ibrahima Glasgow MD [address] [facility] [address] [place] [phone] HYPOTHYROIDISM NOS (Primary Dx); EXAM AFTR OTHR HI-RISK COMPL RX NEC Social History Tobacco Use Types Packs/Day Years Used Date Smoking Tobacco: Never Assessed Comments Unknown Sex and Gender Information Value Date Recorded Sex Assigned at Not on file 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
--- OUTSIDE RECORDS SUMMARY | 2025-02-18 11:04 | XMS_ITS | Encounter Summary ---
Author Organization [facility] Address [address] [place] [address] Care Team Providers Care Product Test Engineer Name Role Phone Non-Staff, Physician Primary Care Provider Unava ilable Encounter Details Date Type Department Care Team (Latest Contact Info) Description 08/08/2003 Outpatient Historical [facility] Medicine [place] 104 [facility] 60 [place] [phone] Diana Chung MD NO ADDRESS ON FILE IMPACTED CERUMEN (Primary Dx); CONDUCT DISORDER OTHR SPEC NEC Social History Tobacco Use Types Packs/Day Years Used Date Smoking Tobacco: Never Assessed Comments Unknown Sex and Gender Information Value Date Recorded Sex Assigned at Not on file Legal Sex Female 4:31 AM PHARMACY ANALYST Gender Identity Not on file Sexual Orientation Not on file documented as of this encounter Plan of Treatment Not on file documented as of this encounter Visit Diagnoses Diagnosis Impacted cerumen- Primary Other conduct disorder documented in this encounter Care Teams Product Test Engineer Relationship Specialty Start Date End Date Non-Staff, Physician NO ADDRESS ON FILE PCP - General 11/28/19 03/30/20 documented as of this encounter
--- OUTSIDE RECORDS SUMMARY | 2025-02-18 11:04 | XMS_ITS | Encounter Summary ---
Author Organization [facility] Address [address] [place] [address] Care Team Providers Care Black Powder Glazing Operator Name Role Phone Non-Staff, Physician Primary Care Provider Unava ilable Encounter Details Date Type Department Care Team (Latest Contact Info) Description 04/02/2003 Outpatient Historical [facility] Medicine [place] 104 [facility] 60 [place] [phone] Teo Kinney DO NO ADDRESS ON FILE IMPACTED CERUMEN (Primary Dx); Toxic effect venom Social History Tobacco Use Types Packs/Day Years Used Date Smoking Tobacco: Never Assessed Comments Unknown Sex and Gender Information Value Date Recorded Sex Assigned at Not on file Legal Sex Female 4:31 AM PRODUCT SUPPORT MANAGER Gender Identity Not on file Sexual Orientation Not on file documented as of this encounter Plan of Treatment Not on file documented as of this encounter Visit Diagnoses Diagnosis Impacted cerumen- Primary Toxic effect venom Toxic effect of venom documented in this encounter Care Teams Black Powder Glazing Operator Relationship Specialty Start Date End Date Non-Staff, Physician NO ADDRESS ON FILE PCP - General 11/28/19 03/30/20 documented as of this encounter
--- OUTSIDE RECORDS SUMMARY | 2025-02-18 11:04 | XMS_ITS | Encounter Summary ---
Author Organization [facility] Address [address] [place] [address] Care Team Providers Care Aoc Plans Intelligence Officer Chief Name Role Phone Non-Staff, Physician Primary Care Provider Unava ilable Encounter Details Date Type Department Care Team (Latest Contact Info) Description 06/21/2002 Outpatient Historical [facility] [address] 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
--- OUTSIDE RECORDS SUMMARY | 2025-02-18 11:04 | XMS_ITS | Encounter Summary ---
Author Organization [facility] Address [address] [place] [address] Care Team Providers Care Postpartum Nurse Name Role Phone Non-Staff, Physician Primary Care Provider Unava ilable Encounter Details Date Type Department Care Team (Latest Contact Info) Description 06/23/2004 Outpatient Historical [facility] Family Medicine [place] [address] [facility] 60 [place] [phone] Zoraida Arzola, NURSE WOUND CARE [address] [place] [phone] CERVICALGIA (Primary Dx) Social History Tobacco Use Types Packs/Day Years Used Date Smoking Tobacco: Never Assessed Comments Unknown Sex and Gender Information Value Date Recorded Sex Assigned at Not on file 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
--- OUTSIDE RECORDS SUMMARY | 2025-02-18 11:04 | XMS_ITS | Encounter Summary ---
Author Organization [facility] Address [address] [facility] Attn: Epic Prelude ADT [place] [address] Care Team Providers Care Audiology Director Name Role Phone Non-Staff, Physician Primary Care Provider Unava ilable Encounter Details Date Type Department Care Team (Late st Contact Info) Description 05/25/2002 Outpatient Historical Ibrahima Glasgow MD [address] [facility] [address] [place] [phone] Social History Tobacco Use Types Packs/Day Years Used Date Smoking Tobacco: Never Assessed Comments Unknown Sex and Gender Information Value Date Recorded Sex Assigned at Not on file 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
--- OUTSIDE RECORDS SUMMARY | 2025-02-18 11:04 | XMS_ITS | Encounter Summary ---
Author Organization [facility] Address [address] [place] [address] Care Team Providers Care Automobile Tester Name Role Phone Non-Staff, Physician Primary Care Provider Unava ilable Encounter Details Date Type Department Care Team (Latest Contact Info) Description 10/10/2003 Outpatient Historical [facility] Medicine [place] [address] [facility] 60 [place] [phone] Zoraida Arzola, PHYSICAL DIRECTOR [address] [place] [phone] EXOSTOSIS, SITE NOS (Primary Dx); IMPACTED CERUMEN Social History Tobacco Use Types Packs/Day Years Used Date Smoking Tobacco: Never Assessed Comments Unknown Sex and Gender Information Value Date Recorded Sex Assigned at Not on file 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
--- OUTSIDE RECORDS SUMMARY | 2025-02-18 11:04 | XMS_ITS | Encounter Summary ---
Author Organization [facility] Address [address] [place] [address] Care Team Providers Care Collar Shaper Operator Name Role Phone Non-Staff, Physician Primary Care Provider Unava ilable Encounter Details Date Type Department Care Team (Latest Contact Info) Description 03/03/2004 Outpatient Historical [facility] Medicine [place] [address] [facility] 60 [place] [phone] Zoraida Arzola, SAND TECHNOLOGIST [address] [place] [phone] IMPACTED CERUMEN (Primary Dx) Social History Tobacco Use Types Packs/Day Years Used Date Smoking Tobacco: Never Assessed Comments Unknown Sex and Gender Information Value Date Recorded Sex Assigned at Not on file 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
--- OUTSIDE RECORDS SUMMARY | 2025-02-18 11:04 | XMS_ITS | Encounter Summary ---
Author Organization [facility] Address [address] [place] [address] Care Team Providers Care Yarn Spinner Name Role Phone Non-Staff, Physician Primary Care Provider Unava ilable Encounter Details Date Type Department Care Team (Latest Contact Info) Description 04/05/2002 Outpatient Historical [facility] Medicine [place] [address] [phone] Diana Chung MD NO ADDRESS ON FILE IMPACTED CERUMEN (Primary Dx); SKIN HYPERTRO/ATROPH NOS Social History Tobacco Use Types Packs/Day Years Used Date Smoking Tobacco: Never Assessed Comments Unknown Sex and Gender Information Value Date Recorded Sex Assigned at Not on file Legal Sex Female 4:31 AM INFUSION RN Gender Identity Not on file Sexual Orientation Not on file documented as of this encounter Plan of Treatment Not on file documented as of this encounter Visit Diagnoses Diagnosis Impacted cerumen- Primary Unspecified hypertrophic and atrophic condition of skin documented in this encounter Care Teams Yarn Spinner Relationship Specialty Start Date End Date Non-Staff, Physician NO ADDRESS ON FILE PCP - General 11/28/19 03/30/20 documented as of this encounter
--- OUTSIDE RECORDS SUMMARY | 2025-02-18 11:04 | XMS_ITS | Encounter Summary ---
Author Organization [facility] Address [address] [place] [address] Care Team Providers Care Anthropology Faculty Member Name Role Phone Non-Staff, Physician Primary Care Provider Unava ilable Encounter Details Date Type Department Care Team (Latest Contact Info) Description 06/11/2004 Outpatient Historical [facility] Medicine [place] [address] [facility] [address] [place] [phone] Zoraida Arzola, OVEN EQUIPMENT REPAIRER [address] [place] [phone] HEADACHE (Primary Dx); CERVICALGIA Social History Tobacco Use Types Packs/Day Years Used Date Smoking Tobacco: Never Assessed Comments Unknown Sex and Gender Information Value Date Recorded Sex Assigned at Not on file Legal Sex Female 4:31 AM INTERPRETER TRANSLATOR Gender Identity Not on file Sexual Orientation Not on file documented as of this encounter Plan of Treatment Not on file documented as of this encounter Visit Diagnoses Diagnosis Headache(784.0)- Primary Headache Cervicalgia documented in this encounter Care Teams Anthropology Faculty Member Relationship Specialty Start Date End Date Non-Staff, Physician NO ADDRESS ON FILE PCP - General 11/28/19 03/30/20 documented as of this encounter
--- OUTSIDE RECORDS SUMMARY | 2025-02-18 11:04 | XMS_ITS | Encounter Summary ---
Author Organization [facility] Address [address] [place] [address] Care Team Providers Care Housekeeping And Laundry Team Leader Name Role Phone Non-Staff, Physician Primary Care Provider Unava ilable Encounter Details Date Type Department Care Team (Latest Contact Info) Description 12/19/2003 Outpatient Historical [facility] Medicine [place] [address] [facility] 60 [place] [phone] Zoraida Arzola, RN TRANSITIONAL CARE [address] [place] [phone] IMPACTED CERUMEN (Primary Dx) Social History Tobacco Use Types Packs/Day Years Used Date Smoking Tobacco: Never Assessed Comments Unknown Sex and Gender Information Value Date Recorded Sex Assigned at Not on file Legal Sex Female 4:31 AM DRUG ENFORCEMENT ADMINISTRATION AGENT Gender Identity Not on file Sexual Orientation Not on file documented as of this encounter Plan of Treatment Not on file documented as of this encounter Visit Diagnoses Diagnosis Impacted cerumen- Primary documented in this encounter Care Teams Housekeeping And Laundry Team Leader Relationship Specialty Start Date End Date Non-Staff, Physician NO ADDRESS ON FILE PCP - General 11/28/19 03/30/20 documented as of this encounter
--- OUTSIDE RECORDS SUMMARY | 2025-02-18 11:04 | XMS_ITS | Encounter Summary ---
Author Organization [facility] Address [address] [place] [address] Care Team Providers Care Thread Winder Name Role Phone Non-Staff, Physician Primary Care Provider Unava ilable Encounter Details Date Type Department Care Team (Latest Contact Info) Description 07/27/2004 Outpatient Historical [facility] [address] 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
--- OUTSIDE RECORDS SUMMARY | 2025-02-18 11:04 | XMS_ITS | Encounter Summary ---
Author Organization [facility] Address [address] [place] [address] Care Team Providers Care Network Support Engineer Name Role Phone Non-Staff, Physician Primary Care Provider Unava ilable Encounter Details Date Type Department Care Team (Latest Contact Info) Description 12/27/2006 Outpatient Historical [facility] Family Medicine [place] 104 [facility] [address] [place] [phone] Zoraida Arzola, MANUFACTURING LABORER [address] [place] [phone] Breast Screening, Unspecified (Primary Dx) Social History Tobacco Use Types Packs/Day Years Used Date Smoking Tobacco: Never Assessed Comments Unknown Sex and Gender Information Value Date Recorded Sex Assigned at Not on file Legal Sex Female 4:31 AM FINANCIAL ADVOCATE Gender Identity Not on file Sexual Orientation Not on file documented as of this encounter Plan of Treatment Not on file documented as of this encounter Visit Diagnoses Diagnosis Breast screening, unspecified- Primary documented in this encounter Care Teams Network Support Engineer Relationship Specialty Start Date End Date Non-Staff, Physician NO ADDRESS ON FILE PCP - General 11/28/19 03/30/20 documented as of this encounter
--- OUTSIDE RECORDS SUMMARY | 2025-02-18 11:04 | XMS_ITS | Encounter Summary ---
Author Organization [facility] Address [address] [place] [address] Care Team Providers Care Nuclear Waste Management Engineer Name Role Phone Non-Staff, Physician Primary Care Provider Unava ilable Encounter Details Date Type Department Care Team (Latest Contact Info) Description 10/01/2003 Outpatient Historical [facility] Medicine [place] [address] [facility] 60 [place] [phone] Zoraida Arzola, WOOD REPATCHER [address] [place] [phone] SPRAIN OF ANKLE NOS (Primary Dx) Social History Tobacco Use Types Packs/Day Years Used Date Smoking Tobacco: Never Assessed Comments Unknown Sex and Gender Information Value Date Recorded Sex Assigned at Not on file Legal Sex Female 4:31 AM CERTIFIED PHLEBOTOMY TECHNICIAN Gender Identity Not on file Sexual Orientation Not on file documented as of this encounter Plan of Treatment Not on file documented as of this encounter Visit Diagnoses Diagnosis Sprain of ankle, unspecified site- Primary documented in this encounter Care Teams Nuclear Waste Management Engineer Relationship Specialty Start Date End Date Non-Staff, Physician NO ADDRESS ON FILE PCP - General 11/28/19 03/30/20 documented as of this encounter
--- OUTSIDE RECORDS SUMMARY | 2025-02-18 11:04 | XMS_ITS | Encounter Summary ---
Author Organization [facility] Address [address] [place] [address] Care Team Providers Care Wastewater Manager Name Role Phone Non-Staff, Physician Primary Care Provider Unava ilable Encounter Details Date Type Department Care Team (Latest Contact Info) Description 05/15/2002 Outpatient Historical [facility] Family Medicine [place] 104 [facility] 60 [place] [phone] Ibrahima Glasgow MD [address] [facility] [address] [place] [phone] DEPRESSIVE DISORDER NEC (Primary Dx); HYPOTHYROIDISM NOS Social History Tobacco Use Types Packs/Day Years Used Date Smoking Tobacco: Never Assessed Comments Unknown Sex and Gender Information Value Date Recorded Sex Assigned at Not on file Legal Sex Female 4:31 AM INTERNATIONAL MARKETING MANAGER Gender Identity Not on file Sexual Orientation Not on file documented as of this encounter Plan of Treatment Not on file documented as of this encounter Visit Diagnoses Diagnosis Depressive disorder, not elsewhere classified- Primary Unspecified hypothyroidism documented in this encounter Care Teams Wastewater Manager Relationship Specialty Start Date End Date Non-Staff, Physician NO ADDRESS ON FILE PCP - General 11/28/19 03/30/20 documented as of this encounter
--- OUTSIDE RECORDS SUMMARY | 2025-02-18 11:04 | XMS_ITS | Encounter Summary ---
Author Organization [facility] Address [address] [place] [address] Care Team Providers Care Shaft Sinker Name Role Phone Non-Staff, Physician Primary Care Provider Unava ilable Encounter Details Date Type Department Care Team (Latest Contact Info) Description 11/19/2003 Outpatient Historical [facility] Medicine [place] 104 [facility] [address] [place] [phone] Zoraida Arzola, COMPLAINT COORDINATOR [address] [place] [phone] NONSUPP OTITIS MEDIA NOS (Primary Dx) Social History Tobacco Use Types Packs/Day Years Used Date Smoking Tobacco: Never Assessed Comments Unknown Sex and Gender Information Value Date Recorded Sex Assigned at Not on file Legal Sex Female 4:31 AM BILINGUAL ADMINISTRATIVE ASSISTANT Gender Identity Not on file Sexual Orientation Not on file documented as of this encounter Plan of Treatment Not on file documented as of this encounter Visit Diagnoses Diagnosis Nonsuppurative otitis media, not specified as acute or chronic- Primary documented in this encounter Care Teams Shaft Sinker Relationship Specialty Start Date End Date Non-Staff, Physician NO ADDRESS ON FILE PCP - General 11/28/19 03/30/20 documented as of this encounter
--- OUTSIDE RECORDS SUMMARY | 2025-02-18 11:04 | XMS_ITS | Encounter Summary ---
Author Organization [facility] Address [address] [place] [address] Care Team Providers Care Web Marketing Manager Name Role Phone Non-Staff, Physician Primary Care Provider Unava ilable Encounter Details Date Type Department Care Team (Latest Contact Info) Description 08/15/2003 Outpatient Historical [facility] Family Medicine [place] [address] [facility] 60 [place] [phone] Diana Chung MD NO ADDRESS ON FILE IMPACTED CERUMEN (Primary Dx) Social History Tobacco Use Types Packs/Day Years Used Date Smoking Tobacco: Never Assessed Comments Unknown Sex and Gender Information Value Date Recorded Sex Assigned at Not on file Legal Sex Female 4:31 AM SLEDGER Gender Identity Not on file Sexual Orientation Not on file documented as of this encounter Plan of Treatment Not on file documented as of this encounter Visit Diagnoses Diagnosis Impacted cerumen- Primary documented in this encounter Care Teams Web Marketing Manager Relationship Specialty Start Date End Date Non-Staff, Physician NO ADDRESS ON FILE PCP - General 11/28/19 03/30/20 documented as of this encounter
--- OUTSIDE RECORDS SUMMARY | 2025-02-18 11:04 | XMS_ITS | Encounter Summary ---
Author Organization [facility] Address [address] [place] [address] Care Team Providers Care Account Manager Name Role Phone Non-Staff, Physician Primary Care Provider Unava ilable Encounter Details Date Type Department Care Team (Latest Contact Info) Description 05/07/2004 Outpatient Historical [facility] Medicine [place] [address] [facility] 60 [place] [phone] Zoraida Arzola, REHABILITATION CASEWORKER [address] [place] [phone] OTHER MALAISE AND FATIGUE (Primary Dx) Social History Tobacco Use Types Packs/Day Years Used Date Smoking Tobacco: Never Assessed Comments Unknown Sex and Gender Information Value Date Recorded Sex Assigned at Not on file Legal Sex Female 4:31 AM 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
--- OUTSIDE RECORDS SUMMARY | 2025-02-18 11:04 | XMS_ITS | Encounter Summary ---
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
--- OUTSIDE RECORDS SUMMARY | 2025-02-18 11:04 | XMS_ITS | Encounter Summary ---
Author Organization [facility] Address [address] [place] [address] Care Team Providers Care Social Worker Psychiatric Name Role Phone Non-Staff, Physician Primary Care Provider Unava ilable Encounter Details Date Type Department Care Team (Latest Contact Info) Description 01/17/2007 Outpatient Historical [facility] [place] 104 [facility] 60 [place] [phone] Zoraida Arzola, CUSTOMS COMPLIANCE ANALYST [address] [place] [phone] Unspecified Essential Hypertension (Primary Dx); Unspecified Hypothyroidism Social History Tobacco Use Types Packs/Day Years Used Date Smoking Tobacco: Never Assessed Comments Unknown Sex and Gender Information Value Date Recorded Sex Assigned at Not on file Legal Sex Female 4:31 AM VOICE COACH Gender Identity Not on file Sexual Orientation Not on file documented as of this encounter Plan of Treatment Not on file documented as of this encounter Visit Diagnoses Diagnosis Unspecified essential hypertension- Primary Unspecified hypothyroidism documented in this encounter Care Teams Social Worker Psychiatric Relationship Specialty Start Date End Date Non-Staff, Physician NO ADDRESS ON FILE PCP - General 11/28/19 03/30/20 documented as of this encounter
--- OUTSIDE RECORDS SUMMARY | 2025-02-18 11:04 | XMS_ITS | Encounter Summary ---
Author Organization [facility] Address [address] [place] [address] Care Team Providers Care Certified Substance Abuse Counselor Name Role Phone Non-Staff, Physician Primary Care Provider Unava ilable Encounter Details Date Type Department Care Team (Latest Contact Info) Description 01/07/2004 Outpatient Historical [facility] Medicine [place] [address] [facility] [address] [place] [phone] Zoraida Arzola, HELICOPTER SPECIALIST [address] [place] [phone] Acute allergic serous OM (Primary Dx); IMPACTED CERUMEN Social History Tobacco Use Types Packs/Day Years Used Date Smoking Tobacco: Never Assessed Comments Unknown Sex and Gender Information Value Date Recorded Sex Assigned at Not on file Legal Sex Female 4:31 AM ORCHESTRA DIRECTOR Gender Identity Not on file Sexual Orientation Not on file documented as of this encounter Plan of Treatment Not on file documented as of this encounter Visit Diagnoses Diagnosis Acute allergic serous OM- Primary Acute allergic serous otitis media Impacted cerumen documented in this encounter Care Teams Certified Substance Abuse Counselor Relationship Specialty Start Date End Date Non-Staff, Physician NO ADDRESS ON FILE PCP - General 11/28/19 03/30/20 documented as of this encounter
--- OUTSIDE RECORDS SUMMARY | 2025-02-18 11:04 | XMS_ITS | Encounter Summary ---
Author Organization [facility] Address [address] [place] [address] Care Team Providers Care Acid Recovery Operator Name Role Phone Non-Staff, Physician Primary Care Provider Unava ilable Encounter Details Date Type Department Care Team (Latest Contact Info) Description 05/25/2002 Outpatient Historical [facility] [address] [place] [address] Ibrahima Glasgow MD [address] [facility] [address] [place] [phone] OTITIS MEDIA NOS (Primary Dx) Social History Tobacco Use Types Packs/Day Years Used Date Smoking Tobacco: Never Assessed Comments Unknown Sex and Gender Information Value Date Recorded Sex Assigned at Not on file Legal Sex Female 4:31 AM SVP OPERATIONS Gender Identity Not on file Sexual Orientation Not on file documented as of this encounter Plan of Treatment Not on file documented as of this encounter Visit Diagnoses Diagnosis Unspecified otitis media- Primary documented in this encounter Care Teams Acid Recovery Operator Relationship Specialty Start Date End Date Non-Staff, Physician NO ADDRESS ON FILE PCP - General 11/28/19 03/30/20 documented as of this encounter
--- OUTSIDE RECORDS SUMMARY | 2025-02-18 11:04 | XMS_ITS | Encounter Summary ---
Author Organization [facility] Address [address] [place] [address] Care Team Providers Care Fisher Sponge Hooking Name Role Phone Non-Staff, Physician Primary Care Provider Unava ilable Encounter Details Date Type Department Care Team (Latest Contact Info) Description 04/18/2007 Outpatient Historical [facility] Medicine [place] 104 [facility] 60 [place] [phone] Zoraida Arzola, DIETETICS PROFESSOR [address] [place] [phone] Sprain Thoracic Region (Primary Dx) Social History Tobacco Use Types Packs/Day Years Used Date Smoking Tobacco: Never Assessed Comments Unknown Sex and Gender Information Value Date Recorded Sex Assigned at Not on file Legal Sex Female 4:31 AM MONUMENT INSTALLER Gender Identity Not on file Sexual Orientation Not on file documented as of this encounter Plan of Treatment Not on file documented as of this encounter Visit Diagnoses Diagnosis Sprain thoracic region- Primary Sprain of thoracic region documented in this encounter Care Teams Fisher Sponge Hooking Relationship Specialty Start Date End Date Non-Staff, Physician NO ADDRESS ON FILE PCP - General 11/28/19 03/30/20 documented as of this encounter
--- OUTSIDE RECORDS SUMMARY | 2025-02-18 11:04 | XMS_ITS | Encounter Summary ---
Author Organization [facility] Address [address] [place] [address] Care Team Providers Care Nailhead Setter Name Role Phone Non-Staff, Physician Primary Care Provider Unava ilable Encounter Details Date Type Department Care Team (Latest Contact Info) Description 05/16/2003 Outpatient Historical [facility] Medicine [address] [phone] Diana Chung MD NO ADDRESS ON FILE HYPOTHYROIDISM NOS (Primary Dx); INFEC OTITIS EXTERNA NOS; IMPACTED CERUMEN Social History Tobacco Use Types Packs/Day Years Used Date Smoking Tobacco: Never Assessed Comments Unknown Sex and Gender Information Value Date Recorded Sex Assigned at Not on file Legal Sex Female 4:31 AM ONLINE MARKETING STRATEGIST Gender Identity Not on file Sexual Orientation Not on file documented as of this encounter Plan of Treatment Not on file documented as of this encounter Visit Diagnoses Diagnosis Unspecified hypothyroidism- Primary Infective otitis externa, unspecified Impacted cerumen documented in this encounter Care Teams Nailhead Setter Relationship Specialty Start Date End Date Non-Staff, Physician NO ADDRESS ON FILE PCP - General 11/28/19 03/30/20 documented as of this encounter
--- OUTSIDE RECORDS SUMMARY | 2025-02-18 11:04 | XMS_ITS | Encounter Summary ---
Author Organization [facility] Address [address] [place] [address] Care Team Providers Care Tobacco Flavorer Name Role Phone Non-Staff, Physician Primary Care Provider Unava ilable Encounter Details Date Type Department Care Team (Latest Contact Info) Description 04/02/2004 Outpatient Historical [facility] Medicine [place] [address] [facility] [address] [place] [phone] Zoraida Arzola, SEGREGATOR [address] [place] [phone] Pain in limb (Primary Dx) Social History Tobacco Use Types Packs/Day Years Used Date Smoking Tobacco: Never Assessed Comments Unknown Sex and Gender Information Value Date Recorded Sex Assigned at Not on file Legal Sex Female 4:31 AM CLINICAL DATA ABSTRACTOR Gender Identity Not on file Sexual Orientation Not on file documented as of this encounter Plan of Treatment Not on file documented as of this encounter Visit Diagnoses Diagnosis Pain in limb- Primary Pain in soft tissues of limb documented in this encounter Care Teams Tobacco Flavorer Relationship Specialty Start Date End Date Non-Staff, Physician NO ADDRESS ON FILE PCP - General 11/28/19 03/30/20 documented as of this encounter
--- OUTSIDE RECORDS SUMMARY | 2025-02-18 11:04 | XMS_ITS | Encounter Summary ---
Author Organization [facility] Address [address] [place] [address] Care Team Providers Care Gaming Director Name Role Phone Unavailable Primary Care Provider Unavailabl e Encounter Details Date Type Department Care Team (Latest Contact Info) Description 10/24/2020 Ancillary Orders [employer] [facility] [place] [address] [place] [address] Zoraida Arzola, VP OUTCOMES [address] [place] [address] Ankylosing spondylitis of thoracolumbar region (CMS/HCC) Social History Tobacco Use Types Packs/Day Years Used Date Smoking Tobacco: Never Smokeless Tobacco: Never Alcohol Use Standard Drinks/Week Comments No 0 (1 standard drink = 0.6 oz pur e alcohol) Comments No Sex and Gender Information Value Date Recorded Sex Assigned at Not on file Legal Sex Female 4:31 AM DIGITAL X RAY SERVICE ENGINEER Gender Identity Not on file Sexual Orientation Not on file Occupation Industry Job Start Date Job End Date Not on file Not on file Not on file Not on file COVID-19 Exposure Response Date Recorded In the last month, have you been in contact with someone who was confirmed or suspected to have Coronavirus / COVID-19? No / Unsure 10/24/2020 11:33 AM CDT documented as of this encounter Plan of Treatment Not on file documented as of this encounter Results * XR LUMBAR SPINE 2 OR 3 VW (10/24/2020 12:09 PM CDT) Anatomical Region Laterality Modality Spine Computed Radiogr aphy 10/24/2020 12:0 9 PM CDT Impressions 10/26/2020 10:44 AM CDT IMPRESSION: Please see below. EXAM: XR LUMBAR SPINE 2 OR 3 VW DATE/TIME OF EXAM: 10/24/2020 12:09 PM HISTORY: See Diagnosis COMPARISON: October 27, 2018 FINDINGS: Bones: Normal vertebral body heights. No evidence of an acute fracture. Mineralization: Normal Alignment: Within normal limits Degenerative Changes: Mild intervertebral disc space narrowing at L3-L4. Degenerative facet changes. Soft Tissue: No appreciable soft tissue swelling or radiopaque foreign body. Prior cholecystectomy. IMPRESSION: No acute bony finding. Degenerative changes. Narrative 10/26/2020 10:44 AM CDT Procedure Note Buffy Sheets MD - 10/26/2020 IMPRESSION: Please see below. EXAM: XR LUMBAR SPINE 2 OR 3 VW DATE/TIME OF EXAM: 10/24/2020 12:09 PM HISTORY: See Diagnosis COMPARISON: October 27, 2018 FINDINGS: Bones: Normal vertebral body heights. No evidence of an acute fracture. Mineralization: Normal Alignment: Within normal limits Degenerative Changes: Mild intervertebral disc space narrowing at L3-L4. Degenerative facet changes. Soft Tissue: No appreciable soft tissue swelling or radiopaque foreign body. Prior cholecystectomy. IMPRESSION: No acute bony finding. Degenerative changes. Zoraida Arzola VP OUTCOMES DIAGNOSTIC IMAGING ORDERABL ES Final Result documented in this encounter Visit Diagnoses Diagnosis Ankylosing spondylitis of thoracolumbar region ([facility]/HCC) Ankylosing spondylitis Ankylosing spondylitis of thoracolumbar region ([facility]/HCC) Ankylosing spondylitis documented in this encounter Additional Health Concerns Assessment Noted Time PHQ-9 Depression Total Score: 2 08/17/19 19 10:00 AM DIGITAL X RAY SERVICE ENGINEER documented as of this encounter
--- OUTSIDE RECORDS SUMMARY | 2025-02-18 11:04 | XMS_ITS | Encounter Summary ---
Author Organization [facility] Address [address] [place] [address] Care Team Providers Care Hand Drawer In Name Role Phone Non-Staff, Physician Primary Care Provider Unava ilable Encounter Details Date Type Department Care Team (Latest Contact Info) Description 12/03/2003 Outpatient Historical [facility] Medicine [place] [address] [facility] [address] [place] [phone] Zoraida Arzola, VEHICLE BODY BUILDER [address] [place] [phone] IMPACTED CERUMEN (Primary Dx); ANXIETY STATE NOS Social History Tobacco Use Types Packs/Day Years Used Date Smoking Tobacco: Never Assessed Comments Unknown Sex and Gender Information Value Date Recorded Sex Assigned at Not on file Legal Sex Female 4:31 AM POT RELINER Gender Identity Not on file Sexual Orientation Not on file documented as of this encounter Plan of Treatment Not on file documented as of this encounter Visit Diagnoses Diagnosis Impacted cerumen- Primary Anxiety state, unspecified documented in this encounter Care Teams Hand Drawer In Relationship Specialty Start Date End Date Non-Staff, Physician NO ADDRESS ON FILE PCP - General 11/28/19 03/30/20 documented as of this encounter
--- OUTSIDE RECORDS SUMMARY | 2025-02-18 11:04 | XMS_ITS | Encounter Summary ---
Author Organization [facility] Address [address] [place] [address] Care Team Providers Care Extruder Operator Horizontal Name Role Phone Non-Staff, Physician Primary Care Provider Unava ilable Encounter Details Date Type Department Care Team (Latest Contact Info) Description 05/18/2002 Outpatient [facility] [address] [place] [address] Ibrahima Glasgow MD [address] [facility] [address] [place] [phone] HYPOTHYROIDISM NOS (Primary Dx) Social History Tobacco Use Types Packs/Day Years Used Date Smoking Tobacco: Never Assessed Comments Unknown Sex and Gender Information Value Date Recorded Sex Assigned at Not on file Legal Sex Female 4:31 AM BRANCH OFFICE MANAGER Gender Identity Not on file Sexual Orientation Not on file documented as of this encounter Plan of Treatment Not on file documented as of this encounter Visit Diagnoses Diagnosis Unspecified hypothyroidism- Primary documented in this encounter Care Teams Extruder Operator Horizontal Relationship Specialty Start Date End Date Non-Staff, Physician NO ADDRESS ON FILE PCP - General 11/28/19 03/30/20 documented as of this encounter
--- OUTSIDE RECORDS SUMMARY | 2025-02-18 11:05 | XMS_ITS | Encounter Summary ---
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 Name Role Phone Unavailable Primary Care Provider Unavailabl e Encounter Details Date Type Department Care Team (Late st Contact Info) Description 12/01/2020 Ancillary Orders [facility] Hospitality [facility]ers [place] [address] [place] [address] Zoraida Arzola, LEASING PROPERTY MANAGER [address] [place] [address] Cough Social History Tobacco Use Types Packs/Day Years Used Date Smoking Tobacco: Never Smokeless Tobacco: Never Alcohol Use Standard Drinks/Week Comments No 0 (1 standard drink = 0.6 oz pur e alcohol) Comments No Sex and Gender Information Value Date Recorded Sex Assigned at Not on file Legal Sex Female 4:31 AM PER ASSESSMENT NURSE Gender Identity Not on file Sexual Orientation Not on file Occupation Industry Job Start Date Job End Date Not on file Not on file Not on file Not on file COVID-19 Exposure Response Date Recorded In the last month, have you been in contact with someone who was confirmed or suspected to have Coronavirus / COVID-19? No / Unsure 12/01/2020 2:01 PM CDT documented as of this encounter Plan of Treatment Not on file documented as of this encounter Results * XR CHEST PA AND LATERAL 2 VW (12/01/2020 2:15 PM CDT) Anatomical Region Laterality Modality Chest Computed Radiogr aphy 12/01/2020 2:17 PM CDT Impressions 12/02/2020 4:57 PM CDT IMPRESSION: See below. Exam: XR CHEST PA AND LATERAL 2 VW Date/Time of Exam: 12/01/2020 2:15 PM Reason For Exam: See Diagnosis. Diagnosis: Cough. Prior: 03/10/2020 Findings: The cardiomediastinal silhouette is normal. No acute focal airspace disease, pleural effusion, or pneumothorax. No acute osseous abnormality. Anchors are seen within the right humeral head. Narrative Procedure Note Tuan Gerardo, DO - 12/02/2020 IMPRESSION: See below. Exam: XR CHEST PA AND LATERAL 2 VW Date/Time of Exam: 12/01/2020 2:15 PM Reason For Exam: See Diagnosis. Diagnosis: Cough. Prior: 03/10/2020 Findings: The cardiomediastinal silhouette is normal. No acute focal airspace disease, pleural effusion, or pneumothorax. No acute osseous abnormality. Anchors are seen within the right humeral head. Zoraida Arzola LEASING PROPERTY MANAGER DIAGNOSTIC IMAGING ORDERABL ES Final Result documented in this encounter Visit Diagnoses Diagnosis Cough Cough documented in this encounter Additional Health Concerns Assessment Noted Time PHQ-9 Depression Total Score: 2 08/17/19 19 10:00 AM PER ASSESSMENT NURSE documented as of this encounter
[2025-02-18 11:06] VITALS: BP 159/80; PULSE 79; RESP 18; TEMP 36.4; O2SAT 96
--- NOTE | 2025-02-18 11:11 | XRR_ITS ---
PROCEDURE INFORMATION: Exam: XR Right Knee Exam date and time: 02/18/2025 11:43 AM Age: 75 years old Clinical indication: Pain; Knee; Right TECHNIQUE: Imaging protocol: Radiologic exam of the right knee. Views: 3 views. COMPARISON: CR XR knees AP WB w RT lmt ORTH 07/27/2021 8:18 AM FINDINGS: Bones/joints: Moderate medial compartment narrowing and spurring. No fracture or dislocation. No erosion or chondrocalcinosis. Soft tissues: Normal. XR/XR knee RT 3V* [id number] IMPRESSION: Moderate degenerative changes.
--- NOTE | 2025-02-18 11:23 | W.ED.EXTPRO ---
HPI - Extremity Problem General: Chief complaint: Extremity Injury, Lower Stated complaint: unable to put pressure on right knee Time Seen by Provider: 02/18/25 11:22 History of Present Illness: 75-year-old female presents emergency room complaints of right knee pain. She is scheduled to have a right knee arthroplasty she had a steroid injection in the right knee 6 days ago. She twisted while standing up felt a popping sensation unannounced unable to bear weight. She had this happen the day after she had her knee injection. The injection was 6 days ago the following day she felt a popping sensation in her leg since that has progressively become more painful to the point where this morning she cannot bear weight with her right knee. Related Data Home Medications ?Medication ?Instructions ?Recorded ?Confirmed aspirin 81 mg tablet,delayed 81 mg PO DAILY@0700 07/27/19 02/18/25 release atorvastatin 40 mg tablet 40 mg PO DAILY 08/16/24 02/18/25 apixaban 5 mg tablet (Eliquis) 5 mg PO BID 02/18/25 02/18/25 carvedilol 25 mg tablet 25 mg PO BID 02/18/25 02/18/25 levothyroxine 150 mcg tablet 150 mcg PO QAM 02/18/25 02/18/25 topiramate 25 mg tablet 25 mg PO DAILY 02/18/25 02/18/25 trazodone 150 mg tablet 150 - 300 mg PO BEDTIME@2100 02/18/25 02/18/25 valsartan 320 1 tab PO DAILY 02/18/25 02/18/25 mg-hydrochlorothiazide 12.5 mg tablet Previous Rx's ?Medication ?Instructions ?Recorded blood-glucose meter (Blood Glucose #1 ea 03/03/20 Monitoring kit) albuterol sulfate 0.63 mg/3 mL 0.63 mg (3 mL) inhalation QID PRN 10/28/20 solution for nebulization shortness of breath or wheezing #90 mL lancets (Accu-Chek Softclix #100 ea 12/30/22 Lancets) blood sugar diagnostic (Accu-Chek #100 ea 02/17/23 Felisha Plus test strips) albuterol sulfate 90 mcg/actuation 2 puff inhalation Q6H PRN 12/18/24 aerosol inhaler shortness of breath or wheezing #18 grams metformin 500 mg tablet 500 mg PO DAILY #90 tabs 01/08/25 mupirocin 2 % topical ointment 1 applic topical BID #15 grams 01/09/25 (Centany) aripiprazole 5 mg tablet (Abilify) 5 mg PO DAILY #30 tabs 02/04/25 duloxetine 60 mg capsule,delayed 60 mg PO BID@0700,2100 #60 caps 02/13/25 release (Cymbalta) prazosin 2 mg capsule 2 mg PO .HS #30 caps 02/13/25 oxycodone-acetaminophen 5 mg-325 1 tab PO Q6H PRN pain #12 tabs 02/18/25 mg tablet (Percocet) potassium chloride 20 mEq See Rx Instructions .Route 02/19/25 tablet,extended release .COMPLEX #90 tabs Allergies Allergy/AdvReac Type Severity Reaction Status Date / Time adhesive tape Allergy Mild RASH Verified 02/15/25 09:03 carbamazepine (From Tegretol) Allergy Mild UNKNOWN Verified 02/15/25 09:03 cortisone Allergy Mild UNKNOWN Verified 02/15/25 09:03 hydrocodone Allergy Mild UNKNOWN Verified 02/15/25 09:03 Iodinated Contrast Media Allergy Mild UNKNOWN Verified 02/15/25 09:03 iodine Allergy Mild MILD Verified 02/15/25 09:03 Penicillins Allergy Mild NAUSEA Verified 02/15/25 09:03 Sulfa (Sulfonamide Allergy Mild NAUSEA Verified 02/15/25 09:03 Antibiotics) Review of Systems Musc: Reports: joint pain PFSH ED PFSH: Medical History Psychiatric care CHF (congestive heart failure) Congestive heart failure Osteoarthritis of right knee Acute torn meniscus of knee Post-traumatic stress disorder, chronic Major depressive disorder, recurrent severe without psychotic features Osteoarthritis Depression HTN (hypertension), benign Hypothyroidism Surgical History Hx of colonoscopy with polypectomy 10+ years H/O esophagogastroduodenoscopy (04/15/20) H/O: hysterectomy Hx of tonsillectomy H/O tubal ligation History of repair of rotator cuff right H/O colonoscopy 5 yrs ago History of knee replacement Family History Other CAD (coronary artery disease) Cancer Chronic kidney disease (CKD) Diabetes Hypertension Denies family history of Anesthesia complication Bleeding disorder Stroke Social History Smoking and tobacco/nicotine status: never used tobacco/nicotine Second hand smoke exposure: No Alcohol intake: never Substance/Drug Use: never Adopted: No Caregiver/support person: No Lives independently: Yes Household members: spouse Marital status: Current gender identity: Female Physical Exam Const: COMMON NORMALS: no acute distress GENERAL APPEARANCE: cooperative and comfortable ORIENTATION/CONSCIOUSNESS: Yes awake, Yes oriented to person, Yes oriented to place and Yes oriented to time HENMT: COMMON NORMALS: normocephalic, atraumatic and hearing grossly normal bilaterally HEAD & SCALP: normocephalic and atraumatic Resp: COMMON NORMALS: normal respiratory effort, No retractions, No use of accessory muscles and clear to auscultation bilaterally AUSCULTATION: clear to auscultation bilaterally Cardio: COMMON NORMALS: regular rate, regular rhythm and No murmurs present (Cardio) RATE: regular rate RHYTHM: regular rhythm Extremity: COMMON NORMALS: normal to inspection, capillary refill normal, no clubbing, cyanosis or edema, no calf tenderness and no pedal edema OTHER: Arthritic changes of the knee both joint effusion no obvious deformities. Neuro: SENSORIUM/ORIENTATION: Yes oriented to person, Yes oriented to place and Yes oriented to time Skin: COMMON NORMALS: no rashes or lesions noted GENERAL SKIN EXAM: no rashes or lesions noted Course Vital Signs: Vital signs: Vital Signs Temperature 97.5 F L 02/18/25 11:06 Pulse Rate 79 02/18/25 11:06 Respiratory Rate 18 02/18/25 11:06 Blood Pressure 185/94 02/18/25 11:33 Pulse Oximetry 98 02/18/25 13:23 MDM - Extremity (Nontraumatic) Medical Decision Making Osteoarthritic changes in the knee to the on the x-ray. No acute findings white count normal sed rate normal. She has acute knee pain exacerbation of her osteoarthritis she can use Percocet for pain. Give her 12 tablets she should follow-up with her primary care doctor to discuss referral for orthopedics if pain persist. Lab Data 02/18/25 11:43 Radiology Impressions Knee X-Ray 02/18/25 11:11 IMPRESSION: Moderate degenerative changes. Laboratory Results WBC 10.16 10^3/uL (3.29-11.43) 02/18/25 11:43 RBC 4.64 10^6/uL (3.85-5.65) 02/18/25 11:43 Hgb 12.10 g/dL (11.27-16.99) 02/18/25 11:43 Hct 38.9 % (36-47) 02/18/25 11:43 MCV 83.8 fl (85-98) L 02/18/25 11:43 MCH 26.1 pg (27-33) L 02/18/25 11:43 MCHC 31.1 g/dL (30-55) 02/18/25 11:43 RDW 14.2 % (12.1-15.1) 02/18/25 11:43 Plt Count 236 10^3/cmm (157-399) 02/18/25 11:43 MPV 9.3 fL (7.4-10.4) 02/18/25 11:43 Neut % (Auto) 81.0 % 02/18/25 11:43 Lymph % (Auto) 11.3 % 02/18/25 11:43 Chaves % (Auto) 4.3 % 02/18/25 11:43 Eos % (Auto) 2.6 % 02/18/25 11:43 Baso % (Auto) 0.2 % 02/18/25 11:43 Neut # (Auto) 8.23 10^3/uL (1.8-7.7) H 02/18/25 11:43 Lymph # (Auto) 1.2 10^3/uL (0.8-4.8) 02/18/25 11:43 Chaves # (Auto) 0.4 10^3/uL (0.2-0.9) 02/18/25 11:43 Eos # (Auto) 0.3 10^3/uL (0.0-0.8) 02/18/25 11:43 Baso # (Auto) 0.0 10^3/uL (0.0-0.1) 02/18/25 11:43 Nucleated RBC % (auto) 0 % 02/18/25 11:43 Nucleated RBCs # 0.0 /100WBC 02/18/25 11:43 ESR 6 mm/hr (0-15) 02/18/25 11:43 All radiology interpretation(s) finalized by discharge Discharge Plan Discharge Patient Disposition: Home Clinical Impression: Acute pain of right knee Condition: Stable Prescriptions: New oxycodone-acetaminophen [Percocet] 5-325 mg tablet 1 tab PO Q6H PRN (Reason: pain) Qty: 12 0RF No Action aspirin 81 mg tablet,delayed release (DR/EC) 81 mg PO DAILY@0700 albuterol sulfate 0.63 mg/3 mL solution for nebulization 0.63 mg INHALATION QID PRN (Reason: shortness of breath or wheezing) Qty: 90 1RF (DME) blood-glucose meter [Blood Glucose Monitoring] Kit See Rx Instructions .ROUTE .MEDSUPPLY Qty: 1 0RF Rx Instructions: As directed mupirocin [Centany] 2 % ointment 1 applic topical BID Qty: 15 0RF (DME) lancets [Accu-Chek Softclix Lancets] Misc See Rx Instructions .ROUTE .MEDSUPPLY Qty: 100 0RF Rx Instructions: As directed (DME) Accu-Chek Felisha Plus test strp Strip See Rx Instructions .ROUTE .COMPLEX Qty: 100 0RF Dose Instruction: USE DIRECTED Rx Instructions: USE DIRECTED albuterol sulfate 90 mcg/actuation HFA aerosol inhaler 2 puff INHALATION Q6H PRN (Reason: shortness of breath or wheezing) Qty: 18 1RF metformin 500 mg tablet 500 mg PO DAILY Qty: 90 0RF Rx Instructions: TAKE 1 TABLET BY MOUTH ONCE DAILY AT 0700 aripiprazole [Abilify] 5 mg tablet 5 mg PO DAILY Qty: 30 1RF duloxetine [Cymbalta] 60 mg capsule,delayed release(DR/EC) 60 mg PO BID@0700,2100 Qty: 60 2RF prazosin 2 mg capsule 2 mg PO .HS Qty: 30 2RF potassium chloride 20 mEq tablet extended release See Rx Instructions .ROUTE .COMPLEX Qty: 90 0RF Dose Instruction: TAKE 1 TABLET BY MOUTH THREE TIMES DAILY Rx Instructions: TAKE 1 TABLET BY MOUTH THREE TIMES DAILY atorvastatin 40 mg tablet 40 mg PO DAILY carvedilol 25 mg tablet 25 mg PO BID topiramate 25 mg tablet 25 mg PO DAILY trazodone 150 mg tablet 150 - 300 mg PO BEDTIME@2100 levothyroxine 150 mcg tablet 150 mcg PO QAM valsartan-hydrochlorothiazide 320-12.5 mg tablet 1 tab PO DAILY Eliquis 5 mg tablet 5 mg PO BID Discharge Orders: Discharge ED (Routine); Ordered 02/18/25 Ordered By: Asael Bedoya Referrals: Zoraida Arzola, SENIOR SALES ASSOCIATE [Primary Care Provider, Family Practice] Discharge Diet: Usual diet Discharge Activity: Increase activity as tolerated Patient Instructions: Opioid Safety, Pain Management, Patient Portal & Kofi Instructions Activity Restrictions/Additional Instructions: Thank you for choosing [facility] for your healthcare needs today. It is very important that you follow up as instructed or that you return to the Emergency Department should you have concerns or if your condition changes or worsens in any way. You were seen for right knee pain x-ray did not show any acute fracture recommend you follow-up with your orthopedic doctor. For now use knee immobilizer toe-touch weight on the walker. Print Language: Icelandic Coding Level of Care Code ED Grinder Operator for July [place]ht[place]
[2025-02-18 11:33] VITALS: BP 185/94; O2SAT 97
[2025-02-18 11:48] LABS: Hematocrit 38.9 % (36-47); Hemoglobin 12.10 g/dL (11.27-16.99); Mean Corpuscular HGB Conc 31.1 g/dL (30-55); Mean Corpuscular Hemoglobin 26.1 pg (27-33); Mean Corpuscular Volume 83.8 fl (85-98); Nucleated Red Blood Cells % 0 %; Platelet Count 236 10^3/cmm (157-399); Red Blood Count 4.64 10^6/uL (3.85-5.65); White Blood Count 10.16 10^3/uL (3.29-11.43)
[2025-02-18 13:23] VITALS: O2SAT 98
== END 2025-02-18 13:54 | disposition home or self-care (01) ==
PROVIDERS: Emergency Provider Family Medicine; PCP Nurse Practitioner Family
DX: M25.561 Pain in right knee (principal); Z79.82 Long term (current) use of aspirin; Z79.84 Long term (current) use of oral hypoglycemic drugs; Z79.01 Long term (current) use of anticoagulants; I11.0 Hypertensive heart disease with heart failure; I50.9 Heart failure, unspecified
CPT/HCPCS: 36415; 73562; 85025; 85651; 96372; 99284; J1885

== ENCOUNTER 2025-02-28 09:25 | Outpatient (CLI) | payer OTHER, MEDICAID, SELFPAY ==
--- NOTE | 2025-02-28 | ECG_ITS ---
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 Interpretive Statements LEXISCAN SESTAMIBI STRESS TEST Procedure: At the baseline, the blood pressure was 173/94 mmHg with a heart rate of 77 bpm. The electrocardiogram showed normal sinus rhythm, normal axis, poor R wave progression, cannot rule out old anterior infarction, with normal ST and T's. The Lexiscan was infused over a period of 20 seconds. A total of 0.4 mg of Lexiscan was infused. The stress phase was continued for a total of 5 minutes. Heart rate was at the end of stress phase was 104 bpm and a blood pressure of 147/95 mmHg. The EKG at the peak infusion revealed normal sinus rhythm with no significant ST-T wave changes. Sestamibi was injected 20 seconds after the Lexiscan infusion. Blood pressure at the end of recovery phase was 165/94 mmHg with a heart rate of 82 bpm. Conclusion: 1. Normal EKG response to Lexiscan infusion 2. No Lexiscan induced chest pain or cardiac arrhythmia. 3. Normal blood pressure and heart rate response. 4. Nuclear myocardial perfusion scan pending; see separate report. Electronically Signed On 03-03-2025 12:14:22 CDT by Brent Garcia M.D. [email or web address]
[2025-02-28 09:45] VITALS: BMI 46.6
--- NOTE | 2025-02-28 09:45 | NMCV_ITS ---
NM buddy perf SPECT r/s* [id number] Adilene Freedman Age: 75 Gender: F : 1950 Exam Date: 02/28/2025 10:37 Ordering Phys: Alvin Wyatt M.D ([email or web address]) Technologist: SANGEETHA Handy Exam Location: [facility] Indications: cp STRESS TEST [facility] IMAGE PROTOCOL Rest/Stress 1 Lexiscan Day Radiopharmaceutical Dose (mCi) Administration Site Administered by Rest: Tc-99m 10.8 IV Mariama Yarbrough INTEGRATED SPECIALIST Sestamibi Stress:Tc-99m 33 IV Mariama Gallardogle, INTEGRATED SPECIALIST Sestamibi Rest: 28-Feb-2025 60 Discovery 630 Stress: 28-Feb-2025 30 Discovery 630 0.4mg Lexiscan. Supine position only as patient was unable to lay prone. SPECT RESULTS Technical Quality: Good Raw Data Analysis: Breast attenuation Image Corrections: No attenuation or motion correction applied Summed Stress Score: 6 Summed Rest Score: 3 Summed Difference Score: 6 PERFUSION FINDINGS There is a medium sized area of moderately reduced tracer counts in the anterior wall on both the rest and stress images. FUNCTIONAL RESULTS (calculated via Gated SPECT) Stress Image LV EF (%): 65 Stress EDV (mL):152 TID: 0.72 Stress ESV (mL):53 FUNCTIONAL FINDINGS: Normal LV size and systolic function, EF 65% IMPRESSIONS 1. Myocardial perfusion imaging consistent with breast attenuation artifact. No ischemia or infarction. 2. Normal LV size and systolic function Brent Garcia MD, FACC (Electronically Signed) Final Date: 28 February 2025 17:10 S
[2025-02-28 11:34] VITALS: BP 165/94; PULSE 85
== END 2025-02-28 09:26 | disposition home or self-care (01) ==
LOC: CDL 09:26
PROVIDERS: PCP Nurse Practitioner Family; Visit Provider Internal Medicine
DX: R07.9 Chest pain, unspecified (principal)
CPT/HCPCS: 36415; 78452; 93017; 96374; A9500; J2785

== ENCOUNTER 2025-03-13 10:25 | Outpatient (CLI) | payer MEDICARE, MEDICAID, SELFPAY | END 2025-03-13 10:26 | disposition home or self-care (01) | PROVIDERS: PCP Nurse Practitioner Family; Visit Provider Specialist | DX: M17.11 Unilateral primary osteoarthritis, right knee (principal); Z96.652 Presence of left artificial knee joint; M25.761 Osteophyte, right knee; S93.01XA Subluxation of right ankle joint, initial encounter; X58.XXXA Exposure to other specified factors, initial encounter | CPT/HCPCS: 73560; 73565; 99214 ==

== ENCOUNTER → 2025-05-24 08:29 | Outpatient (BNVA) | payer MEDICARE, MEDICAID, SELFPAY | PROVIDERS: PCP Nurse Practitioner Family; Visit Provider Specialist | DX: M17.11 Unilateral primary osteoarthritis, right knee (principal) | CPT/HCPCS: 20610; J1100; J2795; J3301; J9999 ==